=== PATIENT | male | born 1950 | race African-American/Black ===

== ENCOUNTER 2017-03-11 20:27 | Inpatient (IN) | payer MEDICAID ==
[2017-03-11 22:42] LABS: ABSOLUTE BASOPHILS # (AUTO) 0.1 10^3/uL (0.0-0.2); ABSOLUTE EOSINOPHILS # (AUTO) 0.2 10^3/uL (0.0-0.6); ABSOLUTE MONOCYTES (AUTO) 0.6 10^3/uL (0.1-1.4); ABSOLUTE NEUT (AUTO) 4.1 10^3/uL (1.7-8.2); EOSINOPHILS % (AUTO) 2.2 % (0-6); HEMATOCRIT 35.9 % (37.9-51.0); HEMOGLOBIN 12.1 g/dL (13.5-17.0); HGB HCT DIFFERENCE 0.4; LYMPHOCYTES % (AUTO) 28.8 % (13-45); MEAN CORPUSCULAR HEMOGLOBIN 28.7 pg (27.0-33.4); MEAN CORPUSCULAR HGB CONC 33.8 g/dL (32.0-36.0); MEAN CORPUSCULAR VOLUME 85 fl (80-97); MONOCYTES % (AUTO) 8.8 % (3-13); RED BLOOD COUNT 4.22 10^6/uL (4.35-5.55); RED CELL DISTRIBUTION WIDTH 12.9 % (11.5-14.0); SEGMENTED NEUTROPHILS % (AUTO) 59.2 % (42-78)
--- NOTE | 2017-03-11 22:46 | EKG REPORT ---
SEVERITY:- NORMAL ECG - SINUS RHYTHM : Confirmed by: Rubin Sawyer 11-Mar-2017 22:45:39
[2017-03-11 23:01] LABS: ALANINE AMINOTRANSFERASE 44 U/L (21-72); ALBUMIN 3.6 g/dL (3.5-5.0); ALKALINE PHOSPHATASE 127 U/L (38-126); AMYLASE 86 U/L (30-110); ANION GAP 11 (5-19); ASPARTATE AMINO TRANSFERASE 27 U/L (17-59); BILIRUBIN,DIRECT 0.3 mg/dL (0.0-0.4); BILIRUBIN,TOTAL 0.5 mg/dL (0.2-1.3); BLOOD UREA NITROGEN 26 mg/dL (7-20); CALCIUM 9.6 mg/dL (8.4-10.2); CARBON DIOXIDE 26 mmol/L (22-30); CHLORIDE 95 mmol/L (98-107); CREATININE RESULT 1.58 mg/dL (0.52-1.25); GLUCOSE 302 mg/dL (75-110); LIPASE 107.6 U/L (23-300); POTASSIUM 4.5 mmol/L (3.6-5.0); SODIUM 131.9 mmol/L (137-145); TOTAL PROTEIN 6.9 g/dL (6.3-8.2)
[2017-03-11] MEDS: NORMAL SALINE 1000 ML 1,000 ML IV PRN (23:17)
[2017-03-11] MEDS ORDERED: DEXTROSE 40% GEL 15 GM TUBE PO PRN (23:41)
[2017-03-11] MEDS ORDERED: GLUCAGON,HUMAN RECOMB 1 MG INJ IM PRN (23:41)
[2017-03-11] MEDS ORDERED: DEXTROSE 40% GEL 15 GM TUBE X 2 PO PRN (23:41)
[2017-03-11] MEDS ORDERED: DEXTROSE 50%-WATER SYRINGE 12.5 GM/25 ML DOSE IV PRN (23:41)
[2017-03-11] MEDS ORDERED: DEXTROSE 50%-WATER SYRINGE 25 GM/50 ML DOSE IV PRN (23:41)
[2017-03-11] MEDS ORDERED: CYCLOBENZAPRINE HCL 10 MG TABLET PO PRN (23:46)
[2017-03-12 00:27] LABS: APPEARANCE,URINE CLEAR; BILIRUBIN,URINE NEGATIVE (NEGATIVE); GLUCOSE, URINE >=500 mg/dL (NEGATIVE); KETONES,URINE NEGATIVE (NEGATIVE); LEUKOCYTE ESTERASE,URINE NEGATIVE (NEGATIVE); NITRITE,URINE NEGATIVE (NEGATIVE); PROTEIN,URINE 100 mg/dL (NEGATIVE); URINE SPECIFIC GRAVITY 1.016; UROBILINOGEN,URINE NEGATIVE mg/dL (<2.0)
[2017-03-12] MEDS: INSULIN LISPRO 100 UNIT/ML 3 ML VIAL SUBCUT PRN ×2 (00:44→12:09)
--- NOTE | 2017-03-12 05:56 | RADIOLOGY REPORT (SQ) ---
EXAM DESCRIPTION: CT ABD/PELVIS WITH IV ONLY COMPLETED DATE/TIME: 03/12/2017 12:29 am REASON FOR STUDY: abdominal pain COMPARISON: None. TECHNIQUE: CT scan of the abdomen and pelvis performed using helical scanning technique with dynamic intravenous contrast injection. No oral contrast. Images reviewed with lung, soft tissue, and bone windows. Reconstructed coronal and sagittal MPR images reviewed. Delayed images for evaluation of the urinary system also acquired. All images stored on PACS. All CT scanners at this facility use dose modulation, iterative reconstruction, and/or weight based d osing when appropriate to reduce radiation dose to as low as reasonably achievable (ALARA). [facility]: Dose Right [facility]: CareDose [facility]: Dose Right [facility]: Teradose 4D [facility]: [employer] CONTRAST TYPE AND DOSE: contrast/concentration: Isovue 370.00 mg/ml; Total Contrast Delivered: 100.0 ml; Total Saline Delivered: 71.0 ml RENAL FUNCTION: Creatinine 1.6 RADIATION DOSE: Up-to-date CT equipment and radiation dose reduction techniques were employed. CTDIv ol: 18.6 - 20.4 mGy. DLP: 2164 mGy-cm.. LIMITATIONS: None. FINDINGS: LOWER CHEST: No significant findings. No nodules or infiltrates. Small moderate coronary arterial calcification. The LIVER: Normal size. No masses. No dilated ducts. SPLEEN: Small size. No focal lesions. PANCREAS: No masses. No significant calcifications. No adjacent inflammation or peripancreatic fluid collections. Pancreatic duct not dilated. GALLBLADDER: 2.5 cm fundal soft tissue density lesion within the gallbladder. Small layered cholelit hiasis. ADRENAL GLANDS: No significant masses or asymmetry. RIGHT KIDNEY AND URETER: No solid masses. No significant calcifications. No hydronephrosis or hyd roureter. Mild perinephric fat stranding. LEFT KIDNEY AND URETER: No solid masses. No significant calcifications. No hydronephrosis or hydr oureter.Mild perinephric fat stranding. AORTA AND VESSELS: No aneurysm. No dissection. Renal arteries, SMA, celiac without stenosis. IVC aleksandr ter. RETROPERITONEUM: No retroperitoneal adenopathy, hemorrhage or masses. BOWEL AND PERITONEAL CAVITY: No masses or inflammatory changes. No free fluid or peritoneal masses. Mild haziness of mesenteric fat, nonspecific. APPENDIX: Normal. PELVIS: No mass. No free fluid. Normal bladder. ABDOMINAL WALL: No masses. No hernias. BONES: No significant or acute findings. OTHER: No other significant finding. IMPRESSION: Cholelithiasis and 2.5 cm nonspecific soft tissue density lesion at the gallbladder fund us. Correlation with abdominal sonogram recommended. TECHNICAL DOCUMENTATION: JOB ID: [id number] Quality ID # [id number]: Final reports with documentation of one or more dose reduction techniques (e.g., Au tomated exposure control, adjustment of the mA and/or kV according to patient size, use of iterative reconstruction technique) 2010 [employer]- All Rights Reserved
[2017-03-12] MEDS ORDERED: METFORMIN HCL 500 MG TABLET PO SCH (08:00)
[2017-03-12] MEDS: INSULIN GLARGINE,HUM.REC.ANLOG 1,000 UNIT/10 ML UNIT SUBCUT SCH ×2 (08:48→21:41)
[2017-03-12] MEDS ORDERED: (PENDING PHARMACY ID) (Losartan/Hydrochlorothiazide [Hyzaar 100-25 Tablet] 1 EACH) PO SCH (10:00)
[2017-03-12] MEDS: DULOXETINE HCL 30 MG CAPSULE.DR PO SCH (10:28)
[2017-03-12] MEDS: PIOGLITAZONE HCL 30 MG TABLET PO SCH (10:29)
[2017-03-12] MEDS: ASPIRIN 81 MG TABLET, CHEWABLE PO SCH (10:30)
[2017-03-12] MEDS: CLOPIDOGREL BISULFATE 75 MG TABLET PO SCH (10:30)
[2017-03-12] MEDS: HYDROCHLOROTHIAZIDE 25 MG TABLET PO SCH (10:30)
[2017-03-12] MEDS: LOSARTAN POTASSIUM 50 MG TABLET PO SCH (10:30)
[2017-03-12] MEDS: NORMAL SALINE 1000 ML 1,000 ML IV PRN ×2 (11:29→21:41)
--- NOTE | 2017-03-12 15:14 | PDOC H&P ---
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 The abdominal pain was diffuse, he was examined in the off, on palpation of the abdomen there was diffuse tenderness. He was admitted directly from the office into the hospital for evaluation, CAT scan of the abdomen and pelvis with IV contrast was done it is showed a 2.5 cm fundal soft tissue density lesion within the gallbladder,there is small layered cholelithiasis Past Medical History Cardiac Medical History: Reports: Hyperlipidema, Hypertension, Pulmonary Embolism Endocrine Medical History: Reports: Diabetes Mellitus Type 2 Renal/ Medical History: Reports: Chronic Kidney Disease Psychiatric Medical History: Reports: Depression Social History Smoking Status: Former Smoker Last Time Smoked: 1998 Frequency of Alcohol Use: None Hx Recreational Drug Use: No Drugs: None Hx Prescription Drug Abuse: No Family History Family History: None Parental Family History Reviewed: Yes Children Family History Reviewed: Yes Sibling(s) Family History Reviewed.: Yes Medication/Allergy Home Medications: Clopidogrel Bisulfate [Plavix 75 mg Tablet] 75 mg PO DAILY 07/27/13 Cyclobenzaprine HCl [Flexeril 10 mg Tablet] 10 mg PO Q8HP PRN 07/27/13 Insulin Glargine,Hum.rec.anlog [Lantus] 80 unit SQ QAM 07/27/13 Insulin Glargine,Hum.rec.anlog [Lantus] 80 unit SQ QHS 07/27/13 Losartan/Hydrochlorothiazide [Hyzaar 100-25 Tablet] 1 each PO DAILY 07/27/13 Aspirin [Aspirin 81 mg Chewable Tablet] 81 mg PO DAILY 09/05/13 Pioglitazone HCl [Actos 30 mg Tablet] 30 mg PO DAILY #30 tablet 09/06/13 Duloxetine HCl [Cymbalta] 60 mg PO DAILY 03/11/17 Metformin HCl [Glucophage] 1,000 mg PO BIDBS 03/11/17 Allergies/Adverse Reactions: iodine [Iodine] Allergy (Verified 07/27/13 17:04) Penicillins Allergy (Verified 07/27/13 17:04) Shellfish * [Shellfish] Allergy (Verified 07/27/13 17:04) Review of Systems Constitutional: PRESENT: weight gain Eyes: ABSENT: visual disturbances Ears: ABSENT: hearing changes Cardiovascular: ABSENT: chest pain, dyspnea on exertion, edema, orthropnea, palpitations Respiratory: ABSENT: cough, hemoptysis Gastrointestinal: PRESENT: abdominal pain Genitourinary: ABSENT: dysuria, hematuria Musculoskeletal: ABSENT: joint swelling Integumentary: ABSENT: rash, wounds Neurological: ABSENT: abnormal gait, abnormal speech, confusion, dizziness, focal weakness, syncope Psychiatric: ABSENT: anxiety, depression, homidical ideation, suicidal ideation Endocrine: ABSENT: cold intolerance, heat intolerance, menstrual abnormalities, polydipsia, polyuria Hematologic/Lymphatic: ABSENT: easy bleeding, easy bruising, lymphadenopathy Physical Exam Vital Signs: Temp Pulse Resp BP Pulse Ox 98.5 F 80 16 133/75 H 99 03/12/17 11:40 03/12/17 11:40 03/12/17 11:40 03/12/17 11:40 03/12/17 11:40 Intake & Output 03/11/17 03/12/17 03/13/17 06:59 06:59 06:59 Intake Total 564 Output Total 600 Balance -36 Weight 113.3 kg 113.3 kg General appearance: PRESENT: no acute distress, well-developed, well-nourished Head exam: PRESENT: atraumatic, normocephalic Eye exam: PRESENT: conjunctiva pink, EOMI, PERRLA Ear exam: PRESENT: normal external ear exam Mouth exam: PRESENT: moist, tongue midline Neck exam: PRESENT: full ROM Respiratory exam: PRESENT: clear to auscultation [place] Cardiovascular exam: PRESENT: RRR, +S1, +S2 Pulses: PRESENT: normal dorsalis pedis pul, +2 pedal pulses bilateral Vascular exam: PRESENT: normal capillary refill GI/Abdominal exam: PRESENT: normal bowel sounds, soft, tenderness Rectal exam: PRESENT: deferred Neurological exam: PRESENT: alert, CN II-XII grossly intact Psychiatric exam: PRESENT: appropriate affect, normal mood Skin exam: PRESENT: dry, intact, warm Results Laboratory Results: 03/11/17 22:20 03/11/17 22:20 03/11/17 03/11/17 03/11/17 22:20 22:20 23:58 WBC 7.0 RBC 4.22 L Hgb 12.1 L Hct 35.9 L MCV 85 MCH 28.7 MCHC 33.8 RDW 12.9 Plt Count 245 Seg Neutrophils % 59.2 Lymphocytes % 28.8 Monocytes % 8.8 Eosinophils % 2.2 Basophils % 1.0 Absolute Neutrophils 4.1 Absolute Lymphocytes 2.0 Absolute Monocytes 0.6 Absolute Eosinophils 0.2 Absolute Basophils 0.1 Sodium 131.9 L Potassium 4.5 Chloride 95 L Carbon Dioxide 26 Anion Gap 11 BUN 26 H Creatinine 1.58 H Est GFR ( Amer) 54 L Est GFR (Non-Af Amer) 44 L Glucose 302 H Calcium 9.6 Total Bilirubin 0.5 AST 27 ALT 44 Alkaline Phosphatase 127 H Total Protein 6.9 Albumin 3.6 Amylase 86 Lipase 107.6 Urine Color STRAW Urine Appearance CLEAR Urine pH 5.0 Ur Specific [place] 1.016 Urine Protein 100 H Urine Glucose (UA) >=500 H Urine Ketones NEGATIVE Urine Blood NEGATIVE Urine Nitrite NEGATIVE Ur Leukocyte Esterase NEGATIVE Urine WBC (Auto) 1 Urine RBC (Auto) 1 Impressions: Abdomen/Pelvis CT 03/12/17 00:00 IMPRESSION: Cholelithiasis and 2.5 cm nonspecific soft tissue density lesion at the gallbladder fundus. Correlation with abdominal sonogram recommended. Assessment & Plan - Diagnosis (1) Cholelithiases Qualifiers: Cholelithiasis location: gallbladder Cholecystitis presence: without cholecystitis Biliary obstruction: without biliary obstruction Qualified Code(s): K80.20 - Calculus of gallbladder without cholecystitis without obstruction Is this a current diagnosis for this admission?: Yes (2) Abnormal findings on diagnostic imaging of gall bladder Is this a current diagnosis for this admission?: Yes (3) Diabetes mellitus type 2 in obese Is this a current diagnosis for this admission?: Yes (4) Chronic kidney disease, stage 3 Is this a current diagnosis for this admission?: Yes - Plan Summary Plan Summary: CAT scan of the abdomen and pelvis showed abnormal soft tissue density within the gallbladder wall was cholelithiasis, the recommendation is to correlate this finding with ultrasound of the gallbladder, consultation will be requested from surgery because of a history of diabetes mellitus.
[2017-03-12 15:39] LABS: ABSOLUTE BASOPHILS # (AUTO) 0.1 10^3/uL (0.0-0.2); ABSOLUTE EOSINOPHILS # (AUTO) 0.1 10^3/uL (0.0-0.6); ABSOLUTE LYMPHOCYTES (AUTO) 1.6 10^3/uL (0.5-4.7); ABSOLUTE MONOCYTES (AUTO) 0.7 10^3/uL (0.1-1.4); ABSOLUTE NEUT (AUTO) 4.4 10^3/uL (1.7-8.2); BASOPHILS % (AUTO) 0.9 % (0-2); EOSINOPHILS % (AUTO) 1.9 % (0-6); HEMATOCRIT 36.6 % (37.9-51.0); HEMOGLOBIN 12.2 g/dL (13.5-17.0); LYMPHOCYTES % (AUTO) 23.3 % (13-45); MEAN CORPUSCULAR HEMOGLOBIN 28.5 pg (27.0-33.4); MEAN CORPUSCULAR HGB CONC 33.4 g/dL (32.0-36.0); MEAN CORPUSCULAR VOLUME 85 fl (80-97); RED BLOOD COUNT 4.29 10^6/uL (4.35-5.55); RED CELL DISTRIBUTION WIDTH 12.5 % (11.5-14.0); SEGMENTED NEUTROPHILS % (AUTO) 63.9 % (42-78); WHITE BLOOD COUNT 6.8 10^3/uL (4.0-10.5)
--- NOTE | 2017-03-12 16:11 | PDOC PROGRESS REPORT ---
Subjective Progress Note for:: 03/12/17 Subjective:: Is requested from surgery was admitted for evaluation of abdominal pain, CAT scan of the abdomen and pelvis was done, it showed abnormal density in the gallbladder and also stones in the gallbladder Physical Exam Vital Signs: Temp Pulse Resp BP Pulse Ox 98.5 F 89 16 133/75 H 99 03/12/17 11:40 03/12/17 14:00 03/12/17 11:40 03/12/17 11:40 03/12/17 11:40 Intake & Output 03/11/17 03/12/17 03/13/17 06:59 06:59 06:59 Intake Total 564 Output Total 600 Balance -36 Weight 113.3 kg 113.3 kg General appearance: PRESENT: no acute distress Eye exam: PRESENT: PERRLA Respiratory exam: PRESENT: clear to auscultation [place] Cardiovascular exam: PRESENT: +S1, +S2 GI/Abdominal exam: PRESENT: soft Results Laboratory Results: 03/12/17 15:30 03/12/17 15:30 03/11/17 03/11/17 03/11/17 22:20 22:20 23:58 WBC 7.0 RBC 4.22 L Hgb 12.1 L Hct 35.9 L MCV 85 MCH 28.7 MCHC 33.8 RDW 12.9 Plt Count 245 Seg Neutrophils % 59.2 Lymphocytes % 28.8 Monocytes % 8.8 Eosinophils % 2.2 Basophils % 1.0 Absolute Neutrophils 4.1 Absolute Lymphocytes 2.0 Absolute Monocytes 0.6 Absolute Eosinophils 0.2 Absolute Basophils 0.1 Sodium 131.9 L Potassium 4.5 Chloride 95 L Carbon Dioxide 26 Anion Gap 11 BUN 26 H Creatinine 1.58 H Est GFR ( Amer) 54 L Est GFR (Non-Af Amer) 44 L Glucose 302 H Calcium 9.6 Total Bilirubin 0.5 AST 27 ALT 44 Alkaline Phosphatase 127 H Total Protein 6.9 Albumin 3.6 Amylase 86 Lipase 107.6 Urine Color STRAW Urine Appearance CLEAR Urine pH 5.0 Ur Specific [place] 1.016 Urine Protein 100 H Urine Glucose (UA) >=500 H Urine Ketones NEGATIVE Urine Blood NEGATIVE Urine Nitrite NEGATIVE Ur Leukocyte Esterase NEGATIVE Urine WBC (Auto) 1 Urine RBC (Auto) 1 03/12/17 03/12/17 15:30 15:30 WBC 6.8 RBC 4.29 L Hgb 12.2 L Hct 36.6 L MCV 85 MCH 28.5 MCHC 33.4 RDW 12.5 Plt Count 236 Seg Neutrophils % 63.9 Lymphocytes % 23.3 Monocytes % 10.0 Eosinophils % 1.9 Basophils % 0.9 Absolute Neutrophils 4.4 Absolute Lymphocytes 1.6 Absolute Monocytes 0.7 Absolute Eosinophils 0.1 Absolute Basophils 0.1 Sodium Cancelled Potassium Cancelled Chloride Cancelled Carbon Dioxide Cancelled Anion Gap Cancelled BUN Cancelled Creatinine Cancelled Est GFR ( Amer) Cancelled Est GFR (Non-Af Amer) Cancelled Glucose Cancelled Calcium Cancelled Total Bilirubin Cancelled AST Cancelled ALT Cancelled Alkaline Phosphatase Cancelled Total Protein Cancelled Albumin Cancelled Amylase Lipase Urine Color Urine Appearance Urine pH Ur Specific [place] Urine Protein Urine Glucose (UA) Urine Ketones Urine Blood Urine Nitrite Ur Leukocyte Esterase Urine WBC (Auto) Urine RBC (Auto) Impressions: Abdomen/Pelvis CT 03/12/17 00:00 IMPRESSION: Cholelithiasis and 2.5 cm nonspecific soft tissue density lesion at the gallbladder fundus. Correlation with abdominal sonogram recommended. Assessment & Plan - Diagnosis (1) Cholelithiases Qualifiers: Cholelithiasis location: gallbladder Cholecystitis presence: without cholecystitis Biliary obstruction: without biliary obstruction Qualified Code(s): K80.20 - Calculus of gallbladder without cholecystitis without obstruction Is this a current diagnosis for this admission?: Yes (2) Abnormal findings on diagnostic imaging of gall bladder Is this a current diagnosis for this admission?: Yes (3) Diabetes mellitus type 2 in obese Is this a current diagnosis for this admission?: Yes (4) Chronic kidney disease, stage 3 Is this a current diagnosis for this admission?: Yes - Plan Summary Plan Summary: Consultation is requested from surgery
[2017-03-12 16:31] LABS: ALANINE AMINOTRANSFERASE 38 U/L (21-72); ALBUMIN 3.3 g/dL (3.5-5.0); ALKALINE PHOSPHATASE 98 U/L (38-126); ANION GAP 7 (5-19); ASPARTATE AMINO TRANSFERASE 28 U/L (17-59); BILIRUBIN,DIRECT 0.3 mg/dL (0.0-0.4); BILIRUBIN,TOTAL 0.5 mg/dL (0.2-1.3); BLOOD UREA NITROGEN 24 mg/dL (7-20); CALCIUM 9.4 mg/dL (8.4-10.2); CARBON DIOXIDE 25 mmol/L (22-30); CHLORIDE 102 mmol/L (98-107); CREATININE RESULT 1.28 mg/dL (0.52-1.25); GLUCOSE 188 mg/dL (75-110); POTASSIUM 4.3 mmol/L (3.6-5.0); SODIUM 133.8 mmol/L (137-145); TOTAL PROTEIN 6.7 g/dL (6.3-8.2)
[2017-03-12 20:30] LABS: APPEARANCE,URINE CLEAR; BILIRUBIN,URINE NEGATIVE (NEGATIVE); GLUCOSE, URINE >=500 mg/dL (NEGATIVE); KETONES,URINE NEGATIVE (NEGATIVE); LEUKOCYTE ESTERASE,URINE NEGATIVE (NEGATIVE); NITRITE,URINE NEGATIVE (NEGATIVE); PROTEIN,URINE 100 mg/dL (NEGATIVE); UROBILINOGEN,URINE NEGATIVE mg/dL (<2.0)
--- NOTE | 2017-03-13 01:07 | RADIOLOGY REPORT (SQ) ---
EXAM DESCRIPTION: U/S ABDOMEN LIMITED W/O DOP COMPLETED DATE/TIME: 03/12/2017 7:02 pm REASON FOR STUDY: lesion on gallbladder COMPARISON: 03/12/2017 TECHNIQUE: Dynamic and static grayscale images acquired of the abdomen and recorded on PACS. Additio nal selected color Doppler and spectral images recorded. LIMITATIONS: None. FINDINGS: PANCREAS: Obscured LIVER: No masses. Echotexture normal. LIVER VASCULATURE: Normal directional flow of the main portal vein and hepatic veins. GALLBLADDER: Stones are present. There also multiple soft tissue masses which in non dependent. The largest is in the fundus. Measures 2.6 cm. ULTRASOUND-DETECTED BILL'S SIGN: Negative. INTRAHEPATIC DUCTS AND COMMON DUCT: CBD and intrahepatic ducts normal caliber. No filling defects. INFERIOR VENA CAVA: Normal flow. AORTA: No aneurysm. RIGHT KIDNEY: Normal size. Normal echogenicity. No solid or suspicious masses. No hydronephrosis. No calcifications. PERITONEAL AND RIGHT PLEURAL SPACE: No ascites or effusions. OTHER: No other significant findings. IMPRESSION: Gallstones as well as soft tissue masses within the gallbladder. Tumor versus inflammat ory masses. TECHNICAL DOCUMENTATION: JOB ID: [id number]- All Rights Reserved
[2017-03-13 02:43] LABS: ABSOLUTE BASOPHILS # (AUTO) 0.1 10^3/uL (0.0-0.2); ABSOLUTE EOSINOPHILS # (AUTO) 0.1 10^3/uL (0.0-0.6); ABSOLUTE LYMPHOCYTES (AUTO) 1.9 10^3/uL (0.5-4.7); ABSOLUTE MONOCYTES (AUTO) 0.7 10^3/uL (0.1-1.4); ABSOLUTE NEUT (AUTO) 4.5 10^3/uL (1.7-8.2); BASOPHILS % (AUTO) 1.2 % (0-2); EOSINOPHILS % (AUTO) 1.7 % (0-6); HEMATOCRIT 36.8 % (37.9-51.0); HEMOGLOBIN 12.5 g/dL (13.5-17.0); HGB HCT DIFFERENCE 0.7; LYMPHOCYTES % (AUTO) 26.4 % (13-45); MEAN CORPUSCULAR HEMOGLOBIN 28.4 pg (27.0-33.4); MEAN CORPUSCULAR HGB CONC 33.9 g/dL (32.0-36.0); MEAN CORPUSCULAR VOLUME 84 fl (80-97); MONOCYTES % (AUTO) 9.3 % (3-13); RED CELL DISTRIBUTION WIDTH 13.1 % (11.5-14.0); SEGMENTED NEUTROPHILS % (AUTO) 61.4 % (42-78); WHITE BLOOD COUNT 7.3 10^3/uL (4.0-10.5)
[2017-03-13 02:58] LABS: ALANINE AMINOTRANSFERASE 39 U/L (21-72); ALBUMIN 3.3 g/dL (3.5-5.0); ALKALINE PHOSPHATASE 87 U/L (38-126); ASPARTATE AMINO TRANSFERASE 33 U/L (17-59); BILIRUBIN,DIRECT 0.4 mg/dL (0.0-0.4); BILIRUBIN,TOTAL 0.6 mg/dL (0.2-1.3); BLOOD UREA NITROGEN 22 mg/dL (7-20); CALCIUM 8.8 mg/dL (8.4-10.2); CHLORIDE 102 mmol/L (98-107); CREATININE RESULT 1.28 mg/dL (0.52-1.25); GLUCOSE 75 mg/dL (75-110); POTASSIUM 4.1 mmol/L (3.6-5.0); TOTAL PROTEIN 6.9 g/dL (6.3-8.2)
[2017-03-13 03:15] LABS: ANION GAP 4 (5-19); CARBON DIOXIDE 29 mmol/L (22-30); SODIUM 135.3 mmol/L (137-145)
[2017-03-13] MEDS: INSULIN GLARGINE,HUM.REC.ANLOG 1,000 UNIT/10 ML UNIT SUBCUT SCH ×2 (07:43→22:04)
[2017-03-13] MEDS: NORMAL SALINE 1000 ML 1,000 ML IV PRN (07:52)
[2017-03-13] MEDS: ASPIRIN 81 MG TABLET, CHEWABLE PO SCH (09:41)
[2017-03-13] MEDS: HYDROCHLOROTHIAZIDE 25 MG TABLET PO SCH (09:41)
[2017-03-13] MEDS: DULOXETINE HCL 30 MG CAPSULE.DR PO SCH (09:41)
[2017-03-13] MEDS: LOSARTAN POTASSIUM 50 MG TABLET PO SCH (09:42)
--- NOTE | 2017-03-13 11:01 | PDOC PROGRESS REPORT ---
Subjective Progress Note for:: 03/13/17 Subjective:: Patient was admitted for observation initially for evaluation of abdominal pain. The CAT scan of the abdomen and pelvis that was done showed a suspicious density in the gallbladder with stones on ultrasound of the gallbladder was recommended. Ultrasound showed multiple soft tissue masses within the gallbladder, stones were also found the gallbladder, the differential diagnosis included neoplasm versus inflammatory masses. Patient will require cholecystectomy, consultation from surgery already obtained. Based on the revised cardiac risk index score, he has a history of coronary artery disease, he has no history of cardiomyopathy, he has no history of CVA, he has no history of chronic kidney disease with serum creatinine of more than 2 he has a history of insulin requiring diabetes mellitus, based on the revised cardiac risk index score he has moderate risk of cardiac event in the perioperative period Physical Exam Vital Signs: Temp Pulse Resp BP Pulse Ox 98.1 F 87 16 128/65 H 100 03/13/17 09:28 03/13/17 09:28 03/13/17 09:28 03/13/17 09:28 03/13/17 09:28 Intake & Output 03/12/17 03/13/17 03/14/17 06:59 06:59 06:59 Intake Total 564 3900 Output Total 600 2775 Balance -36 1125 Weight 113.3 kg 113.7 kg General appearance: PRESENT: no acute distress Eye exam: PRESENT: PERRLA Respiratory exam: PRESENT: clear to auscultation [place] Cardiovascular exam: PRESENT: +S1, +S2 GI/Abdominal exam: PRESENT: soft Neurological exam: PRESENT: alert, CN II-XII grossly intact Results Laboratory Results: 03/13/17 02:34 03/13/17 02:34 03/12/17 03/12/17 03/12/17 15:30 15:30 16:13 WBC 6.8 RBC 4.29 L Hgb 12.2 L Hct 36.6 L MCV 85 MCH 28.5 MCHC 33.4 RDW 12.5 Plt Count 236 Seg Neutrophils % 63.9 Lymphocytes % 23.3 Monocytes % 10.0 Eosinophils % 1.9 Basophils % 0.9 Absolute Neutrophils 4.4 Absolute Lymphocytes 1.6 Absolute Monocytes 0.7 Absolute Eosinophils 0.1 Absolute Basophils 0.1 Sodium Cancelled 133.8 L Potassium Cancelled 4.3 Chloride Cancelled 102 Carbon Dioxide Cancelled 25 Anion Gap Cancelled 7 BUN Cancelled 24 H Creatinine Cancelled 1.28 H Est GFR ( Amer) Cancelled > 60 Est GFR (Non-Af Amer) Cancelled 57 L Glucose Cancelled 188 H Calcium Cancelled 9.4 Total Bilirubin Cancelled 0.5 AST Cancelled 28 ALT Cancelled 38 Alkaline Phosphatase Cancelled 98 Total Protein Cancelled 6.7 Albumin Cancelled 3.3 L Urine Color Urine Appearance Urine pH Ur Specific [place] Urine Protein Urine Glucose (UA) Urine Ketones Urine Blood Urine Nitrite Ur Leukocyte Esterase Urine WBC (Auto) Urine RBC (Auto) 03/12/17 03/13/17 03/13/17 20:02 02:34 02:34 WBC 7.3 RBC 4.40 Hgb 12.5 L Hct 36.8 L MCV 84 MCH 28.4 MCHC 33.9 RDW 13.1 Plt Count 233 Seg Neutrophils % 61.4 Lymphocytes % 26.4 Monocytes % 9.3 Eosinophils % 1.7 Basophils % 1.2 Absolute Neutrophils 4.5 Absolute Lymphocytes 1.9 Absolute Monocytes 0.7 Absolute Eosinophils 0.1 Absolute Basophils 0.1 Sodium 135.3 L Potassium 4.1 Chloride 102 Carbon Dioxide 29 Anion Gap 4 L BUN 22 H Creatinine 1.28 H Est GFR ( Amer) > 60 Est GFR (Non-Af Amer) 57 L Glucose 75 Calcium 8.8 Total Bilirubin 0.6 AST 33 ALT 39 Alkaline Phosphatase 87 Total Protein 6.9 Albumin 3.3 L Urine Color STRAW Urine Appearance CLEAR Urine pH 6.0 Ur Specific [place] 1.010 Urine Protein 100 H Urine Glucose (UA) >=500 H Urine Ketones NEGATIVE Urine Blood NEGATIVE Urine Nitrite NEGATIVE Ur Leukocyte Esterase NEGATIVE Urine WBC (Auto) 3 Urine RBC (Auto) 1 Impressions: Abdomen/Pelvis CT 03/12/17 00:00 IMPRESSION: Cholelithiasis and 2.5 cm nonspecific soft tissue density lesion at the gallbladder fundus. Correlation with abdominal sonogram recommended. Abdomen Ultrasound 03/12/17 18:00 IMPRESSION: Gallstones as well as soft tissue masses within the gallbladder. Tumor versus inflammatory masses. Assessment & Plan - Diagnosis (1) Cholelithiases Qualifiers: Cholelithiasis location: gallbladder Cholecystitis presence: without cholecystitis Biliary obstruction: without biliary obstruction Qualified Code(s): K80.20 - Calculus of gallbladder without cholecystitis without obstruction Is this a current diagnosis for this admission?: Yes (2) Abnormal findings on diagnostic imaging of gall bladder Is this a current diagnosis for this admission?: Yes (3) Diabetes mellitus type 2 in obese Is this a current diagnosis for this admission?: Yes (4) Chronic kidney disease, stage 3 Is this a current diagnosis for this admission?: Yes (5) Neoplasm of uncertain behavior of gallbladder Is this a current diagnosis for this admission?: YesPlan: Patient will require cholecystectomy, the status will be changed to inpatient from observation
[2017-03-13] MEDS: METOPROLOL SUCCINATE 50 MG TAB.SR.24H PO SCH (12:49)
[2017-03-13] MEDS: PIOGLITAZONE HCL 30 MG TABLET PO SCH (12:51)
--- NOTE | 2017-03-13 16:27 | CONSULTATION REPORT E ---
Consultation Report NAME: CORKY JURADO : 1950 AGE: 66Y DATE: 03/13/2017 326 A TO: YAMILA MENDOZA M.D. FROM: YUSEF SOMERS M.D. Requesting Physician REASON FOR CONSULTATION: Patient with gallstones and soft tissue mass in the gallbladder. HISTORY OF PRESENT ILLNESS: This is a 66-year-old male who has a history of type 2 diabetes, complained of abdominal pains. 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 The pains were more in the lower abdomen but radiated to the upper abdomen. He had an ultrasound of the gallbladder which showed gallstones and soft tissue mass in the gallbladder. The soft tissue mass may be tumor versus inflammatory masses. The patient denies any fatty food intolerance and no definite pain primarily along the right upper quadrant. PAST MEDICAL HISTORY: Reports hyperlipidemia, hypertension, pulmonary embolism and had a vena cava filter on a CAT scan in the inferior vena cava. Endocrine: Reports diabetes mellitus type 2. Renal/: Reports chronic kidney disease. Psychiatric: He reports depression. SOCIAL HISTORY: Former smoker and denies smoking since 1998. Denies alcohol use or recreational drug use. FAMILY HISTORY: Noncontributory. ALLERGIES: PENICILLIN; ALLERGIC TO IODINE AND SHELLFISH. MEDICATIONS: 1. Plavix. 2. Flexeril. 3. Lantus insulin. 4. Hyzaar. 5. Baby aspirin. 6. Actos. 7. Cymbalta. 8. Metformin. REVIEW OF SYSTEMS: The patient claims that he lost about 20 pounds in 8 months per his primary physician's recommendations because of his diabetes. EENT: No visual problems. He had some hearing problems on the right side. Cardiovascular: Denies any chest pain. Respiratory: No cough or hemoptysis. GI: Abdominal pains as in HPI. Genitourinary: No dysuria. Musculoskeletal: Denies joint pains. Integumentary: No skin rash. Neurologic: No seizures or confusion episodes. Psychiatric: Absent depression or anxiety. Endocrine: Absent cold intolerance or heat intolerance. Hematologic: Absent easy bruisability. The rest of the systems reviewed and unremarkable. PHYSICAL EXAMINATION: VITAL SIGNS: Temperature 98.5, pulse 80, respiratory rate 16 per minute, blood pressure 133/75, pulse oximetry of 99 on room air. GENERAL APPEARANCE: The patient is well-developed, well-nourished male, alert and oriented, in no apparent acute distress. HEENT: Neck is supple. No thyromegaly. RESPIRATORY: Lungs are clear. HEART: Regular sinus rhythm. ABDOMEN: Soft with mild tenderness in both lower quadrants. Has a symptomatic small umbilical hernia which he has had for a long time. RECTAL: Deferred. NEUROLOGIC: The patient is alert and oriented x3. PSYCHIATRIC: Appropriate affect. SKIN: Dry and warm. LABORATORY RESULTS: His LFTs are normal and white count is normal. Hemoglobin is actually 12.5 this morning. His BUN is 22 and creatinine of 1.28. *------* 18, A1c is 12 and is elevated. Urine elevated glucose but no signs of infection. IMPRESSION: 1. Diabetes mellitus type 2. 2. Abdominal pain likely due to muscular strain. 3. Gallstones and soft tissue mass in the gallbladder. RECOMMENDATIONS: I had a long talk with the patient and on the phone and since he is essentially asymptomatic as far as the gallbladder is concerned, I would like to wait another day or so before doing laparoscopic cholecystectomy. He is not symptomatic as far as the gallbladder is concerned at this time. He may need a bigger operation for the gallbladder if indeed he has thick adhesions in the liver, and it is probably best to do this tomorrow and I will discuss it with Dr. Velez who most likely will be doing the procedure. I gave the option to the family to have the surgery done at another hospital, but they decided to just have the operation here at [facility]. DICTATING PHYSICIAN: YAMILA MENDOZA M.D. [id number] PHY#: [id number] ID: [id number] JOB#: [id number] ACCT: [id number] cc:YAMILA MENDOZA M.D. >
[2017-03-13] MEDS: INSULIN LISPRO 100 UNIT/ML 3 ML VIAL SUBCUT PRN (17:09)
[2017-03-14] MEDS: NORMAL SALINE 1000 ML 1,000 ML IV PRN (01:29)
[2017-03-14] MEDS: DULOXETINE HCL 30 MG CAPSULE.DR PO SCH (09:41)
[2017-03-14] MEDS: LOSARTAN POTASSIUM 50 MG TABLET PO SCH (09:41)
[2017-03-14] MEDS: ASPIRIN 81 MG TABLET, CHEWABLE PO SCH (09:41)
[2017-03-14] MEDS: HYDROCHLOROTHIAZIDE 25 MG TABLET PO SCH (09:42)
[2017-03-14] MEDS: CLOPIDOGREL BISULFATE 75 MG TABLET PO SCH (09:42)
[2017-03-14] MEDS: PIOGLITAZONE HCL 30 MG TABLET PO SCH (09:48)
[2017-03-14] MEDS: INSULIN GLARGINE,HUM.REC.ANLOG 1,000 UNIT/10 ML UNIT SUBCUT SCH (09:50)
--- NOTE | 2017-03-14 10:38 | Physician Advisory Note ---
Physician Advisor ProgressNote .: Pursuant to the plan for [facility], I have reviewed the medical record for this patient. Physician Advisor Statement: Please consider documentin. "Acute Kidney Injury/ARF likely due to , now improved" (baseline Cr 0.9) 2. ? "Acute hyponatremia, likely due to ___" [HCTZ? intravascular volume depletion?, ...] 3. "I am concerned about recurrent Acute hypoglycemia ..." 4. "We are concerned about " [explicitly document any other reasons pt didn't go straight on to surgery 03/13 or 03/14, reasons pt was offered transfer to bigger hospital, ...) Status: 66yo w/DM-2/neuropathy/nephropathy, CKD-3, HTN, HLD, PE in past, came in 03/11 due to abd pain that surgeon suspects was muscle strain, but was incidently found to have asymptomatic GB masses that could be cancerous, along with mild hyponatremia & SANDRA. On HCTZ at baseline. (+) mild anemia. Pt w/hyperglycemia of 302 initially, A1C 12.0 shows evidence of VERY poor control of FSBS's over last 3mo - i.e. avg glc 300-350. Surgeon made pt NPO early on 03/13. Put in hospital on usual outpt doses of Lantus 80 AM & HS, + metformin & Actos, and dropped FSBS to 64 at 3AM on 03/13 (w/associated diaphoresis & weakness per nursing note), climbing up only as high as 170 later in day. - AM dose of Lantus 80 units was held on 03/13 AM due to hypoglycemia & NPO status, but HS dose of 80 units was given. Surgeon indicated concerns for thick adhesions in the liver, concerns that pt would need "bigger operation" for GB than simple lap pily. (There is significant concern that this may be a cancerous process which may require more complex surgery, & surgeon even offered transfer to larger hospital initially, but pt/family preferred to stay at [facility].) On 03/14, Glc dropped again to 59 at 06:32 & then 62 @09:12. - AM dose of Lantus 80 units was again held on 03/14 AM per nursing, but pt is still scheduled for HS dose. DM is not sufficiently controlled to safely proceed to surgery - continued & worsening hypoglycemia presents high risk for additional complications if pt taken to surgery on 03/14. Accordingly, surgeon has ordered diet for pt, which may help hypoglycemia for now but precludes immediate surgery. Pt may require significant adjustments to DM tx sandoval-operatively in order to stabilize glc control adequately for pt safety before surgery can proceed. Appropriate for Inpatient status as of 03/13, as ordered by attending, with attending documentation of concerns such as above. Thanks! CK
--- NOTE | 2017-03-14 12:05 | PDOC PROGRESS REPORT ---
Subjective Subjective:: Feels better today. Feels like he had musculoskeletal strain from lifting tires. He has been up walking and wants something to eat. Physical Exam Vital Signs: Temp Pulse Resp BP Pulse Ox 97.9 F 71 16 113/50 L 100 03/14/17 07:07 03/14/17 07:07 03/14/17 07:07 03/14/17 07:07 03/14/17 07:07 Intake & Output 03/13/17 03/14/17 03/15/17 06:59 06:59 06:59 Intake Total 3900 2235 Output Total 2775 1900 Balance 1125 335 Weight 113.7 kg 114.4 kg General appearance: PRESENT: no acute distress GI/Abdominal exam: PRESENT: other - Soft, nontender no peritoneal signs no rigidity. Results Laboratory Results: 03/13/17 02:34 03/13/17 02:34 03/11/17 23:55 Clean Catch Midstream Urine Culture - Final NO GROWTH 2 DAYS Impressions: Abdomen/Pelvis CT 03/12/17 00:00 IMPRESSION: Cholelithiasis and 2.5 cm nonspecific soft tissue density lesion at the gallbladder fundus. Correlation with abdominal sonogram recommended. Abdomen Ultrasound 03/12/17 18:00 IMPRESSION: Gallstones as well as soft tissue masses within the gallbladder. Tumor versus inflammatory masses. Assessment & Plan - Diagnosis (1) Abnormal findings on diagnostic imaging of gall bladder Is this a current diagnosis for this admission?: YesPlan: Assessment and plan I have reviewed the patient's record, and imaging studies. The CT scan and ultrasound of the right upper quadrant show at least cholelithiasis, and intraluminal gallbladder mass is consistent with soft tissue growth suspicious for malignancy. There is no evidence of intrahepatic, extrahepatic, pancreatic or mesenteric pathology. Patient is clinically improved, so there is no immediate indication for surgical intervention on his abdomen, specifically gallbladder removal. Furthermore, given the imaging studies above, I would suggest patient be evaluated and treated for possible primary gallbladder malignancy. Operative intervention would require cholecystectomy, possible lymphadenectomy, possible partial liver resection. This should be performed at an institution engaged in hepatobiliary surgery. I have spoken with my colleague Dr. Amish Quigley, director of surgical oncology [facility]. He is agreed to see the patient on an outpatient basis this coming Tuesday. We will set up an appointment for the patient to be seen by Dr. Quigley. I discussed the above with Dr. Vergara who is cross covering for Dr. Cavazos. We will see the patient resume Plavix and anticipate discharge home from the hospital.
--- NOTE | 2017-03-14 13:08 | PDOC DISCHARGE SUMMARY ---
General - Admit/Disc Date/PCP Admission Date/Primary Care Provider: 03/13/17 11:03 YUSEF SOMERS MD Discharge Date: 03/14/17 - Discharge Diagnosis (1) Abnormal findings on diagnostic imaging of gall bladder Is this a current diagnosis for this admission?: YesSummary: Possible most likely a gallbladder malignancy as per discussed with the surgery scheduled to see our surgical oncologist at the [place] this week (2) Cholelithiases Is this a current diagnosis for this admission?: YesSummary: Per surgery no need for surgical intervention (3) Chronic kidney disease, stage 3 Is this a current diagnosis for this admission?: YesSummary: Currently stable (4) Diabetes mellitus type 2 in obese Is this a current diagnosis for this admission?: YesSummary: Continues current medication (5) Neoplasm of uncertain behavior of gallbladder Is this a current diagnosis for this admission?: YesSummary: Patient scheduled to see surgical oncologist (6) Coronary artery disease Is this a current diagnosis for this admission?: YesSummary: As per discussed with the Dr. Gupta scheduled for the stress test on this Tuesday before the surgery otherwise no need for further evaluation in this hospital - Additional Information Discharge Diet: Diabetic Discharge Activity: Activity As Tolerated Home Medications: Clopidogrel Bisulfate [Plavix 75 mg Tablet] 75 mg PO DAILY 07/27/13 Cyclobenzaprine HCl [Flexeril 10 mg Tablet] 10 mg PO Q8HP PRN 07/27/13 Insulin Glargine,Hum.rec.anlog [Lantus] 80 unit SQ QAM 07/27/13 Insulin Glargine,Hum.rec.anlog [Lantus] 80 unit SQ QHS 07/27/13 Losartan/Hydrochlorothiazide [Hyzaar 100-25 Tablet] 1 each PO DAILY 07/27/13 Aspirin [Aspirin 81 mg Chewable Tablet] 81 mg PO DAILY 09/05/13 Pioglitazone HCl [Actos 30 mg Tablet] 30 mg PO DAILY #30 tablet 09/06/13 Duloxetine HCl [Cymbalta] 60 mg PO DAILY 03/11/17 Metformin HCl [Glucophage] 1,000 mg PO BIDBS 03/11/17 History of Present Illness History of Present Illness: CORKY Campos ADRIEN VILLANUEVA is a 66 year old male Patient was admitted by Dr. Somers for abdominal pain and further evaluations from his office Hospital Course Hospital Course: Is a 66-year-old male went to the Dr. Somers's office with a complaint for abdominal pain and he admitted the patient's to further evaluate and patient underwent for the CT scanWith so some cholelithiasis or soft tissue mass which is possible suggest underlying malignancy Surgical list was consulted and patient was further evaluate and at this point suggest the patient is currently asymptomatic, no more pain and make arrangement to see a surgical oncologist at [place] And suggest the patient should be discharge Patient's p.o. intake is good patient's walk in the hallway Also discussed with the patient's clinical studies specialist Dr. urbano and suggest the patient should be a schedule stress test as outpatient this Tuesday otherwise no need for further evaluations Discussed with the patient and the family and patient's discharge home with the stable conditions and follow outpatient as above Physical Exam Vital Signs: Temp Pulse Resp BP Pulse Ox 97.9 F 71 16 113/50 L 100 03/14/17 07:07 03/14/17 07:07 03/14/17 07:07 03/14/17 07:07 03/14/17 07:07 Intake & Output 03/13/17 03/14/17 03/15/17 06:59 06:59 06:59 Intake Total 3900 2235 Output Total 2775 1900 Balance 1125 335 Weight 113.7 kg 114.4 kg General appearance: PRESENT: no acute distress, well-developed, well-nourished Head exam: PRESENT: atraumatic, normocephalic Eye exam: PRESENT: conjunctiva pink, EOMI, PERRLA. ABSENT: scleral icterus Ear exam: PRESENT: normal external ear exam Mouth exam: PRESENT: moist, tongue midline Neck exam: PRESENT: full ROM. ABSENT: carotid bruit, JVD, lymphadenopathy, thyromegaly Respiratory exam: PRESENT: clear to auscultation [place] Cardiovascular exam: PRESENT: RRR. ABSENT: diastolic murmur, rubs, systolic murmur Pulses: PRESENT: normal dorsalis pedis pul, +2 pedal pulses bilateral Vascular exam: PRESENT: normal capillary refill GI/Abdominal exam: PRESENT: normal bowel sounds, soft. ABSENT: distended, guarding, mass, organolmegaly, rebound, tenderness Rectal exam: PRESENT: deferred Neurological exam: PRESENT: alert, awake, oriented to person, oriented to place , oriented to time, oriented to situation, CN II-XII grossly intact. ABSENT: motor sensory deficit Psychiatric exam: PRESENT: appropriate affect, normal mood. ABSENT: homicidal ideation, suicidal ideation Skin exam: PRESENT: dry, intact, warm. ABSENT: cyanosis, rash Results Laboratory Results: 03/13/17 02:34 03/13/17 02:34 03/11/17 23:55 Clean Catch Midstream Urine Culture - Final NO GROWTH 2 DAYS Impressions: Abdomen/Pelvis CT 03/12/17 00:00 IMPRESSION: Cholelithiasis and 2.5 cm nonspecific soft tissue density lesion at the gallbladder fundus. Correlation with abdominal sonogram recommended. Abdomen Ultrasound 03/12/17 18:00 IMPRESSION: Gallstones as well as soft tissue masses within the gallbladder. Tumor versus inflammatory masses. Plan Time Spent: Greater than 30 Minutes - Follow outpatient surgical oncologist this week and follow with the stress test per cardiology this week
[2017-03-14] MEDS: METOPROLOL SUCCINATE 50 MG TAB.SR.24H PO SCH (13:40)
[2017-03-14 15:21] VITALS: BP 147/86
[2017-03-14] MEDS ORDERED: INSULIN GLARGINE,HUM.REC.ANLOG 1,000 UNIT/10 ML UNIT SUBCUT SCH (22:00)
[2017-03-15] MEDS ORDERED: INSULIN GLARGINE,HUM.REC.ANLOG 1,000 UNIT/10 ML UNIT SUBCUT SCH (08:00)
== END 2017-03-14 18:15 | disposition home or self-care (01) | DRG 437 ==
LOC: 3S 20:27 → OBSVTOIN 03-13 11:03 → 3S 03-13 18:47
PROVIDERS: ADMIT Internal Medicine; ATTEND Internal Medicine
DX: D37.6 Neoplasm of uncertain behavior of liver, gallbladder and bile ducts (principal); K80.20 Calculus of gallbladder without cholecystitis without obstruction; I12.9 Hypertensive chronic kidney disease with stage 1 through stage 4 chronic kidney disease, or unspecified chronic kidney disease; E11.22 Type 2 diabetes mellitus with diabetic chronic kidney disease; N18.3 Chronic kidney disease, stage 3 (moderate); E11.40 Type 2 diabetes mellitus with diabetic neuropathy, unspecified; E11.21 Type 2 diabetes mellitus with diabetic nephropathy; E66.9 Obesity, unspecified; Z68.35 Body mass index [BMI] 35.0-35.9, adult; I25.10 Atherosclerotic heart disease of native coronary artery without angina pectoris; Z79.4 Long term (current) use of insulin; Z79.84 Long term (current) use of oral hypoglycemic drugs; E78.5 Hyperlipidemia, unspecified; F32.9 Major depressive disorder, single episode, unspecified; Z86.711 Personal history of pulmonary embolism; Z95.828 Presence of other vascular implants and grafts; Z79.02 Long term (current) use of antithrombotics/antiplatelets; Z79.899 Other long term (current) drug therapy; Z87.891 Personal history of nicotine dependence; Z88.0 Allergy status to penicillin; Z88.8 Allergy status to other drugs, medicaments and biological substances; Z91.013 Allergy to seafood
CPT/HCPCS: 36415; 74177; 76705; 80048; 80053; 80076; 81001; 82150; 82962; 83036; 83690; 85025; 87040; 87086; 93005; 93010; J1815; J3490; J7030

== ENCOUNTER → 2017-03-16 | Outpatient (CLI) | payer MEDICAID ==
[~2017-03-16] MED LIST: AMINOPHYLLINE INJ/PF 250 MG/10 ML SDV IV ONE; REGADENOSON INJ 0.4 MG/5 ML DISP.SYRIN IV ONE
--- NOTE | 2017-03-17 10:57 | DRAGON STRESS TEST REPORT ---
INTRAVENOUS LEXISCAN CARDIOLITE STRESS TEST USING SINGLE PHOTON EMMISION COMPUTERIZED TOMOGRAPHIC. INDICATION : Chest pain CARDIAC RISK FACTORS: Diabetes, hypertension, family history of CAD, known CAD with prior stent placement RESTING EKG: Sinus rhythm with minor nonspecific T-wave changes STRESS EKG: No significant changes noted with LexiScan bolus REASON FOR TERMINATION: Protocol. PROCEDURE REPORT: Baseline heart rate 88 beats per minute with blood pressure of 120/69. Patient had no significant complaints. Heart rate at 2 minutes post bolus 101 with a blood pressure of 117/71. 3 minutes post bolus heart rate 96 with blood pressure of 111/70. No significant EKG changes were noted. Patient had no significant complaints during the procedure or postprocedure. Patient injected with Aminophyllin 75 mg at 3 minutes or later after Lexiscan bolus. CONCLUSIONS: Normal EKG and hemodynamic response to IV LexiScan. NUCLEAR DATA: At rest the patient was given 14.72 millicuries of technetium 99 sestamibi injected intravenously. As per protocol rest gated SPECT images were obtained. Subsequently the patient was given intravenous LexiScan at a dose of 0.4 mg in 5 mL intravenously, followed by flush with normal saline. Subsequently the stress dose of 46.0 millicuries of technetium 99 sestamibi was injected intravenously. As per protocol stress gated images were obtained. NUCLEAR INTERPRETATION: Both raw and processed data were used for interpretation. Visual, qualitative, computer-generated quantitative data was used. There was good myocardial uptake of technetium compound. Motion artifact and soft tissue attenuations were noted. Increased visceral uptake was noted. No definitive areas of transient perfusion defect noted. No definitive areas of fixed perfusion defect or scars noted. EKG gated imaging showed LV EF at 48 %, rest and stress gated EF similar visually. T. I D. ratio was 0.94. Lung heart ratio noted to be within normal limits 0.30. No significant extracardiac and abnormal radiotracer activities were noted. RV free wall uptake was noted to be increased. IMPRESSION: Also refer to comments under nuclear interpretation. Also test results needs to be interpreted in the context of pretest probability. 1. There is no definitive scintigraphic evidence of LexiScan induced myocardial ischemia. 2. There is no definitive scintigraphic evidence of myocardial infarction/scar. 3. EKG gated imaging shows left ventricular ejection fraction of approximately 48 %. RVH noted. 4. Clinical correlation requested as occasionally single vessel disease or balanced ischemia could be missed. In approximately 10% of the cases Lexiscan may not cause adequate vasodilatory stress. RECOMMENDATIONS: Aggressive risk factor modification, medical therapy. Clinical correlation with echocardiogram derived ejection fraction. Inability to exercise by itself can lead to increased cardiovascular event risks. Consider cardiology consultation and or follow-up if clinically indicated. I AM AVAILABLE FOR CARDIOLOGY CONSULTATION AND FOLLOWUP IF REQUESTED BY PMD Rubin Sawyer M.D., [employer] public health teacher, Board certified in cardiovascular diseases, Nuclear cardiology, Echocardiography Cardiac CT and cardiac MRI Ph. [phone] [facility]
== END ==
LOC: RAD 07:08
PROVIDERS: ATTEND Family Medicine
DX: Z01.810 Encounter for preprocedural cardiovascular examination (principal); I25.10 Atherosclerotic heart disease of native coronary artery without angina pectoris
CPT/HCPCS: 93017; 78452; A9500; J2785; J0280; Q9969

== ENCOUNTER → 2017-10-18 | Outpatient (CLI) | payer MEDICAID ==
--- NOTE | 2017-10-18 17:03 | RADIOLOGY REPORT (SQ) ---
EXAM DESCRIPTION: VENOUS UNILATERAL LOWER COMPLETED DATE/TIME: 10/18/2017 4:52 pm REASON FOR STUDY: RLE SWELLING R22.41 LOCALIZED SWELLING, MASS AND LUMP, RIGHT LOWER LIMB COMPARISON: None. TECHNIQUE: Dynamic and static bates scale and color images acquired of the right leg venous system. S elected spectral images acquired with additional compression and augmentation maneuvers. The contrala teral common femoral vein and saphenofemoral junction were also imaged. Images stored on PACS. LIMITATIONS: None. FINDINGS: COMMON FEMORAL: Normal phasicity, compression and augmentation. No visualized echogenic ma terial on bates scale. No defects on color images. FEMORAL: Normal compression and augmentation. No visualized echogenic material on bates scale. No defe cts on color images. POPLITEAL: Normal compression, augmentation. No visualized echogenic material on bates scale. No defec ts on color images. CALF VESSELS: Normal compression, augmentation. No visualized echogenic material on bates scale. No de fects on color images. GSV and SSV: Normal compression, augmentation. No visualized echogenic material on bates scale. No def ects on color images. ANY DEEP VENOUS INSUFFICIENCY: Not evaluated. ANY EVIDENCE OF POPLITEAL CYST: No. OTHER: No other significant finding. CONTRALATERAL COMMON FEMORAL VEIN AND SAPHENOFEMORAL JUNCTION: Normal phasicity, compression and augmentation. No visualized echogenic material on bates scale. No de fects on color images. IMPRESSION: NO EVIDENCE DVT OR SVT IN THE RIGHT LEG. TECHNICAL DOCUMENTATION: JOB ID: [id number] [employer]- All Rights Reserved Reading location - IP/workstation name: [email or web address]
== END ==
LOC: SP 16:12
PROVIDERS: ATTEND Internal Medicine
DX: R22.41 Localized swelling, mass and lump, right lower limb (principal)
CPT/HCPCS: 93971

== ENCOUNTER 2017-10-24 16:19 | Emergency (ER) | payer MEDICAID ==
--- NOTE | 2017-10-24 17:45 | ER Document Report ---
ED Medical Screen (RME) - General Chief Complaint: Leg Pain Stated Complaint: RIGHT LEG PAIN Time Seen by Provider: 10/24/17 17:36 Mode of Arrival: Wheelchair Information source: Patient Notes: 66 yo male playing wth grandson in [facility] (october 15) and he was trying to lift him up up while he was on his ankles, and he would straighten legs to lift him up. He would run and jump on his legs. c/o pain right medial lower leg. Hx DVT left leg. PCP: dr. Cavazos sent for venous doppler US (negative) for this problem tue or of last week and tx him with antibiotics which have not helped. Hurts to get out of bed because of the pain, but pain does down the more he walks. TRAVEL OUTSIDE OF THE [place] IN LAST 30 DAYS: No - Related Data Allergies/Adverse Reactions: iodine [Iodine] Allergy (Verified 10/24/17 16:24) Penicillins Allergy (Verified 10/24/17 16:24) Shellfish * [Shellfish] Allergy (Verified 10/24/17 16:24) Past Medical History - Past Medical History Cardiac Medical History: Reports: Hx Heart Attack - stents, Hx Hypercholesterolemia, Hx Hypertension, Hx Pulmonary Embolism Pulmonary Medical History: Denies: Hx Tuberculosis Endocrine Medical History: Reports: Hx Diabetes Mellitus Type 2 Psychiatric Medical History: Reports: Hx Depression - Immunizations Hx Diphtheria, Pertussis, Tetanus Vaccination: Yes Physical Exam - Vital signs Vitals: Temp Pulse Resp BP Pulse Ox 98.0 F 116 H 18 103/71 100 10/24/17 16:32 10/24/17 16:32 10/24/17 16:32 10/24/17 16:32 10/24/17 16:32 Course - Vital Signs Vital signs: Temp Pulse Resp BP Pulse Ox 98.0 F 116 H 18 103/71 100 10/24/17 16:32 10/24/17 16:32 10/24/17 16:32 10/24/17 16:32 10/24/17 16:32
[2017-10-24] MEDS ORDERED: ACETAMINOPHEN 325 MG TABLET PO ONE (17:46)
--- NOTE | 2017-10-24 18:22 | RADIOLOGY REPORT (SQ) ---
EXAM DESCRIPTION: TIBIA FIBULA RIGHT COMPLETED DATE/TIME: 10/24/2017 6:08 pm REASON FOR STUDY: possible fx COMPARISON: None. NUMBER OF VIEWS: Two views. TECHNIQUE: Two radiographic images acquired of the right tibia and fibula to include the knee and an kle in at least one projection. LIMITATIONS: None. FINDINGS: MINERALIZATION: Normal. BONES: There is cortical irregularity at the level of the distal fibula suspicious for a fracture. I would recommend right ankle images for confirmation. No other evidence for fracture is seen. SOFT TISSUES: Soft tissue swelling is identified. OTHER: Achilles tendon spurring is identified. Patellar spurring is identified IMPRESSION: Cortical irregularity at the level of the distal fibula suspicious for fracture. I woul d recommend right ankle images for confirmation. Clinical correlation is recommended. Other finding s as noted above TECHNICAL DOCUMENTATION: JOB ID: [id number] [employer]- All Rights Reserved Reading location - IP/workstation name: [email or web address]
[2017-10-24 19:33] LABS: HEMATOCRIT 29.8 % (37.9-51.0); HEMOGLOBIN 9.8 g/dL (13.5-17.0); MEAN CORPUSCULAR HEMOGLOBIN 27.7 pg (27.0-33.4); MEAN CORPUSCULAR HGB CONC 32.9 g/dL (32.0-36.0); MEAN CORPUSCULAR VOLUME 84 fl (80-97); PLATELET COUNT 346 10^3/uL (150-450); RED BLOOD COUNT 3.54 10^6/uL (4.35-5.55); RED CELL DISTRIBUTION WIDTH 12.5 % (11.5-14.0); WHITE BLOOD COUNT 5.6 10^3/uL (4.0-10.5)
[2017-10-24 19:40] LABS: INTERNATIONAL RATION (INR) 0.92; PROTHROMBIN TIME 13.1 SEC (11.4-15.4)
[2017-10-24 19:41] LABS: PARTIAL THROMBOPLASTIN TIME 32.5 SEC (23.5-35.8)
[2017-10-24 19:45] LABS: BLOOD UREA NITROGEN 20 mg/dL (7-20); CALCIUM 8.7 mg/dL (8.4-10.2); CARBON DIOXIDE 28 mmol/L (22-30); CHLORIDE 96 mmol/L (98-107); GLUCOSE 161 mg/dL (75-110); POTASSIUM 4.3 mmol/L (3.6-5.0)
[2017-10-24 19:46] LABS: ALANINE AMINOTRANSFERASE 55 U/L (21-72); ALBUMIN 3.1 g/dL (3.5-5.0); ALKALINE PHOSPHATASE 310 U/L (38-126); ANION GAP 8 (5-19); ASPARTATE AMINO TRANSFERASE 33 U/L (17-59); BILIRUBIN,DIRECT 0.1 mg/dL (0.0-0.4); BILIRUBIN,TOTAL 0.3 mg/dL (0.2-1.3); SODIUM 132.3 mmol/L (137-145); TOTAL PROTEIN 6.3 g/dL (6.3-8.2)
[2017-10-24 19:53] LABS: ABSOLUTE LYMPHOCYTES# (MANUAL) 1.7 10^3/uL (0.5-4.7); ABSOLUTE MONOCYTES # (MANUAL) 0.6 10^3/uL (0.1-1.4); ABSOLUTE NEUTROPHILS# (MANUAL) 3.2 10^3/uL (1.7-8.2); BAND NEUTROPHILS % (MANUAL) 3 % (3-5); BASOPHILS % (MANUAL) 0 % (0-2); EOSINOPHILS % (MANUAL) 1 % (0-6); LYMPHOCYTES % (MANUAL) 30 % (13-45); METAMYELOCYTES % (MANUAL) 1 % (0); MONOCYTES % (MANUAL) 11 % (3-13); SEGMENTED NEUTROPHILS % (MAN) 54 % (42-78); TOTAL CELLS COUNTED 100
[2017-10-24 19:54] LABS: PLATELET COMMENT ADEQUATE; TOXIC GRANULATION SLIGHT
--- NOTE | 2017-10-24 20:12 | RADIOLOGY REPORT (SQ) ---
EXAM DESCRIPTION: FOOT LEFT COMPLETE COMPLETED DATE/TIME: 10/24/2017 7:40 pm REASON FOR STUDY: FOOT INJURY COMPARISON: None. NUMBER OF VIEWS: Three views. TECHNIQUE: AP, lateral and oblique radiographic images acquired of the left foot. LIMITATIONS: None. FINDINGS: MINERALIZATION: Normal. BONES: No acute fracture or dislocation. There are prominent dorsal plantar calcaneal spurs JOINTS: No effusions. SOFT TISSUES: No soft tissue swelling. No foreign body. OTHER: No other significant finding. IMPRESSION: Calcaneal spurs. No acute abnormality. TECHNICAL DOCUMENTATION: JOB ID: [id number] [employer]- All Rights Reserved Reading location - IP/workstation name: [email or web address]
--- NOTE | 2017-10-24 20:13 | RADIOLOGY REPORT (SQ) ---
EXAM DESCRIPTION: ANKLE RIGHT COMPLETE COMPLETED DATE/TIME: 10/24/2017 7:40 pm REASON FOR STUDY: tibial fx? COMPARISON: None. NUMBER OF VIEWS: Three views. TECHNIQUE: AP, lateral, and oblique radiographic images acquired of the right ankle. LIMITATIONS: None. FINDINGS: MINERALIZATION: Normal. BONES: No fracture or dislocation. Calcaneal spurs again seen. JOINTS: No effusions. SOFT TISSUES: Medial soft tissue swelling. OTHER: No other significant finding. IMPRESSION: Soft tissue swelling with no fracture. Calcaneal spurs. TECHNICAL DOCUMENTATION: JOB ID: [id number] [employer]- All Rights Reserved Reading location - IP/workstation name: [email or web address]
--- NOTE | 2017-10-24 20:14 | RADIOLOGY REPORT (SQ) ---
EXAM DESCRIPTION: VENOUS UNILATERAL LOWER COMPLETED DATE/TIME: 10/24/2017 7:45 pm REASON FOR STUDY: right lower leg COMPARISON: 10/18/2017 TECHNIQUE: Dynamic and static bates scale and color images acquired of the right leg venous system. S elected spectral images acquired with additional compression and augmentation maneuvers. The contrala teral common femoral vein and saphenofemoral junction were also imaged. Images stored on PACS. LIMITATIONS: None. FINDINGS: COMMON FEMORAL: Normal phasicity, compression and augmentation. No visualized echogenic ma terial on bates scale. No defects on color images. FEMORAL: Normal compression and augmentation. No visualized echogenic material on bates scale. No defe cts on color images. POPLITEAL: Normal compression, augmentation. No visualized echogenic material on bates scale. No defec ts on color images. CALF VESSELS: Normal compression, augmentation. No visualized echogenic material on bates scale. No de fects on color images. GSV and SSV: Normal compression, augmentation. No visualized echogenic material on bates scale. No def ects on color images. ANY DEEP VENOUS INSUFFICIENCY: Not evaluated. ANY EVIDENCE OF POPLITEAL CYST: No. OTHER: No other significant finding. CONTRALATERAL COMMON FEMORAL VEIN AND SAPHENOFEMORAL JUNCTION: Normal phasicity, compression and augmentation. No visualized echogenic material on bates scale. No de fects on color images. IMPRESSION: NO EVIDENCE OF DVT OR SVT IN THE RIGHT LEG. TECHNICAL DOCUMENTATION: JOB ID: [id number] [employer]- All Rights Reserved Reading location - IP/workstation name: [email or web address]
[2017-10-24 20:49] VITALS: BP 101/64
[2017-10-24] MEDS ORDERED: HYDROCODONE/ACETAMINOPHEN 5-325 MG (6 TAB/ER DISP) PO PRN (20:49)
--- NOTE | 2017-10-24 20:49 | ER Document Report ---
ED Extremity Problem, Lower - General Chief Complaint: Leg Pain Stated Complaint: RIGHT LEG PAIN Time Seen by Provider: 10/24/17 17:36 Mode of Arrival: Wheelchair Notes: 66-year-old male presents to ED for complaint of right lower leg pain. He states he has a history of DVT in the left leg but Dr. Somers did a venous Doppler on him that was negative. He states that on October 15 he was playing with his grandson lifted name up on his leg and ankle when the child jumped up and jumped on his leg. He states he has had pain in the left leg ever since then. States Dr. Somers started wart antibiotics which have not helped him at all. He states he has a lot of pain when he tries to get out of bed and walk. TRAVEL OUTSIDE OF THE [place] IN LAST 30 DAYS: No - HPI Patient complains to provider of: Pain, Swelling Location: Ankle, Leg - Right Occurred: Other - At Where: Other - Needs home Onset/Duration: Persistent Quality of pain: Achy, Pressure Severity: Moderate Pain Level: 3 Context: Other - States grandson jumped on his leg ankle. Recent injury: Possibly Associated symptoms: Painful ambulation Exacerbated by: Hanging down, Movement, Walking Relieved by: Nothing - Related Data Allergies/Adverse Reactions: iodine [Iodine] Allergy (Verified 10/24/17 16:24) Penicillins Allergy (Verified 10/24/17 16:24) Shellfish * [Shellfish] Allergy (Verified 10/24/17 16:24) Past Medical History - General Information source: Patient - Social History Smoking Status: Former Smoker Cigarette use (# per day): No Chew tobacco use (# tins/day): No Smoking Education Provided: No Frequency of alcohol use: None Drug Abuse: None Lives with: Family Family History: DM Patient has suicidal ideation: No Patient has homicidal ideation: No - Past Medical History Cardiac Medical History: Reports: Hx Heart Attack - stents, Hx Hypercholesterolemia, Hx Hypertension, Hx Pulmonary Embolism Pulmonary Medical History: Reports: None EENT Medical History: Reports: None Neurological Medical History: Reports: None Endocrine Medical History: Reports: Hx Diabetes Mellitus Type 2 Renal/ Medical History: Reports: None Malignancy Medical History: Reports Other - gall bladder GI Medical History: Denies: Hx Colonoscopy, Hx Endoscopy Musculoskeltal Medical History: Reports Hx Arthritis, Reports Hx Musculoskeletal Deformity, Reports Hx Musculoskeletal Trauma Skin Medical History: Reports Hx Cellulitis Psychiatric Medical History: Reports: Hx Depression Traumatic Medical History: Reports: None Infectious Medical History: Reports: None Past Surgical History: Reports: Hx Cholecystectomy - 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 - Immunizations Hx Diphtheria, Pertussis, Tetanus Vaccination: Yes Hx Pneumococcal Vaccination: 08/01/13 Review of Systems - Review of Systems Constitutional: No symptoms reported EENT: No symptoms reported Cardiovascular: No symptoms reported Respiratory: No symptoms reported Gastrointestinal: No symptoms reported Genitourinary: No symptoms reported Male Genitourinary: No symptoms reported Musculoskeletal: Other - Right leg swelling pain and discoloration Skin: Change in color Hematologic/Lymphatic: No symptoms reported Neurological/Psychological: No symptoms reported -: Yes All other systems reviewed and negative Physical Exam - Vital signs Vitals: Temp Pulse Resp BP Pulse Ox 98.0 F 116 H 18 103/71 100 10/24/17 16:32 10/24/17 16:32 10/24/17 16:32 10/24/17 16:32 10/24/17 16:32 Interpretation: Normal - General General appearance: Appears well, Alert - HEENT Head: Normocephalic, Atraumatic Eyes: Normal Pupils: PERRL - Respiratory Respiratory status: No respiratory distress Chest status: Nontender Breath sounds: Normal Chest palpation: Normal - Cardiovascular Rhythm: Regular Heart sounds: Normal auscultation Murmur: No - Abdominal Inspection: Normal Distension: No distension Bowel sounds: Normal Tenderness: Nontender Organomegaly: No organomegaly - Back Back: Normal, Nontender - Extremities General upper extremity: Normal inspection, Nontender, Normal color, Normal ROM , Normal temperature General lower extremity: No: Alexandre's sign Calf: Tender, Other - Mild erythema, mildly warm to the touch. States the pain is better now than when he was walking on it. States while he has had it resting it is actually improved.. No: Unable to bear weight - Was able to walk from the chair to the bed and from the bed to the chair states it is hard to walk farther than that due to the pain Ankle: Tender, Edema - Neurological Neuro grossly intact: Yes Cognition: Normal Orientation: AAOx4 Shu Coma Scale Eye Opening: Spontaneous [place] Coma Scale Verbal: Oriented [place] Coma Scale Motor: Obeys Commands [place] Coma Scale Total: 15 Speech: Normal Motor strength normal: LUE, RUE, LLE, RLE Sensory: Normal - Psychological Associated symptoms: Normal affect, Normal mood - Skin Skin Temperature: Warm Skin Moisture: Dry Skin Color: Normal Course - Re-evaluation Re-evalutation: 10/25/17 01:57 Discussed all x-rays and venous Doppler with patient and . A written report of the x-rays and venous Doppler given to the to follow-up with primary doctor. A report of all the labs also given to to discuss with his primary care provider. X-rays show heel spurs with some swelling at the ankle Doppler was negative. The tib-fib x-rays showed some abnormalities in the distal fibular and requested an ankle x-ray which showed no fractures. Patient was instructed to continue with his current medications to elevate his leg and to call primary doctor in the morning for to schedule a follow-up visit with him. He was also instructed to take all of his lab, x-ray, and venous Doppler results with him to his follow-up appointment. Patient and verbalized understanding of instructions and agreement with treatment plan. Patient was discharged home. - Vital Signs Vital signs: Temp Pulse Resp BP Pulse Ox 98.6 F 104 H 18 101/64 100 10/24/17 20:46 10/24/17 20:46 10/24/17 16:32 10/24/17 20:46 10/24/17 20:46 - Laboratory Result Diagrams: 10/24/17 18:56 10/24/17 18:56 Laboratory results interpreted by me: 10/24/17 10/24/17 18:56 18:56 RBC 3.54 L Hgb 9.8 L Hct 29.8 L Metamyelocytes % 1 H Sodium 132.3 L Chloride 96 L Creatinine 1.97 H Est GFR ( Amer) 42 L Est GFR (Non-Af Amer) 34 L Glucose 161 H Alkaline Phosphatase 310 H Albumin 3.1 L - Diagnostic Test Radiology reviewed: Image reviewed, Reports reviewed Discharge - Discharge Clinical Impression: Right leg pain Condition: Stable Disposition: HOME, SELF-CARE Additional Instructions: Leg Pain, Nonspecific We did not find an obvious cause for your leg pain. There's no sign of blood clot, infection, or other serious disease. Possible causes of vague leg pain include muscle or joint inflammation, disc disease in the lower back, pressure on the nerves in the back, or reduced blood flow through the arteries of the leg. Rest the leg. Pain can be eased with an antiinflammatory pain medicine such as ibuprofen. If the pain involves a small area, a heating pad might help. Call the doctor or return if the leg becomes swollen, weak, discolored, or increasingly painful, or if you develop any other significant change in your health. CELLULITIS: You have an infection of your skin and underlying soft tissues called cellulitis. This is due to bacteria, which can enter through any break in the skin, or even through an irritated hair follicle. Untreated, cellulitis will usually worsen. Antibiotics are required. Usually, warm packs or warm soaks, and elevation of the infected area are recommended. You should start getting better within 24 to 36 hours. Most infections respond quickly to the right medication. Follow-up care is important, however, to check for abscess (boil) formation, unsuspected foreign body, or resistant infection. If you develop fever, chills, or if the area of infection is becoming rapidly more swollen or painful, call the doctor at once. CLINDAMYCIN: Your primary doctor has placed you on clindamycin please can complete this prescription. You have been given a prescription for the antibiotic clindamycin. It is often prescribed for infections in the mouth, such as dental infections or abscesses, and for skin infections due to MRSA. It's important that you take all the medication, unless instructed otherwise by your physician. Failure to complete the entire course can result in relapse of your condition. Common side effects of antibiotics include nausea, intestinal cramping, or diarrhea. Women may develop vaginal yeast infections, and babies can get yeast (thrush) in the mouth following the use of antibiotics. Contact your physician if you develop significant side effects from this medication. Allergy to this antibiotic can result in hives, wheezing, faintness, or itching. If symptoms of allergy occur, stop the medication and call the doctor. ORAL NARCOTIC MEDICATION: You have been given a Relatient dispense pack for pain control. This medication is a narcotic. It's best taken with food, as nausea can result if taken on an empty stomach. Don't operate machinery or drive within six hours of taking this medication. Do not combine this medicine with alcohol, or with any medication which can cause sedation (such as cold tablets or sleeping pills) unless you get permission from the physician. Narcotics tend to cause constipation. If possible, drink plenty of fluids and eat a diet high in fiber and fruits. Please be aware that prescription narcotics also have the potential for abuse. People become addicted to these medications because of the general sense of wellbeing that they induce. This feeling along with a significant reduction in tension, anxiety, and aggression provides a stimulating seductive quality to these drugs. Once your pain is under control, we encourage you to discard your unused narcotics. FOLLOW-UP CARE: If you have been referred to a physician for follow-up care, call the physician s office for an appointment as you were instructed or within the next two days. If you experience worsening or a significant change in your symptoms, notify the physician immediately or return to the Emergency Department at any time for re-evaluation. Referrals: YUSEF SOMERS MD [Primary Care Provider] - Follow up as needed
== END 2017-10-24 20:55 | disposition home or self-care (01) ==
LOC: ER 16:19
DX: M79.604 Pain in right leg (principal); M79.89 Other specified soft tissue disorders; W51.XXXA Accidental striking against or bumped into by another person, initial encounter; Z87.891 Personal history of nicotine dependence; Z86.718 Personal history of other venous thrombosis and embolism; I10 Essential (primary) hypertension; E11.9 Type 2 diabetes mellitus without complications
CPT/HCPCS: 99284; 36415; 85025; 85610; 85730; 80053; 93971; 73610; 73630; 73590; J3490

== ENCOUNTER → 2017-11-08 | Outpatient (CLI) | payer MEDICAID ==
--- NOTE | 2017-11-08 14:22 | RADIOLOGY REPORT (SQ) ---
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 Images reviewed with lung, soft tissue, and bone windows. Reconstructed coronal and sagittal MPR images reviewed. Delayed images for evaluat ion of the urinary system also acquired and evaluated. All images stored on PACS. All CT scanners at this facility use dose modulation, iterative reconstruc tion, and/or weight based dosing when appropriate to reduce radiation dose to as low as reasonably ac hievable (ALARA). [facility]: Dose Right [facility]: CareDose [facility]: Dose Right [facility]: Teradose 4D [facility]: Featherlight CONTRAST TYPE AND DOSE: contrast/concentration: Isovue 300.00 mg/ml; Total Contrast Delivered: 97.0 ml; Total Saline Delivered: 70.0 ml RENAL FUNCTION: Creatinine 1.5 RADIATION DOSE: CT Rad equipment meets quality standard of care and radiation dose reduction techniq ues were employed. CTDIvol: 17.0 - 19.6 mGy. DLP: 1204 mGy-cm. . LIMITATIONS: None. FINDINGS: LOWER CHEST: No significant findings. No nodules or infiltrates. LIVER: Normal size. No masses. No dilated ducts. SPLEEN: Normal size. No focal lesions. PANCREAS: No masses. No significant calcifications. No adjacent inflammation or peripancreatic fluid collections. Pancreatic duct not dilated. GALLBLADDER: Surgical clips in the gallbladder fossa. No soft tissue nodules in the gallbladder tatiana a. ADRENAL GLANDS: No significant masses or asymmetry. RIGHT KIDNEY AND URETER: No solid masses. No significant calcifications. No hydronephrosis or hyd roureter. LEFT KIDNEY AND URETER: Benign subcentimeter fatty nodule left upper pole kidney. No significant ca lcifications. No hydronephrosis or hydroureter. AORTA AND VESSELS: No aneurysm. No dissection. Renal arteries, SMA, celiac without stenosis. IVC aleksandr ter is present RETROPERITONEUM: No retroperitoneal adenopathy, hemorrhage or masses. BOWEL AND PERITONEAL CAVITY: No masses or inflammatory changes. No free fluid or peritoneal masses. APPENDIX: Not in the field of view ABDOMINAL WALL: No masses. No hernias. BONES: Diffuse degenerative disc changes in the lower lumbar spine OTHER: No other significant finding. IMPRESSION: No CT evidence of recurrent gallbladder cancer in the abdomen TECHNICAL DOCUMENTATION: JOB ID: [id number] Quality ID # [id number]: Final reports with documentation of one or more dose reduction techniques (e.g., Au tomated exposure control, adjustment of the mA and/or kV according to patient size, use of iterative reconstruction technique) 2010 [employer]- All Rights Reserved Reading location - IP/workstation name: [email or web address]
== END ==
LOC: RAD 09:16
PROVIDERS: ATTEND Internal Medicine Hematology & Oncology
DX: C23 Malignant neoplasm of gallbladder (principal)
CPT/HCPCS: 74160; 82565

== ENCOUNTER 2018-02-02 05:42 | Day surgery (SDC) | payer MEDICARE, MEDICAID ==
[2018-01-27 13:38] LABS: ANION GAP 9 (5-19); BLOOD UREA NITROGEN 26 mg/dL (7-20); CALCIUM 8.7 mg/dL (8.4-10.2); CARBON DIOXIDE 27 mmol/L (22-30); CHLORIDE 96 mmol/L (98-107); POTASSIUM 5.2 mmol/L (3.6-5.0); SODIUM 131.7 mmol/L (137-145)
[2018-01-27 13:55] LABS: GLUCOSE 412 mg/dL (75-110)
--- NOTE | 2018-01-28 00:21 | EKG REPORT ---
SEVERITY:- NORMAL ECG - SINUS RHYTHM : Confirmed by: Jeanette Gupta MD 28-Jan-2018 00:20:50
[~2018-02-02 05:42] MED LIST changes: -AMINOPHYLLINE INJ/PF 250 MG/10 ML SDV IV ONE; +LACTATED RINGERS 1000 ML IV PRN; +LIDOCAINE 0.5% INJ-PF (5 MG/ML) 50 ML SDV SUBCUT PRN; -REGADENOSON INJ 0.4 MG/5 ML DISP.SYRIN IV ONE; +VANCOMYCIN HCL 1,000 MG in DEXTROSE 5%-WATER 250 ML IV PRN
[2018-02-02 06:15] LABS: INTERNATIONAL RATION (INR) 0.91; PARTIAL THROMBOPLASTIN TIME 27.6 SEC (23.5-35.8); PROTHROMBIN TIME 12.7 SEC (11.4-15.4)
[2018-02-02] MEDS ORDERED: FENTANYL CITRATE INJ/PF 100 MCG/2 ML AMPUL ONE (06:46)
[2018-02-02] MEDS ORDERED: MIDAZOLAM 2 MG/2 ML INJ ONE (06:46)
[2018-02-02] MEDS ORDERED: PROPOFOL INJ 200 MG/20 ML VIAL IV ONE (06:46)
[2018-02-02] MEDS ORDERED: BUPIVACAINE HCL 0.25 % INJ/PF (2.5 MG/1 ML) 30 ML VIAL ONE (07:09)
[2018-02-02] MEDS ORDERED: LIDOCAINE 1% INJ-PF (10 MG/ML) 30 ML SDV ONE (07:09)
[2018-02-02] MEDS ORDERED: PROMETHAZINE HCL INJ 25 MG/1 ML VIAL IV PRN (07:51)
[2018-02-02] MEDS ORDERED: MORPHINE SULFATE 10 MG/ML INJ IV PRN (07:51)
[2018-02-02] MEDS ORDERED: DIPHENHYDRAMINE HCL 50 MG/ML VIAL IV PRN (07:51)
[2018-02-02] MEDS ORDERED: FENTANYL CITRATE INJ/PF 100 MCG/2 ML AMPUL IV PRN ×3 (07:51)
[2018-02-02] MEDS ORDERED: MEPERIDINE HCL/PF INJ 25 MG/1 ML DISP.SYRIN IV PRN (07:51)
[2018-02-02] MEDS ORDERED: HYDROCODONE/ACETAMINOPHEN 5-325 MG TABLET PO PRN (08:50)
--- NOTE | 2018-02-02 08:53 | Discharge Summary ---
Discharge Summary (SDC) - Discharge Final Diagnosis: Sebaceous cyst of the posterior neck Date of Surgery: 02/02/18 Discharge Date: 02/02/18 Condition: Stable Treatment or Instructions: Okay to shower on Tuesday. No tub baths, swimming 2 weeks. Referrals: YUSEF SOMERS MD [Primary Care Provider] - Discharge Diet: As Tolerated Respiratory Treatments at Home: Deep Breathing/Coughing, Incentive Spirometer Discharge Activity: Slowly Increase Activity Home Care Assistance: None Needed Report the Following to Your Physician Immediately: Shortness of Breath, Nausea , Vomiting, Increase in Pain, Fever over 101 Degrees, Unusual Bleeding
--- NOTE | 2018-02-02 10:02 | Operative Report ---
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 Excision of a 4 cm posterior neck sebaceous cyst. 2. Intermediate closure of a 4 cm posterior neck incision. SURGEON: ARMEN PIERRE ANESTHESIA: LMAC TISSUE REMOVED OR ALTERED: 4 cm sebaceous cyst of the posterior neck COMPLICATIONS: None apparent ESTIMATED BLOOD LOSS: Minimal PROCEDURE: Drains/implants: None. Procedure in detail: After informed consent was obtained, the patient was laid in the right lateral decubitus position. The area of the posterior neck was prepped and draped in a normal sterile fashion. A 15 blade scalpel was used to create a 4 cm incision over the area of the sebaceous cyst. There was a dense chronic inflammatory reaction present. Sharp dissection was used to remove the cyst from the surrounding tissues. A judicious amount of electrocautery was used to halt any bleeding. After hemostasis was achieved, the subcutaneous tissue was closed using 3-0 Vicryl suture in simple running fashion. The overlying skin was closed using 4-0 Vicryl Rapide suture in subcuticular fashion. A dressing was then fashioned, and the procedure was concluded. All sponge, instrument, and needle counts were correct 2. Condition: Stable.
[2018-02-02 10:38] VITALS: BP 161/85
== END 2018-02-02 10:20 | disposition home or self-care (01) ==
LOC: OROUT 05:42
PROVIDERS: ATTEND Surgery
DX: L72.3 Sebaceous cyst (principal); Z01.818 Encounter for other preprocedural examination; G47.30 Sleep apnea, unspecified; E11.42 Type 2 diabetes mellitus with diabetic polyneuropathy; I11.9 Hypertensive heart disease without heart failure; Z95.5 Presence of coronary angioplasty implant and graft; Z85.01 Personal history of malignant neoplasm of esophagus; Z79.82 Long term (current) use of aspirin; Z88.0 Allergy status to penicillin; Z88.8 Allergy status to other drugs, medicaments and biological substances; Z86.73 Personal history of transient ischemic attack (TIA), and cerebral infarction without residual deficits; Z85.09 Personal history of malignant neoplasm of other digestive organs; Z87.891 Personal history of nicotine dependence; Z79.84 Long term (current) use of oral hypoglycemic drugs; Z79.02 Long term (current) use of antithrombotics/antiplatelets; Z79.4 Long term (current) use of insulin; Z79.899 Other long term (current) drug therapy
CPT/HCPCS: 93005; 36415 ×2; 82962; 84132; 85610; 85730; 80048; 88305 ×2; 93010; 11424; 12042; J2250; J3010; J3490; J7060; J2704; J3370; 300

== ENCOUNTER → 2018-03-06 | Outpatient (CLI) | payer MEDICARE, MEDICAID ==
--- NOTE | 2018-03-06 18:22 | RADIOLOGY REPORT (SQ) ---
EXAM DESCRIPTION: SHOULDER LEFT 2 OR MORE VIEWS COMPLETED DATE/TIME: 03/06/2018 5:30 pm REASON FOR STUDY: PAIN IN LEFT SHOULDER M25.512 PAIN IN LEFT SHOULDER COMPARISON: None. NUMBER OF VIEWS: Three views. TECHNIQUE: Internal rotation, external rotation, and Y view images acquired of the left shoulder. LIMITATIONS: None. FINDINGS: MINERALIZATION: Normal. BONES: No acute fracture or dislocation. No worrisome bone lesions. JOINTS: No dislocation. VISUALIZED LUNGS AND RIBS: No pneumothorax. No rib fracture. SOFT TISSUES: No radiopaque foreign body. OTHER: No other significant finding. IMPRESSION: NEGATIVE STUDY OF THE LEFT SHOULDER. NO RADIOGRAPHIC EVIDENCE OF ACUTE INJURY. TECHNICAL DOCUMENTATION: JOB ID: [id number] [employer]- All Rights Reserved Reading location - IP/workstation name: [email or web address]
== END ==
LOC: RAD 03-03 15:15
PROVIDERS: ATTEND Internal Medicine
DX: M25.512 Pain in left shoulder (principal)

== ENCOUNTER 2018-05-17 09:26 | Day surgery (SDC) | payer MEDICARE, MEDICAID ==
[~2018-05-17 09:26] MED LIST changes: +KETOROLAC TROMETHAMINE 0.45% 4 DROP/0.4 ML DROPERETTE OD PRN; -LACTATED RINGERS 1000 ML IV PRN; -LIDOCAINE 0.5% INJ-PF (5 MG/ML) 50 ML SDV SUBCUT PRN; +MIDAZOLAM 2 MG/2 ML INJ ONE; -VANCOMYCIN HCL 1,000 MG in DEXTROSE 5%-WATER 250 ML IV PRN
[2018-05-17] MEDS: TETRACAINE HCL 0.5% OPH SOLN 0.6 ML DROPERETTE OD PRN ×3 (09:41→10:23)
[2018-05-17] MEDS: CYCLOPENTOLATE 0.2%/PHENYLEPHRINE 1% OPH SOLN 2 ML OD PRN ×3 (09:42→10:05)
[2018-05-17] MEDS: BESIFLOXACIN HCL 0.6% OPH SUSP 5 ML BOTTLE OD PRN ×4 (09:42→10:38)
[2018-05-17] MEDS: TROPICAMIDE 1% OPH SOLN 3 ML OD PRN ×3 (09:42→10:05)
[2018-05-17] MEDS: TOBRAMYCIN SULFATE/DEXAMETH OPH OINTMENT 3.5 GM ONE ×2 (10:26→10:38)
[2018-05-17] MEDS: LIDOCAINE 1% INJ-PF (10 MG/ML) 30 ML SDV ONE ×2 (10:26→10:29)
[2018-05-17] MEDS: EPINEPHRINE INJ/PF 1 MG/1 ML AMPULE ONE ×2 (10:27→10:29)
[2018-05-17] MEDS: CHONDR SU A NA/HYALUR INTRAOC KIT (SURGICARE) ONE ×2 (10:28→10:29)
== END 2018-05-17 11:50 | disposition home or self-care (01) ==
LOC: SC 09:26
PROVIDERS: ATTEND Ophthalmology
DX: H25.11 Age-related nuclear cataract, right eye (principal); E11.3313 Type 2 diabetes mellitus with moderate nonproliferative diabetic retinopathy with macular edema, bilateral; E11.9 Type 2 diabetes mellitus without complications; M19.90 Unspecified osteoarthritis, unspecified site; I10 Essential (primary) hypertension; E78.00 Pure hypercholesterolemia, unspecified; J44.9 Chronic obstructive pulmonary disease, unspecified; G47.30 Sleep apnea, unspecified; Z79.82 Long term (current) use of aspirin; Z79.899 Other long term (current) drug therapy; Z79.4 Long term (current) use of insulin; Z79.84 Long term (current) use of oral hypoglycemic drugs; Z87.891 Personal history of nicotine dependence; Z88.0 Allergy status to penicillin; Z86.73 Personal history of transient ischemic attack (TIA), and cerebral infarction without residual deficits; Z79.02 Long term (current) use of antithrombotics/antiplatelets; Z99.81 Dependence on supplemental oxygen
CPT/HCPCS: 66984; 82962; V2630; J2250; J3490 ×3; A9270; J0171; 142

== ENCOUNTER → 2018-06-21 | Outpatient (CLI) | payer MEDICARE, MEDICAID ==
--- NOTE | 2018-06-21 09:40 | RADIOLOGY REPORT (SQ) ---
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 Im ages reviewed with lung, soft tissue, and bone windows. Reconstructed coronal and sagittal MPR image s reviewed. All images stored on PACS. All CT scanners at this facility use dose modulation, iterative reconstruction, and/or weight based d osing when appropriate to reduce radiation dose to as low as reasonably achievable (ALARA). [facility]: Dose Right [facility]: CareDose [facility]: Dose Right [facility]: Teradose 4D [facility]: Bu[place]ek RADIATION DOSE: 19.6mGy. LIMITATIONS: None. FINDINGS: LOWER CHEST: Small hiatal hernia. No nodules or infiltrates. NONCONTRASTED LIVER, SPLEEN, ADRENALS: Evaluation limited by lack of IV contrast. No identified sign ificant masses. PANCREAS: No masses. No peripancreatic inflammatory changes. GALLBLADDER: Surgically absent. No soft tissue nodules or masses in the gallbladder fossa. No adeno madelyn at the charlene hepatis RIGHT KIDNEY AND URETER: No suspicious masses. Assessment limited by lack of IV contrast. No signif icant calcifications. No hydronephrosis or hydroureter. LEFT KIDNEY AND URETER: No suspicious masses. Assessment limited by lack of IV contrast. No signifi cant calcifications. No hydronephrosis or hydroureter. AORTA AND RETROPERITONEUM: No aneurysm. No retroperitoneal masses or adenopathy. IVC filter. BOWEL AND PERITONEAL CAVITY: Patient drank oral contrast. No bowel obstruction. No abdominal free a ir or fluid APPENDIX: Not in the field of view ABDOMINAL WALL: No abdominal wall hernias. BONES: No significant findings. OTHER: No other significant finding. IMPRESSION: Post cholecystectomy. No worrisome CT findings for recurrent gallbladder malignancy. TECHNICAL DOCUMENTATION: JOB ID: [id number] Quality ID # [id number]: Final reports with documentation of one or more dose reduction techniques (e.g., Au tomated exposure control, adjustment of the mA and/or kV according to patient size, use of iterative reconstruction technique) 2010 [employer]- All Rights Reserved Reading location - IP/workstation name: [email or web address]
== END ==
LOC: RAD 08:32
PROVIDERS: ATTEND Internal Medicine Hematology & Oncology
DX: C23 Malignant neoplasm of gallbladder (principal)
CPT/HCPCS: 74150; 82565

== ENCOUNTER → 2018-12-28 | Outpatient (CLI) | payer MEDICARE, MEDICAID ==
[2018-12-28 10:52] LABS: ABSOLUTE BASOPHILS # (AUTO) 0.1 10^3/uL (0.0-0.2); ABSOLUTE EOSINOPHILS # (AUTO) 0.2 10^3/uL (0.0-0.6); ABSOLUTE LYMPHOCYTES (AUTO) 1.4 10^3/uL (0.5-4.7); ABSOLUTE MONOCYTES (AUTO) 0.6 10^3/uL (0.1-1.4); ABSOLUTE NEUT (AUTO) 3.4 10^3/uL (1.7-8.2); BASOPHILS % (AUTO) 0.9 % (0-2); EOSINOPHILS % (AUTO) 3.3 % (0-6); HEMATOCRIT 32.7 % (37.9-51.0); HEMOGLOBIN 10.9 g/dL (13.5-17.0); LYMPHOCYTES % (AUTO) 25.5 % (13-45); MEAN CORPUSCULAR HEMOGLOBIN 27.9 pg (27.0-33.4); MEAN CORPUSCULAR HGB CONC 33.2 g/dL (32.0-36.0); MEAN CORPUSCULAR VOLUME 84 fl (80-97); PLATELET COUNT 249 10^3/uL (150-450); RED CELL DISTRIBUTION WIDTH 13.8 % (11.5-14.0); SEGMENTED NEUTROPHILS % (AUTO) 60.3 % (42-78); TOTAL CELLS COUNTED % (AUTO) 100 %; WHITE BLOOD COUNT 5.7 10^3/uL (4.0-10.5)
[2018-12-28 10:55] LABS: APPEARANCE,URINE CLEAR; BILIRUBIN,URINE NEGATIVE (NEGATIVE); COLOR,URINE YELLOW; GLUCOSE, URINE 50 mg/dL (NEGATIVE); KETONES,URINE NEGATIVE (NEGATIVE); LEUKOCYTE ESTERASE,URINE NEGATIVE (NEGATIVE); NITRITE,URINE NEGATIVE (NEGATIVE); PROTEIN,URINE >=500 mg/dL (NEGATIVE); UROBILINOGEN,URINE NEGATIVE mg/dL (<2.0)
[2018-12-28 11:30] LABS: ALBUMIN 3.3 g/dL (3.5-5.0); ANION GAP 10 (5-19); BLOOD UREA NITROGEN 35 mg/dL (7-20); CALCIUM 8.3 mg/dL (8.4-10.2); CARBON DIOXIDE 23 mmol/L (22-30); CHLORIDE 102 mmol/L (98-107); GLUCOSE 255 mg/dL (75-110); PHOSPHORUS 5.7 mg/dL (2.5-4.5); POTASSIUM 5.3 mmol/L (3.6-5.0); SODIUM 135.4 mmol/L (137-145)
[2018-12-28 11:37] LABS: URINE CREATININE 69.9 mg/dL (22-328)
[2018-12-28 11:51] LABS: UR PRO/CREAT RATIO RESULT 5.4 mg/mg (0.0-0.2)
[2018-12-31 14:37] LABS: A/G RATIO 0.8 (0.7-1.7); ALBUMIN 2 2.9 g/dL (2.9-4.4); ALPHA-2-GLOBULIN 2 0.9 g/dL (0.4-1.0); BETA GLOBULINS 1.3 g/dL (0.7-1.3); GAMMA GLOBULIN 1.3 g/dL (0.4-1.8); GLOBULIN TOTAL 3.8 g/dL (2.2-3.9); MONOCLONAL SPIKE Not Observed g/dL (Not Observ); PROTEIN TOTAL SERUM 6.7 g/dL (6.0-8.5)
== END ==
LOC: OD 09:56
PROVIDERS: ATTEND Internal Medicine Nephrology
DX: E11.22 Type 2 diabetes mellitus with diabetic chronic kidney disease (principal); I12.9 Hypertensive chronic kidney disease with stage 1 through stage 4 chronic kidney disease, or unspecified chronic kidney disease; N18.3 Chronic kidney disease, stage 3 (moderate); E55.9 Vitamin D deficiency, unspecified; D63.1 Anemia in chronic kidney disease
CPT/HCPCS: 36415; 80069; 81001; 82306; 82570; 83970; 84156; 84165; 85025

== ENCOUNTER → 2019-02-07 | Outpatient (CLI) | payer MEDICARE, MEDICAID ==
[2019-02-07 09:33] LABS: ABSOLUTE BASOPHILS # (AUTO) 0.1 10^3/uL (0.0-0.2); ABSOLUTE EOSINOPHILS # (AUTO) 0.2 10^3/uL (0.0-0.6); ABSOLUTE LYMPHOCYTES (AUTO) 1.4 10^3/uL (0.5-4.7); ABSOLUTE MONOCYTES (AUTO) 0.5 10^3/uL (0.1-1.4); ABSOLUTE NEUT (AUTO) 4.1 10^3/uL (1.7-8.2); BASOPHILS % (AUTO) 1.2 % (0-2); EOSINOPHILS % (AUTO) 2.8 % (0-6); HEMATOCRIT 32.8 % (37.9-51.0); HEMOGLOBIN 10.8 g/dL (13.5-17.0); LYMPHOCYTES % (AUTO) 22.8 % (13-45); MEAN CORPUSCULAR HEMOGLOBIN 27.6 pg (27.0-33.4); MEAN CORPUSCULAR HGB CONC 32.8 g/dL (32.0-36.0); MEAN CORPUSCULAR VOLUME 84 fl (80-97); MONOCYTES % (AUTO) 7.7 % (3-13); PLATELET COUNT 259 10^3/uL (150-450); RED CELL DISTRIBUTION WIDTH 14.1 % (11.5-14.0); SEGMENTED NEUTROPHILS % (AUTO) 65.5 % (42-78); TOTAL CELLS COUNTED % (AUTO) 100 %; WHITE BLOOD COUNT 6.2 10^3/uL (4.0-10.5)
[2019-02-07 10:31] LABS: URINE CREATININE 68.2 mg/dL (22-328)
[2019-02-07 10:38] LABS: UR PRO/CREAT RATIO RESULT 7.4 mg/mg (0.0-0.2); URINE PROTEIN 502.8 mg/dL (<12)
[2019-02-09 15:36] LABS: A/G RATIO 0.7 (0.7-1.7); ALBUMIN 2 2.6 g/dL (2.9-4.4); BETA GLOBULINS 1.2 g/dL (0.7-1.3); GAMMA GLOBULIN 1.3 g/dL (0.4-1.8); GLOBULIN TOTAL 3.6 g/dL (2.2-3.9); MONOCLONAL SPIKE Not Observed g/dL (Not Observ); PROTEIN TOTAL SERUM 6.2 g/dL (6.0-8.5)
== END ==
LOC: OD 09:02
PROVIDERS: ATTEND Internal Medicine Nephrology
DX: I12.9 Hypertensive chronic kidney disease with stage 1 through stage 4 chronic kidney disease, or unspecified chronic kidney disease (principal); N18.9 Chronic kidney disease, unspecified; E11.21 Type 2 diabetes mellitus with diabetic nephropathy; D63.1 Anemia in chronic kidney disease
CPT/HCPCS: 36415; 82306; 82570; 83970; 84156; 84165; 85025

== ENCOUNTER → 2019-02-13 | Outpatient (CLI) | payer MEDICARE, MEDICAID ==
[2019-02-13 10:59] LABS: BLOOD UREA NITROGEN 38 mg/dL (7-20); CALCIUM 8.3 mg/dL (8.4-10.2); GLUCOSE 204 mg/dL (75-110)
[2019-02-13 11:00] LABS: ANION GAP 7 (5-19); CARBON DIOXIDE 23 mmol/L (22-30); CHLORIDE 106 mmol/L (98-107); IRON(TIBC) 60.1 ug/dL (49-181); PHOSPHORUS 4.7 mg/dL (2.5-4.5); POTASSIUM 4.7 mmol/L (3.6-5.0); SODIUM 135.9 mmol/L (137-145)
[2019-02-14 15:36] LABS: A/G RATIO 0.7 (0.7-1.7); ALBUMIN 2 2.5 g/dL (2.9-4.4); ALPHA-2-GLOBULIN 2 0.8 g/dL (0.4-1.0); BETA GLOBULINS 1.1 g/dL (0.7-1.3); GAMMA GLOBULIN 1.3 g/dL (0.4-1.8); GLOBULIN TOTAL 3.4 g/dL (2.2-3.9); MONOCLONAL SPIKE Not Observed g/dL (Not Observ); PROTEIN TOTAL SERUM 5.9 g/dL (6.0-8.5)
== END ==
LOC: OD 09:14
PROVIDERS: ATTEND Internal Medicine Nephrology
DX: I12.9 Hypertensive chronic kidney disease with stage 1 through stage 4 chronic kidney disease, or unspecified chronic kidney disease (principal); N18.4 Chronic kidney disease, stage 4 (severe); E11.22 Type 2 diabetes mellitus with diabetic chronic kidney disease; R80.9 Proteinuria, unspecified; E55.9 Vitamin D deficiency, unspecified
CPT/HCPCS: 36415; 80069; 82728; 83540; 83550; 84165; 84466

== ENCOUNTER → 2019-06-18 | Outpatient (CLI) | payer MEDICARE, MEDICAID ==
--- NOTE | 2019-06-18 15:59 | RADIOLOGY REPORT (SQ) ---
EXAM DESCRIPTION: CHEST 2 VIEWS COMPLETED DATE/TIME: 06/18/2019 3:33 pm REASON FOR STUDY: COUGH (R05) COMPARISON: 11/17/2018 EXAM PARAMETERS: NUMBER OF VIEWS: two views TECHNIQUE: Digital Frontal and Lateral radiographic views of the chest acquired. RADIATION DOSE: NA LIMITATIONS: none FINDINGS: LUNGS AND PLEURA: No opacities, masses or pneumothorax. No pleural effusion. MEDIASTINUM AND HILAR STRUCTURES: No masses or contour abnormalities. HEART AND VASCULAR STRUCTURES: Heart normal size. No evidence for failure. BONES: No acute findings. HARDWARE: None in the chest. OTHER: No other significant finding. IMPRESSION: NO ACUTE RADIOGRAPHIC FINDING IN THE CHEST. TECHNICAL DOCUMENTATION: JOB ID: [id number] [employer]- All Rights Reserved Reading location - IP/workstation name: [email or web address]
== END ==
LOC: RAD 13:57
PROVIDERS: ATTEND Internal Medicine
DX: R05 Cough (principal); W10.8XXA Fall (on) (from) other stairs and steps, initial encounter
CPT/HCPCS: 71046

== ENCOUNTER 2019-08-27 01:06 | Inpatient (IN) | payer MEDICARE, MEDICAID ==
[2019-08-27 02:07] LABS: ABSOLUTE BASOPHILS # (AUTO) 0.1 10^3/uL (0.0-0.2); ABSOLUTE EOSINOPHILS # (AUTO) 0.2 10^3/uL (0.0-0.6); ABSOLUTE LYMPHOCYTES (AUTO) 1.9 10^3/uL (0.5-4.7); ABSOLUTE MONOCYTES (AUTO) 0.7 10^3/uL (0.1-1.4); ABSOLUTE NEUT (AUTO) 4.5 10^3/uL (1.7-8.2); BASOPHILS % (AUTO) 1.1 % (0-2); EOSINOPHILS % (AUTO) 2.7 % (0-6); HEMATOCRIT 30.7 % (37.9-51.0); LYMPHOCYTES % (AUTO) 25.1 % (13-45); MEAN CORPUSCULAR HEMOGLOBIN 27.9 pg (27.0-33.4); MEAN CORPUSCULAR HGB CONC 32.4 g/dL (32.0-36.0); MEAN CORPUSCULAR VOLUME 86 fl (80-97); PLATELET COUNT 262 10^3/uL (150-450); RED BLOOD COUNT 3.57 10^6/uL (4.35-5.55); RED CELL DISTRIBUTION WIDTH 13.6 % (11.5-14.0); SEGMENTED NEUTROPHILS % (AUTO) 61.1 % (42-78); TOTAL CELLS COUNTED % (AUTO) 100 %; WHITE BLOOD COUNT 7.4 10^3/uL (4.0-10.5)
--- NOTE | 2019-08-27 02:20 | RADIOLOGY REPORT (SQ) ---
EXAM DESCRIPTION: X-RAY CHEST ONE VIEW CLINICAL HISTORY: 68 years Male SOB COMPARISON: 06/18/2019 TECHNIQUE: Portable upright chest at 0201 hours on 08/27/2019. FINDINGS: EKG leads overlie the chest. The lungs are well expanded. Since the prior study, there are mildly increased bilateral perihilar interstitial markings with peribronchial cuffing. The costophrenic angles remain sharp. The heart is normal in size with normal pulmonary vascularity. No acute bony abnormalities are seen. IMPRESSION: Bilateral peribronchial cuffing may represent chronic bronchitis or bronchiolitis.
[2019-08-27 02:23] LABS: APPEARANCE,URINE CLEAR; BILIRUBIN,URINE NEGATIVE (NEGATIVE); COLOR,URINE STRAW; GLUCOSE, URINE 50 mg/dL (NEGATIVE); KETONES,URINE NEGATIVE (NEGATIVE); LEUKOCYTE ESTERASE,URINE NEGATIVE (NEGATIVE); NITRITE,URINE NEGATIVE (NEGATIVE); PROTEIN,URINE >=500 mg/dL (NEGATIVE); URINE SPECIFIC GRAVITY 1.011; UROBILINOGEN,URINE NEGATIVE mg/dL (<2.0)
[2019-08-27 02:35] LABS: ALBUMIN 3.2 g/dL (3.5-5.0); ALKALINE PHOSPHATASE 104 U/L (38-126); ANION GAP 10 (5-19); ASPARTATE AMINO TRANSFERASE 36 U/L (17-59); BILIRUBIN,DIRECT 0.4 mg/dL (0.0-0.4); BILIRUBIN,TOTAL 0.5 mg/dL (0.2-1.3); BLOOD UREA NITROGEN 66 mg/dL (7-20); CARBON DIOXIDE 18 mmol/L (22-30); CHLORIDE 110 mmol/L (98-107); CREATINE KINASE 1182 U/L (55-170); GLUCOSE 121 mg/dL (75-110); POTASSIUM 5.3 mmol/L (3.6-5.0); TOTAL PROTEIN 6.7 g/dL (6.3-8.2)
[2019-08-27 02:57] LABS: CREATINE KINASE MB 6.85 ng/mL (<4.55)
[2019-08-27 03:06] LABS: TROPONIN I 0.06 ng/mL
[2019-08-27] MEDS ORDERED: FUROSEMIDE INJ/PF 20 MG/2 ML SDV IV ONE (04:09)
--- NOTE | 2019-08-27 04:12 | ER Document Report ---
Entered by ROLANDO OSEGUERA SCRIBE 08/27/19 0337 Acting as scribe for:ZHAO JOHNSON IV, MD ED General - General Chief Complaint: Shortness Of Breath Stated Complaint: BREATHING DIFFICULTY Time Seen by Provider: 08/27/19 03:31 Primary Care Provider: YUSEF VAZQUEZ MD [Primary Care Provider] - Follow up as needed Mode of Arrival: Ambulatory Information source: Patient Notes: This 68 year old male patient presents to the emergency department today with complaints of shortness of breath with associated wheezing. Patient reports he has also noticed lower extremity swelling over the last few weeks. Patient states his shortness of breath is much worse when he stands up to walk around to do something. Patient states he has also had a slight cough. TRAVEL OUTSIDE OF THE [place] IN LAST 30 DAYS: No - Related Data Allergies/Adverse Reactions: Iodine and Iodide Containing Produc Allergy (Verified 11/17/18 15:16) Penicillins Allergy (Verified 11/17/18 15:16) Shellfish * [Shellfish] Allergy (Verified 11/17/18 15:16) Difficulty breathing Past Medical History - General Information source: Patient - Social History Smoking Status: Former Smoker Cigarette use (# per day): No Frequency of alcohol use: None Drug Abuse: None Lives with: Family Family History: DM Patient has suicidal ideation: No Patient has homicidal ideation: No - Past Medical History Cardiac Medical History: Reports: Hx Congestive Heart Failure, Hx Coronary Artery Disease, Hx Hypercholesterolemia, Hx Hypertension, Hx Pulmonary Embolism Denies: Hx Heart Attack Pulmonary Medical History: Reports: Hx Asthma, Hx COPD, Hx Pneumonia Denies: Hx Bronchitis, Hx Tuberculosis Neurological Medical History: Denies: Hx Cerebrovascular Accident, Hx Seizures Endocrine Medical History: Reports: Hx Diabetes Mellitus Type 2 Renal/ Medical History: Denies: Hx Peritoneal Dialysis GI Medical History: Denies: Hx Hepatitis, Hx Hiatal Hernia, Hx Ulcer, Hx Col onoscopy, Hx Endoscopy Musculoskeletal Medical History: Reports Hx Arthritis - GENERALIZED, Reports Hx Musculoskeletal Deformity, Reports Hx Musculoskeletal Trauma Skin Medical History: Reports Hx Cellulitis Psychiatric Medical History: Reports: Hx Depression Infectious Medical History: Denies: Hx Hepatitis Past Surgical History: Reports: Hx Cardiac Catheterization - stents, Hx Cholecystectomy. Denies: Hx Open Heart Surgery, Hx Pacemaker - Immunizations Hx Diphtheria, Pertussis, Tetanus Vaccination: Yes Hx Pneumococcal Vaccination: 08/01/13 Review of Systems - Review of Systems Constitutional: No symptoms reported EENT: No symptoms reported Cardiovascular: No symptoms reported Respiratory: See HPI, Cough, Short of breath, Wheezing Gastrointestinal: No symptoms reported Genitourinary: No symptoms reported Male Genitourinary: No symptoms reported Musculoskeletal: No symptoms reported Skin: No symptoms reported Hematologic/Lymphatic: No symptoms reported Neurological/Psychological: No symptoms reported -: Yes All other systems reviewed and negative Physical Exam - Vital signs Vitals: Pulse Resp Pulse Ox 94 24 H 100 08/27/19 01:06 08/27/19 01:06 08/27/19 01:06 - Notes Notes: Physical Exam: General: Alert, appears well. HEENT: Normocephalic. Atraumatic. PERRL. Extraocular movements intact. Oropharynx clear. Neck: Supple. Non-tender. Respiratory: No respiratory distress. Clear and equal breath sounds bilaterally. Cardiovascular: Regular rate and rhythm. Abdominal: Normal Inspection. Non-tender. No distension. Normal Bowel Sounds. Back: No gross abnormalities. Extremities: Moves all four extremities. Upper extremities: Normal inspection. Normal ROM. Lower extremities: Normal inspection. No edema. Normal ROM. Neurological: Normal cognition. AAOx4. Normal speech. Psychological: Normal affect. Normal Mood. Skin: Warm. Dry. Normal color. Course - Vital Signs Vital signs: Temp Pulse Resp BP Pulse Ox 97.8 F 94 19 161/97 H 100 08/27/19 01:59 08/27/19 01:06 08/27/19 03:01 08/27/19 03:01 08/27/19 03:01 - Laboratory Result Diagrams: 08/27/19 01:40 08/27/19 01:40 Laboratory results interpreted by me: 08/27/19 08/27/19 08/27/19 01:40 01:40 01:40 RBC 3.57 L Hgb 10.0 L Hct 30.7 L Potassium 5.3 H Chloride 110 H Carbon Dioxide 18 L BUN 66 H Creatinine 6.41 H Est GFR ( Amer) 11 L Est GFR (MDRD) Non-Af 9 L Glucose 121 H Calcium 8.0 L Creatine Kinase 1182 H CK-MB (CK-2) 6.85 H NT-Pro-B Natriuret Pep 4820 H Albumin 3.2 L Urine Protein Urine Glucose (UA) Urine Blood 08/27/19 02:05 RBC Hgb Hct Potassium Chloride Carbon Dioxide BUN Creatinine Est GFR ( Amer) Est GFR (MDRD) Non-Af Glucose Calcium Creatine Kinase CK-MB (CK-2) NT-Pro-B Natriuret Pep Albumin Urine Protein >=500 H Urine Glucose (UA) 50 H Urine Blood SMALL H - Consults dr. vazquez Time consulted: 04:09 Reason for consultation: 08/27/19 04:10 chf exacerbation Consulted provider: will see as inpatient Discharge - Discharge Clinical Impression: CHF exacerbation Qualifiers: Heart failure type: unspecified Qualified Code(s): I50.9 - Heart failure, un specified Condition: Good Disposition: ADMITTED INPATIENT Admitting Provider: [facility] Admitted: [facility] Referrals: YUSEF VAZQUEZ MD [Primary Care Provider] - Follow up as needed I personally performed the services described in the documentation, reviewed and edited the documentation which was dictated to the scribe in my presence, and it accurately records my words and actions.
--- NOTE | 2019-08-27 06:32 | EKG REPORT ---
SEVERITY:- ABNORMAL ECG - SINUS RHYTHM NONSPECIFIC T ABNORMALITIES, LATERAL LEADS BORDERLINE PROLONGED QT INTERVAL : Confirmed by: Wicho Branch MD 27-Aug-2019 06:32:08
[2019-08-27] MEDS ORDERED: INFLUENZA QUAD (6MOS+) 2019-20 VAC 0.5 ML SYR IM ONE (06:59)
[2019-08-27] MEDS ORDERED: GLUCAGON,HUMAN RECOMB 1 MG INJ IM PRN (08:00)
[2019-08-27] MEDS ORDERED: DEXTROSE 40% GEL 15 GM TUBE PO PRN (08:00)
[2019-08-27] MEDS ORDERED: DEXTROSE 50%-WATER SYRINGE 12.5 GM/25 ML DOSE IV PRN (08:00)
[2019-08-27] MEDS ORDERED: DEXTROSE 50%-WATER SYRINGE 25 GM/50 ML DOSE IV PRN (08:00)
[2019-08-27] MEDS ORDERED: DEXTROSE 40% GEL 15 GM TUBE X 2 PO PRN (08:00)
[2019-08-27] MEDS: INSULIN LISPRO 100 UNIT/ML 3 ML VIAL SUBCUT SCH ×4 (08:02→22:14)
[2019-08-27 09:00] LABS: PHOSPHORUS 5.1 mg/dL (2.5-4.5)
[2019-08-27 09:20] LABS: FREE T4 (FREE THYROXINE) 1.02 ng/dL (0.78-2.19)
[2019-08-27 09:27] LABS: APPEARANCE,URINE CLEAR; BILIRUBIN,URINE NEGATIVE (NEGATIVE); COLOR,URINE COLORLESS; GLUCOSE, URINE 50 mg/dL (NEGATIVE); KETONES,URINE NEGATIVE (NEGATIVE); LEUKOCYTE ESTERASE,URINE NEGATIVE (NEGATIVE); NITRITE,URINE NEGATIVE (NEGATIVE); PROTEIN,URINE >=500 mg/dL (NEGATIVE); URINE SPECIFIC GRAVITY 1.005; UROBILINOGEN,URINE NEGATIVE mg/dL (<2.0)
[2019-08-27 09:34] LABS: THYROID STIMULATING HORMONE 4.47 uIU/mL (0.47-4.68)
[2019-08-27 09:38] LABS: ARTERIAL BLOOD BASE EXCESS -6.9 mmol/L; ARTERIAL BLOOD H2CO3 0.97 mmol/L (1.05-1.35); ARTERIAL BLOOD HCO3 17.6 mmol/L (20-24); ARTERIAL BLOOD O2 SATURATION 98.1 % (94-98); ARTERIAL BLOOD PCO2 32.2 mmHg (35-45); ARTERIAL BLOOD PH 7.36 (7.35-7.45); ARTERIAL BLOOD PO2 116.6 mmHg (80-100); ARTERIAL BLOOD TOTAL CO2 18.6 mmol/L (23-27)
[2019-08-27 09:39] LABS: ARTERIAL BLOOD FIO2 36%
[2019-08-27 09:40] LABS: URINE AMPHETAMINES SCREEN NEGATIVE; URINE BARBITURATES SCREEN NEGATIVE; URINE BENZODIAZEPINES SCREEN NEGATIVE; URINE COCAINE SCREEN NEGATIVE; URINE MARIJUANA (THC) SCREEN NEGATIVE; URINE METHADONE SCREEN NEGATIVE; URINE PHENCYCLIDINE SCREEN NEGATIVE
[2019-08-27] MEDS: HEPARIN SOD (PORCINE) 5,000 UNIT/ML 1 ML VIAL SUBCUT SCH ×2 (10:26→17:19)
[2019-08-27] MEDS: NORMAL SALINE 250 ML with FUROSEMIDE 250 MG IV PRN ×2 (10:27)
[2019-08-27 10:40] LABS: PROTHROMBIN TIME 13.2 SEC (11.4-15.4)
[2019-08-27 10:41] LABS: PARTIAL THROMBOPLASTIN TIME 32.2 SEC (23.5-35.8)
[2019-08-27 10:44] LABS: CREATINE KINASE MB 6.22 ng/mL (<4.55); TROPONIN I 0.055 ng/mL
--- NOTE | 2019-08-27 12:29 | PDOC CONSULTATION ---
Consultation Consult Date: 08/27/19 Provider Consulted: Rosey SOARES Consult reason:: SANDRA on CKD 4 History of Present Illness Admission Date/PCP: 08/27/19 04:18 YUSEF SOMERS MD History of Present Illness: CORKY JURADO JR is a 68 year old male with a complex past medical history that includes complicated diabetes mellitus, hypertension, CKD stage IV with a base creatinine of [address] Ayon, history of pulmonary embolism and has underwent an IVC filter placement, CAD/CHF, obstructive sleep apnea on CPAP, apparent history of gallbladder cancer, was admitted with history of progressive shortness of breath and anasarca. He says he has noticed generalized swelling especially over his lower extremities over the last 2 weeks which has been progressively getting worse. Along with this he found that his breathing was getting more difficult to the point having orthopnea. He also noticed some mild dry cough for the last couple of days.Evaluations in the ER revealed that he possibly has early congestive heart failure and has been admitted under Dr. Somers and begun on IV Lasix infusion. Today when I see him he is sitting on the recliner and he says he feels some better than the last couple of days. His swelling in the legs have also come down. He states his ap petite is poor with no history nausea vomiting. He denies any history of chest pains, fever or chills.His labs and medications and chest x-ray were reviewed.He denies any history of obstructive uropathy. Past Medical History Cardiac Medical History: Reports: Coronary Artery Disease, Hyperlipidemia, Hypertension-primary, Pulmonary Embolism Denies: Myocardial Infarction Pulmonary Medical History: Reports: Asthma, Chronic Obstructive Pulmonary Disease (COPD), Pneumonia Denies: Bronchitis, Tuberculosis Neurological Medical History: Denies: Seizures Endocrine Medical History: Reports: Diabetes Mellitus Type 2 Renal/ Medical History: Reports: Chronic Kidney Disease Stage IV, Secondary Hyperparathyroidism GI Medical History: Denies: Hepatitis, Hiatal Hernia Musculoskeltal Medical History: Reports: Arthritis - GENERALIZED Psychiatric Medical History: Reports: Depression Hematology Medical History: Reports Anemia Past Surgical History Past Surgical History: Reports: Cardiac Catheterization - stents, Ch olecystectomy Denies: Pacemaker Social History Lives with: Family Smoking Status: Former Smoker Cigarettes Packs Per Day: 1.5 Number of Years Smokin Last Time Smoked: 1994 Frequency of Alcohol Use: None Hx Recreational Drug Use: No Drugs: None Hx Prescription Drug Abuse: No Family History Parental Family History Reviewed: No Children Family History Reviewed: No Sibling(s) Family History Reviewed.: No Medication/Allergy Home Medications: Aspirin [Aspirin 325 mg Tablet] 325 mg PO DAILY 08/27/19 Atorvastatin Calcium [Lipitor 40 mg Tablet] 40 mg PO DAILY 08/27/19 Carvedilol [Coreg] 6.25 mg PO Q12 08/27/19 Clopidogrel Bisulfate [Plavix 75 mg Tablet] 75 mg PO DAILY 08/27/19 Cyclobenzaprine HCl [Flexeril 10 mg Tablet] 10 mg PO Q8HP PRN 08/27/19 Doxepin HCl [Sinequan 10 mg Capsule] 10 mg PO QHS 08/27/19 Duloxetine HCl [Cymbalta] 60 mg PO DAILY 08/27/19 Enalapril Maleate [Vasotec 20 mg Tablet] 20 mg PO DAILY 08/27/19 Furosemide [Lasix 40 mg Tablet] 40 mg PO QAM 08/27/19 Hydralazine HCl [Apresoline 25 mg Tablet] 25 mg PO Q8 08/27/19 Insulin Aspart [Novolog Flexpen] 0 unit SUBCUT .SLD SCALE 08/27/19 Insulin Glargine,Hum.rec.anlog [Lantus Insulin 100 Unit/1 ml 10 ml] 80 unit SUBCUT Q12 08/27/19 Isosorbide Dinitrate [Isordil Titradose 20 mg Tablet] 20 mg PO Q8 08/27/19 Losartan Potassium [Cozaar 100 mg Tablet] 100 mg PO DAILY 08/27/19 Montelukast Sodium [Singulair 10 mg Tablet] 10 mg PO DAILY 08/27/19 Allergies/Adverse Reactions: Iodine and Iodide Containing Produc Allergy (Verified 11/17/18 15:16) Penicillins Allergy (Verified 11/17/18 15:16) Shellfish * [Shellfish] Allergy (Verified 11/17/18 15:16) Difficulty breathing Review of Systems Constitutional: PRESENT: anorexia, weakness, weight gain. ABSENT: chills, fatigue, fever(s), headache(s), night sweats Cardiovascular: PRESENT: dyspnea on exertion, edema, orthropnea. ABSENT: chest pain, palpitations Respiratory: PRESENT: cough, dyspnea. ABSENT: hemoptysis, sputum Gastrointestinal: ABSENT: abdominal pain, bloating, coffee ground emesis, constipation, diarrhea, dysphagia, heartburn, melena, nausea, vomiting Genitourinary: ABSENT: difficulty urinating, dysuria, hematuria Musculoskeletal: ABSENT: back pain, joint swelling Integumentary: ABSENT: lesions, pruritus, rash Neurological: ABSENT: abnormal movements, abnormal speech, confusion, convulsions, focal weakness, frequent falls, syncope Hematologic/Lymphatic: ABSENT: easy bleeding, easy bruising, lymphadenopathy Physical Exam Vital Signs: Temp Pulse Resp BP Pulse Ox 98.0 F 89 16 158/61 H 100 08/27/19 07:32 08/27/19 07:32 08/27/19 07:32 08/27/19 07:32 08/27/19 07:32 Intake & Output 08/26/19 08/27/19 08/28/19 06:59 06:59 06:59 Intake Total 0 Output Total 750 Balance -750 Weight 112.3 kg General appearance: PRESENT: no acute distress Exam: On 2 L nasal cannula sitting on a recliner. He is able to talk without having to stop intermittently. Eye exam: PRESENT: EOMI, PERRLA. ABSENT: scleral icterus Ear exam: PRESENT: normal external ear exam Mouth exam: PRESENT: moist, neck supple Neck exam: ABSENT: lymphadenopathy, meningismus, tenderness, thyromegaly, tracheal deviation Respiratory exam: PRESENT: clear to auscultation [place], decreased breath sounds. ABSENT: crackles Cardiovascular exam: PRESENT: +S1, +S2, systolic murmur GI/Abdominal exam: PRESENT: normal bowel sounds, soft. ABSENT: organomegaly, tenderness Extremities exam: PRESENT: +1 edema. ABSENT: calf tenderness, clubbing Neurological exam: PRESENT: alert, awake, oriented to person, oriented to place, oriented to time, oriented to situation Psychiatric exam: PRESENT: appropriate affect Skin exam: ABSENT: erythema, mottled, rash Results Laboratory Results: 08/27/19 01:40 08/27/19 01:40 08/27/19 08/27/19 08/27/19 01:40 01:40 01:40 WBC 7.4 RBC 3.57 L Hgb 10.0 L Hct 30.7 L MCV 86 MCH 27.9 MCHC 32.4 RDW 13.6 Plt Count 262 Seg Neutrophils % 61.1 Carbonic Acid HCO3/H2CO3 Ratio ABG pH ABG pCO2 ABG pO2 ABG HCO3 ABG O2 Saturation ABG Base Excess FiO2 Sodium 137.9 Potassium 5.3 H Chloride 110 H Carbon Dioxide 18 L Anion Gap 10 BUN 66 H Creatinine 6.41 H Est GFR ( Amer) 11 L Glucose 121 H Calcium 8.0 L Phosphorus 5.1 H Magnesium 1.8 Total Bilirubin 0.5 AST 36 Alkaline Phosphatase 104 Ammonia Total Protein 6.7 Albumin 3.2 L Amylase 135 H Lipase 378.8 H TSH Free T4 Urine Color Urine Appearance Urine pH Ur Specific [place] Urine Protein Urine Glucose (UA) Urine Ketones Urine Blood Urine Nitrite Ur Leukocyte Esterase Urine WBC (Auto) Urine RBC (Auto) 08/27/19 08/27/19 08/27/19 01:40 02:05 08:55 WBC RBC Hgb Hct MCV MCH MCHC RDW Plt Count Seg Neutrophils % Carbonic Acid HCO3/H2CO3 Ratio ABG pH ABG pCO2 ABG pO2 ABG HCO3 ABG O2 Saturation ABG Base Excess FiO2 Sodium Potassium Chloride Carbon Dioxide Anion Gap BUN Creatinine Est GFR ( Amer) Glucose Calcium Phosphorus Magnesium Total Bilirubin AST Alkaline Phosphatase Ammonia Total Protein Albumin Amylase Lipase TSH 4.47 Free T4 1.02 Urine Color STRAW COLORLESS Urine Appearance CLEAR CLEAR Urine pH 5.0 6.0 Ur Specific [place] 1.011 1.005 Urine Protein >=500 H >=500 H Urine Glucose (UA) 50 H 50 H Urine Ketones NEGATIVE NEGATIVE Urine Blood SMALL H SMALL H Urine Nitrite NEGATIVE NEGATIVE Ur Leukocyte Esterase NEGATIVE NEGATIVE Urine WBC (Auto) 1 0 Urine RBC (Auto) 3 2 08/27/19 08/27/19 09:15 09:50 WBC RBC Hgb Hct MCV MCH MCHC RDW Plt Count Seg Neutrophils % Carbonic Acid 0.97 L HCO3/H2CO3 Ratio 18:1 ABG pH 7.36 ABG pCO2 32.2 L ABG pO2 116.6 H ABG HCO3 17.6 L ABG O2 Saturation 98.1 H ABG Base Excess -6.9 FiO2 36% Sodium Potassium Chloride Carbon Dioxide Anion Gap BUN Creatinine Est GFR ( Amer) Glucose Calcium Phosphorus Magnesium Total Bilirubin AST Alkaline Phosphatase Ammonia < 8.7 L Total Protein Albumin Amylase Lipase TSH Free T4 Urine Color Urine Appearance Urine pH Ur Specific [place] Urine Protein Urine Glucose (UA) Urine Ketones Urine Blood Urine Nitrite Ur Leukocyte Esterase Urine WBC (Auto) Urine RBC (Auto) 08/27/19 08/27/19 08/27/19 01:40 01:40 01:40 Creatine Kinase 1182 H CK-MB (CK-2) 6.85 H Troponin I 0.060 NT-Pro-B Natriuret Pep 4820 H 4760 H 08/27/19 08/27/19 09:50 09:50 Creatine Kinase 1026 H CK-MB (CK-2) 6.22 H Troponin I 0.055 NT-Pro-B Natriuret Pep Impressions: Chest X-Ray 08/27/19 01:49 IMPRESSION: Bilateral peribronchial cuffing may represent chronic bronchitis or bronchiolitis. Assessment & Plan - Diagnosis (1) Acute kidney injury superimposed on chronic kidney disease Plan: This patient is got underlying diabetic kidney disease stage IV with base creatinine of 3. He i\has got acute on chronic kidney disease secondary to prerenal worsening diastolic congestive heart failure. I reviewed his echocardiogram from early 2018 which showed diastolic heart failure. Studies were not good to confirm right heart status. However given his overall comorbidities I believe he possibly has certain element of cor pulmonale. Currently he seems to be getting better as far as the heart failure is concerned with current regimen. At some point we will have to down titrate his IV Lasix. He does not show any evidences of uremia. Electrolytes are stable. No acute indications for initiation of renal replacement therapies which I did discuss with the patient about the potential.Advised him on proper dietary modifications.Monitor closely for the need to initiate on hemodialysis. (2) Acute diastolic heart failure Plan: Currently on IV Lasix infusion and he seems to be responding. (3) CKD stage 4 due to type 2 diabetes mellitus Plan: Has current underlying diabetic kidney disease with nephrotic range proteinuria. Advised need for better blood sugar control. (4) Sleep apnea Plan: Apparently compliant with CPAP. I would recommend that he gets his CPAP while he is hospitalized here. (5) Diabetes mellitus type 2 in obese Plan: Advised for tight blood sugar control. (6) HTN (hypertension) Qualifiers: Hypertension type: essential hypertension Qualified Code(s): I10 - Essential (primary) hypertension Plan: Uncontrolled. See response to current treatments. (7) Nephrotic syndrome Plan: Status quo from diabetic kidney disease. (8) Chronic anemia Plan: Presently stable and at baseline. (9) History of pulmonary embolism Plan: In 2001. Patient apparently has had an IVC filter placed.Was also on Plavix.
[2019-08-27] MEDS ORDERED: BENZOCAINE/MENTHOL SORE THROAT LOZENGE BUCCAL PRN (15:54)
[2019-08-27] MEDS: CYCLOBENZAPRINE HCL 10 MG TABLET PO PRN (16:00)
--- NOTE | 2019-08-27 18:22 | PDOC H&P ---
History of Present Illness Admission Date/PCP: 08/27/19 04:18 YUSEF SOMERS MD History of Present Illness: CORKY JURADO JR is a 68 year old male, He has a history of diabetes nephro madelyn, chronic kidney disease stage IV, he came to the emergency room for evaluation of shortness of breath, wheezing, bilateral leg swelling. The serum creatinine is 6.41, BUN is 60, ABG on FiO2 36%, pH is 7.36 disease PO2 116 bicarbonate 17.6 consistent with metabolic acidosis, the chest x-ray de monstrated pulmonary vascular congestion the blood work suggests progression of kidney disease or acute on chronic renal disease. Patient is not clinically confused he does not look uremic but the clinical picture and the blood work suggests volume overload.The BNP is elevated but I do not know the value of BNP in the setting of very low GFR, He has a history of chronic diastolic heart failure Past Medical History Cardiac Medical History: Reports: Coronary Artery Disease, Hyperlipidema, Hypertension, Pulmonary Embolism, Other - Chronic diastolic heart failure Pulmonary Medical History: Reports: Asthma, Chronic Obstructive Pulmonary Disease (COPD), Pneumonia Endocrine Medical History: Reports: Diabetes Mellitus Type 2 Musculoskeltal Medical History: Reports: Arthritis - GENERALIZED Psychiatric Medical History: Reports: Depression Hematology: Reports: Anemia Past Surgical History Past Surgical History: Reports: Cardiac Catheterization - stents, Cholecystectomy Social History Lives with: Family Smoking Status: Former Smoker Cigarettes Packs Per Day: 1.5 Number of Years Smokin Last Time Smoked: 1994 Frequency of Alcohol Use: None Hx Recreational Drug Use: No Drugs: None Hx Prescription Drug Abuse: No Family History Family History: DM Parental Family History Reviewed: Yes Children Family History Reviewed: Yes Sibling(s) Family History Reviewed.: Yes Medication/Allergy Home Medications: Aspirin [Aspirin 325 mg Tablet] 325 mg PO DAILY 08/27/19 Atorvastatin Calcium [Lipitor 40 mg Tablet] 40 mg PO DAILY 08/27/19 Carvedilol [Coreg] 6.25 mg PO Q12 08/27/19 Clopidogrel Bisulfate [Plavix 75 mg Tablet] 75 mg PO DAILY 08/27/19 Cyclobenzaprine HCl [Flexeril 10 mg Tablet] 10 mg PO Q8HP PRN 08/27/19 Doxepin HCl [Sinequan 10 mg Capsule] 10 mg PO QHS 08/27/19 Duloxetine HCl [Cymbalta] 60 mg PO DAILY 08/27/19 Enalapril Maleate [Vasotec 20 mg Tablet] 20 mg PO DAILY 08/27/19 Furosemide [Lasix 40 mg Tablet] 40 mg PO QAM 08/27/19 Hydralazine HCl [Apresoline 25 mg Tablet] 25 mg PO Q8 08/27/19 Insulin Aspart [Novolog Flexpen] 0 unit SUBCUT .SLD SCALE 08/27/19 Insulin Glargine,Hum.rec.anlog [Lantus Insulin 100 Unit/1 ml 10 ml] 80 unit SUBCUT Q12 08/27/19 Isosorbide Dinitrate [Isordil Titradose 20 mg Tablet] 20 mg PO Q8 08/27/19 Losartan Potassium [Cozaar 100 mg Tablet] 100 mg PO DAILY 08/27/19 Montelukast Sodium [Singulair 10 mg Tablet] 10 mg PO DAILY 08/27/19 Allergies/Adverse Reactions: Iodine and Iodide Containing Produc Allergy (Verified 11/17/18 15:16) Penicillins Allergy (Verified 11/17/18 15:16) Shellfish * [Shellfish] Allergy (Verified 11/17/18 15:16) Difficulty breathing Review of Systems Constitutional: ABSENT: chills, fever(s), headache(s), weight gain, weight loss Eyes: ABSENT: visual disturbances Ears: ABSENT: hearing changes Cardiovascular: PRESENT: dyspnea on exertion, edema, orthropnea Respiratory: PRESENT: dyspnea Gastrointestinal: ABSENT: abdominal pain, constipation, diarrhea, hematemesis, hematochezia, nausea, vomiting Genitourinary: ABSENT: dysuria, hematuria Musculoskeletal: ABSENT: joint swelling Integumentary: ABSENT: rash, wounds Neurological: ABSENT: abnormal gait, abnormal speech, confusion, dizziness, focal weakness, syncope Psychiatric: ABSENT: anxiety, depression, homidical ideation, suicidal ideation Endocrine: ABSENT: cold intolerance, heat intolerance, menstrual abnormalities, polydipsia, polyuria Hematologic/Lymphatic: ABSENT: easy bleeding, easy bruising, lymphadenopathy Physical Exam Vital Signs: Temp Pulse Resp BP Pulse Ox 97.6 F 80 16 144/84 H 100 08/27/19 16:32 08/27/19 16:32 08/27/19 16:32 08/27/19 16:32 08/27/19 16:32 Intake & Output 08/26/19 08/27/19 08/28/19 06:59 06:59 06:59 Intake Total 0 500 Output Total 750 1425 Balance -750 -925 Weight 112.3 kg General appearance: PRESENT: mild distress Head exam: PRESENT: atraumatic, normocephalic Eye exam: PRESENT: PERRLA Ear exam: PRESENT: normal external ear exam Neck exam: PRESENT: full ROM Respiratory exam: PRESENT: crackles, rhonchi Cardiovascular exam: PRESENT: RRR, +S1, +S2 Vascular exam: PRESENT: normal capillary refill GI/Abdominal exam: PRESENT: normal bowel sounds, soft Rectal exam: PRESENT: deferred Neurological exam: PRESENT: alert, CN II-XII grossly intact Psychiatric exam: PRESENT: appropriate affect, normal mood Skin exam: PRESENT: dry, intact, warm Results Laboratory Results: 08/27/19 01:40 08/27/19 01:40 08/27/19 08/27/19 08/27/19 01:40 01:40 01:40 WBC 7.4 RBC 3.57 L Hgb 10.0 L Hct 30.7 L MCV 86 MCH 27.9 MCHC 32.4 RDW 13.6 Plt Count 262 Seg Neutrophils % 61.1 Carbonic Acid HCO3/H2CO3 Ratio ABG pH ABG pCO2 ABG pO2 ABG HCO3 ABG O2 Saturation ABG Base Excess FiO2 Sodium 137.9 Potassium 5.3 H Chloride 110 H Carbon Dioxide 18 L Anion Gap 10 BUN 66 H Creatinine 6.41 H Est GFR ( Amer) 11 L Glucose 121 H Calcium 8.0 L Phosphorus 5.1 H Magnesium 1.8 Total Bilirubin 0.5 AST 36 Alkaline Phosphatase 104 Ammonia Total Protein 6.7 Albumin 3.2 L Amylase 135 H Lipase 378.8 H TSH Free T4 Urine Color Urine Appearance Urine pH Ur Specific [place] Urine Protein Urine Glucose (UA) Urine Ketones Urine Blood Urine Nitrite Ur Leukocyte Esterase Urine WBC (Auto) Urine RBC (Auto) 08/27/19 08/27/19 08/27/19 01:40 02:05 08:55 WBC RBC Hgb Hct MCV MCH MCHC RDW Plt Count Seg Neutrophils % Carbonic Acid HCO3/H2CO3 Ratio ABG pH ABG pCO2 ABG pO2 ABG HCO3 ABG O2 Saturation ABG Base Excess FiO2 Sodium Potassium Chloride Carbon Dioxide Anion Gap BUN Creatinine Est GFR ( Amer) Glucose Calcium Phosphorus Magnesium Total Bilirubin AST Alkaline Phosphatase Ammonia Total Protein Albumin Amylase Lipase TSH 4.47 Free T4 1.02 Urine Color STRAW COLORLESS Urine Appearance CLEAR CLEAR Urine pH 5.0 6.0 Ur Specific [place] 1.011 1.005 Urine Protein >=500 H >=500 H Urine Glucose (UA) 50 H 50 H Urine Ketones NEGATIVE NEGATIVE Urine Blood SMALL H SMALL H Urine Nitrite NEGATIVE NEGATIVE Ur Leukocyte Esterase NEGATIVE NEGATIVE Urine WBC (Auto) 1 0 Urine RBC (Auto) 3 2 08/27/19 08/27/19 09:15 09:50 WBC RBC Hgb Hct MCV MCH MCHC RDW Plt Count Seg Neutrophils % Carbonic Acid 0.97 L HCO3/H2CO3 Ratio 18:1 ABG pH 7.36 ABG pCO2 32.2 L ABG pO2 116.6 H ABG HCO3 17.6 L ABG O2 Saturation 98.1 H ABG Base Excess -6.9 FiO2 36% Sodium Potassium Chloride Carbon Dioxide Anion Gap BUN Creatinine Est GFR ( Amer) Glucose Calcium Phosphorus Magnesium Total Bilirubin AST Alkaline Phosphatase Ammonia < 8.7 L Total Protein Albumin Amylase Lipase TSH Free T4 Urine Color Urine Appearance Urine pH Ur Specific [place] Urine Protein Urine Glucose (UA) Urine Ketones Urine Blood Urine Nitrite Ur Leukocyte Esterase Urine WBC (Auto) Urine RBC (Auto) 08/27/19 08/27/19 08/27/19 01:40 01:40 01:40 Creatine Kinase 1182 H CK-MB (CK-2) 6.85 H Troponin I 0.060 NT-Pro-B Natriuret Pep 4820 H 4760 H 08/27/19 08/27/19 09:50 09:50 Creatine Kinase 1026 H CK-MB (CK-2) 6.22 H Troponin I 0.055 NT-Pro-B Natriuret Pep Impressions: Chest X-Ray 08/27/19 01:49 IMPRESSION: Bilateral peribronchial cuffing may represent chronic bronchitis or bronchiolitis. Assessment & Plan - Diagnosis (1) Acute diastolic heart failure Is this a current diagnosis for this admission?: Yes Plan: Patient with history of chronic diastolic heart failure, now present with evidence of volume overload which could be from acute diastolic heart failure, CKD stage V, nephrotic syndrome (2) Chronic kidney disease, stage 5 Is this a current diagnosis for this admission?: Yes (3) Volume overload Qualifiers: Hypervolemia type: other Qualified Code(s): E87.79 - Other fluid overload Is this a current diagnosis for this admission?: Yes Plan: Start furosemide infusion (4) Diabetes mellitus with diabetic nephropathy Is this a current diagnosis for this admission?: Yes Plan: He has nephrotic range proteinuria
[2019-08-27 22:06] LABS: CREATINE KINASE MB 4.02 ng/mL (<4.55); TROPONIN I 0.042 ng/mL
[2019-08-28] MEDS: HEPARIN SOD (PORCINE) 5,000 UNIT/ML 1 ML VIAL SUBCUT SCH ×3 (01:08→17:21)
[2019-08-28] MEDS: CYCLOBENZAPRINE HCL 10 MG TABLET PO PRN ×2 (01:08→16:28)
[2019-08-28 03:31] LABS: ABSOLUTE BASOPHILS # (AUTO) 0.1 10^3/uL (0.0-0.2); ABSOLUTE EOSINOPHILS # (AUTO) 0.2 10^3/uL (0.0-0.6); ABSOLUTE LYMPHOCYTES (AUTO) 1.2 10^3/uL (0.5-4.7); ABSOLUTE MONOCYTES (AUTO) 0.5 10^3/uL (0.1-1.4); ABSOLUTE NEUT (AUTO) 3.5 10^3/uL (1.7-8.2); BASOPHILS % (AUTO) 1.4 % (0-2); EOSINOPHILS % (AUTO) 4.2 % (0-6); HEMATOCRIT 30.4 % (37.9-51.0); HEMOGLOBIN 10.2 g/dL (13.5-17.0); LYMPHOCYTES % (AUTO) 21.8 % (13-45); MEAN CORPUSCULAR HEMOGLOBIN 28.7 pg (27.0-33.4); MEAN CORPUSCULAR HGB CONC 33.6 g/dL (32.0-36.0); MEAN CORPUSCULAR VOLUME 86 fl (80-97); MONOCYTES % (AUTO) 9.3 % (3-13); PLATELET COUNT 245 10^3/uL (150-450); RED BLOOD COUNT 3.55 10^6/uL (4.35-5.55); RED CELL DISTRIBUTION WIDTH 13.2 % (11.5-14.0); SEGMENTED NEUTROPHILS % (AUTO) 63.3 % (42-78); TOTAL CELLS COUNTED % (AUTO) 100 %; WHITE BLOOD COUNT 5.6 10^3/uL (4.0-10.5)
[2019-08-28 03:56] LABS: ALBUMIN 3.1 g/dL (3.5-5.0); ALKALINE PHOSPHATASE 90 U/L (38-126); ANION GAP 9 (5-19); ASPARTATE AMINO TRANSFERASE 25 U/L (17-59); BILIRUBIN,DIRECT 0.1 mg/dL (0.0-0.4); BILIRUBIN,TOTAL 0.4 mg/dL (0.2-1.3); BLOOD UREA NITROGEN 71 mg/dL (7-20); CALCIUM 7.7 mg/dL (8.4-10.2); CARBON DIOXIDE 20 mmol/L (22-30); CHLORIDE 105 mmol/L (98-107); CHOLESTEROL 321.03 mg/dL (0-200); GLUCOSE 110 mg/dL (75-110); TOTAL PROTEIN 6.3 g/dL (6.3-8.2); TRIGLYCERIDES 183 mg/dL (<150)
[2019-08-28 03:57] LABS: VLDL CHOLESTEROL 36.6 mg/dL (10-31)
[2019-08-28 04:07] LABS: CREATINE KINASE MB 4.06 ng/mL (<4.55); DIRECT LDL 192 mg/dL (<100); TROPONIN I 0.046 ng/mL
[2019-08-28] MEDS: INSULIN LISPRO 100 UNIT/ML 3 ML VIAL SUBCUT SCH ×4 (08:05→21:54)
[2019-08-28] MEDS: NORMAL SALINE 250 ML with FUROSEMIDE 250 MG IV PRN ×2 (14:35)
--- NOTE | 2019-08-28 17:11 | PDOC PROGRESS REPORT ---
Subjective Progress Note for:: 08/28/19 Reason For Visit: Patient seen today in the hospital. His is at the bedside. He sitting on a recliner. He generally has been feeling better since yesterday. Appetite is good. He denies any history of chest pains. Shortness of breath on exertion is better on exertion. Labs and medications reviewed with him shows stable renal numbers. Urine output is really good. Physical Exam Vital Signs: Temp Pulse Resp BP Pulse Ox 97.9 F 81 16 139/69 H 98 08/28/19 16:07 08/28/19 16:07 08/28/19 16:07 08/28/19 16:07 08/28/19 16:07 Intake & Output 08/27/19 08/28/19 08/29/19 06:59 06:59 06:59 Intake Total 0 1580 370 Output Total 750 4050 Balance -750 -2470 370 Weight 112.3 kg 113.8 kg General appearance: PRESENT: no acute distress Respiratory exam: PRESENT: clear to auscultation [place], decreased breath sounds. ABSENT: crackles Cardiovascular exam: PRESENT: +S1, +S2, systolic murmur GI/Abdominal exam: PRESENT: normal bowel sounds, soft. ABSENT: organomegaly, tenderness Extremities exam: PRESENT: +1 edema Neurological exam: PRESENT: alert, awake, oriented to person, oriented to place, oriented to time, oriented to situation Psychiatric exam: PRESENT: appropriate affect Skin exam: PRESENT: mottled - venous stasis changes in both lower extremities.. ABSENT: erythema, rash, warm Results Laboratory Results: 08/28/19 03:23 08/28/19 03:23 08/28/19 08/28/19 03:23 03:23 WBC 5.6 RBC 3.55 L Hgb 10.2 L Hct 30.4 L MCV 86 MCH 28.7 MCHC 33.6 RDW 13.2 Plt Count 245 Seg Neutrophils % 63.3 Sodium 134.0 L Potassium 5.0 Chloride 105 Carbon Dioxide 20 L Anion Gap 9 BUN 71 H Creatinine 6.29 H Est GFR ( Amer) 11 L Glucose 110 Calcium 7.7 L Total Bilirubin 0.4 AST 25 Alkaline Phosphatase 90 Total Protein 6.3 Albumin 3.1 L Triglycerides 183 H Cholesterol 321.03 H LDL Cholesterol Direct 192 H VLDL Cholesterol 36.6 H HDL Cholesterol 56 08/27/19 08:55 Clean Catch Midstream Urine Culture - Final 6,000 col/ml 08/27/19 08/27/19 08/27/19 01:40 01:40 01:40 Creatine Kinase 1182 H CK-MB (CK-2) 6.85 H Troponin I 0.060 NT-Pro-B Natriuret Pep 4820 H 4760 H 08/27/19 08/27/19 08/27/19 09:50 09:50 21:18 Creatine Kinase 1026 H 913 H CK-MB (CK-2) 6.22 H Troponin I 0.055 NT-Pro-B Natriuret Pep 08/27/19 08/28/19 08/28/19 21:18 03:23 03:23 Creatine Kinase 842 H CK-MB (CK-2) 4.02 4.06 Troponin I 0.042 0.046 NT-Pro-B Natriuret Pep Impressions: Chest X-Ray 08/27/19 01:49 IMPRESSION: Bilateral peribronchial cuffing may represent chronic bronchitis or bronchiolitis. Assessment & Plan - Diagnosis (1) Acute kidney injury superimposed on chronic kidney disease Plan: Nonoliguric. Multifactorial including prerenal congestive heart failure and likely an element of rhabdomyolysis. CPK improving. Patient currently off statins. Stable renal numbers. Continue on current guidelines. Patient still in the decompensated heart failure but better. No indications for renal replacement therapy. (2) Acute diastolic heart failure Is this a current diagnosis for this admission?: Yes Plan: Patient is making good urine output to current guidelines. Continue on present medications. Advised again on proper dietary modifications once discharged. (3) CKD stage 4 due to type 2 diabetes mellitus Plan: Patient is got acute decompensation on his underlying diabetic kidney disease. Nonoliguric. Stable renal numbers of the moment. No indications for renal replacements. Continue to monitor closely. (4) Sleep apnea Plan: Recommend CPAP while in hospital. (5) Diabetes mellitus type 2 in obese Plan: Advised tight control (6) HTN (hypertension) Qualifiers: Hypertension type: essential hypertension Qualified Code(s): I10 - Essential (primary) hypertension Plan: Controlled at the moment. Monitor. (7) Nephrotic syndrome Plan: Status quo from diabetic nephropathy. (8) Chronic anemia Plan: Stable. No indications for initiation of erythropoietin currently. (9) History of pulmonary embolism Plan: Status quo. Patient on prophylaxis.
--- NOTE | 2019-08-28 20:47 | PDOC PROGRESS REPORT ---
Subjective Progress Note for:: 08/28/19 Subjective:: Patient was seen by the bedside, he continues to improve on Lasix infusion making urine Reason For Visit: END STAGE RENAL DISEASE WITH VOLUME OVERLOAD,HTN Physical Exam Vital Signs: Temp Pulse Resp BP Pulse Ox 97.9 F 98 16 139/69 H 98 08/28/19 16:07 08/28/19 19:00 08/28/19 16:07 08/28/19 16:07 08/28/19 16:07 Intake & Output 08/27/19 08/28/19 08/29/19 06:59 06:59 06:59 Intake Total 0 1580 370 Output Total 750 4050 2300 Balance -750 -1670 -1930 Weight 112.3 kg 113.8 kg General appearance: PRESENT: no acute distress Eye exam: PRESENT: PERRLA Respiratory exam: PRESENT: clear to auscultation [place] Cardiovascular exam: PRESENT: +S1, +S2 GI/Abdominal exam: PRESENT: soft Extremities exam: PRESENT: pedal edema Neurological exam: PRESENT: alert, CN II-XII grossly intact Results Laboratory Results: 08/28/19 03:23 08/28/19 03:23 08/28/19 08/28/19 03:23 03:23 WBC 5.6 RBC 3.55 L Hgb 10.2 L Hct 30.4 L MCV 86 MCH 28.7 MCHC 33.6 RDW 13.2 Plt Count 245 Seg Neutrophils % 63.3 Sodium 134.0 L Potassium 5.0 Chloride 105 Carbon Dioxide 20 L Anion Gap 9 BUN 71 H Creatinine 6.29 H Est GFR ( Amer) 11 L Glucose 110 Calcium 7.7 L Total Bilirubin 0.4 AST 25 Alkaline Phosphatase 90 Total Protein 6.3 Albumin 3.1 L Triglycerides 183 H Cholesterol 321.03 H LDL Cholesterol Direct 192 H VLDL Cholesterol 36.6 H HDL Cholesterol 56 08/27/19 08:55 Clean Catch Midstream Urine Culture - Final 6,000 col/ml 08/27/19 08/27/19 08/27/19 01:40 01:40 01:40 Creatine Kinase 1182 H CK-MB (CK-2) 6.85 H Troponin I 0.060 NT-Pro-B Natriuret Pep 4820 H 4760 H 08/27/19 08/27/19 08/27/19 09:50 09:50 21:18 Creatine Kinase 1026 H 913 H CK-MB (CK-2) 6.22 H Troponin I 0.055 NT-Pro-B Natriuret Pep 08/27/19 08/28/19 08/28/19 21:18 03:23 03:23 Creatine Kinase 842 H CK-MB (CK-2) 4.02 4.06 Troponin I 0.042 0.046 NT-Pro-B Natriuret Pep Impressions: Chest X-Ray 08/27/19 01:49 IMPRESSION: Bilateral peribronchial cuffing may represent chronic bronchitis or bronchiolitis. Assessment & Plan - Diagnosis (1) Acute diastolic heart failure Is this a current diagnosis for this admission?: Yes (2) Chronic kidney disease, stage 5 Is this a current diagnosis for this admission?: Yes (3) Volume overload Qualifiers: Hypervolemia type: other Qualified Code(s): E87.79 - Other fluid overload Is this a current diagnosis for this admission?: Yes Plan: Continue Lasix infusion (4) Diabetes mellitus with diabetic nephropathy Is this a current diagnosis for this admission?: Yes - Time Time Spent with patient: 25-34 minutes
[2019-08-29] MEDS: CYCLOBENZAPRINE HCL 10 MG TABLET PO PRN (01:27)
[2019-08-29] MEDS: HEPARIN SOD (PORCINE) 5,000 UNIT/ML 1 ML VIAL SUBCUT SCH ×3 (01:27→17:37)
[2019-08-29 05:07] LABS: ABSOLUTE BASOPHILS # (AUTO) 0.1 10^3/uL (0.0-0.2); ABSOLUTE EOSINOPHILS # (AUTO) 0.2 10^3/uL (0.0-0.6); ABSOLUTE LYMPHOCYTES (AUTO) 1.6 10^3/uL (0.5-4.7); ABSOLUTE MONOCYTES (AUTO) 0.8 10^3/uL (0.1-1.4); ABSOLUTE NEUT (AUTO) 4.1 10^3/uL (1.7-8.2); BASOPHILS % (AUTO) 1.1 % (0-2); EOSINOPHILS % (AUTO) 3.3 % (0-6); LYMPHOCYTES % (AUTO) 23.9 % (13-45); MEAN CORPUSCULAR HEMOGLOBIN 28.2 pg (27.0-33.4); MEAN CORPUSCULAR HGB CONC 33.1 g/dL (32.0-36.0); MEAN CORPUSCULAR VOLUME 85 fl (80-97); MONOCYTES % (AUTO) 11.1 % (3-13); PLATELET COUNT 228 10^3/uL (150-450); RED BLOOD COUNT 3.53 10^6/uL (4.35-5.55); RED CELL DISTRIBUTION WIDTH 13.4 % (11.5-14.0); SEGMENTED NEUTROPHILS % (AUTO) 60.6 % (42-78); TOTAL CELLS COUNTED % (AUTO) 100 %; WHITE BLOOD COUNT 6.8 10^3/uL (4.0-10.5)
[2019-08-29 05:30] LABS: ANION GAP 10 (5-19); BLOOD UREA NITROGEN 81 mg/dL (7-20); CALCIUM 7.5 mg/dL (8.4-10.2); CARBON DIOXIDE 20 mmol/L (22-30); CHLORIDE 104 mmol/L (98-107); GLUCOSE 101 mg/dL (75-110); POTASSIUM 5.1 mmol/L (3.6-5.0)
[2019-08-29] MEDS: INSULIN LISPRO 100 UNIT/ML 3 ML VIAL SUBCUT SCH ×4 (08:33→21:59)
--- NOTE | 2019-08-29 11:06 | PDOC PROGRESS REPORT ---
Subjective Progress Note for:: 08/29/19 Reason For Visit: Mr. Jonathan Kramer was seen this morning in the hospital. He is continuing to feel better. Breathing is better. He still not very active and being rather confined because of his IV Lasix infusion. He denies any history of chest pain. Labs and medications were reviewed that shows creatinine is still decompensated and has not started to show any improvement. He has made good amounts of urine. Physical Exam Vital Signs: Temp Pulse Resp BP Pulse Ox 97.3 F 87 16 130/72 H 97 08/29/19 07:24 08/29/19 07:24 08/29/19 07:53 08/29/19 07:24 08/29/19 07:53 Intake & Output 08/28/19 08/29/19 08/30/19 06:59 06:59 06:59 Intake Total 1580 470 Output Total 4050 3075 Balance -2470 -2605 Weight 113.8 kg 114.2 kg General appearance: PRESENT: no acute distress Respiratory exam: PRESENT: clear to auscultation [place], decreased breath sounds. ABSENT: crackles Cardiovascular exam: PRESENT: +S1, +S2, systolic murmur GI/Abdominal exam: PRESENT: normal bowel sounds, soft. ABSENT: organomegaly, tenderness Extremities exam: PRESENT: +1 edema Neurological exam: PRESENT: alert, awake, oriented to person, oriented to place Psychiatric exam: PRESENT: appropriate affect Results Laboratory Results: 08/29/19 04:29 08/29/19 04:29 08/29/19 08/29/19 04:29 04:29 WBC 6.8 RBC 3.53 L Hgb 10.0 L Hct 30.0 L MCV 85 MCH 28.2 MCHC 33.1 RDW 13.4 Plt Count 228 Seg Neutrophils % 60.6 Sodium 133.9 L Potassium 5.1 H Chloride 104 Carbon Dioxide 20 L Anion Gap 10 BUN 81 H Creatinine 6.89 H Est GFR ( Amer) 10 L Glucose 101 Calcium 7.5 L 08/27/19 08:55 Clean Catch Midstream Urine Culture - Final 6,000 col/ml 08/27/19 08/27/19 08/27/19 01:40 01:40 01:40 Creatine Kinase 1182 H CK-MB (CK-2) 6.85 H Troponin I 0.060 NT-Pro-B Natriuret Pep 4820 H 4760 H 08/27/19 08/27/19 08/27/19 09:50 09:50 21:18 Creatine Kinase 1026 H 913 H CK-MB (CK-2) 6.22 H Troponin I 0.055 NT-Pro-B Natriuret Pep 08/27/19 08/28/19 08/28/19 21:18 03:23 03:23 Creatine Kinase 842 H CK-MB (CK-2) 4.02 4.06 Troponin I 0.042 0.046 NT-Pro-B Natriuret Pep Impressions: Chest X-Ray 08/27/19 01:49 IMPRESSION: Bilateral peribronchial cuffing may represent chronic bronchitis or bronchiolitis. Assessment & Plan - Diagnosis (1) Acute kidney injury superimposed on chronic kidney disease Plan: Nonoliguric. Multifactorial including prerenal congestive heart failure and likely an element of rhabdomyolysis. CPK improving. Patient currently off statins. Stable renal numbers . I am going to convert his Lasix infusion into bolus dosing as patient needs ongoing diuresis. Patient still in the decompensated heart failure but better. I also will order a renal ultrasound given his refractory decompensation of his renal failure. No indications for renal replacement therapy. (2) Acute diastolic heart failure Is this a current diagnosis for this admission?: Yes Plan: Patient is making good urine output to current guidelines. Advised again on proper dietary modifications once discharged. (3) CKD stage 4 due to type 2 diabetes mellitus Plan: Patient is got acute decompensation on his underlying diabetic kidney disease. Nonoliguric. Stable renal numbers of the moment. No indications for renal replacements. Continue to monitor closely. (4) Sleep apnea Plan: Recommend CPAP while in hospital. (5) Diabetes mellitus type 2 in obese Plan: Advised tight control (6) HTN (hypertension) Qualifiers: Hypertension type: essential hypertension Qualified Code(s): I10 - Essent ial (primary) hypertension Plan: Controlled at the moment. Monitor. (7) Nephrotic syndrome Plan: Status quo from diabetic nephropathy.Will quantify (8) Chronic anemia Plan: Stable. No indications for initiation of erythropoietin currently. (9) History of pulmonary embolism Plan: Status quo. Patient on prophylaxis.
[2019-08-29] MEDS: FUROSEMIDE INJ/PF 20 MG/2 ML SDV IV SCH ×2 (13:10→21:59)
--- NOTE | 2019-08-29 14:00 | RADIOLOGY REPORT (SQ) ---
EXAM DESCRIPTION: U/S RETROPERITON (RENAL/AORTA) COMPLETED DATE/TIME: 08/29/2019 1:45 pm REASON FOR STUDY: SANDRA COMPARISON: 03/12/2017 TECHNIQUE: Dynamic and static grayscale images acquired of the kidneys and bladder and recorded on P ACS. Additional selected color Doppler and spectral images recorded. LIMITATIONS: None. FINDINGS: RIGHT KIDNEY: Normal size measuring 12.4 cm. Normal echogenicity. No solid or suspicious m asses. Lobulated cortical contour. No hydronephrosis. No calcifications. LEFT KIDNEY: Normal size measuring 13.5 cm. Normal echogenicity. No solid or suspicious masses. Upp er pole cyst measuring 1.3 cm. Lobulated cortical texture. No hydronephrosis. No calcifications. BLADDER: No masses. OTHER FINDINGS: No other significant finding. IMPRESSION: 1. No evidence of hydronephrosis. 2. 1.3 cm left renal cyst. TECHNICAL DOCUMENTATION: JOB ID: [id number] [employer]- All Rights Reserved Reading location - IP/workstation name: [email or web address]
[2019-08-29 14:55] LABS: URINE CREATININE 46.5 mg/dL (22-328); URINE PROTEIN 184.7 mg/dL (<12)
--- NOTE | 2019-08-29 17:04 | PDOC PROGRESS REPORT ---
Subjective Progress Note for:: 08/29/19 Subjective:: Patient seen by the bedside, he continues to improve Reason For Visit: END STAGE RENAL DISEASE WITH VOLUME OVERLOAD,HTN Physical Exam Vital Signs: Temp Pulse Resp BP Pulse Ox 97.8 F 93 16 105/67 100 08/29/19 16:19 08/29/19 16:19 08/29/19 16:19 08/29/19 16:19 08/29/19 16:19 Intake & Output 08/28/19 08/29/19 08/30/19 06:59 06:59 06:59 Intake Total 1580 470 333 Output Total 4050 3078 500 Balance -9058 -6151 -322 Weight 113.8 kg 114.2 kg General appearance: PRESENT: no acute distress Eye exam: PRESENT: PERRLA Respiratory exam: PRESENT: clear to auscultation [place] Cardiovascular exam: PRESENT: +S1, +S2 GI/Abdominal exam: PRESENT: soft Neurological exam: PRESENT: alert Results Laboratory Results: 08/29/19 04:29 08/29/19 04:29 08/29/19 08/29/19 04:29 04:29 WBC 6.8 RBC 3.53 L Hgb 10.0 L Hct 30.0 L MCV 85 MCH 28.2 MCHC 33.1 RDW 13.4 Plt Count 228 Seg Neutrophils % 60.6 Sodium 133.9 L Potassium 5.1 H Chloride 104 Carbon Dioxide 20 L Anion Gap 10 BUN 81 H Creatinine 6.89 H Est GFR ( Amer) 10 L Glucose 101 Calcium 7.5 L 08/27/19 08:55 Clean Catch Midstream Urine Culture - Final 6,000 col/ml 08/27/19 08/27/19 08/27/19 01:40 01:40 01:40 Creatine Kinase 1182 H CK-MB (CK-2) 6.85 H Troponin I 0.060 NT-Pro-B Natriuret Pep 4820 H 4760 H 08/27/19 08/27/19 08/27/19 09:50 09:50 21:18 Creatine Kinase 1026 H 913 H CK-MB (CK-2) 6.22 H Troponin I 0.055 NT-Pro-B Natriuret Pep 08/27/19 08/28/19 08/28/19 21:18 03:23 03:23 Creatine Kinase 842 H CK-MB (CK-2) 4.02 4.06 Troponin I 0.042 0.046 NT-Pro-B Natriuret Pep Impressions: Chest X-Ray 08/27/19 01:49 IMPRESSION: Bilateral peribronchial cuffing may represent chronic bronchitis or bronchiolitis. Renal Ultrasound 08/29/19 00:00 IMPRESSION: 1. No evidence of hydronephrosis. 2. 1.3 cm left renal cyst. Assessment & Plan - Diagnosis (1) Acute diastolic heart failure Is this a current diagnosis for this admission?: Yes (2) Chronic kidney disease, stage 5 Is this a current diagnosis for this admission?: Yes (3) Volume overload Qualifiers: Hypervolemia type: other Qualified Code(s): E87.79 - Other fluid overload Is this a current diagnosis for this admission?: Yes (4) Diabetes mellitus with diabetic nephropathy Is this a current diagnosis for this admission?: Yes - Time Time Spent with patient: 25-34 minutes
[2019-08-30] MEDS: HEPARIN SOD (PORCINE) 5,000 UNIT/ML 1 ML VIAL SUBCUT SCH ×3 (01:44→18:09)
[2019-08-30 05:10] LABS: ABSOLUTE BASOPHILS # (AUTO) 0.1 10^3/uL (0.0-0.2); ABSOLUTE EOSINOPHILS # (AUTO) 0.2 10^3/uL (0.0-0.6); ABSOLUTE LYMPHOCYTES (AUTO) 1.7 10^3/uL (0.5-4.7); ABSOLUTE MONOCYTES (AUTO) 0.7 10^3/uL (0.1-1.4); ABSOLUTE NEUT (AUTO) 3.8 10^3/uL (1.7-8.2); BASOPHILS % (AUTO) 1.3 % (0-2); EOSINOPHILS % (AUTO) 3.5 % (0-6); HEMOGLOBIN 9.7 g/dL (13.5-17.0); LYMPHOCYTES % (AUTO) 25.7 % (13-45); MEAN CORPUSCULAR HEMOGLOBIN 28.5 pg (27.0-33.4); MEAN CORPUSCULAR HGB CONC 33.5 g/dL (32.0-36.0); MEAN CORPUSCULAR VOLUME 85 fl (80-97); MONOCYTES % (AUTO) 11.1 % (3-13); PLATELET COUNT 234 10^3/uL (150-450); RED CELL DISTRIBUTION WIDTH 13.5 % (11.5-14.0); SEGMENTED NEUTROPHILS % (AUTO) 58.4 % (42-78); TOTAL CELLS COUNTED % (AUTO) 100 %; WHITE BLOOD COUNT 6.5 10^3/uL (4.0-10.5)
[2019-08-30 05:31] LABS: ANION GAP 9 (5-19); BLOOD UREA NITROGEN 89 mg/dL (7-20); CALCIUM 7.4 mg/dL (8.4-10.2); CARBON DIOXIDE 22 mmol/L (22-30); CHLORIDE 103 mmol/L (98-107); GLUCOSE 105 mg/dL (75-110); POTASSIUM 5.3 mmol/L (3.6-5.0)
[2019-08-30] MEDS: FUROSEMIDE INJ/PF 20 MG/2 ML SDV IV SCH (05:53)
[2019-08-30] MEDS ORDERED: 1/2 NORMAL SALINE 1,000 ML IV PRN (09:17)
[2019-08-30] MEDS: INSULIN LISPRO 100 UNIT/ML 3 ML VIAL SUBCUT SCH ×4 (09:23→21:57)
--- NOTE | 2019-08-30 11:26 | PDOC PROGRESS REPORT ---
Subjective Progress Note for:: 08/30/19 Reason For Visit: Patient seen this morning in the hospital. He generally is feeling better. Good appetite. No history of any chest pain or shortness of breath. He is laying in bed today with his legs. Making decent amounts of urine. He has a swollen right leg as compared to almost normal left leg now. Labs and medications were reviewed. Renal numbers are stable decompensated. Physical Exam Vital Signs: Temp Pulse Resp BP Pulse Ox 97.3 F 88 18 126/67 H 100 08/30/19 08:16 08/30/19 08:16 08/30/19 08:16 08/30/19 08:16 08/30/19 08:16 Intake & Output 08/29/19 08/30/19 08/31/19 06:59 06:59 06:59 Intake Total 470 1460 Output Total 3075 2900 Balance -2605 -1440 Weight 114.2 kg 110.5 kg General appearance: PRESENT: no acute distress Respiratory exam: PRESENT: clear to auscultation [place]. ABSENT: crackles Cardiovascular exam: PRESENT: +S1, +S2, systolic murmur GI/Abdominal exam: PRESENT: normal bowel sounds, soft. ABSENT: organomegaly, tenderness Extremities exam: PRESENT: +1 edema - Office right leg with hardly any edema on his left leg. He is got mild tenderness over the calf on the right side. Neurological exam: PRESENT: alert, awake, oriented to person, oriented to place Psychiatric exam: PRESENT: appropriate affect Skin exam: ABSENT: erythema, mottled, rash Results Laboratory Results: 08/30/19 04:19 08/30/19 04:19 08/30/19 08/30/19 04:19 04:19 WBC 6.5 RBC 3.40 L Hgb 9.7 L Hct 29.0 L MCV 85 MCH 28.5 MCHC 33.5 RDW 13.5 Plt Count 234 Seg Neutrophils % 58.4 Sodium 134.4 L Potassium 5.3 H Chloride 103 Carbon Dioxide 22 Anion Gap 9 BUN 89 H Creatinine 6.77 H Est GFR ( Amer) 10 L Glucose 105 Calcium 7.4 L 08/27/19 08/27/19 08/27/19 01:40 01:40 01:40 Creatine Kinase 1182 H CK-MB (CK-2) 6.85 H Troponin I 0.060 NT-Pro-B Natriuret Pep 4820 H 4760 H 08/27/19 08/27/19 08/27/19 09:50 09:50 21:18 Creatine Kinase 1026 H 913 H CK-MB (CK-2) 6.22 H Troponin I 0.055 NT-Pro-B Natriuret Pep 08/27/19 08/28/19 08/28/19 21:18 03:23 03:23 Creatine Kinase 842 H CK-MB (CK-2) 4.02 4.06 Troponin I 0.042 0.046 NT-Pro-B Natriuret Pep Impressions: Chest X-Ray 08/27/19 01:49 IMPRESSION: Bilateral peribronchial cuffing may represent chronic bronchitis or bronchiolitis. Renal Ultrasound 08/29/19 00:00 IMPRESSION: 1. No evidence of hydronephrosis. 2. 1.3 cm left renal cyst. Assessment & Plan - Diagnosis (1) Acute kidney injury superimposed on chronic kidney disease Plan: Nonoliguric. Multifactorial including prerenal congestive heart failure and likely an element of rhabdomyolysis. Stable renal numbers though still decompensated. We will hold off IV Lasix and start him on p.o. Lasix. No indications for renal replacement therapy. (2) Acute diastolic heart failure Is this a current diagnosis for this admission?: Yes Plan: Patient is making good urine output to current guidelines. Advised again on proper dietary modifications once discharged. (3) CKD stage 4 due to type 2 diabetes mellitus Plan: Patient is got acute decompensation on his underlying diabetic kidney disease. Nonoliguric. Stable renal numbers of the moment. No indications for renal replacements. Continue to monitor closely. (4) Sleep apnea Plan: Currently using BiPAP in the hospital at night which will help him. (5) Diabetes mellitus type 2 in obese Plan: Advised tight control (6) HTN (hypertension) Qualifiers: Hypertension type: essential hypertension Qualified Code(s): I10 - Essential (primary) hypertension Plan: Controlled at the moment. Monitor. (7) Nephrotic syndrome Plan: Status quo from diabetic nephropathy.Will quantify (8) Chronic anemia Plan: Stable. No indications for initiation of erythropoietin currently. (9) History of pulmonary embolism Plan: Status quo. Patient on prophylaxis. (10) Right leg swelling Plan: Mild tenderness of the right calf muscle. Get venous Dopplers.
--- NOTE | 2019-08-30 15:12 | RADIOLOGY REPORT (SQ) ---
EXAM DESCRIPTION: VENOUS BILATERAL LOWER COMPLETED DATE/TIME: 08/30/2019 3:03 pm REASON FOR STUDY: lower extremity swelling COMPARISON: None. TECHNIQUE: Dynamic and static bates scale and color images acquired of both lower extremity venous sy stems. Selected spectral images acquired with additional compression and augmentation maneuvers. Imag es stored on PACS. LIMITATIONS: None. FINDINGS: RIGHT LEG COMMON FEMORAL AND FEMORAL: Normal phasicity, compression and augmentation. No visualized echogenic m aterial on bates scale. No defects on color images. POPLITEAL: Normal compression and augmentation. No visualized echogenic material on bates scale. No de fects on color images. CALF VESSELS: Normal compression and augmentation. No visualized echogenic material on bates scale. No defects on color image. GSV AND SSV: Normal compression. No visualized echogenic material on bates scale. No defects on color images. ANY DEEP VENOUS INSUFFICIENCY: Not evaluated. ANY EVIDENCE OF POPLITEAL CYST: No. OTHER: No other significant finding. LEFT LEG COMMON FEMORAL AND FEMORAL: Normal phasicity, compression and augmentation. No visualized echogenic m aterial on bates scale. No defects on color images. POPLITEAL: There is calcified intraluminal material within the popliteal vein with partial compressi bility. CALF VESSELS: Normal compression and augmentation. No visualized echogenic material on bates scale. No defects on color images. GSV AND SSV: Normal compression. No visualized echogenic material on bates scale. No defects on color images. ANY DEEP VENOUS INSUFFICIENCY: Not evaluated. ANY EVIDENCE POPLITEAL CYST: No. OTHER: No other significant finding. IMPRESSION: 1. No evidence of acute DVT in either leg. 2. Nonocclusive calcified chronic thrombus within the left popliteal vein. TECHNICAL DOCUMENTATION: JOB ID: [id number] [employer]- All Rights Reserved Reading location - IP/workstation name: [email or web address]
--- NOTE | 2019-08-30 22:08 | PDOC PROGRESS REPORT ---
Subjective Progress Note for:: 08/30/19 Subjective:: Patient seen at bedside, he continues to diurese Reason For Visit: END STAGE RENAL DISEASE WITH VOLUME OVERLOAD,HTN Physical Exam Vital Signs: Temp Pulse Resp BP Pulse Ox 97.0 F 85 18 137/67 H 100 08/30/19 19:08 08/30/19 19:08 08/30/19 19:08 08/30/19 19:08 08/30/19 19:08 Intake & Output 08/29/19 08/30/19 08/31/19 06:59 06:59 06:59 Intake Total 470 1460 1080 Output Total 3075 2900 1000 Balance -2605 -1440 80 Weight 114.2 kg 110.5 kg General appearance: PRESENT: no acute distress Eye exam: PRESENT: PERRLA Respiratory exam: PRESENT: clear to auscultation [place] Cardiovascular exam: PRESENT: +S1, +S2 GI/Abdominal exam: PRESENT: soft Extremities exam: PRESENT: pedal edema Neurological exam: PRESENT: alert, CN II-XII grossly intact Results Laboratory Results: 08/30/19 04:19 08/30/19 04:19 08/30/19 08/30/19 04:19 04:19 WBC 6.5 RBC 3.40 L Hgb 9.7 L Hct 29.0 L MCV 85 MCH 28.5 MCHC 33.5 RDW 13.5 Plt Count 234 Seg Neutrophils % 58.4 Sodium 134.4 L Potassium 5.3 H Chloride 103 Carbon Dioxide 22 Anion Gap 9 BUN 89 H Creatinine 6.77 H Est GFR ( Amer) 10 L Glucose 105 Calcium 7.4 L 08/27/19 08/27/19 08/27/19 01:40 01:40 01:40 Creatine Kinase 1182 H CK-MB (CK-2) 6.85 H Troponin I 0.060 NT-Pro-B Natriuret Pep 4820 H 4760 H 08/27/19 08/27/19 08/27/19 09:50 09:50 21:18 Creatine Kinase 1026 H 913 H CK-MB (CK-2) 6.22 H Troponin I 0.055 NT-Pro-B Natriuret Pep 08/27/19 08/28/19 08/28/19 21:18 03:23 03:23 Creatine Kinase 842 H CK-MB (CK-2) 4.02 4.06 Troponin I 0.042 0.046 NT-Pro-B Natriuret Pep Impressions: Chest X-Ray 08/27/19 01:49 IMPRESSION: Bilateral peribronchial cuffing may represent chronic bronchitis or bronchiolitis. Renal Ultrasound 08/29/19 00:00 IMPRESSION: 1. No evidence of hydronephrosis. 2. 1.3 cm left renal cyst. Venous Doppler Study 08/30/19 10:49 IMPRESSION: 1. No evidence of acute DVT in either leg. 2. Nonocclusive calcified chronic thrombus within the left popliteal vein. Assessment & Plan - Diagnosis (1) Acute diastolic heart failure Is this a current diagnosis for this admission?: Yes (2) Chronic kidney disease, stage 5 Is this a current diagnosis for this admission?: Yes (3) Volume overload Qualifiers: Hypervolemia type: other Qualified Code(s): E87.79 - Other fluid overload Is this a current diagnosis for this admission?: Yes (4) Diabetes mellitus with diabetic nephropathy Is this a current diagnosis for this admission?: Yes - Time Time Spent with patient: 15-24 minutes - Plan Summary Plan Summary: Continue IV furosemide infusion
[2019-08-31] MEDS: HEPARIN SOD (PORCINE) 5,000 UNIT/ML 1 ML VIAL SUBCUT SCH ×3 (01:02→17:33)
[2019-08-31 05:30] LABS: ANION GAP 8 (5-19); BLOOD UREA NITROGEN 82 mg/dL (7-20); CALCIUM 7.4 mg/dL (8.4-10.2); CARBON DIOXIDE 21 mmol/L (22-30); CHLORIDE 106 mmol/L (98-107); GLUCOSE 77 mg/dL (75-110); POTASSIUM 5.3 mmol/L (3.6-5.0)
[2019-08-31] MEDS: INSULIN LISPRO 100 UNIT/ML 3 ML VIAL SUBCUT SCH ×4 (08:36→21:42)
[2019-08-31] MEDS: FUROSEMIDE 40 MG TABLET PO SCH (10:11)
--- NOTE | 2019-08-31 14:43 | PDOC PROGRESS REPORT ---
Subjective Progress Note for:: 08/31/19 Reason For Visit: Patient seen this morning. He generally feeling better. His breathing is better. He denies any history of chest pains. Appetite is good. Urine output is good. Labs and medications reviewed with him. Labs show still decompensated renal numbers with no change from yesterday.Had renal Dopplers of his legs which was negative for DVT. Physical Exam Vital Signs: Temp Pulse Resp BP Pulse Ox 97.6 F 87 16 133/71 H 100 08/31/19 11:35 08/31/19 11:35 08/31/19 11:35 08/31/19 11:35 08/31/19 11:35 Intake & Output 08/30/19 08/31/19 09/01/19 06:59 06:59 06:59 Intake Total 1460 1080 240 Output Total 2900 1750 775 Balance -1440 -670 -535 Weight 110.5 kg 113.1 kg General appearance: PRESENT: no acute distress Respiratory exam: PRESENT: clear to auscultation [place], decreased breath sounds. ABSENT: crackles Cardiovascular exam: PRESENT: +S1, +S2, systolic murmur GI/Abdominal exam: PRESENT: normal bowel sounds, soft. ABSENT: organomegaly, tenderness Extremities exam: PRESENT: pedal edema Neurological exam: PRESENT: alert, awake, oriented to person, oriented to place Psychiatric exam: PRESENT: appropriate affect Results Laboratory Results: 08/30/19 04:19 08/31/19 04:58 08/31/19 04:58 Sodium 134.5 L Potassium 5.3 H Chloride 106 Carbon Dioxide 21 L Anion Gap 8 BUN 82 H Creatinine 6.68 H Est GFR ( Amer) 10 L Glucose 77 Calcium 7.4 L Magnesium 1.7 08/27/19 08/27/19 08/27/19 01:40 01:40 01:40 Creatine Kinase 1182 H CK-MB (CK-2) 6.85 H Troponin I 0.060 NT-Pro-B Natriuret Pep 4820 H 4760 H 08/27/19 08/27/19 08/27/19 09:50 09:50 21:18 Creatine Kinase 1026 H 913 H CK-MB (CK-2) 6.22 H Troponin I 0.055 NT-Pro-B Natriuret Pep 08/27/19 08/28/19 08/28/19 21:18 03:23 03:23 Creatine Kinase 842 H CK-MB (CK-2) 4.02 4.06 Troponin I 0.042 0.046 NT-Pro-B Natriuret Pep Impressions: Chest X-Ray 08/27/19 01:49 IMPRESSION: Bilateral peribronchial cuffing may represent chronic bronchitis or bronchiolitis. Renal Ultrasound 08/29/19 00:00 IMPRESSION: 1. No evidence of hydronephrosis. 2. 1.3 cm left renal cyst. Venous Doppler Study 08/30/19 10:49 IMPRESSION: 1. No evidence of acute DVT in either leg. 2. Nonocclusive calcified chronic thrombus within the left popliteal vein. Assessment & Plan - Diagnosis (1) Acute kidney injury superimposed on chronic kidney disease Plan: Nonoliguric. Multifactorial including prerenal congestive heart failure and likely an element of rhabdomyolysis. Stable renal numbers though still decompensated. Now off IV Lasix and start him on p.o. Lasix. No indications for renal replacement therapy.However because of his renal numbers are still decompensated it is better he still stays in the hospital a while longer. (2) Acute diastolic heart failure Is this a current diagnosis for this admission?: Yes Plan: Patient is making good urine output to current guidelines. Advised again on proper dietary modifications once discharged. (3) CKD stage 4 due to type 2 diabetes mellitus Plan: Patient is got acute decompensation on his underlying diabetic kidney disease. Nonoliguric. Stable renal numbers of the moment. No indications for renal replacements. Continue to monitor closely. (4) Sleep apnea Plan: Currently using BiPAP in the hospital at night which will help him. (5) Diabetes mellitus type 2 in obese Plan: Advised tight control (6) HTN (hypertension) Qualifiers: Hypertension type: essential hypertension Qualified Code(s): I10 - Essential (primary) hypertension Plan: Controlled at the moment. Monitor. (7) Nephrotic syndrome Plan: Status quo from diabetic nephropathy.Will quantify (8) Chronic anemia Plan: Stable. No indications for initiation of erythropoietin currently. (9) History of pulmonary embolism Plan: Status quo. Patient on prophylaxis. (10) Right leg swelling Plan: Negative DVT. Edema is better than yesterday.
--- NOTE | 2019-08-31 22:06 | PDOC PROGRESS REPORT ---
Subjective Progress Note for:: 08/31/19 Subjective:: Patient seen by the bedside, there is no new complaint today continues to improve Reason For Visit: END STAGE RENAL DISEASE WITH VOLUME OVERLOAD,HTN Physical Exam Vital Signs: Temp Pulse Resp BP Pulse Ox 97.6 F 90 16 133/71 H 100 08/31/19 11:35 08/31/19 19:00 08/31/19 11:35 08/31/19 11:35 08/31/19 11:35 Intake & Output 08/30/19 08/31/19 09/01/19 06:59 06:59 06:59 Intake Total 1460 1080 850 Output Total 2900 1750 1075 Balance -1440 -670 -225 Weight 110.5 kg 113.1 kg General appearance: PRESENT: no acute distress Eye exam: PRESENT: PERRLA Respiratory exam: PRESENT: clear to auscultation [place] Cardiovascular exam: PRESENT: +S1, +S2 GI/Abdominal exam: PRESENT: soft Results Laboratory Results: 08/30/19 04:19 08/31/19 04:58 08/31/19 04:58 Sodium 134.5 L Potassium 5.3 H Chloride 106 Carbon Dioxide 21 L Anion Gap 8 BUN 82 H Creatinine 6.68 H Est GFR ( Amer) 10 L Glucose 77 Calcium 7.4 L Magnesium 1.7 08/27/19 08/27/19 08/27/19 01:40 01:40 01:40 Creatine Kinase 1182 H CK-MB (CK-2) 6.85 H Troponin I 0.060 NT-Pro-B Natriuret Pep 4820 H 4760 H 08/27/19 08/27/19 08/27/19 09:50 09:50 21:18 Creatine Kinase 1026 H 913 H CK-MB (CK-2) 6.22 H Troponin I 0.055 NT-Pro-B Natriuret Pep 08/27/19 08/28/19 08/28/19 21:18 03:23 03:23 Creatine Kinase 842 H CK-MB (CK-2) 4.02 4.06 Troponin I 0.042 0.046 NT-Pro-B Natriuret Pep Impressions: Chest X-Ray 08/27/19 01:49 IMPRESSION: Bilateral peribronchial cuffing may represent chronic bronchitis or bronchiolitis. Renal Ultrasound 08/29/19 00:00 IMPRESSION: 1. No evidence of hydronephrosis. 2. 1.3 cm left renal cyst. Venous Doppler Study 08/30/19 10:49 IMPRESSION: 1. No evidence of acute DVT in either leg. 2. Nonocclusive calcified chronic thrombus within the left popliteal vein. Assessment & Plan - Diagnosis (1) Volume overload Qualifiers: Hypervolemia type: other Qualified Code(s): E87.79 - Other fluid overload Is this a current diagnosis for this admission?: Yes (2) Chronic kidney disease, stage 5 Is this a current diagnosis for this admission?: Yes (3) Acute diastolic heart failure Is this a current diagnosis for this admission?: Yes (4) Diabetes mellitus with diabetic nephropathy Qualifiers: Diabetes mellitus type: type 2 Is this a current diagnosis for this admission?: Yes - Time Time Spent with patient: 25-34 minutes - Plan Summary Plan Summary: continue treatment
[2019-09-01] MEDS: HEPARIN SOD (PORCINE) 5,000 UNIT/ML 1 ML VIAL SUBCUT SCH ×3 (03:20→17:41)
[2019-09-01] MEDS: INSULIN LISPRO 100 UNIT/ML 3 ML VIAL SUBCUT SCH ×4 (08:56→22:27)
[2019-09-01] MEDS: FUROSEMIDE 40 MG TABLET PO SCH (09:58)
--- NOTE | 2019-09-01 11:46 | PDOC PROGRESS REPORT ---
Subjective Progress Note for:: 09/01/19 Reason For Visit: END STAGE RENAL DISEASE WITH VOLUME OVERLOAD,HTN Patient is feeling much better Patient is denied any chest pain no short of breath Patient admitted for the renal failure overload history of the heart failure currently see Dr. COLLIER as outpatient Physical Exam Vital Signs: Temp Pulse Resp BP Pulse Ox 97.6 F 95 18 144/74 H 100 09/01/19 08:15 09/01/19 08:15 09/01/19 08:15 09/01/19 08:15 09/01/19 08:15 Intake & Output 08/31/19 09/01/19 09/02/19 06:59 06:59 06:59 Intake Total 1080 1450 Output Total 1750 2250 Balance -670 -800 Weight 113.1 kg 112.4 kg General appearance: PRESENT: no acute distress, well-developed, well-nourished Head exam: PRESENT: atraumatic, normocephalic Eye exam: PRESENT: conjunctiva pink, EOMI, PERRLA. ABSENT: scleral icterus Ear exam: PRESENT: normal external ear exam Mouth exam: PRESENT: moist, tongue midline Neck exam: PRESENT: full ROM. ABSENT: carotid bruit, JVD, lymphadenopathy, thyromegaly Respiratory exam: PRESENT: clear to auscultation [place] Cardiovascular exam: PRESENT: RRR. ABSENT: diastolic murmur, rubs, systolic murmur Pulses: PRESENT: normal dorsalis pedis pul, +2 pedal pulses bilateral Vascular exam: PRESENT: normal capillary refill GI/Abdominal exam: PRESENT: normal bowel sounds, soft. ABSENT: distended, guarding, mass, organolmegaly, rebound, tenderness Rectal exam: PRESENT: deferred Musculoskeletal exam: PRESENT: ambulatory Neurological exam: PRESENT: alert, awake, oriented to person, oriented to place, oriented to time, oriented to situation, CN II-XII grossly intact. ABSENT: motor sensory deficit Psychiatric exam: PRESENT: appropriate affect, normal mood. ABSENT: homicidal ideation, suicidal ideation Skin exam: PRESENT: dry, intact, warm. ABSENT: cyanosis, rash Results Laboratory Results: 08/30/19 04:19 08/31/19 04:58 08/27/19 09:50 Blood Blood Culture - Final NO GROWTH IN 5 DAYS 01/27/20 01/27/20 01/27/20 01:40 01:40 01:40 Creatine Kinase 1182 H CK-MB (CK-2) 6.85 H Troponin I 0.060 NT-Pro-B Natriuret Pep 4820 H 4760 H 08/27/19 08/27/19 08/27/19 09:50 09:50 21:18 Creatine Kinase 1026 H 913 H CK-MB (CK-2) 6.22 H Troponin I 0.055 NT-Pro-B Natriuret Pep 08/27/19 08/28/19 08/28/19 21:18 03:23 03:23 Creatine Kinase 842 H CK-MB (CK-2) 4.02 4.06 Troponin I 0.042 0.046 NT-Pro-B Natriuret Pep Impressions: Chest X-Ray 08/27/19 01:49 IMPRESSION: Bilateral peribronchial cuffing may represent chronic bronchitis or bronchiolitis. Renal Ultrasound 08/29/19 00:00 IMPRESSION: 1. No evidence of hydronephrosis. 2. 1.3 cm left renal cyst. Venous Doppler Study 08/30/19 10:49 IMPRESSION: 1. No evidence of acute DVT in either leg. 2. Nonocclusive calcified chronic thrombus within the left popliteal vein. Assessment & Plan - Diagnosis (1) Volume overload Qualifiers: Hypervolemia type: other Qualified Code(s): E87.79 - Other fluid overload Is this a current diagnosis for this admission?: Yes (2) History of heart failure Is this a current diagnosis for this admission?: Yes (3) Chronic anemia Is this a current diagnosis for this admission?: Yes (4) Chronic kidney disease, stage 5 Is this a current diagnosis for this admission?: Yes (5) Diabetes mellitus with diabetic nephropathy Qualifiers: Diabetes mellitus type: type 2 Is this a current diagnosis for this admission?: Yes (6) Coronary artery disease Qualifiers: Coronary Disease-Associated Artery/Lesion type: [place] artery Is this a current diagnosis for this admission?: Yes - Time Time Spent with patient: 15-24 minutes Level of Care: IMCU Medications reviewed and adjusted accordingly: Yes Anticipated discharge: Home with Homehealth Within: Other - Plan Summary Plan Summary: Continues to current medical management I think patient seen by the cardiology benefit to him seen by the cardiology with Dr. girard with the ongoing renal failure
[2019-09-01] MEDS: ISOSORBIDE DINITRATE 20 MG TABLET PO SCH ×2 (14:37→21:59)
[2019-09-01] MEDS: ATORVASTATIN CALCIUM 40 MG TABLET PO SCH (21:59)
[2019-09-01] MEDS: CARVEDILOL 6.25 MG TABLET PO SCH (21:59)
--- NOTE | 2019-09-01 23:00 | PDOC CONSULTATION ---
Consultation-Blank Consultation: CARDIOLOGY CONSULTATION by Dr. Jeanette Gupta on 09/01/2019. Patient seen at 11:30 AM. 60 minutes spent on this patient with more than 50% of time spent in direct patient care. REASON FOR CONSULTATION: Patient with heart failure. CONSULT REQUESTING PHYSICIAN: Dr. Vanna Vergara. HISTORY OF PRESENT ILLNESS: Patient is a 68-year-old Afro-[place] male with a history of hypertension, coronary artery disease, history of asthma and COPD chronic kidney disease stage IV admitted with 1 week history of increasing shortness of breath at rest shortness of breath with PND and orthopnea, and increasing leg edema. He denies any chest pain or discomfort. There is no palpitations or syncope or near syncope. There is no cough or wheezing. He has a history of sleep apnea and uses CPAP. The patient was seen to have acute on chronic renal failure and is been seen by statistical financial analyst. His medications have been adjusted and the patient is improved remarkably. At present he denies any chest pain or discomfort. There is no shortness of breath. There is no PND orthopnea. It has been decided that the patient although he has chronic kidney disease stage IV which is progressed has now come back to stage IV and the patient does not at present need renal replacement. He has a history of COPD and prior history of pulmonary embolism and DVT. DVT was negative this admission after work-up. His past echocardiogram showed mild aortic stenosis in 2017 preserved LV ejection fraction. He has a history of congestive heart failure secondary to volume overload due to his chronic kidney disease. He also has a history of diabetes mellitus. Past Medical History Cardiac Medical History: Reports: Coronary Artery Disease, but no history of [place] or anginal symptoms. Hyperlipidema, Hypertension, Pulmonary Embolism, Other - Chronic diastolic heart failure Pulmonary Medical History: Reports: Asthma, Chronic Obstructive Pulmonary Disease (COPD), Pneumonia Endocrine Medical History: Reports: Diabetes Mellitus Type 2 Musculoskeltal Medical History: Reports: Arthritis - GENERALIZED Psychiatric Medical History: Reports: Depression Hematology: Reports: Anemia. 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 He states cured after chemotherapy. Past Surgical History Past Surgical History: Reports: Cardiac Catheterization - stents, Cholecystectomy RESUSCITATION STATUS: The patient is a full code. The patient's daughter is his surrogate healthcare decision maker. Social History Lives with: Family Smoking Status: Former Smoker Cigarettes Packs Per Day: 1.5 Number of Years Smokin Last Time Smoked: 1994 Frequency of Alcohol Use: None Hx Recreational Drug Use: No Drugs: None Hx Prescription Drug Abuse: No Family History Family History: DM Parental Family History Reviewed: Yes Children Family History Reviewed: Yes Sibling(s) Family History Reviewed.: Yes Medication/Allergy Home Medications: Aspirin [Aspirin 325 mg Tablet] 325 mg PO DAILY 08/27/19 Atorvastatin Calcium [Lipitor 40 mg Tablet] 40 mg PO DAILY 08/27/19 Carvedilol [Coreg] 6.25 mg PO Q12 08/27/19 Clopidogrel Bisulfate [Plavix 75 mg Tablet] 75 mg PO DAILY 08/27/19 Cyclobenzaprine HCl [Flexeril 10 mg Tablet] 10 mg PO Q8HP PRN 08/27/19 Doxepin HCl [Sinequan 10 mg Capsule] 10 mg PO QHS 08/27/19 Duloxetine HCl [Cymbalta] 60 mg PO DAILY 08/27/19 Enalapril Maleate [Vasotec 20 mg Tablet] 20 mg PO DAILY 08/27/19 Furosemide [Lasix 40 mg Tablet] 40 mg PO QAM 08/27/19 Hydralazine HCl [Apresoline 25 mg Tablet] 25 mg PO Q8 08/27/19 Insulin Aspart [Novolog Flexpen] 0 unit SUBCUT .SLD SCALE 08/27/19 Insulin Glargine,Hum.rec.anlog [Lantus Insulin 100 Unit/1 ml 10 ml] 80 unit SUBCUT Q12 08/27/19 Isosorbide Dinitrate [Isordil Titradose 20 mg Tablet] 20 mg PO Q8 08/27/19 Losartan Potassium [Cozaar 100 mg Tablet] 100 mg PO DAILY 08/27/19 Montelukast Sodium [Singulair 10 mg Tablet] 10 mg PO DAILY 08/27/19 Allergies/Adverse Reactions: Iodine and Iodide Containing Produc Allergy (Verified 11/17/18 15:16) Penicillins Allergy (Verified 11/17/18 15:16) Shellfish * [Shellfish] Allergy (Verified 11/17/18 15:16) Difficulty breathing Review of Systems Constitutional: ABSENT: chills, fever(s), headache(s), weight gain, weight loss Eyes: ABSENT: visual disturbances Ears: ABSENT: hearing changes Cardiovascular: PRESENT: dyspnea on exertion, edema, orthropnea Respiratory: PRESENT: dyspnea Gastrointestinal: ABSENT: abdominal pain, constipation, diarrhea, hematemesis, hematochezia, nausea, vomiting Genitourinary: ABSENT: dysuria, hematuria Musculoskeletal: ABSENT: joint swelling Integumentary: ABSENT: rash, wounds Neurological: ABSENT: abnormal gait, abnormal speech, confusion, dizziness, focal weakness, syncope Psychiatric: ABSENT: anxiety, depression, homidical ideation, suicidal ideation Endocrine: ABSENT: cold intolerance, heat intolerance, menstrual abnormalities, polydipsia, polyuria Hematologic/Lymphatic: ABSENT: easy bleeding, easy bruising, lymphadenopathy Current Medications Atorvastatin Calcium (Lipitor 40 Mg Tablet) 40 mg PO QHS AVEL Stop: 10/01/19 21:59 Last Admin: 09/01/19 21:59 Dose: 40 mg Documented by: Carvedilol (Coreg 6.25 Mg Tablet) 6.25 mg PO Q12 AVEL Stop: 10/01/19 21:59 Last Admin: 09/01/19 21:59 Dose: 6.25 mg Documented by: Clopidogrel Bisulfate (Plavix 75 Mg Tablet) 75 mg PO DAILY [facility] Stop: 10/02/19 09:59 Cyclobenzaprine HCl (Flexeril 10 Mg Tablet) 10 mg PO Q8HP PRN PRN Reason: MUSCLE CRAMPS Stop: 09/26/19 15:48 Last Admin: 08/29/19 01:27 Dose: 10 mg Documented by: Dextrose (Dextrose Inj 50% Syringe (25 Gm/50 Ml)) 12.5 gm IV PRN PRN; Protocol PRN Reason: FOR BG 50-69 IN ALERT PATIENT Stop: 09/26/19 07:59 Dextrose (Dextrose Inj 50% Syringe (25 Gm/50 Ml)) 25 gm IV PRN PRN; Protocol Stop: 09/26/19 07:59 Duloxetine HCl (Cymbalta 30 Mg Capsule.Dr) 60 mg PO DAILY [facility] Stop: 10/02/19 09:59 Furosemide (Lasix 40 Mg Tablet) 40 mg PO DAILY AVEL Stop: 09/30/19 09:59 Last Admin: 09/01/19 09:58 Dose: 40 mg Documented by: Glucagon (Glucagen Inj 1 Mg Vial) 1 mg IM PRN PRN; Protocol PRN Reason: EVALUATE FOR BG < 70 Stop: 09/26/19 07:59 Glucose (Glutose 40% Gel 15 Gm Tube) 15 gm PO PRN PRN; Protocol PRN Reason: FOR BG 50-69 IN ALERT PATIENT Stop: 09/26/19 07:59 Glucose (Glutose 40% Gel 15 Gm Tube) 30 gm PO PRN PRN; Protocol PRN Reason: FOR BG < 50 IN ALERT PATIENT Stop: 09/26/19 07:59 Heparin Sodium (Porcine) (Heparin Inj 5,000 Units/Ml 1 Ml Vial) 5,000 unit SUBCUT Q8A [facility] Stop: 09/26/19 09:59 Last Admin: 09/01/19 17:41 Dose: 5,000 unit Documented by: Insulin Human Lispro (Humalog Insulin 100 Unit/1 Ml 3 Ml Vial) 0 - 12 unit SUBCUT ACHS [facility]; Protocol Stop: 09/26/19 07:59 Last Admin: 09/01/19 22:27 Dose: Not Given Documented by: Isosorbide Dinitrate (Isordil Titradose 20 Mg Tablet) 20 mg PO Q8 [facility] Stop: 10/01/19 13:59 Last Admin: 09/01/19 21:59 Dose: 20 mg Documented by: Throat Lozenges (Chloraseptic Sore Throat Lozenge) 1 each BUCCAL Q4HP PRN PRN Reason: FOR SORE THROAT Stop: 09/26/19 15:53 Last Admin: 08/27/19 17:19 Dose: 1 each Documented by: Discontinued Medications Furosemide (Lasix Inj/Pf 20 Mg/2 Ml Sdv) 40 mg IV NOW ONE Stop: 08/27/19 04:10 Last Admin: 08/27/19 04:25 Dose: 40 mg Documented by: Furosemide (Lasix Inj/Pf 20 Mg/2 Ml Sdv) 20 mg IV Q8 [facility] Stop: 09/28/19 13:59 Last Admin: 08/30/19 05:53 Dose: 20 mg Documented by: Furosemide 250 mg/ Sodium (Chloride) 250 mls @ 10 mls/hr IV CONTINUOUS PRN PRN Reason: THIS MED IS NOT "PRN" Stop: 09/26/19 08:23 Last Infusion: 08/29/19 11:50 Dose: Infused Documented by: Sodium Chloride (Nacl 0.45% 1000 Ml Iv Soln) 1,000 mls @ 50 mls/hr IV CONTINUOUS PRN PRN Reason: THIS MED IS NOT "PRN" Last Admin: 08/30/19 11:28 Dose: 50 mls/hr Documented by: Influenza Virus Vaccine Quadrival (Flulaval Quad Vac 0.5 Ml Syr) 0.5 ml IM .ONCE ONE Stop: 08/27/19 07:00 PHYSICAL EXAMINATION: The patient is mild to moderately obese. At present in no acute distress. Selected Entries 09/01/19 09/01/19 08:15 12:33 Temperature 97.6 F 98.3 F Temperature Oral Oral Source Pulse Rate 95 90 Respiratory 18 18 Rate Blood Pressure 144/74 H 136/75 H Blood Pressure 97 95 Mean BP Location Right Arm Right Arm BP Position Supine Supine O2 Sat by Pulse 100 97 Oximetry Oxygen Delivery Room Air Room Air Method HEAD: Is atraumatic normocephalic. EYES: Pupils are equal round regular reactive to light and accommodation. Extraocular movements are normal. There is no conjunctival pallor. There is no scleral icterus. EARS: External auditory canals are clear. There is no inflammation of the tympanic membranes. Mid tympanic memories are intact. NOSE: There is no inflammation of the nasal mucous membrane. There is no deviated nasal septum. MOUTH: Mucous membranes of the mouth are moist. Tongue is moist. There is no ulcers. There is no bleedi ng from the gums. THROAT: There is no redness of the oropharynx. There is no exudates. Skin: There is no skin rashes. There is no skin lesions. There is no petechia or ecchymosis. NECK: Is supple. There is no JVD. Carotids are equal there is no bruit there is no lymphadenopathy. There is no goiter. There is no accessory muscles respiration use. LUNGS: Trachea central. There is diminished air entry and prolonged expiration. There is no rhonchi rales or wheezing. HEART: S1-S2 is heard. There is no S3 gallop. There is no S4 gallop. There is murmur of mild aortic stenosis present. There is preserved A 2 sound. There is no diastolic murmur of aortic regurgitation. There is no significant mitral regurgitation murmur. There is no rub. ABDOMEN: Soft. Obese. Nontender there is no paraspinal megaly. EXTREMITIES: Femorals are deep. There is no femoral bruits. Leg pulses are diminished. There is trace pedal edema. There is no DVT or cellulitis. There is no calf tenderness. FOREST PATROLMAN: The patient is conscious awake alert oriented x3 with no focal deficits. PSYCHIATRIC: The patient judgment insight are intact and her affect is normal. The patient is EKG interpreted by me shows sinus rhythm. LVH. Nonspecific ST changes lateral leads. Prolonged QT interval. Labs- Entire Visit 08/27/19 08/27/19 08/27/19 01:40 01:40 01:40 WBC 7.4 RBC 3.57 L Hgb 10.0 L Hct 30.7 L MCV 86 MCH 27.9 MCHC 32.4 RDW 13.6 Plt Count 262 Lymph % (Auto) 25.1 Maries % (Auto) 10.0 Eos % (Auto) 2.7 Baso % (Auto) 1.1 Absolute Neuts (auto) 4.5 Absolute Lymphs (auto) 1.9 Absolute Monos (auto) 0.7 Absolute Eos (auto) 0.2 Absolute Basos (auto) 0.1 Seg Neutrophils % 61.1 PT INR APTT Carbonic Acid HCO3/H2CO3 Ratio ABG pH ABG pCO2 ABG pO2 ABG HCO3 ABG Total CO2 ABG O2 Saturation ABG Base Excess FiO2 Sodium 137.9 Potassium 5.3 H Chloride 110 H Carbon Dioxide 18 L Anion Gap 10 BUN 66 H Creatinine 6.41 H Est GFR ( Amer) 11 L Est GFR (MDRD) Non-Af 9 L Glucose 121 H POC Glucose Hemoglobin A1c % Calcium 8.0 L Phosphorus Magnesium Total Bilirubin 0.5 Direct Bilirubin 0.4 Neonat Total Bilirubin Not Reportable Neonat Direct Bilirubin Not Reportable Neonat Indirect Bili Not Reportable AST 36 ALT 22 Alkaline Phosphatase 104 Ammonia Creatine Kinase 1182 H CK-MB (CK-2) 6.85 H Troponin I 0.060 NT-Pro-B Natriuret Pep 4820 H Total Protein 6.7 Albumin 3.2 L Triglycerides Cholesterol LDL Cholesterol Direct VLDL Cholesterol HDL Cholesterol Amylase Lipase TSH Free T4 Urine Color Urine Appearance Urine pH Ur Specific [place] Urine Protein Urine Glucose (UA) Urine Ketones Urine Blood Urine Nitrite Urine Bilirubin Urine Urobilinogen Ur Leukocyte Esterase Urine WBC (Auto) Urine RBC (Auto) U Hyaline Cast (Auto) Urine Bacteria (Auto) Squamous Epi Cells Auto Urine Mucus (Auto) Urine Creatinine Protein/Creatinin Ratio Urine Total Protein Urine Ascorbic Acid Urine Opiates Screen Urine Methadone Screen Ur Barbiturates Screen Ur Phencyclidine Scrn Ur Amphetamines Screen U Benzodiazepines Scrn Urine Cocaine Screen U Marijuana (THC) Screen 08/27/19 08/27/19 08/27/19 01:40 01:40 01:40 WBC RBC Hgb Hct MCV MCH MCHC RDW Plt Count Lymph % (Auto) Maries % (Auto) Eos % (Auto) Baso % (Auto) Absolute Neuts (auto) Absolute Lymphs (auto) Absolute Monos (auto) Absolute Eos (auto) Absolute Basos (auto) Seg Neutrophils % PT INR APTT Carbonic Acid HCO3/H2CO3 Ratio ABG pH ABG pCO2 ABG pO2 ABG HCO3 ABG Total CO2 ABG O2 Saturation ABG Base Excess FiO2 Sodium Potassium Chloride Carbon Dioxide Anion Gap BUN Creatinine Est GFR ( Amer) Est GFR (MDRD) Non-Af Glucose POC Glucose Hemoglobin A1c % Calcium Phosphorus 5.1 H Magnesium 1.8 Total Bilirubin Direct Bilirubin Neonat Total Bilirubin Neonat Direct Bilirubin Neonat Indirect Bili AST ALT Alkaline Phosphatase Ammonia Creatine Kinase CK-MB (CK-2) Troponin I NT-Pro-B Natriuret Pep 4760 H Total Protein Albumin Triglycerides Cholesterol LDL Cholesterol Direct VLDL Cholesterol HDL Cholesterol Amylase 135 H Lipase 378.8 H TSH 4.47 Free T4 1.02 Urine Color Urine Appearance Urine pH Ur Specific [place] Urine Protein Urine Glucose (UA) Urine Ketones Urine Blood Urine Nitrite Urine Bilirubin Urine Urobilinogen Ur Leukocyte Esterase Urine WBC (Auto) Urine RBC (Auto) U Hyaline Cast (Auto) Urine Bacteria (Auto) Squamous Epi Cells Auto Urine Mucus (Auto) Urine Creatinine Protein/Creatinin Ratio Urine Total Protein Urine Ascorbic Acid Urine Opiates Screen Urine Methadone Screen Ur Barbiturates Screen Ur Phencyclidine Scrn Ur Amphetamines Screen U Benzodiazepines Scrn Urine Cocaine Screen U Marijuana (THC) Screen 08/27/19 08/27/19 08/27/19 02:05 07:32 08:55 WBC RBC Hgb Hct MCV MCH MCHC RDW Plt Count Lymph % (Auto) Maries % (Auto) Eos % (Auto) Baso % (Auto) Absolute Neuts (auto) Absolute Lymphs (auto) Absolute Monos (auto) Absolute Eos (auto) Absolute Basos (auto) Seg Neutrophils % PT INR APTT Carbonic Acid HCO3/H2CO3 Ratio ABG pH ABG pCO2 ABG pO2 ABG HCO3 ABG Total CO2 ABG O2 Saturation ABG Base Excess FiO2 Sodium Potassium Chloride Carbon Dioxide Anion Gap BUN Creatinine Est GFR ( Amer) Est GFR (MDRD) Non-Af Glucose POC Glucose 118 H Hemoglobin A1c % Calcium Phosphorus Magnesium Total Bilirubin Direct Bilirubin Neonat Total Bilirubin Neonat Direct Bilirubin Neonat Indirect Bili AST ALT Alkaline Phosphatase Ammonia Creatine Kinase CK-MB (CK-2) Troponin I NT-Pro-B Natriuret Pep Total Protein Albumin Triglycerides Cholesterol LDL Cholesterol Direct VLDL Cholesterol HDL Cholesterol Amylase Lipase TSH Free T4 Urine Color STRAW COLORLESS Urine Appearance CLEAR CLEAR Urine pH 5.0 6.0 Ur Specific [place] 1.011 1.005 Urine Protein >=500 H >=500 H Urine Glucose (UA) 50 H 50 H Urine Ketones NEGATIVE NEGATIVE Urine Blood SMALL H SMALL H Urine Nitrite NEGATIVE NEGATIVE Urine Bilirubin NEGATIVE NEGATIVE Urine Urobilinogen NEGATIVE NEGATIVE Ur Leukocyte Esterase NEGATIVE NEGATIVE Urine WBC (Auto) 1 0 Urine RBC (Auto) 3 2 U Hyaline Cast (Auto) 5 Urine Bacteria (Auto) TRACE Squamous Epi Cells Auto <1 Urine Mucus (Auto) RARE RARE Urine Creatinine Protein/Creatinin Ratio Urine Total Protein Urine Ascorbic Acid NEGATIVE NEGATIVE Urine Opiates Screen Urine Methadone Screen Ur Barbiturates Screen Ur Phencyclidine Scrn Ur Amphetamines Screen U Benzodiazepines Scrn Urine Cocaine Screen U Marijuana (THC) Screen 08/27/19 08/27/19 08/27/19 08:55 09:15 09:50 WBC RBC Hgb Hct MCV MCH MCHC RDW Plt Count Lymph % (Auto) Maries % (Auto) Eos % (Auto) Baso % (Auto) Absolute Neuts (auto) Absolute Lymphs (auto) Absolute Monos (auto) Absolute Eos (auto) Absolute Basos (auto) Seg Neutrophils % PT 13.2 INR 1.00 APTT 32.2 Carbonic Acid 0.97 L HCO3/H2CO3 Ratio 18:1 ABG pH 7.36 ABG pCO2 32.2 L ABG pO2 116.6 H ABG HCO3 17.6 L ABG Total CO2 18.6 L ABG O2 Saturation 98.1 H ABG Base Excess -6.9 FiO2 36% Sodium Potassium Chloride Carbon Dioxide Anion Gap BUN Creatinine Est GFR ( Amer) Est GFR (MDRD) Non-Af Glucose POC Glucose Hemoglobin A1c % Calcium Phosphorus Magnesium Total Bilirubin Direct Bilirubin Neonat Total Bilirubin Neonat Direct Bilirubin Neonat Indirect Bili AST ALT Alkaline Phosphatase Ammonia Creatine Kinase CK-MB (CK-2) Troponin I NT-Pro-B Natriuret Pep Total Protein Albumin Triglycerides Cholesterol LDL Cholesterol Direct VLDL Cholesterol HDL Cholesterol Amylase Lipase TSH Free T4 Urine Color Urine Appearance Urine pH Ur Specific [place] Urine Protein Urine Glucose (UA) Urine Ketones Urine Blood Urine Nitrite Urine Bilirubin Urine Urobilinogen Ur Leukocyte Esterase Urine WBC (Auto) Urine RBC (Auto) U Hyaline Cast (Auto) Urine Bacteria (Auto) Squamous Epi Cells Auto Urine Mucus (Auto) Urine Creatinine Protein/Creatinin Ratio Urine Total Protein Urine Ascorbic Acid Urine Opiates Screen NEGATIVE Urine Methadone Screen NEGATIVE Ur Barbiturates Screen NEGATIVE Ur Phencyclidine Scrn NEGATIVE Ur Amphetamines Screen NEGATIVE U Benzodiazepines Scrn NEGATIVE Urine Cocaine Screen NEGATIVE U Marijuana (THC) Screen NEGATIVE 08/27/19 08/27/19 08/27/19 09:50 09:50 09:50 WBC RBC Hgb Hct MCV MCH MCHC RDW Plt Count Lymph % (Auto) Maries % (Auto) Eos % (Auto) Baso % (Auto) Absolute Neuts (auto) Absolute Lymphs (auto) Absolute Monos (auto) Absolute Eos (auto) Absolute Basos (auto) Seg Neutrophils % PT INR APTT Carbonic Acid HCO3/H2CO3 Ratio ABG pH ABG pCO2 ABG pO2 ABG HCO3 ABG Total CO2 ABG O2 Saturation ABG Base Excess FiO2 Sodium Potassium Chloride Carbon Dioxide Anion Gap BUN Creatinine Est GFR ( Amer) Est GFR (MDRD) Non-Af Glucose POC Glucose Hemoglobin A1c % Calcium Phosphorus Magnesium Total Bilirubin Direct Bilirubin Neonat Total Bilirubin Neonat Direct Bilirubin Neonat Indirect Bili AST ALT Alkaline Phosphatase Ammonia < 8.7 L Creatine Kinase 1026 H CK-MB (CK-2) 6.22 H Troponin I 0.055 NT-Pro-B Natriuret Pep Total Protein Albumin Triglycerides Cholesterol LDL Cholesterol Direct VLDL Cholesterol HDL Cholesterol Amylase Lipase TSH Free T4 Urine Color Urine Appearance Urine pH Ur Specific [place] Urine Protein Urine Glucose (UA) Urine Ketones Urine Blood Urine Nitrite Urine Bilirubin Urine Urobilinogen Ur Leukocyte Esterase Urine WBC (Auto) Urine RBC (Auto) U Hyaline Cast (Auto) Urine Bacteria (Auto) Squamous Epi Cells Auto Urine Mucus (Auto) Urine Creatinine Protein/Creatinin Ratio Urine Total Protein Urine Ascorbic Acid Urine Opiates Screen Urine Methadone Screen Ur Barbiturates Screen Ur Phencyclidine Scrn Ur Amphetamines Screen U Benzodiazepines Scrn Urine Cocaine Screen U Marijuana (THC) Screen 08/27/19 08/27/19 08/27/19 11:31 16:31 21:18 WBC RBC Hgb Hct MCV MCH MCHC RDW Plt Count Lymph % (Auto) Maries % (Auto) Eos % (Auto) Baso % (Auto) Absolute Neuts (auto) Absolute Lymphs (auto) Absolute Monos (auto) Absolute Eos (auto) Absolute Basos (auto) Seg Neutrophils % PT INR APTT Carbonic Acid HCO3/H2CO3 Ratio ABG pH ABG pCO2 ABG pO2 ABG HCO3 ABG Total CO2 ABG O2 Saturation ABG Base Excess FiO2 Sodium Potassium Chloride Carbon Dioxide Anion Gap BUN Creatinine Est GFR ( Amer) Est GFR (MDRD) Non-Af Glucose POC Glucose 116 H 96 Hemoglobin A1c % Calcium Phosphorus Magnesium Total Bilirubin Direct Bilirubin Neonat Total Bilirubin Neonat Direct Bilirubin Neonat Indirect Bili AST ALT Alkaline Phosphatase Ammonia Creatine Kinase 913 H CK-MB (CK-2) Troponin I NT-Pro-B Natriuret Pep Total Protein Albumin Triglycerides Cholesterol LDL Cholesterol Direct VLDL Cholesterol HDL Cholesterol Amylase Lipase TSH Free T4 Urine Color Urine Appearance Urine pH Ur Specific [place] Urine Protein Urine Glucose (UA) Urine Ketones Urine Blood Urine Nitrite Urine Bilirubin Urine Urobilinogen Ur Leukocyte Esterase Urine WBC (Auto) Urine RBC (Auto) U Hyaline Cast (Auto) Urine Bacteria (Auto) Squamous Epi Cells Auto Urine Mucus (Auto) Urine Creatinine Protein/Creatinin Ratio Urine Total Protein Urine Ascorbic Acid Urine Opiates Screen Urine Methadone Screen Ur Barbiturates Screen Ur Phencyclidine Scrn Ur Amphetamines Screen U Benzodiazepines Scrn Urine Cocaine Screen U Marijuana (THC) Screen 08/27/19 08/27/19 08/28/19 21:18 21:36 03:23 WBC RBC Hgb Hct MCV MCH MCHC RDW Plt Count Lymph % (Auto) Maries % (Auto) Eos % (Auto) Baso % (Auto) Absolute Neuts (auto) Absolute Lymphs (auto) Absolute Monos (auto) Absolute Eos (auto) Absolute Basos (auto) Seg Neutrophils % PT INR APTT Carbonic Acid HCO3/H2CO3 Ratio ABG pH ABG pCO2 ABG pO2 ABG HCO3 ABG Total CO2 ABG O2 Saturation ABG Base Excess FiO2 Sodium Potassium Chloride Carbon Dioxide Anion Gap BUN Creatinine Est GFR ( Amer) Est GFR (MDRD) Non-Af Glucose POC Glucose 119 H Hemoglobin A1c % Calcium Phosphorus Magnesium Total Bilirubin Direct Bilirubin Neonat Total Bilirubin Neonat Direct Bilirubin Neonat Indirect Bili AST ALT Alkaline Phosphatase Ammonia Creatine Kinase 842 H CK-MB (CK-2) 4.02 Troponin I 0.042 NT-Pro-B Natriuret Pep Total Protein Albumin Triglycerides Cholesterol LDL Cholesterol Direct VLDL Cholesterol HDL Cholesterol Amylase Lipase TSH Free T4 Urine Color Urine Appearance Urine pH Ur Specific [place] Urine Protein Urine Glucose (UA) Urine Ketones Urine Blood Urine Nitrite Urine Bilirubin Urine Urobilinogen Ur Leukocyte Esterase Urine WBC (Auto) Urine RBC (Auto) U Hyaline Cast (Auto) Urine Bacteria (Auto) Squamous Epi Cells Auto Urine Mucus (Auto) Urine Creatinine Protein/Creatinin Ratio Urine Total Protein Urine Ascorbic Acid Urine Opiates Screen Urine Methadone Screen Ur Barbiturates Screen Ur Phencyclidine Scrn Ur Amphetamines Screen U Benzodiazepines Scrn Urine Cocaine Screen U Marijuana (THC) Screen 08/28/19 08/28/19 08/28/19 03:23 03:23 03:23 WBC 5.6 RBC 3.55 L Hgb 10.2 L Hct 30.4 L MCV 86 MCH 28.7 MCHC 33.6 RDW 13.2 Plt Count 245 Lymph % (Auto) 21.8 Maries % (Auto) 9.3 Eos % (Auto) 4.2 Baso % (Auto) 1.4 Absolute Neuts (auto) 3.5 Absolute Lymphs (auto) 1.2 Absolute Monos (auto) 0.5 Absolute Eos (auto) 0.2 Absolute Basos (auto) 0.1 Seg Neutrophils % 63.3 PT INR APTT Carbonic Acid HCO3/H2CO3 Ratio ABG pH ABG pCO2 ABG pO2 ABG HCO3 ABG Total CO2 ABG O2 Saturation ABG Base Excess FiO2 Sodium 134.0 L Potassium 5.0 Chloride 105 Carbon Dioxide 20 L Anion Gap 9 BUN 71 H Creatinine 6.29 H Est GFR ( Amer) 11 L Est GFR (MDRD) Non-Af 9 L Glucose 110 POC Glucose Hemoglobin A1c % Calcium 7.7 L Phosphorus Magnesium Total Bilirubin 0.4 Direct Bilirubin 0.1 Neonat Total Bilirubin Not Reportable Neonat Direct Bilirubin Not Reportable Neonat Indirect Bili Not Reportable AST 25 ALT 18 Alkaline Phosphatase 90 Ammonia Creatine Kinase CK-MB (CK-2) 4.06 Troponin I 0.046 NT-Pro-B Natriuret Pep Total Protein 6.3 Albumin 3.1 L Triglycerides 183 H Cholesterol 321.03 H LDL Cholesterol Direct 192 H VLDL Cholesterol 36.6 H HDL Cholesterol 56 Amylase Lipase TSH Free T4 Urine Color Urine Appearance Urine pH Ur Specific [place] Urine Protein Urine Glucose (UA) Urine Ketones Urine Blood Urine Nitrite Urine Bilirubin Urine Urobilinogen Ur Leukocyte Esterase Urine WBC (Auto) Urine RBC (Auto) U Hyaline Cast (Auto) Urine Bacteria (Auto) Squamous Epi Cells Auto Urine Mucus (Auto) Urine Creatinine Protein/Creatinin Ratio Urine Total Protein Urine Ascorbic Acid Urine Opiates Screen Urine Methadone Screen Ur Barbiturates Screen Ur Phencyclidine Scrn Ur Amphetamines Screen U Benzodiazepines Scrn Urine Cocaine Screen U Marijuana (THC) Screen 08/28/19 08/28/19 08/28/19 03:23 07:41 11:19 WBC RBC Hgb Hct MCV MCH MCHC RDW Plt Count Lymph % (Auto) Maries % (Auto) Eos % (Auto) Baso % (Auto) Absolute Neuts (auto) Absolute Lymphs (auto) Absolute Monos (auto) Absolute Eos (auto) Absolute Basos (auto) Seg Neutrophils % PT INR APTT Carbonic Acid HCO3/H2CO3 Ratio ABG pH ABG pCO2 ABG pO2 ABG HCO3 ABG Total CO2 ABG O2 Saturation ABG Base Excess FiO2 Sodium Potassium Chloride Carbon Dioxide Anion Gap BUN Creatinine Est GFR ( Amer) Est GFR (MDRD) Non-Af Glucose POC Glucose 103 121 H Hemoglobin A1c % 8.3 H Calcium Phosphorus Magnesium Total Bilirubin Direct Bilirubin Neonat Total Bilirubin Neonat Direct Bilirubin Neonat Indirect Bili AST ALT Alkaline Phosphatase Ammonia Creatine Kinase CK-MB (CK-2) Troponin I NT-Pro-B Natriuret Pep Total Protein Albumin Triglycerides Cholesterol LDL Cholesterol Direct VLDL Cholesterol HDL Cholesterol Amylase Lipase TSH Free T4 Urine Color Urine Appearance Urine pH Ur Specific [place] Urine Protein Urine Glucose (UA) Urine Ketones Urine Blood Urine Nitrite Urine Bilirubin Urine Urobilinogen Ur Leukocyte Esterase Urine WBC (Auto) Urine RBC (Auto) U Hyaline Cast (Auto) Urine Bacteria (Auto) Squamous Epi Cells Auto Urine Mucus (Auto) Urine Creatinine Protein/Creatinin Ratio Urine Total Protein Urine Ascorbic Acid Urine Opiates Screen Urine Methadone Screen Ur Barbiturates Screen Ur Phencyclidine Scrn Ur Amphetamines Screen U Benzodiazepines Scrn Urine Cocaine Screen U Marijuana (THC) Screen 08/28/19 08/28/19 08/29/19 16:07 21:52 04:29 WBC 6.8 RBC 3.53 L Hgb 10.0 L Hct 30.0 L MCV 85 MCH 28.2 MCHC 33.1 RDW 13.4 Plt Count 228 Lymph % (Auto) 23.9 [place] % (Auto) 11.1 Eos % (Auto) 3.3 Baso % (Auto) 1.1 Absolute Neuts (auto) 4.1 Absolute Lymphs (auto) 1.6 Absolute Monos (auto) 0.8 Absolute Eos (auto) 0.2 Absolute Basos (auto) 0.1 Seg Neutrophils % 60.6 PT INR APTT Carbonic Acid HCO3/H2CO3 Ratio ABG pH ABG pCO2 ABG pO2 ABG HCO3 ABG Total CO2 ABG O2 Saturation ABG Base Excess FiO2 Sodium Potassium Chloride Carbon Dioxide Anion Gap BUN Creatinine Est GFR ( Amer) Est GFR (MDRD) Non-Af Glucose POC Glucose 165 H 123 H Hemoglobin A1c % Calcium Phosphorus Magnesium Total Bilirubin Direct Bilirubin Neonat Total Bilirubin Neonat Direct Bilirubin Neonat Indirect Bili AST ALT Alkaline Phosphatase Ammonia Creatine Kinase CK-MB (CK-2) Troponin I NT-Pro-B Natriuret Pep Total Protein Albumin Triglycerides Cholesterol LDL Cholesterol Direct VLDL Cholesterol HDL Cholesterol Amylase Lipase TSH Free T4 Urine Color Urine Appearance Urine pH Ur Specific [place] Urine Protein Urine Glucose (UA) Urine Ketones Urine Blood Urine Nitrite Urine Bilirubin Urine Urobilinogen Ur Leukocyte Esterase Urine WBC (Auto) Urine RBC (Auto) U Hyaline Cast (Auto) Urine Bacteria (Auto) Squamous Epi Cells Auto Urine Mucus (Auto) Urine Creatinine Protein/Creatinin Ratio Urine Total Protein Urine Ascorbic Acid Urine Opiates Screen Urine Methadone Screen Ur Barbiturates Screen Ur Phencyclidine Scrn Ur Amphetamines Screen U Benzodiazepines Scrn Urine Cocaine Screen U Marijuana (THC) Screen 08/29/19 08/29/19 08/29/19 04:29 07:24 11:14 WBC RBC Hgb Hct MCV MCH MCHC RDW Plt Count Lymph % (Auto) [place] % (Auto) Eos % (Auto) Baso % (Auto) Absolute Neuts (auto) Absolute Lymphs (auto) Absolute Monos (auto) Absolute Eos (auto) Absolute Basos (auto) Seg Neutrophils % PT INR APTT Carbonic Acid HCO3/H2CO3 Ratio ABG pH ABG pCO2 ABG pO2 ABG HCO3 ABG Total CO2 ABG O2 Saturation ABG Base Excess FiO2 Sodium 133.9 L Potassium 5.1 H Chloride 104 Carbon Dioxide 20 L Anion Gap 10 BUN 81 H Creatinine 6.89 H Est GFR ( Amer) 10 L Est GFR (MDRD) Non-Af 8 L Glucose 101 POC Glucose 100 125 H Hemoglobin A1c % Calcium 7.5 L Phosphorus Magnesium Total Bilirubin Direct Bilirubin Neonat Total Bilirubin Neonat Direct Bilirubin Neonat Indirect Bili AST ALT Alkaline Phosphatase Ammonia Creatine Kinase CK-MB (CK-2) Troponin I NT-Pro-B Natriuret Pep Total Protein Albumin Triglycerides Cholesterol LDL Cholesterol Direct VLDL Cholesterol HDL Cholesterol Amylase Lipase TSH Free T4 Urine Color Urine Appearance Urine pH Ur Specific [place] Urine Protein Urine Glucose (UA) Urine Ketones Urine Blood Urine Nitrite Urine Bilirubin Urine Urobilinogen Ur Leukocyte Esterase Urine WBC (Auto) Urine RBC (Auto) U Hyaline Cast (Auto) Urine Bacteria (Auto) Squamous Epi Cells Auto Urine Mucus (Auto) Urine Creatinine Protein/Creatinin Ratio Urine Total Protein Urine Ascorbic Acid Urine Opiates Screen Urine Methadone Screen Ur Barbiturates Screen Ur Phencyclidine Scrn Ur Amphetamines Screen U Benzodiazepines Scrn Urine Cocaine Screen U Marijuana (THC) Screen 08/29/19 08/29/19 08/29/19 13:35 16:19 21:47 WBC RBC Hgb Hct MCV MCH MCHC RDW Plt Count Lymph % (Auto) [place] % (Auto) Eos % (Auto) Baso % (Auto) Absolute Neuts (auto) Absolute Lymphs (auto) Absolute Monos (auto) Absolute Eos (auto) Absolute Basos (auto) Seg Neutrophils % PT INR APTT Carbonic Acid HCO3/H2CO3 Ratio ABG pH ABG pCO2 ABG pO2 ABG HCO3 ABG Total CO2 ABG O2 Saturation ABG Base Excess FiO2 Sodium Potassium Chloride Carbon Dioxide Anion Gap BUN Creatinine Est GFR ( Amer) Est GFR (MDRD) Non-Af Glucose POC Glucose 108 159 H Hemoglobin A1c % Calcium Phosphorus Magnesium Total Bilirubin Direct Bilirubin Neonat Total Bilirubin Neonat Direct Bilirubin Neonat Indirect Bili AST ALT Alkaline Phosphatase Ammonia Creatine Kinase CK-MB (CK-2) Troponin I NT-Pro-B Natriuret Pep Total Protein Albumin Triglycerides Cholesterol LDL Cholesterol Direct VLDL Cholesterol HDL Cholesterol Amylase Lipase TSH Free T4 Urine Color Urine Appearance Urine pH Ur Specific [place] Urine Protein Urine Glucose (UA) Urine Ketones Urine Blood Urine Nitrite Urine Bilirubin Urine Urobilinogen Ur Leukocyte Esterase Urine WBC (Auto) Urine RBC (Auto) U Hyaline Cast (Auto) Urine Bacteria (Auto) Squamous Epi Cells Auto Urine Mucus (Auto) Urine Creatinine 46.5 Protein/Creatinin Ratio 4.0 H Urine Total Protein 184.7 H Urine Ascorbic Acid Urine Opiates Screen Urine Methadone Screen Ur Barbiturates Screen Ur Phencyclidine Scrn Ur Amphetamines Screen U Benzodiazepines Scrn Urine Cocaine Screen U Marijuana (THC) Screen 08/30/19 08/30/19 08/30/19 04:19 04:19 08:22 WBC 6.5 RBC 3.40 L Hgb 9.7 L Hct 29.0 L MCV 85 MCH 28.5 MCHC 33.5 RDW 13.5 Plt Count 234 Lymph % (Auto) 25.7 Mar[place] % (Auto) 11.1 Eos % (Auto) 3.5 Baso % (Auto) 1.3 Absolute Neuts (auto) 3.8 Absolute Lymphs (auto) 1.7 Absolute Monos (auto) 0.7 Absolute Eos (auto) 0.2 Absolute Basos (auto) 0.1 Seg Neutrophils % 58.4 PT INR APTT Carbonic Acid HCO3/H2CO3 Ratio ABG pH ABG pCO2 ABG pO2 ABG HCO3 ABG Total CO2 ABG O2 Saturation ABG Base Excess FiO2 Sodium 134.4 L Potassium 5.3 H Chloride 103 Carbon Dioxide 22 Anion Gap 9 BUN 89 H Creatinine 6.77 H Est GFR ( Amer) 10 L Est GFR (MDRD) Non-Af 8 L Glucose 105 POC Glucose 135 H Hemoglobin A1c % Calcium 7.4 L Phosphorus Magnesium Total Bilirubin Direct Bilirubin Neonat Total Bilirubin Neonat Direct Bilirubin Neonat Indirect Bili AST ALT Alkaline Phosphatase Ammonia Creatine Kinase CK-MB (CK-2) Troponin I NT-Pro-B Natriuret Pep Total Protein Albumin Triglycerides Cholesterol LDL Cholesterol Direct VLDL Cholesterol HDL Cholesterol Amylase Lipase TSH Free T4 Urine Color Urine Appearance Urine pH Ur Specific [place] Urine Protein Urine Glucose (UA) Urine Ketones Urine Blood Urine Nitrite Urine Bilirubin Urine Urobilinogen Ur Leukocyte Esterase Urine WBC (Auto) Urine RBC (Auto) U Hyaline Cast (Auto) Urine Bacteria (Auto) Squamous Epi Cells Auto Urine Mucus (Auto) Urine Creatinine Protein/Creatinin Ratio Urine Total Protein Urine Ascorbic Acid Urine Opiates Screen Urine Methadone Screen Ur Barbiturates Screen Ur Phencyclidine Scrn Ur Amphetamines Screen U Benzodiazepines Scrn Urine Cocaine Screen U Marijuana (THC) Screen 08/30/19 08/30/1908/30/20 12:13 16:17 21:24 WBC RBC Hgb Hct MCV MCH MCHC RDW Plt Count Lymph % (Auto) [place] % (Auto) Eos % (Auto) Baso % (Auto) Absolute Neuts (auto) Absolute Lymphs (auto) Absolute Monos (auto) Absolute Eos (auto) Absolute Basos (auto) Seg Neutrophils % PT INR APTT Carbonic Acid HCO3/H2CO3 Ratio ABG pH ABG pCO2 ABG pO2 ABG HCO3 ABG Total CO2 ABG O2 Saturation ABG Base Excess FiO2 Sodium Potassium Chloride Carbon Dioxide Anion Gap BUN Creatinine Est GFR ( Amer) Est GFR (MDRD) Non-Af Glucose POC Glucose 95 87 150 H Hemoglobin A1c % Calcium Phosphorus Magnesium Total Bilirubin Direct Bilirubin Neonat Total Bilirubin Neonat Direct Bilirubin Neonat Indirect Bili AST ALT Alkaline Phosphatase Ammonia Creatine Kinase CK-MB (CK-2) Troponin I NT-Pro-B Natriuret Pep Total Protein Albumin Triglycerides Cholesterol LDL Cholesterol Direct VLDL Cholesterol HDL Cholesterol Amylase Lipase TSH Free T4 Urine Color Urine Appearance Urine pH Ur Specific [place] Urine Protein Urine Glucose (UA) Urine Ketones Urine Blood Urine Nitrite Urine Bilirubin Urine Urobilinogen Ur Leukocyte Esterase Urine WBC (Auto) Urine RBC (Auto) U Hyaline Cast (Auto) Urine Bacteria (Auto) Squamous Epi Cells Auto Urine Mucus (Auto) Urine Creatinine Protein/Creatinin Ratio Urine Total Protein Urine Ascorbic Acid Urine Opiates Screen Urine Methadone Screen Ur Barbiturates Screen Ur Phencyclidine Scrn Ur Amphetamines Screen U Benzodiazepines Scrn Urine Cocaine Screen U Marijuana (THC) Screen 08/31/19 08/31/19 08/31/19 04:58 07:34 11:35 WBC RBC Hgb Hct MCV MCH MCHC RDW Plt Count Lymph % (Auto) [place] % (Auto) Eos % (Auto) Baso % (Auto) Absolute Neuts (auto) Absolute Lymphs (auto) Absolute Monos (auto) Absolute Eos (auto) Absolute Basos (auto) Seg Neutrophils % PT INR APTT Carbonic Acid HCO3/H2CO3 Ratio ABG pH ABG pCO2 ABG pO2 ABG HCO3 ABG Total CO2 ABG O2 Saturation ABG Base Excess FiO2 Sodium 134.5 L Potassium 5.3 H Chloride 106 Carbon Dioxide 21 L Anion Gap 8 BUN 82 H Creatinine 6.68 H Est GFR ( Amer) 10 L Est GFR (MDRD) Non-Af 8 L Glucose 77 POC Glucose 87 97 Hemoglobin A1c % Calcium 7.4 L Phosphorus Magnesium 1.7 Total Bilirubin Direct Bilirubin Neonat Total Bilirubin Neonat Direct Bilirubin Neonat Indirect Bili AST ALT Alkaline Phosphatase Ammonia Creatine Kinase CK-MB (CK-2) Troponin I NT-Pro-B Natriuret Pep Total Protein Albumin Triglycerides Cholesterol LDL Cholesterol Direct VLDL Cholesterol HDL Cholesterol Amylase Lipase TSH Free T4 Urine Color Urine Appearance Urine pH Ur Specific [place] Urine Protein Urine Glucose (UA) Urine Ketones Urine Blood Urine Nitrite Urine Bilirubin Urine Urobilinogen Ur Leukocyte Esterase Urine WBC (Auto) Urine RBC (Auto) U Hyaline Cast (Auto) Urine Bacteria (Auto) Squamous Epi Cells Auto Urine Mucus (Auto) Urine Creatinine Protein/Creatinin Ratio Urine Total Protein Urine Ascorbic Acid Urine Opiates Screen Urine Methadone Screen Ur Barbiturates Screen Ur Phencyclidine Scrn Ur Amphetamines Screen U Benzodiazepines Scrn Urine Cocaine Screen U Marijuana (THC) Screen 08/31/19 08/31/19 09/01/19 16:36 20:43 08:19 WBC RBC Hgb Hct MCV MCH MCHC RDW Plt Count Lymph % (Auto) [place] % (Auto) Eos % (Auto) Baso % (Auto) Absolute Neuts (auto) Absolute Lymphs (auto) Absolute Monos (auto) Absolute Eos (auto) Absolute Basos (auto) Seg Neutrophils % PT INR APTT Carbonic Acid HCO3/H2CO3 Ratio ABG pH ABG pCO2 ABG pO2 ABG HCO3 ABG Total CO2 ABG O2 Saturation ABG Base Excess FiO2 Sodium Potassium Chloride Carbon Dioxide Anion Gap BUN Creatinine Est GFR ( Amer) Est GFR (MDRD) Non-Af Glucose POC Glucose 120 H 109 142 H Hemoglobin A1c % Calcium Phosphorus Magnesium Total Bilirubin Direct Bilirubin Neonat Total Bilirubin Neonat Direct Bilirubin Neonat Indirect Bili AST ALT Alkaline Phosphatase Ammonia Creatine Kinase CK-MB (CK-2) Troponin I NT-Pro-B Natriuret Pep Total Protein Albumin Triglycerides Cholesterol LDL Cholesterol Direct VLDL Cholesterol HDL Cholesterol Amylase Lipase TSH Free T4 Urine Color Urine Appearance Urine pH Ur Specific [place] Urine Protein Urine Glucose (UA) Urine Ketones Urine Blood Urine Nitrite Urine Bilirubin Urine Urobilinogen Ur Leukocyte Esterase Urine WBC (Auto) Urine RBC (Auto) U Hyaline Cast (Auto) Urine Bacteria (Auto) Squamous Epi Cells Auto Urine Mucus (Auto) Urine Creatinine Protein/Creatinin Ratio Urine Total Protein Urine Ascorbic Acid Urine Opiates Screen Urine Methadone Screen Ur Barbiturates Screen Ur Phencyclidine Scrn Ur Amphetamines Screen U Benzodiazepines Scrn Urine Cocaine Screen U Marijuana (THC) Screen 09/01/19 09/01/19 09/01/19 12:34 17:05 21:14 WBC RBC Hgb Hct MCV MCH MCHC RDW Plt Count Lymph % (Auto) [place] % (Auto) Eos % (Auto) Baso % (Auto) Absolute Neuts (auto) Absolute Lymphs (auto) Absolute Monos (auto) Absolute Eos (auto) Absolute Basos (auto) Seg Neutrophils % PT INR APTT Carbonic Acid HCO3/H2CO3 Ratio ABG pH ABG pCO2 ABG pO2 ABG HCO3 ABG Total CO2 ABG O2 Saturation ABG Base Excess FiO2 Sodium Potassium Chloride Carbon Dioxide Anion Gap BUN Creatinine Est GFR ( Amer) Est GFR (MDRD) Non-Af Glucose POC Glucose 107 97 118 H Hemoglobin A1c % Calcium Phosphorus Magnesium Total Bilirubin Direct Bilirubin Neonat Total Bilirubin Neonat Direct Bilirubin Neonat Indirect Bili AST ALT Alkaline Phosphatase Ammonia Creatine Kinase CK-MB (CK-2) Troponin I NT-Pro-B Natriuret Pep Total Protein Albumin Triglycerides Cholesterol LDL Cholesterol Direct VLDL Cholesterol HDL Cholesterol Amylase Lipase TSH Free T4 Urine Color Urine Appearance Urine pH Ur Specific [place] Urine Protein Urine Glucose (UA) Urine Ketones Urine Blood Urine Nitrite Urine Bilirubin Urine Urobilinogen Ur Leukocyte Esterase Urine WBC (Auto) Urine RBC (Auto) U Hyaline Cast (Auto) Urine Bacteria (Auto) Squamous Epi Cells Auto Urine Mucus (Auto) Urine Creatinine Protein/Creatinin Ratio Urine Total Protein Urine Ascorbic Acid Urine Opiates Screen Urine Methadone Screen Ur Barbiturates Screen Ur Phencyclidine Scrn Ur Amphetamines Screen U Benzodiazepines Scrn Urine Cocaine Screen U Marijuana (THC) Screen Chest X-Ray 08/27/19 01:49 IMPRESSION: Bilateral peribronchial cuffing may represent chronic bronchitis or bronchiolitis. Renal Ultrasound 08/29/19 00:00 IMPRESSION: 1. No evidence of hydronephrosis. 2. 1.3 cm left renal cyst. Venous Doppler Study 08/30/19 10:49 IMPRESSION: 1. No evidence of acute DVT in either leg. 2. Nonocclusive calcified chronic thrombus within the left popliteal vein. IMPRESSION/RECOMMENDATION: 1. Acute on chronic systolic heart failure with preserved LV ejection fraction by echo of 2017. At present seems to be compensated. Most likely this is secondary to volume overload due to acute on chronic renal failure. 2. Acute on chronic kidney disease: Nephrology on the case. At present CKD back to baseline stage IV. 3. Hypertension: Seems to be well controlled. 4. Diabetes mellitus: Continue current antidiabetic medication and Accu-Cheks. 5. History of asthma and chronic obstructive pulmonary disease. Stable no evidence of acute exacerbation 6 6. Past history of pulmonary embolism and DVT. No recurrence of DVT. 7. Mild aortic stenosis by echo of 2017. Will repeat echo as an outpatient. 8. 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 He states he saw his oncologist 5 months ago. Medications reviewed. Agree with current medications. Medical regimen and management plan discussed with Dr. Vergara. 60 minutes spent as patient more than 50% time spent on direct patient care. Patient's cardiac status stable. If nephrology accepted the patient can be discharged home. Patient has not followed up with me in a year or so. The patient is desirous of following up with me. Contact numbers given to the patient.
[2019-09-02] MEDS: HEPARIN SOD (PORCINE) 5,000 UNIT/ML 1 ML VIAL SUBCUT SCH ×3 (01:03→21:07)
[2019-09-02 05:12] LABS: ANION GAP 5 (5-19); BLOOD UREA NITROGEN 79 mg/dL (7-20); CALCIUM 7.7 mg/dL (8.4-10.2); CARBON DIOXIDE 21 mmol/L (22-30); CHLORIDE 108 mmol/L (98-107); GLUCOSE 93 mg/dL (75-110); POTASSIUM 5.8 mmol/L (3.6-5.0)
[2019-09-02] MEDS: ISOSORBIDE DINITRATE 20 MG TABLET PO SCH ×3 (05:39→21:07)
[2019-09-02] MEDS: INSULIN LISPRO 100 UNIT/ML 3 ML VIAL SUBCUT SCH ×4 (08:31→21:44)
[2019-09-02] MEDS: DULOXETINE HCL 30 MG CAPSULE.DR PO SCH (10:20)
[2019-09-02] MEDS: CARVEDILOL 6.25 MG TABLET PO SCH ×2 (10:20→21:06)
[2019-09-02] MEDS: CLOPIDOGREL BISULFATE 75 MG TABLET PO SCH (10:20)
[2019-09-02] MEDS: FUROSEMIDE 40 MG TABLET PO SCH (10:20)
--- NOTE | 2019-09-02 11:04 | PDOC PROGRESS REPORT ---
Subjective Progress Note for:: 09/02/19 Subjective:: Patient is currently doing well Patient's potassium is 5.8 Patient other blood work is all stable Reason For Visit: END STAGE RENAL DISEASE WITH VOLUME OVERLOAD,HTN Physical Exam Vital Signs: Temp Pulse Resp BP Pulse Ox 97.8 F 83 17 119/65 98 09/02/19 08:08 09/02/19 08:08 09/02/19 08:08 09/02/19 08:08 09/02/19 08:08 Intake & Output 09/01/19 09/02/19 09/03/19 06:59 06:59 06:59 Intake Total 1450 1480 Output Total 2250 1950 Balance -800 -470 Weight 112.4 kg 110 kg General appearance: PRESENT: no acute distress, well-developed, well-nourished Head exam: PRESENT: atraumatic, normocephalic Eye exam: PRESENT: conjunctiva pink, EOMI, PERRLA. ABSENT: scleral icterus Ear exam: PRESENT: normal external ear exam Mouth exam: PRESENT: moist, tongue midline Neck exam: PRESENT: full ROM. ABSENT: carotid bruit, JVD, lymphadenopathy, thyromegaly Respiratory exam: PRESENT: clear to auscultation [place] Cardiovascular exam: PRESENT: RRR. ABSENT: diastolic murmur, rubs, systolic murmur Pulses: PRESENT: normal dorsalis pedis pul, +2 pedal pulses bilateral Vascular exam: PRESENT: normal capillary refill GI/Abdominal exam: PRESENT: normal bowel sounds, soft. ABSENT: distended, guarding, mass, organolmegaly, rebound, tenderness Rectal exam: PRESENT: deferred Musculoskeletal exam: PRESENT: ambulatory Neurological exam: PRESENT: alert, awake, oriented to person, oriented to place, oriented to time, oriented to situation, CN II-XII grossly intact. ABSENT: motor sensory deficit Psychiatric exam: PRESENT: appropriate affect, normal mood. ABSENT: homicidal ideation, suicidal ideation Skin exam: PRESENT: dry, intact, warm. ABSENT: cyanosis, rash Results Laboratory Results: 08/30/19 04:19 09/02/19 04:34 09/02/19 04:34 Sodium 133.7 L Potassium 5.8 H Chloride 108 H Carbon Dioxide 21 L Anion Gap 5 BUN 79 H Creatinine 6.11 H Est GFR ( Amer) 11 L Glucose 93 Calcium 7.7 L 08/27/19 11:39 Blood Blood Culture - Final NO GROWTH IN 5 DAYS 08/27/19 09:50 Blood Blood Culture - Final NO GROWTH IN 5 DAYS 08/27/19 08/27/19 08/27/19 01:40 01:40 01:40 Creatine Kinase 1182 H CK-MB (CK-2) 6.85 H Troponin I 0.060 NT-Pro-B Natriuret Pep 4820 H 4760 H 08/27/19 08/27/19 08/27/19 09:50 09:50 21:18 Creatine Kinase 1026 H 913 H CK-MB (CK-2) 6.22 H Troponin I 0.055 NT-Pro-B Natriuret Pep 08/27/19 08/28/19 08/28/19 21:18 03:23 03:23 Creatine Kinase 842 H CK-MB (CK-2) 4.02 4.06 Troponin I 0.042 0.046 NT-Pro-B Natriuret Pep Impressions: Chest X-Ray 08/27/19 01:49 IMPRESSION: Bilateral peribronchial cuffing may represent chronic bronchitis or bronchiolitis. Renal Ultrasound 08/29/19 00:00 IMPRESSION: 1. No evidence of hydronephrosis. 2. 1.3 cm left renal cyst. Venous Doppler Study 08/30/19 10:49 IMPRESSION: 1. No evidence of acute DVT in either leg. 2. Nonocclusive calcified chronic thrombus within the left popliteal vein. Assessment & Plan - Diagnosis (1) Volume overload Qualifiers: Hypervolemia type: other Qualified Code(s): E87.79 - Other fluid overload Is this a current diagnosis for this admission?: Yes (2) History of heart failure Is this a current diagnosis for this admission?: Yes (3) Chronic anemia Is this a current diagnosis for this admission?: Yes (4) Chronic kidney disease, stage 5 Is this a current diagnosis for this admission?: Yes (5) Diabetes mellitus with diabetic nephropathy Qualifiers: Diabetes mellitus type: type 2 Is this a current diagnosis for this admission?: Yes (6) Coronary artery disease Qualifiers: Coronary Disease-Associated Artery/Lesion type: [place] artery Is this a current diagnosis for this admission?: Yes (7) Hyperkalemia Is this a current diagnosis for this admission?: Yes Plan: Twelve-lead EKG Patient is currently see Dr. COLLIER We will get the Kayexalate 1 dose and repeat the potassium later - Time Time Spent with patient: 15-24 minutes Level of Care: IMCU Medications reviewed and adjusted accordingly: Yes Anticipated discharge: Home with Homehealth Within: Other - Plan Summary Plan Summary: Continues current medications
[2019-09-02] MEDS ORDERED: SODIUM POLYSTYRENE SULFONATE 15 GM/60 ML PO ONE (11:30)
--- NOTE | 2019-09-02 17:19 | Progress Note ---
Provider Note Provider Note: CARDIOLOGY PROGRESS NOTE by Dr. Jeanette Gupta on 09/02/2019. SUBJECTIVE: The patient remained stable he denies any chest pain or discomfort. He denies any PND orthopnea or leg edema. The patient's potassium is 5.8 and hence awaiting nephrology to see the patient to make a decision as to when the patient can be discharged. PHYSICAL EXAMINATION: The patient mildly obese. He is in no acute distress. Selected Entries 09/02/19 15:38 Temperature 97.9 F Temperature Oral Source Pulse Rate 91 Respiratory 18 Rate Blood Pressure 147/79 H Blood Pressure 101 Mean BP Location Right Arm BP Position Sitting O2 Sat by Pulse 97 Oximetry Oxygen Delivery Room Air Method HEAD: Is atraumatic normocephalic. EYES: Pupils are equal round regular reactive to light and accommodation. Extraocular movements are normal. There is no conjunctival pallor. There is no scleral icterus. EARS: External auditory canals are clear. There is no inflammation of the tympanic membranes. Mid tympanic memories are intact. NOSE: There is no inflammation of the nasal mucous membrane. There is no deviated nasal septum. MOUTH: Mucous membranes of the mouth are moist. Tongue is moist. There is no ulcers. There is no bleeding from the gums. THROAT: There is no redness of the oropharynx. There is no exudates. Skin: There is no skin rashes. There is no skin lesions. There is no petechia or ecchymosis. NECK: Is supple. There is no JVD. Carotids are equal there is no bruit there is no lymphadenopathy. There is no goiter. There is no accessory muscles respiration use. LUNGS: Trachea central. There is diminished air entry and prolonged expiration. There is no rhonchi rales or wheezing. HEART: S1-S2 is heard. There is no S3 gallop. There is no S4 gallop. There is murmur of mild aortic stenosis present. There is preserved A 2 sound. There is no diastolic murmur of aortic regurgitation. There is no significant mitral regurgitation murmur. There is no rub. ABDOMEN: Soft. Obese. Nontender there is no paraspinal megaly. EXTREMITIES: Femorals are deep. There is no femoral bruits. Leg pulses are diminished. There is trace pedal edema. There is no DVT or cellulitis. There is no calf tenderness. SUPPORT SPECIALIST: The patient is conscious awake alert oriented x3 with no focal deficits. PSYCHIATRIC: The patient judgment insight are intact and her affect is normal. Labs- All tests 24 hr 09/02/19 09/02/19 09/02/19 04:34 08:10 12:02 Sodium 133.7 L Potassium 5.8 H Chloride 108 H Carbon Dioxide 21 L Anion Gap 5 BUN 79 H Creatinine 6.11 H Est GFR ( Amer) 11 L Est GFR (MDRD) Non-Af 9 L Glucose 93 POC Glucose 126 H 104 Calcium 7.7 L 09/02/19 09/02/19 16:07 21:21 Sodium Potassium Chloride Carbon Dioxide Anion Gap BUN Creatinine Est GFR ( Amer) Est GFR (MDRD) Non-Af Glucose POC Glucose 117 H 118 H Calcium Chest X-Ray 08/27/19 01:49 IMPRESSION: Bilateral peribronchial cuffing may represent chronic bronchitis or bronchiolitis. Renal Ultrasound 08/29/19 00:00 IMPRESSION: 1. No evidence of hydronephrosis. 2. 1.3 cm left renal cyst. Venous Doppler Study 08/30/19 10:49 IMPRESSION: 1. No evidence of acute DVT in either leg. 2. Nonocclusive calcified chronic thrombus within the left popliteal vein. IMPRESSION/RECOMMENDATION: 1. Acute on chronic systolic heart failure with preserved LV ejection fraction by echo of 2016. At present seems to be compensated. Most likely this is secondary to volume overload due to acute on chronic renal failure. 2. Acute on chronic kidney disease: Nephrology on the case. At present CKD back to baseline stage IV. 3. Hypertension: Seems to be well controlled. 4. Diabetes mellitus: Continue current antidiabetic medication and Accu-Cheks. 5. History of asthma and chronic obstructive pulmonary disease. Stable no evidence of acute exacerbation 6 6. Past history of pulmonary embolism and DVT. No recurrence of DVT. 7. Mild aortic stenosis by echo of 2017. Will repeat echo as an outpatient. 8. 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 He states he saw his oncologist 5 months ago. Medications reviewed. Agree with current medications. Medical regimen and management plan discussed with Dr. Vergara. 60 minutes spent as patient more than 50% time spent on direct patient care. Patient's cardiac status stable. Medical decision making is of moderate complexity.. Nephrology to address the patient's hyperkalemia. Nephrology will decide the patient and patient can be discharged. Will sign off.
[2019-09-02] MEDS: ATORVASTATIN CALCIUM 40 MG TABLET PO SCH (21:07)
--- NOTE | 2019-09-03 00:21 | EKG REPORT ---
SEVERITY:- ABNORMAL ECG - SINUS RHYTHM PROBABLE LEFT ATRIAL ABNORMALITY ABNORMAL T, CONSIDER ISCHEMIA, LATERAL LEADS : Confirmed by: Rubin Sawyer 03-Sep-2019 00:20:04
[2019-09-03] MEDS: ISOSORBIDE DINITRATE 20 MG TABLET PO SCH ×3 (05:00→22:44)
[2019-09-03] MEDS: HEPARIN SOD (PORCINE) 5,000 UNIT/ML 1 ML VIAL SUBCUT SCH ×3 (05:00→22:43)
[2019-09-03 06:03] LABS: ANION GAP 7 (5-19); BLOOD UREA NITROGEN 76 mg/dL (7-20); CALCIUM 8.1 mg/dL (8.4-10.2); CARBON DIOXIDE 21 mmol/L (22-30); CHLORIDE 107 mmol/L (98-107); CREATINE KINASE 344 U/L (55-170); GLUCOSE 90 mg/dL (75-110); PHOSPHORUS 5.6 mg/dL (2.5-4.5); POTASSIUM 5.5 mmol/L (3.6-5.0)
[2019-09-03] MEDS: INSULIN LISPRO 100 UNIT/ML 3 ML VIAL SUBCUT SCH ×3 (08:42→16:36)
[2019-09-03] MEDS: DULOXETINE HCL 30 MG CAPSULE.DR PO SCH (09:32)
[2019-09-03] MEDS: CARVEDILOL 6.25 MG TABLET PO SCH ×2 (09:32→22:43)
[2019-09-03] MEDS: CLOPIDOGREL BISULFATE 75 MG TABLET PO SCH (09:32)
[2019-09-03] MEDS: FUROSEMIDE 40 MG TABLET PO SCH (09:32)
--- NOTE | 2019-09-03 11:28 | PDOC PROGRESS REPORT ---
Subjective Progress Note for:: 09/03/19 Reason For Visit: Patient seen today. He has no specific complaints of any chest pain or shortness of breath. Good appetite. No nausea or vomiting. Labs and medications were reviewed that shows a initial downtrending of his creatinine. Good urine output. Says the swelling of his legs are markedly improved. Physical Exam Vital Signs: Temp Pulse Resp BP Pulse Ox 97.4 F 89 18 144/74 H 99 09/03/19 08:33 09/03/19 08:33 09/03/19 08:33 09/03/19 08:33 09/03/19 08:33 Intake & Output 09/02/19 09/03/19 09/04/19 06:59 06:59 06:59 Intake Total 1480 1620 Output Total 1950 1025 Balance -470 595 Weight 110 kg 108.4 kg General appearance: PRESENT: no acute distress Respiratory exam: PRESENT: clear to auscultation [place]. ABSENT: crackles Cardiovascular exam: PRESENT: +S1, +S2, systolic murmur GI/Abdominal exam: PRESENT: normal bowel sounds, soft. ABSENT: organomegaly, tenderness Extremities exam: ABSENT: pedal edema Neurological exam: PRESENT: alert, awake, oriented to person, oriented to place Psychiatric exam: PRESENT: appropriate affect Results Laboratory Results: 08/30/19 04:19 09/03/19 05:20 09/03/19 09/03/19 05:20 05:20 Sodium 135.3 L Potassium 5.5 H Chloride 107 Carbon Dioxide 21 L Anion Gap 7 BUN 76 H Creatinine 5.92 H Est GFR ( Amer) 12 L Glucose 90 Calcium 8.1 L Phosphorus 5.6 H PTH Intact 270.1 H 08/27/19 08/27/19 08/27/19 01:40 01:40 01:40 Creatine Kinase 1182 H CK-MB (CK-2) 6.85 H Troponin I 0.060 NT-Pro-B Natriuret Pep 4820 H 4760 H 08/27/19 08/27/19 08/27/19 09:50 09:50 21:18 Creatine Kinase 1026 H 913 H CK-MB (CK-2) 6.22 H Troponin I 0.055 NT-Pro-B Natriuret Pep 08/27/19 08/28/19 08/28/19 21:18 03:23 03:23 Creatine Kinase 842 H CK-MB (CK-2) 4.02 4.06 Troponin I 0.042 0.046 NT-Pro-B Natriuret Pep 09/03/19 05:20 Creatine Kinase 344 H CK-MB (CK-2) Troponin I NT-Pro-B Natriuret Pep Impressions: Chest X-Ray 08/27/19 01:49 IMPRESSION: Bilateral peribronchial cuffing may represent chronic bronchitis or bronchiolitis. Renal Ultrasound 08/29/19 00:00 IMPRESSION: 1. No evidence of hydronephrosis. 2. 1.3 cm left renal cyst. Venous Doppler Study 08/30/19 10:49 IMPRESSION: 1. No evidence of acute DVT in either leg. 2. Nonocclusive calcified chronic thrombus within the left popliteal vein. Assessment & Plan - Diagnosis (1) Acute kidney injury superimposed on chronic kidney disease Plan: Nonoliguric. Multifactorial including prerenal congestive heart failure and likely an element of rhabdomyolysis. His renal labs are finally showing a d owntrending of his creatinine which is a good prognostic sign. His CPK today is 344 which is an improvement from his earlier numbers which were much higher. One has to be cautious in the use of Lipitor in this patient No indications for renal replacement therapy. Clinically he looks dehydrated. I am therefore going to start him on half normal saline for couple of liters with rest of his medications as is. His potassium is high and will put him on daily Veltassa. Advised him on a low potassium diet. Hopefully if his labs shows continued downtrending he can be discharged home tomorrow and follow-up with Dr. Ayon/nephrology in about 10 days time with labs. (2) Acute diastolic heart failure Is this a current diagnosis for this admission?: Yes Plan: Patient is making good urine output to current guidelines. Advised again on proper dietary modifications once discharged. (3) CKD stage 4 due to type 2 diabetes mellitus Plan: Patient is got acute decompensation on his underlying diabetic kidney disease. Nonoliguric. His renal labs are finally showing a downtrending which is a good prognostic sign. No indications for renal replacements. Continue to monitor closely. (4) Sleep apnea Plan: Currently using BiPAP in the hospital at night which will help him. (5) Diabetes mellitus type 2 in obese Plan: Advised tight control (6) HTN (hypertension) Qualifiers: Hypertension type: essential hypertension Qualified Code(s): I10 - Essential (primary) hypertension Plan: Controlled at the moment. Monitor. (7) Nephrotic syndrome Plan: Status quo from diabetic nephropathy.Will quantify (8) Chronic anemia Is this a current diagnosis for this admission?: Yes Plan: Stable. No indications for initiation of erythropoietin currently. (9) History of pulmonary embolism Plan: Status quo. Patient on prophylaxis. (10) Renal osteodystrophy Plan: Current PTH is 270. I would leave this to Dr. Ayon to start him on appropriate medications once he is discharged.
[2019-09-03] MEDS: 1/2 NORMAL SALINE 1,000 ML IV PRN (11:39)
[2019-09-03] MEDS: PATIROMER 8.4 GM SUSP PACKET PO SCH (16:56)
--- NOTE | 2019-09-03 18:21 | Progress Note ---
Provider Note Provider Note: CARDIOLOGY PROGRESS NOTE by Dr. Jeanette Gupta on 09/03/2019. SUBJECTIVE: The patient denies any chest pain or discomfort. There is no shortness of breath. There is no PND orthopnea. His potassium has been high and he has been started on Veltassa by nephrology. He denies PND orthopnea palpitations. There is no atrial or ventricular arrhythmia seen on the monitor. There is no TIA CVA symptoms. There is no pedal edema. Patient denies any palpitations near syncope or syncope. PHYSICAL EXAMINATION: The patient mildly obese. In no acute distress. Selected Entries 09/03/19 16:02 Temperature 98.0 F Temperature Oral Source Pulse Rate 79 Respiratory 18 Rate Blood Pressure 145/78 H Blood Pressure 100 Mean BP Location Right Arm BP Position Supine O2 Sat by Pulse 99 Oximetry Oxygen Delivery Room Air Method HEAD: Is atraumatic normocephalic. EYES: Pupils are equal round regular reactive to light and accommodation. Extraocular movements are normal. There is no conjunctival pallor. There is no scleral icterus. EARS: External auditory canals are clear. There is no inflammation of the tympanic membranes. Mid tympanic memories are intact. NOSE: There is no inflammation of the nasal mucous membrane. There is no deviated nasal septum. MOUTH: Mucous membranes of the mouth are moist. Tongue is moist. There is no ulcers. There is no bleeding from the gums. THROAT: There is no redness of the oropharynx. There is no exudates. Skin: There is no skin rashes. There is no skin lesions. There is no petechia or ecchymosis. NECK: Is supple. There is no JVD. Carotids are equal there is no bruit there is no lymphadenopathy. There is no goiter. There is no accessory muscles respiration use. LUNGS: Trachea central. There is diminished air entry and prolonged expiration. There is no rhonchi rales or wheezing. HEART: S1-S2 is heard. There is no S3 gallop. There is no S4 gallop. There is murmur of mild aortic stenosis present. There is preserved A 2 sound. There is no diastolic murmur of aortic regurgitation. There is no significant mitral regurgitation murmur. There is no rub. ABDOMEN: Soft. Obese. Nontender there is no paraspinal megaly. EXTREMITIES: Femorals are deep. There is no femoral bruits. Leg pulses are diminished. There is trace pedal edema. There is no DVT or cellulitis. There is no calf tenderness. TRANSMISSION ENGINEER: The patient is conscious awake alert oriented x3 with no focal deficits. PSYCHIATRIC: The patient judgment insight are intact and her affect is normal. Labs- All tests 24 hr 09/03/19 09/03/19 09/03/19 05:20 05:20 08:36 Sodium 135.3 L Potassium 5.5 H Chloride 107 Carbon Dioxide 21 L Anion Gap 7 BUN 76 H Creatinine 5.92 H Est GFR ( Amer) 12 L Est GFR (MDRD) Non-Af 10 L Glucose 90 POC Glucose 93 Calcium 8.1 L Phosphorus 5.6 H Creatine Kinase 344 H PTH Intact 270.1 H 09/03/19 09/03/19 11:51 16:29 Sodium Potassium Chloride Carbon Dioxide Anion Gap BUN Creatinine Est GFR ( Amer) Est GFR (MDRD) Non-Af Glucose POC Glucose 97 112 H Calcium Phosphorus Creatine Kinase PTH Intact Chest X-Ray 08/27/19 01:49 IMPRESSION: Bilateral peribronchial cuffing may represent chronic bronchitis or bronchiolitis. Renal Ultrasound 08/29/19 00:00 IMPRESSION: 1. No evidence of hydronephrosis. 2. 1.3 cm left renal cyst. Venous Doppler Study 08/30/19 10:49 IMPRESSION: 1. No evidence of acute DVT in either leg. 2. Nonocclusive calcified chronic thrombus within the left popliteal vein. IMPRESSION/RECOMMENDATION: 1. Acute on chronic systolic heart failure with preserved LV ejection fraction by echo of 2016. At present seems to be compensated. Most likely this is secondary to volume overload due to acute on chronic renal failure. 2. Acute on chronic kidney disease: Nephrology on the case. At present CKD back to baseline stage IV. 3. Hypertension: Seems to be well controlled. 4. Diabetes mellitus: Continue current antidiabetic medication and Accu-Cheks. 5. History of asthma and chronic obstructive pulmonary disease. Stable no evidence of acute exacerbation 6 6. Past history of pulmonary embolism and DVT. No recurrence of DVT. 7. Mild aortic stenosis by echo of 2016. Will repeat echo as an outpatient. 8. 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 He states he saw his oncologist 5 months ago. Medications reviewed. Medical regimen and management plan discussed with attending physician. Medical decision making is of moderate complexity. 40 minutes spent on this patient more than 50% of time spent direct patient care. My cardiac status is stable. Will sign off. Will follow the patient in the office. The patient has my contact numbers and will follow up with the office. Thank you.
--- NOTE | 2019-09-03 22:30 | PDOC PROGRESS REPORT ---
Subjective Progress Note for:: 09/03/19 Subjective:: Patient seen by the bedside no new complaints,will continue lasix infusion Reason For Visit: END STAGE RENAL DISEASE WITH VOLUME OVERLOAD,HTN Physical Exam Vital Signs: Temp Pulse Resp BP Pulse Ox 97.8 F 85 18 156/89 H 100 09/03/19 20:21 09/03/19 20:21 09/03/19 20:21 09/03/19 20:21 09/03/19 20:21 Intake & Output 09/02/19 09/03/19 09/04/19 06:59 06:59 06:59 Intake Total 1480 1620 720 Output Total 1950 1025 1300 Balance -470 595 -580 Weight 110 kg 108.4 kg General appearance: PRESENT: no acute distress Eye exam: PRESENT: PERRLA Respiratory exam: PRESENT: clear to auscultation [place] Cardiovascular exam: PRESENT: +S1, +S2 GI/Abdominal exam: PRESENT: soft Neurological exam: PRESENT: alert Results Laboratory Results: 08/30/19 04:19 09/03/19 05:20 09/03/19 09/03/19 05:20 05:20 Sodium 135.3 L Potassium 5.5 H Chloride 107 Carbon Dioxide 21 L Anion Gap 7 BUN 76 H Creatinine 5.92 H Est GFR ( Amer) 12 L Glucose 90 Calcium 8.1 L Phosphorus 5.6 H PTH Intact 270.1 H 08/27/19 08/27/19 08/27/19 01:40 01:40 01:40 Creatine Kinase 1182 H CK-MB (CK-2) 6.85 H Troponin I 0.060 NT-Pro-B Natriuret Pep 4820 H 4760 H 08/27/19 08/27/19 08/27/19 09:50 09:50 21:18 Creatine Kinase 1026 H 913 H CK-MB (CK-2) 6.22 H Troponin I 0.055 NT-Pro-B Natriuret Pep 08/27/19 08/28/19 08/28/19 21:18 03:23 03:23 Creatine Kinase 842 H CK-MB (CK-2) 4.02 4.06 Troponin I 0.042 0.046 NT-Pro-B Natriuret Pep 09/03/19 05:20 Creatine Kinase 344 H CK-MB (CK-2) Troponin I NT-Pro-B Natriuret Pep Impressions: Chest X-Ray 08/27/19 01:49 IMPRESSION: Bilateral peribronchial cuffing may represent chronic bronchitis or bronchiolitis. Renal Ultrasound 08/29/19 00:00 IMPRESSION: 1. No evidence of hydronephrosis. 2. 1.3 cm left renal cyst. Venous Doppler Study 08/30/19 10:49 IMPRESSION: 1. No evidence of acute DVT in either leg. 2. Nonocclusive calcified chronic thrombus within the left popliteal vein. Assessment & Plan - Diagnosis (1) Volume overload Qualifiers: Hypervolemia type: other Qualified Code(s): E87.79 - Other fluid overload Is this a current diagnosis for this admission?: Yes (2) Chronic kidney disease, stage 5 Is this a current diagnosis for this admission?: Yes (3) Acute diastolic heart failure Is this a current diagnosis for this admission?: Yes (4) Diabetes mellitus with diabetic nephropathy Qualifiers: Diabetes mellitus type: type 2 Is this a current diagnosis for this admission?: Yes - Time Time Spent with patient: 15-24 minutes
[2019-09-03] MEDS: ATORVASTATIN CALCIUM 40 MG TABLET PO SCH (22:43)
[2019-09-04] MEDS: INSULIN LISPRO 100 UNIT/ML 3 ML VIAL SUBCUT SCH ×4 (02:47→16:02)
[2019-09-04] MEDS: ISOSORBIDE DINITRATE 20 MG TABLET PO SCH ×2 (05:25→13:31)
[2019-09-04] MEDS: 1/2 NORMAL SALINE 1,000 ML IV PRN (05:25)
[2019-09-04 05:44] LABS: ANION GAP 8 (5-19); BLOOD UREA NITROGEN 76 mg/dL (7-20); CARBON DIOXIDE 21 mmol/L (22-30); CHLORIDE 105 mmol/L (98-107); GLUCOSE 104 mg/dL (75-110); POTASSIUM 5.3 mmol/L (3.6-5.0)
[2019-09-04] MEDS: HEPARIN SOD (PORCINE) 5,000 UNIT/ML 1 ML VIAL SUBCUT SCH ×2 (05:48→13:24)
[2019-09-04] MEDS: DULOXETINE HCL 30 MG CAPSULE.DR PO SCH (09:25)
[2019-09-04] MEDS: FUROSEMIDE 40 MG TABLET PO SCH (09:26)
[2019-09-04] MEDS: CARVEDILOL 6.25 MG TABLET PO SCH (09:26)
[2019-09-04] MEDS: CLOPIDOGREL BISULFATE 75 MG TABLET PO SCH (09:26)
--- NOTE | 2019-09-04 12:52 | PDOC PROGRESS REPORT ---
Subjective Progress Note for:: 09/04/19 Reason For Visit: Patient seen today. Feeling lots better.Denies any active chest pain shortness of breath. Good appetite eating well. Labs and medications reviewed that shows downtrending creatinine. Good urine output. at the bedside. Physical Exam Vital Signs: Temp Pulse Resp BP Pulse Ox 97.8 F 80 16 121/60 97 09/04/19 07:26 09/04/19 07:26 09/04/19 07:26 09/04/19 07:26 09/04/19 07:26 Intake & Output 09/03/19 09/04/19 09/05/19 06:59 06:59 06:59 Intake Total 1620 1720 Output Total 1025 2600 Balance 595 -880 Weight 108.4 kg 109.4 kg General appearance: PRESENT: no acute distress Respiratory exam: PRESENT: clear to auscultation [place], decreased breath sounds. ABSENT: crackles Cardiovascular exam: PRESENT: +S1, +S2, systolic murmur GI/Abdominal exam: PRESENT: normal bowel sounds, soft. ABSENT: organomegaly, tenderness Extremities exam: ABSENT: pedal edema Neurological exam: PRESENT: alert, awake, oriented to person Psychiatric exam: PRESENT: appropriate affect Results Laboratory Results: 08/30/19 04:19 09/04/19 04:26 09/04/19 04:26 Sodium 134.0 L Potassium 5.3 H Chloride 105 Carbon Dioxide 21 L Anion Gap 8 BUN 76 H Creatinine 5.53 H Est GFR ( Amer) 13 L Glucose 104 Calcium 8.0 L 08/27/19 08/27/19 08/27/19 01:40 01:40 01:40 Creatine Kinase 1182 H CK-MB (CK-2) 6.85 H Troponin I 0.060 NT-Pro-B Natriuret Pep 4820 H 4760 H 08/27/19 08/27/19 08/27/19 09:50 09:50 21:18 Creatine Kinase 1026 H 913 H CK-MB (CK-2) 6.22 H Troponin I 0.055 NT-Pro-B Natriuret Pep 08/27/19 08/28/19 08/28/19 21:18 03:23 03:23 Creatine Kinase 842 H CK-MB (CK-2) 4.02 4.06 Troponin I 0.042 0.046 NT-Pro-B Natriuret Pep 09/03/19 05:20 Creatine Kinase 344 H CK-MB (CK-2) Troponin I NT-Pro-B Natriuret Pep Impressions: Chest X-Ray 08/27/19 01:49 IMPRESSION: Bilateral peribronchial cuffing may represent chronic bronchitis or bronchiolitis. Renal Ultrasound 08/29/19 00:00 IMPRESSION: 1. No evidence of hydronephrosis. 2. 1.3 cm left renal cyst. Venous Doppler Study 08/30/19 10:49 IMPRESSION: 1. No evidence of acute DVT in either leg. 2. Nonocclusive calcified chronic thrombus within the left popliteal vein. Assessment & Plan - Diagnosis (1) Acute kidney injury superimposed on chronic kidney disease Plan: Nonoliguric. Patient has done well in the last couple of days. Multifactorial including prerenal congestive heart failure and likely an element of rhabdomyolysis. His renal labs are finally showing a downtrending of his creatinine which is a good prognostic sign. His labs shows continued downtrending and he can be discharged home today and follow-up with Dr. Ayon/nephrology in about 10 days time with labs. (2) Acute diastolic heart failure Is this a current diagnosis for this admission?: Yes Plan: Patient is making good urine output to current guidelines. Advised again on proper dietary modifications once discharged. (3) CKD stage 4 due to type 2 diabetes mellitus Plan: Patient is got acute decompensation on his underlying diabetic kidney disease. Nonoliguric. His renal labs are finally showing a downtrending which is a good prognostic sign. No indications for renal replacements. He can be discharged home and follow-up with Dr. Ayon who is his primary cell inspector.. (4) Sleep apnea Plan: Currently using BiPAP in the hospital at night which will help him. (5) Diabetes mellitus type 2 in obese Plan: Advised tight control (6) HTN (hypertension) Qualifiers: Hypertension type: essential hypertension Qualified Code(s): I10 - Essential (primary) hypertension Plan: Controlled at the moment. Monitor. (7) Nephrotic syndrome Plan: Status quo from diabetic nephropathy.Will quantify (8) Chronic anemia Is this a current diagnosis for this admission?: Yes Plan: Stable. No indications for initiation of erythropoietin currently. (9) History of pulmonary embolism Plan: Status quo. Patient on prophylaxis. (10) Renal osteodystrophy Plan: Current PTH is 270. I would leave this to Dr. Ayon to start him on appropriate medications once he is discharged.
[2019-09-04] MEDS: PATIROMER 8.4 GM SUSP PACKET PO SCH (17:04)
[2019-09-04 17:59] VITALS: BP 171/82
--- NOTE | 2019-09-04 18:01 | PDOC DISCHARGE SUMMARY ---
Impression - Admit/DC Date/PCP Admission Date/Primary Care Provider: 08/27/19 04:18 YUSEF SOMERS MD Discharge Date: 09/04/19 - Discharge Diagnosis (1) Volume overload Is this a current diagnosis for this admission?: Yes (2) Chronic kidney disease, stage 5 Is this a current diagnosis for this admission?: Yes (3) Acute diastolic heart failure Is this a current diagnosis for this admission?: Yes (4) Diabetes mellitus with diabetic nephropathy Is this a current diagnosis for this admission?: Yes - Additional Information Discharge Diet: Diabetic Referrals: YUSEF SOMERS MD [Primary Care Provider] - 09/11/19 2:00 pm Prescriptions: Patiromer Calcium Sorbitex [Veltassa 8.4 gm Susp Packet] 8.4 gm PO WSUPPER #90 packet Home Medications: Aspirin [Aspirin 325 mg Tablet] 325 mg PO DAILY 08/27/19 Atorvastatin Calcium [Lipitor 40 mg Tablet] 40 mg PO DAILY 08/27/19 Carvedilol [Coreg] 6.25 mg PO Q12 08/27/19 Clopidogrel Bisulfate [Plavix 75 mg Tablet] 75 mg PO DAILY 08/27/19 Cyclobenzaprine HCl [Flexeril 10 mg Tablet] 10 mg PO Q8HP PRN 08/27/19 Doxepin HCl [Sinequan 10 mg Capsule] 10 mg PO QHS 08/27/19 Duloxetine HCl [Cymbalta] 60 mg PO DAILY 08/27/19 Furosemide [Lasix 40 mg Tablet] 40 mg PO QAM 08/27/19 Hydralazine HCl [Apresoline 25 mg Tablet] 25 mg PO Q8 08/27/19 Insulin Aspart [Novolog Flexpen] 0 unit SUBCUT .SLD SCALE 08/27/19 Insulin Glargine,Hum.rec.anlog [Lantus Insulin 100 Unit/1 ml 10 ml] 80 unit SUBCUT Q12 08/27/19 Isosorbide Dinitrate [Isordil Titradose 20 mg Tablet] 20 mg PO Q8 08/27/19 Losartan Potassium [Cozaar 100 mg Tablet] 100 mg PO DAILY 08/27/19 Montelukast Sodium [Singulair 10 mg Tablet] 10 mg PO DAILY 08/27/19 Patiromer Calcium Sorbitex [Veltassa 8.4 gm Susp Packet] 8.4 gm PO WSUPPER #90 packet 09/04/19 History of Present Illiness History of Present Illness: CORKY JURADO JR is a 68 year old male, He has a history of diabetes nephropathy, chronic kidney disease stage IV, he came to the emergency room for evaluation of shortness of breath, wheezing, bilateral leg swelling. The serum creatinine is 6.41, BUN is 60, ABG on FiO2 36%, pH is 7.36 disease PO2 116 bicarbonate 17.6 consistent with metabolic acidosis, the chest x-ray demonstrated pulmonary vascular congestion the blood work suggests progression of kidney disease or acute on chronic renal disease. Patient is not clinically confused he does not look uremic but the clinical picture and the blood work suggests volume overload.The BNP is elevated but I do not know the value of BNP in the setting of very low GFR, He has a history of chronic diastolic heart failure Hospital Course Hospital Course: Patient was admitted for the management of volume overload felt to be due to combination of acute diastolic heart failure and progressive chronic kidney disease. He was treated with furosemide infusion, he diuresed effectively well, he was seen in consultation by nephrology Dr. Stahl. It was felt that patient does not have the indication for immediate renal replacement therapy, dialysis, he was over diuresed and received low dose IV infusion with normal saline yesterday. On admission patient was very symptomatic with shortness of breath, with treatment patient diuresed, he was less symptomatic Physical Exam Vital Signs: Temp Pulse Resp BP Pulse Ox 98.1 F 73 16 171/82 H 99 09/04/19 17:56 09/04/19 17:56 09/04/19 17:56 09/04/19 17:56 09/04/19 17:56 Intake & Output 09/03/19 09/04/19 09/05/19 06:59 06:59 06:59 Intake Total 1620 1720 1300 Output Total 1025 2600 520 Balance 595 -880 780 Weight 108.4 kg 109.4 kg General appearance: PRESENT: no acute distress Eye exam: PRESENT: PERRLA Respiratory exam: PRESENT: clear to auscultation [place] Cardiovascular exam: PRESENT: +S1, +S2 GI/Abdominal exam: PRESENT: soft Neurological exam: PRESENT: alert, CN II-XII grossly intact Results Laboratory Results: WBC 6.5 10^3/uL (4.0-10.5) 08/30/19 04:19 RBC 3.40 10^6/uL (4.35-5.55) L 08/30/19 04:19 Hgb 9.7 g/dL (13.5-17.0) L 08/30/19 04:19 Hct 29.0 % (37.9-51.0) L 08/30/19 04:19 MCV 85 fl (80-97) 08/30/19 04:19 MCH 28.5 pg (27.0-33.4) 08/30/19 04:19 MCHC 33.5 g/dL (32.0-36.0) 08/30/19 04:19 RDW 13.5 % (11.5-14.0) 08/30/19 04:19 Plt Count 234 10^3/uL (150-450) 08/30/19 04:19 Lymph % (Auto) 25.7 % (13-45) 08/30/19 04:19 [place] % (Auto) 11.1 % (3-13) 08/30/19 04:19 Eos % (Auto) 3.5 % (0-6) 08/30/19 04:19 Baso % (Auto) 1.3 % (0-2) 08/30/19 04:19 Absolute Neuts (auto) 3.8 10^3/uL (1.7-8.2) 08/30/19 04:19 Absolute Lymphs (auto) 1.7 10^3/uL (0.5-4.7) 08/30/19 04:19 Absolute Monos (auto) 0.7 10^3/uL (0.1-1.4) 08/30/19 04:19 Absolute Eos (auto) 0.2 10^3/uL (0.0-0.6) 08/30/19 04:19 Absolute Basos (auto) 0.1 10^3/uL (0.0-0.2) 08/30/19 04:19 Seg Neutrophils % 58.4 % (42-78) 08/30/19 04:19 PT 13.2 SEC (11.4-15.4) 08/27/19 09:50 INR 1.00 08/27/19 09:50 APTT 32.2 SEC (23.5-35.8) 08/27/19 09:50 Carbonic Acid 0.97 mmol/L (1.05-1.35) L 08/27/19 09:15 HCO3/H2CO3 Ratio 18:1 08/27/19 09:15 ABG pH 7.36 (7.35-7.45) 08/27/19 09:15 ABG pCO2 32.2 mmHg (35-45) L 08/27/19 09:15 ABG pO2 116.6 mmHg (80-100) H 08/27/19 09:15 ABG HCO3 17.6 mmol/L (20-24) L 08/27/19 09:15 ABG Total CO2 18.6 mmol/L (23-27) L 08/27/19 09:15 ABG O2 Saturation 98.1 % (94-98) H 08/27/19 09:15 ABG Base Excess -6.9 mmol/L 08/27/19 09:15 FiO2 36% 08/27/19 09:15 Sodium 134.0 mmol/L (137-145) L 09/04/19 04:26 Potassium 5.3 mmol/L (3.6-5.0) H 09/04/19 04:26 Chloride 105 mmol/L (98-107) 09/04/19 04:26 Carbon Dioxide 21 mmol/L (22-30) L 09/04/19 04:26 Anion Gap 8 (5-19) 09/04/19 04:26 BUN 76 mg/dL (7-20) H 09/04/19 04:26 Creatinine 5.53 mg/dL (0.52-1.25) H 09/04/19 04:26 Est GFR ( Amer) 13 (>60) L 09/04/19 04:26 Est GFR (MDRD) Non-Af 10 (>60) L 09/04/19 04:26 Glucose 104 mg/dL (75-110) 09/04/19 04:26 POC Glucose 130 mg/dL (70-110) H 09/04/19 15:41 Hemoglobin A1c % 8.3 % (4.7-6.0) H 08/28/19 03:23 Calcium 8.0 mg/dL (8.4-10.2) L 09/04/19 04:26 Phosphorus 5.6 mg/dL (2.5-4.5) H 09/03/19 05:20 Magnesium 1.7 mg/dL (1.6-2.3) 08/31/19 04:58 Total Bilirubin 0.4 mg/dL (0.2-1.3) 08/28/19 03:23 Direct Bilirubin 0.1 mg/dL (0.0-0.4) 08/28/19 03:23 Neonat Total Bilirubin Not Reportable 08/28/19 03:23 Neonat Direct Bilirubin Not Reportable 08/28/19 03:23 Neonat Indirect Bili Not Reportable 08/28/19 03:23 AST 25 U/L (17-59) 08/28/19 03:23 ALT 18 U/L (<50) 08/28/19 03:23 Alkaline Phosphatase 90 U/L (38-126) 08/28/19 03:23 Ammonia < 8.7 umol/L (9-33) L 08/27/19 09:50 Creatine Kinase 344 U/L (55-170) H 09/03/19 05:20 CK-MB (CK-2) 4.06 ng/mL (<4.55) 08/28/19 03:23 Troponin I 0.046 ng/mL 08/28/19 03:23 NT-Pro-B Natriuret Pep 4760 pg/mL (<125) H 08/27/19 01:40 NT-Pro-B Natriuret Pep 4820 pg/mL (<125) H 08/27/19 01:40 Total Protein 6.3 g/dL (6.3-8.2) 08/28/19 03:23 Albumin 3.1 g/dL (3.5-5.0) L 08/28/19 03:23 Triglycerides 183 mg/dL (<150) H 08/28/19 03:23 Cholesterol 321.03 mg/dL (0-200) H 08/28/19 03:23 LDL Cholesterol Direct 192 mg/dL (<100) H 08/28/19 03:23 VLDL Cholesterol 36.6 mg/dL (10-31) H 08/28/19 03:23 HDL Cholesterol 56 mg/dL (>40) 08/28/19 03:23 Amylase 135 U/L (30-110) H 08/27/19 01:40 Lipase 378.8 U/L (23-300) H 08/27/19 01:40 TSH 4.47 uIU/mL (0.47-4.68) 08/27/19 01:40 Free T4 1.02 ng/dL (0.78-2.19) 08/27/19 01:40 PTH Intact 270.1 pg/mL (10.0-65.0) H 09/03/19 05:20 Urine Color COLORLESS 08/27/19 08:55 Urine Appearance CLEAR 08/27/19 08:55 Urine pH 6.0 (5.0-9.0) 08/27/19 08:55 Ur Specific [place] 1.005 08/27/19 08:55 Urine Protein >=500 mg/dL (NEGATIVE) H 08/27/19 08:55 Urine Glucose (UA) 50 mg/dL (NEGATIVE) H 08/27/19 08:55 Urine Ketones NEGATIVE mg/dL (NEGATIVE) 08/27/19 08:55 Urine Blood SMALL (NEGATIVE) H 08/27/19 08:55 Urine Nitrite NEGATIVE (NEGATIVE) 08/27/19 08:55 Urine Bilirubin NEGATIVE (NEGATIVE) 08/27/19 08:55 Urine Urobilinogen NEGATIVE mg/dL (<2.0) 08/27/19 08:55 Ur Leukocyte Esterase NEGATIVE (NEGATIVE) 08/27/19 08:55 Urine WBC (Auto) 0 /HPF 08/27/19 08:55 Urine RBC (Auto) 2 /HPF 08/27/19 08:55 U Hyaline Cast (Auto) 5 /LPF 08/27/19 02:05 Urine Bacteria (Auto) TRACE /HPF 08/27/19 02:05 Squamous Epi Cells Auto <1 /HPF 08/27/19 02:05 Urine Mucus (Auto) RARE /LPF 08/27/19 08:55 Urine Creatinine 46.5 mg/dL (22-328) 08/29/19 13:35 Protein/Creatinin Ratio 4.0 mg/mg (0.0-0.2) H 08/29/19 13:35 Urine Total Protein 184.7 mg/dL (<12) H 08/29/19 13:35 Urine Ascorbic Acid NEGATIVE (NEGATIVE) 08/27/19 08:55 Urine Opiates Screen NEGATIVE 08/27/19 08:55 Urine Methadone Screen NEGATIVE 08/27/19 08:55 Ur Barbiturates Screen NEGATIVE 08/27/19 08:55 Ur Phencyclidine Scrn NEGATIVE 08/27/19 08:55 Ur Amphetamines Screen NEGATIVE 08/27/19 08:55 U Benzodiazepines Scrn NEGATIVE 08/27/19 08:55 Urine Cocaine Screen NEGATIVE 08/27/19 08:55 U Marijuana (THC) Screen NEGATIVE 08/27/19 08:55 08/27/19 08/27/19 08/27/19 01:40 01:40 09:50 CK-MB (CK-2) 6.85 H 6.22 H Troponin I 0.060 0.055 NT-Pro-B Natriuret Pep 4820 H 4760 H 08/27/19 08/28/19 21:18 03:23 CK-MB (CK-2) 4.02 4.06 Troponin I 0.042 0.046 NT-Pro-B Natriuret Pep Impressions: Chest X-Ray 08/27/19 01:49 IMPRESSION: Bilateral peribronchial cuffing may represent chronic bronchitis or bronchiolitis. Renal Ultrasound 08/29/19 00:00 IMPRESSION: 1. No evidence of hydronephrosis. 2. 1.3 cm left renal cyst. Venous Doppler Study 08/30/19 10:49 IMPRESSION: 1. No evidence of acute DVT in either leg. 2. Nonocclusive calcified chronic thrombus within the left popliteal vein. Stroke Is this a Stroke Patient?: No Acute Heart Failure - Is this a Heart Failure Patient?: No
== END 2019-09-04 19:58 | disposition home or self-care (01) | DRG 291 ==
LOC: ER 01:06 → EH 04:18 → 3N 06:01
PROVIDERS: ADMIT Internal Medicine; ATTEND Internal Medicine
DX: I13.2 Hypertensive heart and chronic kidney disease with heart failure and with stage 5 chronic kidney disease, or end stage renal disease (principal); I50.33 Acute on chronic diastolic (congestive) heart failure; N18.5 Chronic kidney disease, stage 5; E87.2 Acidosis; N17.9 Acute kidney failure, unspecified; E11.22 Type 2 diabetes mellitus with diabetic chronic kidney disease; I25.10 Atherosclerotic heart disease of native coronary artery without angina pectoris; E78.5 Hyperlipidemia, unspecified; T50.1X5A Adverse effect of loop [high-ceiling] diuretics, initial encounter; J44.9 Chronic obstructive pulmonary disease, unspecified; M15.9 Polyosteoarthritis, unspecified; D63.1 Anemia in chronic kidney disease; R06.81 Apnea, not elsewhere classified; E87.5 Hyperkalemia; E66.01 Morbid (severe) obesity due to excess calories; N25.0 Renal osteodystrophy; E87.79 Other fluid overload; Z99.2 Dependence on renal dialysis; Z79.02 Long term (current) use of antithrombotics/antiplatelets; Z86.711 Personal history of pulmonary embolism; Z87.891 Personal history of nicotine dependence; Z79.4 Long term (current) use of insulin; Z79.82 Long term (current) use of aspirin; Z79.899 Other long term (current) drug therapy; Z88.0 Allergy status to penicillin; Z88.2 Allergy status to sulfonamides; Z88.8 Allergy status to other drugs, medicaments and biological substances; Z85.89 Personal history of malignant neoplasm of other organs and systems; Z92.21 Personal history of antineoplastic chemotherapy; Z90.49 Acquired absence of other specified parts of digestive tract; Z83.3 Family history of diabetes mellitus; Z95.5 Presence of coronary angioplasty implant and graft
CPT/HCPCS: 36415; 36600; 71045; 76770; 80048; 80053; 80061; 80307; 81001; 82140; 82150; 82550; 82553; 82570; 82803; 82962; 83036; 83690; 83735; 83880; 83970; 84100; 84156; 84439; 84443; 84484; 85025; 85610; 85730; 87040; 87086; 93005; 93010; 93970; 94660; 99285; J1644; J1815; J1940; J3490; J7050

== ENCOUNTER → 2019-10-30 | Outpatient (CLI) | payer MEDICARE, MEDICAID ==
[2019-10-30 10:07] LABS: ABSOLUTE BASOPHILS # (AUTO) 0.2 10^3/uL (0.0-0.2); ABSOLUTE EOSINOPHILS # (AUTO) 0.3 10^3/uL (0.0-0.6); ABSOLUTE LYMPHOCYTES (AUTO) 1.5 10^3/uL (0.5-4.7); ABSOLUTE MONOCYTES (AUTO) 0.8 10^3/uL (0.1-1.4); ABSOLUTE NEUT (AUTO) 5.7 10^3/uL (1.7-8.2); BASOPHILS % (AUTO) 1.8 % (0-2); EOSINOPHILS % (AUTO) 3.9 % (0-6); HEMATOCRIT 31.8 % (37.9-51.0); HEMOGLOBIN 10.5 g/dL (13.5-17.0); LYMPHOCYTES % (AUTO) 18.1 % (13-45); MEAN CORPUSCULAR HEMOGLOBIN 28.3 pg (27.0-33.4); MEAN CORPUSCULAR VOLUME 86 fl (80-97); MONOCYTES % (AUTO) 9.8 % (3-13); PLATELET COUNT 269 10^3/uL (150-450); RED BLOOD COUNT 3.71 10^6/uL (4.35-5.55); RED CELL DISTRIBUTION WIDTH 13.3 % (11.5-14.0); SEGMENTED NEUTROPHILS % (AUTO) 66.4 % (42-78); TOTAL CELLS COUNTED % (AUTO) 100 %; WHITE BLOOD COUNT 8.5 10^3/uL (4.0-10.5)
[2019-10-30 10:18] LABS: APPEARANCE,URINE CLEAR; BILIRUBIN,URINE NEGATIVE (NEGATIVE); COLOR,URINE YELLOW; GLUCOSE, URINE 50 mg/dL (NEGATIVE); KETONES,URINE NEGATIVE (NEGATIVE); LEUKOCYTE ESTERASE,URINE NEGATIVE (NEGATIVE); NITRITE,URINE NEGATIVE (NEGATIVE); PROTEIN,URINE >=500 mg/dL (NEGATIVE); URINE SPECIFIC GRAVITY 1.015; UROBILINOGEN,URINE NEGATIVE mg/dL (<2.0)
[2019-10-30 10:23] LABS: ALBUMIN 3.4 g/dL (3.5-5.0); ANION GAP 8 (5-19); BLOOD UREA NITROGEN 79 mg/dL (7-20); CALCIUM 7.6 mg/dL (8.4-10.2); CARBON DIOXIDE 24 mmol/L (22-30); CHLORIDE 104 mmol/L (98-107); GLUCOSE 106 mg/dL (75-110); PHOSPHORUS 6.8 mg/dL (2.5-4.5); POTASSIUM 5.4 mmol/L (3.6-5.0)
[2019-10-30 11:20] LABS: URINE CREATININE 106.3 mg/dL (22-328)
== END ==
LOC: OD 09:31
PROVIDERS: ATTEND Physician Assistant Medical
DX: N17.9 Acute kidney failure, unspecified (principal); E11.22 Type 2 diabetes mellitus with diabetic chronic kidney disease; I13.0 Hypertensive heart and chronic kidney disease with heart failure and stage 1 through stage 4 chronic kidney disease, or unspecified chronic kidney disease; N18.4 Chronic kidney disease, stage 4 (severe); I50.9 Heart failure, unspecified; R80.9 Proteinuria, unspecified
CPT/HCPCS: 36415; 80069; 81001; 82570; 83970; 84156; 85025

== ENCOUNTER → 2019-12-07 | Outpatient (CLI) | payer MEDICARE, MEDICAID ==
[2019-12-07 11:05] LABS: ABSOLUTE BASOPHILS # (AUTO) 0.2 10^3/uL (0.0-0.2); ABSOLUTE EOSINOPHILS # (AUTO) 0.3 10^3/uL (0.0-0.6); ABSOLUTE LYMPHOCYTES (AUTO) 1.5 10^3/uL (0.5-4.7); ABSOLUTE MONOCYTES (AUTO) 0.7 10^3/uL (0.1-1.4); BASOPHILS % (AUTO) 2.3 % (0-2); EOSINOPHILS % (AUTO) 4.2 % (0-6); HEMATOCRIT 26.9 % (37.9-51.0); LYMPHOCYTES % (AUTO) 22.1 % (13-45); MEAN CORPUSCULAR HEMOGLOBIN 28.7 pg (27.0-33.4); MEAN CORPUSCULAR HGB CONC 33.5 g/dL (32.0-36.0); MEAN CORPUSCULAR VOLUME 86 fl (80-97); MONOCYTES % (AUTO) 10.6 % (3-13); PLATELET COUNT 258 10^3/uL (150-450); RED BLOOD COUNT 3.14 10^6/uL (4.35-5.55); RED CELL DISTRIBUTION WIDTH 13.6 % (11.5-14.0); SEGMENTED NEUTROPHILS % (AUTO) 60.8 % (42-78); TOTAL CELLS COUNTED % (AUTO) 100 %; WHITE BLOOD COUNT 6.6 10^3/uL (4.0-10.5)
[2019-12-07 11:12] LABS: COLOR,URINE STRAW
[2019-12-07 11:13] LABS: APPEARANCE,URINE CLEAR; BILIRUBIN,URINE NEGATIVE (NEGATIVE); GLUCOSE, URINE 150 mg/dL (NEGATIVE); KETONES,URINE NEGATIVE (NEGATIVE); URINE SPECIFIC GRAVITY 1.013
[2019-12-07 11:14] LABS: LEUKOCYTE ESTERASE,URINE NEGATIVE (NEGATIVE); NITRITE,URINE NEGATIVE (NEGATIVE); PROTEIN,URINE >=500 mg/dL (NEGATIVE); UROBILINOGEN,URINE NEGATIVE mg/dL (<2.0)
[2019-12-07 11:22] LABS: ALBUMIN 3.2 g/dL (3.5-5.0); ANION GAP 8 (5-19); BLOOD UREA NITROGEN 76 mg/dL (7-20); CARBON DIOXIDE 22 mmol/L (22-30); CHLORIDE 104 mmol/L (98-107); GLUCOSE 127 mg/dL (75-110); PHOSPHORUS 8.1 mg/dL (2.5-4.5); POTASSIUM 5.6 mmol/L (3.6-5.0)
[2019-12-07 11:41] LABS: URINE CREATININE 100.4 mg/dL (22-328)
[2019-12-07 13:12] LABS: URINE PROTEIN 505.4 mg/dL (<12)
[2019-12-07 13:36] LABS: IRON(TIBC) 70.6 ug/dL (49-181)
[2019-12-10 15:52] LABS: CALCIUM 6.6 mg/dL (8.4-10.2)
== END ==
LOC: OD 10:39
PROVIDERS: ATTEND Physician Assistant Medical
DX: I12.9 Hypertensive chronic kidney disease with stage 1 through stage 4 chronic kidney disease, or unspecified chronic kidney disease (principal); N18.4 Chronic kidney disease, stage 4 (severe); E11.22 Type 2 diabetes mellitus with diabetic chronic kidney disease; D63.1 Anemia in chronic kidney disease; R80.9 Proteinuria, unspecified; E83.51 Hypocalcemia
CPT/HCPCS: 36415; 80069; 81001; 82310; 82570; 82728; 83540; 83550; 83970; 84132; 84156; 85025

== ENCOUNTER 2020-04-16 19:03 | Inpatient (IN) | payer MEDICARE, MEDICAID ==
--- NOTE | 2020-04-16 19:59 | ER Document Report ---
ED Medical Screen (RME) - General Chief Complaint: Shortness Of Breath Stated Complaint: ABNORMAL LABS Time Seen by Provider: 04/16/20 19:56 Primary Care Provider: DENNIS DUNCAN PA-C [Primary Care Provider] - Follow up as needed Notes: Patient is a 69-year-old male with a history of chronic kidney disease who presents emergency department with chief complaint of abnormal labs. Patient reports earlier today he had blood work drawn at Dr. Stahl's office. He states that they called him this afternoon and stated his potassium was high and he needed to go to the emergency department. Patient reports also while he is here he would like to get checked out for his congestive heart failure as he has had increased swelling to his lower extremities and shortness of breath when ambulating. TRAVEL OUTSIDE OF THE [place] IN LAST 30 DAYS: No - Related Data Allergies/Adverse Reactions: Iodine and Iodide Containing Produc Allergy (Verified 04/16/20 19:44) Penicillins Allergy (Verified 04/16/20 19:44) Shellfish * [Shellfish] Allergy (Verified 04/16/20 19:44) Difficulty breathing Home Medications: Lantus, novolog, oxycodone, montelukastatorvastatin, glipizide,cyclobenzaprine, clopidogrel,hydralazine, duloxetine, furosemide/ Past Medical History - Social History Chew tobacco use (# tins/day): No Drug Abuse: None - Past Medical History Cardiac Medical History: Reports: Hx Congestive Heart Failure, Hx Coronary Artery Disease, Hx Hypercholesterolemia, Hx Hypertension, Hx Pulmonary Embolism Denies: Hx Heart Attack Pulmonary Medical History: Reports: Hx Asthma, Hx COPD, Hx Pneumonia Denies: Hx Bronchitis, Hx Tuberculosis Neurological Medical History: Denies: Hx Cerebrovascular Accident, Hx Seizures Endocrine Medical History: Reports: Hx Diabetes Mellitus Type 2 Renal/ Medical History: Denies: Hx Peritoneal Dialysis GI Medical History: Denies: Hx Hepatitis, Hx Hiatal Hernia, Hx Ulcer, Hx Colonoscopy, Hx Endoscopy Musculoskeltal Medical History: Reports Hx Arthritis - GENERALIZED, Reports Hx Musculoskeletal Deformity, Reports Hx Musculoskeletal Trauma Skin Medical History: Reports Hx Cellulitis Psychiatric Medical History: Reports: Hx Depression Infectious Medical History: Denies: Hx Hepatitis Past Surgical History: Reports: Hx Cardiac Catheterization - stents, Hx Cholecystectomy. Denies: Hx Open Heart Surgery, Hx Pacemaker - Immunizations Hx Diphtheria, Pertussis, Tetanus Vaccination: Yes Physical Exam - Vital signs Vitals: Temp Pulse Resp BP Pulse Ox 98.5 F 101 H 22 H 168/83 H 99 04/16/20 19:22 04/16/20 19:22 04/16/20 19:22 04/16/20 19:22 04/16/20 19:22 Course - Re-evaluation Re-evalutation: 04/16/20 19:58 Patient has +4 pitting edema to bilateral lower extremities. There is no erythema. Lungs are clear to auscultation. Will initiate labs and EKG with chest x-ray here in triage. I have greeted and performed a rapid initial assessment of this patient. A comprehensive ED assessment and evaluation of the patient, analysis of test results and completion of the medical decision making process will be conducted by additional ED providers. - Vital Signs Vital signs: Temp Pulse Resp BP Pulse Ox 98.5 F 101 H 22 H 168/83 H 99 04/16/20 19:22 04/16/20 19:22 04/16/20 19:22 04/16/20 19:22 04/16/20 19:22 Doctor's Discharge - Discharge Referrals: DENNIS DUNCAN PA-C [Primary Care Provider] - Follow up as needed
--- NOTE | 2020-04-16 20:43 | RADIOLOGY REPORT (SQ) ---
XR CHEST 2 VIEWS HISTORY: Shortness of breath, hx. chf. COMPARISON: 08/27/2019 FINDINGS: The heart size is enlarged with mild central pulmonary vascular congestion. No consolidation, pleural effusion, or pneumothorax is seen. No acute bony findings are seen. IMPRESSION: Mild pulmonary edema pattern, without pleural effusions or focal consolidation.
[2020-04-16 21:17] LABS: ABSOLUTE BASOPHILS # (AUTO) 0.1 10^3/uL (0.0-0.2); ABSOLUTE EOSINOPHILS # (AUTO) 0.3 10^3/uL (0.0-0.6); ABSOLUTE MONOCYTES (AUTO) 0.8 10^3/uL (0.1-1.4); ABSOLUTE NEUT (AUTO) 4.1 10^3/uL (1.7-8.2); BASOPHILS % (AUTO) 1.1 % (0-2); EOSINOPHILS % (AUTO) 3.7 % (0-6); HEMATOCRIT 29.9 % (37.9-51.0); HEMOGLOBIN 9.7 g/dL (13.5-17.0); LYMPHOCYTES % (AUTO) 27.9 % (13-45); MEAN CORPUSCULAR HEMOGLOBIN 28.6 pg (27.0-33.4); MEAN CORPUSCULAR HGB CONC 32.6 g/dL (32.0-36.0); MEAN CORPUSCULAR VOLUME 88 fl (80-97); MONOCYTES % (AUTO) 11.3 % (3-13); PLATELET COUNT 289 10^3/uL (150-450); RED CELL DISTRIBUTION WIDTH 14.5 % (11.5-14.0); TOTAL CELLS COUNTED % (AUTO) 100 %; WHITE BLOOD COUNT 7.3 10^3/uL (4.0-10.5)
[2020-04-16] MEDS ORDERED: CYCLOBENZAPRINE HCL 10 MG TABLET PO ONE (21:20)
--- NOTE | 2020-04-16 21:21 | ER Document Report ---
ED General - General Chief Complaint: Shortness Of Breath Stated Complaint: ABNORMAL LABS Time Seen by Provider: 04/16/20 19:56 Notes: Patient is a very alize 69-year-old male with a history of congestive heart failure, diabetes, chronic pain, and hypertension, who presents emergency department with a chief complaint of shortness of breath upon exertion. Patient states that walking short distances, he becomes short of breath. 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 Labs were drawn and he was told that his potassium was high. He then reported to the emergency department and his blood sugar was 42. Stated that he sometimes does not check his blood sugar, but took his medications. TRAVEL OUTSIDE OF THE [place] IN LAST 30 DAYS: No - Related Data Allergies/Adverse Reactions: Iodine and Iodide Containing Produc Allergy (Verified 04/16/20 19:44) Penicillins Allergy (Verified 04/16/20 19:44) Shellfish * [Shellfish] Allergy (Verified 04/16/20 19:44) Difficulty breathing Home Medications: Lantus, novolog, oxycodone, montelukastatorvastatin, glipizide,cyclobenzaprine, clopidogrel,hydralazine, duloxetine, furosemide/ Past Medical History - Social History Smoking Status: Never Smoker Chew tobacco use (# tins/day): No Drug Abuse: None Family History: DM - Past Medical History Cardiac Medical History: Reports: Hx Congestive Heart Failure, Hx Coronary Artery Disease, Hx Hypercholesterolemia, Hx Hypertension, Hx Pulmonary Embolism Denies: Hx Heart Attack Pulmonary Medical History: Reports: Hx Asthma, Hx COPD, Hx Pneumonia Denies: Hx Bronchitis, Hx Tuberculosis Neurological Medical History: Denies: Hx Cerebrovascular Accident, Hx Seizures Endocrine Medical History: Reports: Hx Diabetes Mellitus Type 2 Renal/ Medical History: Denies: Hx Peritoneal Dialysis GI Medical History: Denies: Hx Hepatitis, Hx Hiatal Hernia, Hx Ulcer, Hx Colonoscopy, Hx Endoscopy Musculoskeletal Medical History: Reports Hx Arthritis - GENERALIZED, Reports Hx Musculoskeletal Deformity, Reports Hx Musculoskeletal Trauma Skin Medical History: Reports Hx Cellulitis Psychiatric Medical History: Reports: Hx Depression Infectious Medical History: Denies: Hx Hepatitis Past Surgical History: Reports: Hx Cardiac Catheterization - stents, Hx Cholecystectomy. Denies: Hx Open Heart Surgery, Hx Pacemaker - Immunizations Hx Diphtheria, Pertussis, Tetanus Vaccination: Yes Hx Pneumococcal Vaccination: 01/01/14 Review of Systems - Review of Systems Notes: REVIEW OF SYSTEMS: CONSTITUTIONAL : Denies recent illness. Denies recent unintentional weight loss. Denies fever, chills, or sweats. EENT: Denies eye, ear, throat, or mouth pain, discharge, or symptoms. Denies nasal or sinus congestion. CARDIOVASCULAR: Denies chest pain. RESPIRATORY: See HPI. GASTROINTESTINAL: Denies nausea, vomiting, and diarrhea. Denies abdominal pain. Denies constipation. GENITOURINARY: Denies difficulty urinating, burning, blood in urine, urgency or frequency. MUSCULOSKELETAL: See HPI. SKIN: Denies rash, itchiness, or lesions HEMATOLOGIC : Denies easy bruising or bleeding. LYMPHATIC: Denies swollen, painful, enlarged glands. NEUROLOGICAL: Denies no numbness or tingling denies weakness. Denies headache. Denies altered mental status. Denies alteration in speech. PSYCHIATRIC: Denies stress, anxiety, alteration in sleep patterns, or depression. All other systems reviewed and negative. Physical Exam - Vital signs Vitals: Temp Pulse Resp BP Pulse Ox 98.5 F 101 H 22 H 168/83 H 99 04/16/20 19:22 04/16/20 19:22 04/16/20 19:22 04/16/20 19:22 04/16/20 19:22 - Notes Notes: PHYSICAL EXAMINATION: GENERAL: Appears well, healthy, well-nourished, no acute distress. HEAD: Normocephalic, atraumatic. EYES: PERRL, conjunctiva normal, all extraocular movements intact, sclera nonicteric ENT: Moist mucous membranes. NECK: Supple, no noticeable swelling, redness, rash. Normal range of motion. LUNGS: Equal breath sounds bilaterally and clear to auscultation. No wheezes rales or rhonchi. CARDIOVASCULAR: S1-S2, regular rate, regular rhythm. Radial pulses 2+, normal. ABDOMEN: Normoactive bowel sounds. Soft, nontender, no guarding, no rebound tenderness, and no masses palpated. EXTREMITIES: Normal strength and range of motion, no pitting or edema. No cyanosis. NEUROLOGICAL: Moves all extremities upon command. Strength 5/5 in all extremities. PSYCH: Normal mood, normal affect. SKIN: Warm, dry. No rash, lesions, ulcerations noted. Normal skin turgor. Course - Re-evaluation Re-evalutation: 04/16/20 21:24 Patient went to go sit up and he ended up having a muscle cramp in his right leg. Patient normally takes cyclobenzaprine, which helps for him care and will give him a dose here in the emergency department. Awaiting labs. We will recheck blood sugar, as it was 42. He was given crackers and juice. 04/16/20 21:56 Patient's repeat blood sugar was 71, which is better. We give the patient a sandwich and drink. Potassium is 5.1, creatinine is 5.2. His last labs back in September states that his creatinine was 5.91. Calcium is 6.7. Patient will receive calcium gluconate. BNP is 19,700, consistent with a CHF exacerbation. Ordered 40 mg of Lasix. Spoke with Dr. Cavazos, the patient will be admitted to [facility]. Patient is aware of admission, along with his . 04/16/20 23:[address] Stahl. He was updated on patient's status. - Vital Signs Vital signs: Temp Pulse Resp BP Pulse Ox 98.4 F 101 H 17 177/107 H 100 04/16/20 23:27 04/16/20 19:22 04/16/20 22:59 04/16/20 23:00 04/16/20 23:01 - Laboratory Result Diagrams: 04/16/20 20:40 04/16/20 20:40 Laboratory results interpreted by me: 04/16/20 04/16/20 04/16/20 20:28 20:40 20:40 RBC 3.40 L Hgb 9.7 L Hct 29.9 L RDW 14.5 H Potassium 5.1 H Chloride 110 H Carbon Dioxide 20 L BUN 76 H Creatinine 9.20 H Est GFR ( Amer) 7 L Est GFR (MDRD) Non-Af 6 L Glucose 51 L POC Glucose 42 L Calcium 6.7 L* Phosphorus Alkaline Phosphatase 140 H Creatine Kinase CK-MB (CK-2) NT-Pro-B Natriuret Pep Amylase 04/16/20 04/16/20 04/16/20 20:40 20:40 20:40 RBC Hgb Hct RDW Potassium Chloride Carbon Dioxide BUN Creatinine Est GFR ( Amer) Est GFR (MDRD) Non-Af Glucose POC Glucose Calcium Phosphorus 6.9 H Alkaline Phosphatase Creatine Kinase 2096 H CK-MB (CK-2) NT-Pro-B Natriuret Pep 94258 H Amylase 134 H 04/16/20 20:40 RBC Hgb Hct RDW Potassium Chloride Carbon Dioxide BUN Creatinine Est GFR ( Amer) Est GFR (MDRD) Non-Af Glucose POC Glucose Calcium Phosphorus Alkaline Phosphatase Creatine Kinase CK-MB (CK-2) 10.70 H NT-Pro-B Natriuret Pep Amylase Discharge - Discharge Clinical Impression: CHF exacerbation Qualifiers: Heart failure type: unspecified Qualified Code(s): I50.9 - Heart failure, unspecified Condition: Stable Disposition: ADMITTED INPATIENT Admitting Provider: [facility] Unit Admitted: [facility]
[2020-04-16 21:29] LABS: ALBUMIN 3.6 g/dL (3.5-5.0); ALKALINE PHOSPHATASE 140 U/L (38-126); ANION GAP 10 (5-19); ASPARTATE AMINO TRANSFERASE 34 U/L (17-59); BILIRUBIN,DIRECT 0.4 mg/dL (0.0-0.4); BILIRUBIN,TOTAL 0.4 mg/dL (0.2-1.3); BLOOD UREA NITROGEN 76 mg/dL (7-20); CARBON DIOXIDE 20 mmol/L (22-30); CHLORIDE 110 mmol/L (98-107); POTASSIUM 5.1 mmol/L (3.6-5.0); TOTAL PROTEIN 7.1 g/dL (6.3-8.2)
[2020-04-16 21:42] LABS: CALCIUM 6.7 mg/dL (8.4-10.2); GLUCOSE 51 mg/dL (75-110)
[2020-04-16] MEDS ORDERED: FUROSEMIDE INJ/PF 40 MG/4 ML SDV IV ONE (21:44)
[2020-04-16] MEDS ORDERED: CALCIUM GLUCONATE 1000 MG/10 ML INJ IV ONE (21:46)
[2020-04-16] MEDS ORDERED: ACETAMINOPHEN 325 MG TABLET PO PRN (22:23)
[2020-04-16] MEDS ORDERED: DEXTROSE 50%-WATER 25 GM/50 ML DISP.SYRIN IV PRN ×2 (22:29)
[2020-04-16] MEDS ORDERED: DEXTROSE 40% GEL 15 GM TUBE PO PRN ×2 (22:29)
[2020-04-16] MEDS ORDERED: GLUCAGON,HUMAN RECOMB 1 MG INJ IM PRN (22:29)
[2020-04-16] MEDS ORDERED: NORMAL SALINE 250 ML with FUROSEMIDE 250 MG IV PRN ×2 (22:30)
[2020-04-16] MEDS ORDERED: INSULIN LISPRO 100 UNIT/ML 3 ML VIAL SUBCUT SCH (22:30)
[2020-04-16 22:46] LABS: INTERNATIONAL RATION (INR) 1.07; PROTHROMBIN TIME 14.1 SEC (11.4-15.4)
[2020-04-16 22:47] LABS: PARTIAL THROMBOPLASTIN TIME 33.8 SEC (23.5-35.8)
[2020-04-16 22:51] LABS: PHOSPHORUS 6.9 mg/dL (2.5-4.5)
[2020-04-16 22:58] LABS: FREE T4 (FREE THYROXINE) 1.21 ng/dL (0.78-2.19)
[2020-04-16 23:12] LABS: CREATINE KINASE MB 10.7 ng/mL (<4.55); THYROID STIMULATING HORMONE 4.44 uIU/mL (0.47-4.68)
[2020-04-16 23:14] LABS: APPEARANCE,URINE CLEAR; BILIRUBIN,URINE NEGATIVE (NEGATIVE); COLOR,URINE YELLOW; GLUCOSE, URINE 50 mg/dL (NEGATIVE); KETONES,URINE NEGATIVE (NEGATIVE); LEUKOCYTE ESTERASE,URINE NEGATIVE (NEGATIVE); NITRITE,URINE NEGATIVE (NEGATIVE); PROTEIN,URINE >=500 mg/dL (NEGATIVE); URINE SPECIFIC GRAVITY 1.014; UROBILINOGEN,URINE NEGATIVE mg/dL (<2.0)
[2020-04-16 23:17] LABS: TROPONIN I 0.069 ng/mL
[2020-04-16 23:24] LABS: URINE AMPHETAMINES SCREEN NEGATIVE; URINE BARBITURATES SCREEN NEGATIVE; URINE BENZODIAZEPINES SCREEN NEGATIVE; URINE COCAINE SCREEN NEGATIVE; URINE MARIJUANA (THC) SCREEN NEGATIVE; URINE METHADONE SCREEN NEGATIVE; URINE PHENCYCLIDINE SCREEN NEGATIVE
[2020-04-17] MEDS: HEPARIN SOD (PORCINE) 5,000 UNIT/ML 1 ML VIAL SUBCUT SCH ×4 (01:00→22:11)
[2020-04-17] MEDS: INSULIN LISPRO 100 UNIT/ML 3 ML VIAL SUBCUT SCH ×7 (01:00→22:11)
[2020-04-17 05:44] LABS: ABSOLUTE BASOPHILS # (AUTO) 0.1 10^3/uL (0.0-0.2); ABSOLUTE EOSINOPHILS # (AUTO) 0.2 10^3/uL (0.0-0.6); ABSOLUTE LYMPHOCYTES (AUTO) 0.9 10^3/uL (0.5-4.7); ABSOLUTE MONOCYTES (AUTO) 0.6 10^3/uL (0.1-1.4); ABSOLUTE NEUT (AUTO) 4.3 10^3/uL (1.7-8.2); BASOPHILS % (AUTO) 1.1 % (0-2); EOSINOPHILS % (AUTO) 2.9 % (0-6); HEMATOCRIT 27.2 % (37.9-51.0); LYMPHOCYTES % (AUTO) 14.8 % (13-45); MEAN CORPUSCULAR HEMOGLOBIN 28.9 pg (27.0-33.4); MEAN CORPUSCULAR HGB CONC 33.1 g/dL (32.0-36.0); MEAN CORPUSCULAR VOLUME 87 fl (80-97); MONOCYTES % (AUTO) 9.5 % (3-13); PLATELET COUNT 226 10^3/uL (150-450); RED BLOOD COUNT 3.12 10^6/uL (4.35-5.55); RED CELL DISTRIBUTION WIDTH 14.2 % (11.5-14.0); SEGMENTED NEUTROPHILS % (AUTO) 71.7 % (42-78); TOTAL CELLS COUNTED % (AUTO) 100 %
[2020-04-17] MEDS ORDERED: HEPARIN SOD (PORCINE) 5,000 UNIT/ML 1 ML VIAL SUBCUT SCH (06:00)
[2020-04-17 06:03] LABS: ALBUMIN 3.1 g/dL (3.5-5.0); ALKALINE PHOSPHATASE 122 U/L (38-126); ANION GAP 9 (5-19); ASPARTATE AMINO TRANSFERASE 31 U/L (17-59); BILIRUBIN,DIRECT 0.4 mg/dL (0.0-0.4); BILIRUBIN,TOTAL 0.5 mg/dL (0.2-1.3); BLOOD UREA NITROGEN 79 mg/dL (7-20); CARBON DIOXIDE 16 mmol/L (22-30); CHLORIDE 112 mmol/L (98-107); CREATINE KINASE 1556 U/L (55-170); GLUCOSE 99 mg/dL (75-110); POTASSIUM 5.7 mmol/L (3.6-5.0); TOTAL PROTEIN 6.2 g/dL (6.3-8.2); TRIGLYCERIDES 123 mg/dL (<150)
[2020-04-17 06:15] LABS: CREATINE KINASE MB 7.71 ng/mL (<4.55); DIRECT LDL 35 mg/dL (<100); TROPONIN I 0.063 ng/mL
[2020-04-17 06:20] LABS: CALCIUM 6.5 mg/dL (8.4-10.2)
--- NOTE | 2020-04-17 09:17 | EKG REPORT ---
SEVERITY:- ABNORMAL ECG - SINUS RHYTHM ABNORMAL T, CONSIDER ISCHEMIA, LATERAL LEADS BORDERLINE PROLONGED QT INTERVAL : Confirmed by: Rubin Sawyer 17-Apr-2020 09:16:53
[2020-04-17 12:01] LABS: CREATINE KINASE MB 7.45 ng/mL (<4.55)
[2020-04-17 12:06] LABS: TROPONIN I 0.073 ng/mL
[2020-04-17] MEDS ORDERED: NORMAL SALINE 250 ML with FUROSEMIDE 250 MG IV PRN ×2 (12:56)
[2020-04-17] MEDS ORDERED: (PENDING PHARMACY ID) (Exenatide Microspheres [Bydureon Pen] 2 MG) SQ SCH (13:15)
[2020-04-17] MEDS ORDERED: INSULIN DETEMIR 80 UNIT SQ SCH (13:15)
[2020-04-17] MEDS ORDERED: (PENDING PHARMACY ID) (Calcitriol [Calcitriol] 0.5 MCG) PO SCH (13:15)
[2020-04-17 13:49] LABS: IRON(TIBC) 34.4 ug/dL (49-181)
[2020-04-17] MEDS ORDERED: (PENDING PHARMACY ID) (Oxycodone Hcl/Acetaminophen [Percocet 10-325 Mg Tablet] 1 EACH) PO SCH (14:00)
[2020-04-17] MEDS: CALCITRIOL 0.25 MCG CAPSULE PO SCH (14:02)
[2020-04-17] MEDS: ASPIRIN 81 MG TABLET, ENT COATED PO SCH (14:04)
[2020-04-17] MEDS: OXYCODONE HCL IR 5 MG TABLET PO SCH ×2 (14:04→22:10)
[2020-04-17] MEDS: OXYCODONE-ACETAMINOPHEN 5-325 MG TABLET PO SCH ×2 (14:05→22:14)
--- NOTE | 2020-04-17 14:36 | PDOC CONSULTATION ---
Consultation Consult Date: 04/17/20 Provider Consulted: Rosey SOARES Consult reason:: CKD5 History of Present Illness Admission Date/PCP: 04/16/20 22:12 YUSEF SOMERS MD History of Present Illness: CORKY JURADO JR is a 69 year old male with past medical history of CHF, COPD, DM, HTN, CKD5 last seen via telemedicine in November and in the office this past September. Both times he was following with me and he was in the middle of an SANDRA. Unfortunately he missed the next couple of scheduled appointments. He was sent to the ER by my nursing staff after we got labs for his overdue follow up. The calcium was found to be around 6.7 corrected, potassium of 5.8, and his creatinine was elevated to 9.3 with a bun of 90. He denied s/s related to the labs, but due the severity/risk of complication of his abnormal labs he was told to go straight to the ER. In the ER he had similar looking labs plus an elevated CK in the low 1999s, a bnp of 19,700. He was short of breath and did having swelling on his legs. Chest x-ray showed pulmonary edema and an enlarged heart. He was give IV lasix and t hen started on a lasix drip. He was given calcium gluconate. His atorvastatin was stopped. Today he claims to be doing better. He said that he had been having swelling and SOB for the past month. He denies any fever/chills, chest pain or heart palpitations. He denies having sore muscles, exercising at an intense rate, or being sedentary for a prolong period of time. His urination has been good. A ppetite is slightly decreased but he denies any other s/s of uremia. Past Medical History Cardiac Medical History: Reports: Coronary Artery Disease, Hyperlipidemia, Hypertension-primary, Pulmonary Embolism Denies: Myocardial Infarction Pulmonary Medical History: Reports: Asthma, Chronic Obstructive Pulmonary Disease (COPD), Pneumonia Denies: Bronchitis, Tuberculosis Neurological Medical History: Denies: Seizures Endocrine Medical History: Reports: Diabetes Mellitus Type 2 Renal/ Medical History: Reports: Chronic Kidney Disease Stage V GI Medical History: Denies: Hepatitis, Hiatal Hernia Musculoskeltal Medical History: Reports: Arthritis - GENERALIZED Psychiatric Medical History: Reports: Depression Past Surgical History Past Surgical History: Reports: Cardiac Catheterization - stents, Cholecystectomy Denies: Pacemaker Social History Smoking Status: Former Smoker Electronic Cigarette use?: No Frequency of Alcohol Use: None Hx Recreational Drug Use: No Drugs: None Hx Prescription Drug Abuse: No Family History Parental Family History Reviewed: Yes Children Family History Reviewed: Unknown Sibling(s) Family History Reviewed.: Unknown Medication/Allergy Home Medications: Atorvastatin Calcium [Lipitor 40 mg Tablet] 40 mg PO DAILY 08/27/19 Clopidogrel Bisulfate [Plavix 75 mg Tablet] 75 mg PO DAILY 08/27/19 Cyclobenzaprine HCl [Flexeril 10 mg Tablet] 10 mg PO Q8HP PRN 08/27/19 Furosemide [Lasix 40 mg Tablet] 40 mg PO QAM 08/27/19 Aspirin [Ecotrin 81 mg EC Tablet] 81 mg PO DAILY 04/17/20 Calcitriol 0.5 mcg PO DAILY 04/17/20 Cetirizine HCl [Zyrtec 10 mg Tablet] 10 mg PO DAILY 04/17/20 Exenatide Microspheres [Bydureon Pen] 2 mg SQ Q7D 04/17/20 Insulin Detemir [Levemir] 80 unit SQ BID 04/17/20 Oxycodone HCl/Acetaminophen [Percocet 10-325 Mg Tablet] 1 each PO TID 04/17/20 Allergies/Adverse Reactions: Iodine and Iodide Containing Produc Allergy (Verified 04/16/20 19:44) Penicillins Allergy (Verified 04/16/20 19:44) Shellfish * [Shellfish] Allergy (Verified 04/16/20 19:44) Difficulty breathing Review of Systems Constitutional: ABSENT: chills, fever(s), headache(s), night sweats, weight loss Eyes: ABSENT: visual disturbances Cardiovascular: PRESENT: dyspnea on exertion, edema, orthropnea. ABSENT: chest pain, palpitations Respiratory: PRESENT: dyspnea. ABSENT: cough, sputum Gastrointestinal: ABSENT: abdominal pain, constipation, diarrhea, nausea, vomiting Genitourinary: ABSENT: difficulty urinating, dysuria, hematuria Musculoskeletal: ABSENT: muscle weakness Neurological: ABSENT: abnormal movements, confusion, dizziness, weakness Physical Exam Vital Signs: Temp Pulse Resp BP Pulse Ox 97.7 F 94 16 159/87 H 97 04/17/20 07:44 04/17/20 07:44 04/17/20 07:44 04/17/20 07:44 04/17/20 07:44 Intake & Output 04/16/20 04/17/20 04/18/20 06:59 06:59 06:59 Intake Total 260 Output Total 500 Balance -240 Weight 114.1 kg General appearance: PRESENT: no acute distress, well-developed, well-nourished Eye exam: ABSENT: scleral icterus Mouth exam: PRESENT: moist, neck supple Neck exam: ABSENT: JVD, tracheal deviation Respiratory exam: PRESENT: crackles, rales. ABSENT: accessory muscle use, clear to auscultation [place], rhonchi, wheezes Cardiovascular exam: PRESENT: +S1, +S2 GI/Abdominal exam: PRESENT: soft. ABSENT: diminished bowel sounds, distended, guarding, tenderness Extremities exam: PRESENT: pedal edema, +1 edema Musculoskeletal exam: PRESENT: normal inspection. ABSENT: deformity Neurological exam: PRESENT: alert, awake, oriented to person, oriented to place, oriented to time, oriented to situation Psychiatric exam: PRESENT: appropriate affect, normal mood Skin exam: PRESENT: dry, intact, warm. ABSENT: cyanosis Results Laboratory Results: 04/17/20 05:00 04/17/20 05:00 04/16/20 04/16/20 04/16/20 20:40 20:40 20:40 WBC 7.3 RBC 3.40 L Hgb 9.7 L Hct 29.9 L MCV 88 MCH 28.6 MCHC 32.6 RDW 14.5 H Plt Count 289 Seg Neutrophils % 56.0 Sodium 139.7 Potassium 5.1 H Chloride 110 H Carbon Dioxide 20 L Anion Gap 10 BUN 76 H Creatinine 9.20 H Est GFR ( Amer) 7 L Glucose 51 L Calcium 6.7 L* Phosphorus Magnesium 1.7 Total Bilirubin 0.4 AST 34 Alkaline Phosphatase 140 H Total Protein 7.1 Albumin 3.6 Triglycerides Cholesterol LDL Cholesterol Direct VLDL Cholesterol HDL Cholesterol Amylase Lipase TSH Free T4 Urine Color Urine Appearance Urine pH Ur Specific [place] Urine Protein Urine Glucose (UA) Urine Ketones Urine Blood Urine Nitrite Ur Leukocyte Esterase Urine WBC (Auto) Urine RBC (Auto) 04/16/20 04/16/20 04/16/20 20:40 20:40 22:41 WBC RBC Hgb Hct MCV MCH MCHC RDW Plt Count Seg Neutrophils % Sodium Potassium Chloride Carbon Dioxide Anion Gap BUN Creatinine Est GFR ( Amer) Glucose Calcium Phosphorus 6.9 H Magnesium Cancelled Total Bilirubin AST Alkaline Phosphatase Total Protein Albumin Triglycerides Cholesterol LDL Cholesterol Direct VLDL Cholesterol HDL Cholesterol Amylase 134 H Lipase 189.7 TSH 4.44 Free T4 1.21 Urine Color YELLOW Urine Appearance CLEAR Urine pH 5.0 Ur Specific [place] 1.014 Urine Protein >=500 H Urine Glucose (UA) 50 H Urine Ketones NEGATIVE Urine Blood MODERATE H Urine Nitrite NEGATIVE Ur Leukocyte Esterase NEGATIVE Urine WBC (Auto) 1 Urine RBC (Auto) 2 04/17/20 04/17/20 05:00 05:00 WBC 6.0 RBC 3.12 L Hgb 9.0 L Hct 27.2 L MCV 87 MCH 28.9 MCHC 33.1 RDW 14.2 H Plt Count 226 Seg Neutrophils % 71.7 Sodium 137.1 Potassium 5.7 H Chloride 112 H Carbon Dioxide 16 L Anion Gap 9 BUN 79 H Creatinine 8.64 H Est GFR ( Amer) 7 L Glucose 99 Calcium 6.5 L* Phosphorus Magnesium Total Bilirubin 0.5 AST 31 Alkaline Phosphatase 122 Total Protein 6.2 L Albumin 3.1 L Triglycerides 123 Cholesterol 118.70 LDL Cholesterol Direct 35 VLDL Cholesterol 25.0 HDL Cholesterol 54 Amylase Lipase TSH Free T4 Urine Color Urine Appearance Urine pH Ur Specific [place] Urine Protein Urine Glucose (UA) Urine Ketones Urine Blood Urine Nitrite Ur Leukocyte Esterase Urine WBC (Auto) Urine RBC (Auto) 04/16/20 04/16/20 04/16/20 20:40 20:40 20:40 Creatine Kinase 2096 H CK-MB (CK-2) 10.70 H Troponin I 0.069 NT-Pro-B Natriuret Pep 71301 H 04/17/20 04/17/20 04/17/20 05:00 05:00 10:27 Creatine Kinase 1556 H 1357 H CK-MB (CK-2) 7.71 H Troponin I 0.063 NT-Pro-B Natriuret Pep 04/17/20 10:27 Creatine Kinase CK-MB (CK-2) 7.45 H Troponin I 0.073 NT-Pro-B Natriuret Pep Impressions: Chest X-Ray 04/16/20 19:57 IMPRESSION: Mild pulmonary edema pattern, without pleural effusions or focal consolidation. Assessment & Plan - Diagnosis (1) Acute kidney injury superimposed on chronic kidney disease Plan: Nonoliguric, likely related to his fluid overload with factors if an elevated CK. Also could be reaching a new baseline and nearing dialysis. Decreasing furosemide drip to 5mg an hour. Continue to remove fluid. Monitor CK and urine output. Need strict Is&Os. May need to use light fluids if the ck does not go down farther. Will get an ultrasound and trend labs. No indication for PRESCHOOL EDUCATION DIRECTOR at this time. (2) Hypocalcemia Plan: Will look to get a PTH level. Will start on PO calcium bid on and empty stomach. Will also start calcitriol and a calcium based binder. Retest the labs. (3) CHF exacerbation Qualifiers: Heart failure type: unspecified Qualified Code(s): I50.9 - Heart failure, unspecified Plan: improving on a lasix drip. With the SANDRA and the level of creatinine 10mg/hour. Decreasing it to 5mg/hour (4) Anemia in CKD (chronic kidney disease) Plan: On retacrit, will look to have last had a shot over two weeks ago. Will look to give him another. Will also check anemia labs to see if he needs IV iron. (5) Rhabdomyolysis Plan: slowly trending down, does not look like he needs fluids at this time to help flush him out. (6) Chronic kidney disease, stage 5 Plan: Base line lately has been in 6s and 7s for his creatinine. Previously he was in the 4s and 5s. (7) Hyperkalemia Plan: likely from his decreased kidney function and diet. He has not received any kayexelate, veltassa, or lokelma. He has received a significant amount of f urosemide and fluid removed. Will see if he has wasted some potassium with his urination. (8) Hyperphosphatemia Plan: Likely related to CKD and possible from the slight elevation in CK. Will look to start him on a calcium acetate to take with meals. (9) Diabetes mellitus with nephropathy Plan: look to be controlled (10) HTN (hypertension) Qualifiers: Hypertension type: essential hypertension Qualified Code(s): I10 - Essential (primary) hypertension Plan: improving after restarting his medications and removing fluid (11) Renal osteodystrophy Plan: restarting calcitriol and getting an intact PTH. (12) Noncompliance Plan: patient has a significant history of noncompliance for which he admits to. Advised on compliance with medications and appointments.
[2020-04-17 14:48] LABS: ABSOLUTE RETICS # 0.033 10^6/uL (0.028-0.122); RETICULOCYTE COUNT (AUTO) 1.02 % (0.66-2.85)
[2020-04-17 14:54] LABS: FOLATE 8.98 ng/mL (>2.76)
--- NOTE | 2020-04-17 16:42 | RADIOLOGY REPORT (SQ) ---
EXAM DESCRIPTION: U/S RETROPERITON (RENAL/AORTA) IMAGES COMPLETED DATE/TIME: 04/17/2020 4:32 pm REASON FOR STUDY: Due to SANDRA COMPARISON: 08/29/2019 TECHNIQUE: Dynamic and static grayscale images acquired of the kidneys and bladder and recorded on P ACS. Additional selected color Doppler and spectral images recorded. LIMITATIONS: None. FINDINGS: RIGHT KIDNEY: Normal size. Lobulated margins. No solid or suspicious masses. No hyd ronephrosis. No calcifications. LEFT KIDNEY: Normal size. Lobulated margins. 1.6 cm upper pole cyst. No solid or suspicious mas ses. No hydronephrosis. No calcifications. BLADDER: Decompressed. OTHER FINDINGS: Trace of free fluid in Morison's pouch. IMPRESSION: No hydronephrosis. Trace ascites. TECHNICAL DOCUMENTATION: JOB ID: [id number] 2010 [employer]- All Rights Reserved Reading location - IP/workstation name: [email or web address]
[2020-04-17] MEDS: PHARMACY COMMUNICATION ORDER MC SCH (17:28)
[2020-04-17] MEDS: CALCIUM CARBONATE 600 MG TABLET PO SCH (17:38)
[2020-04-17] MEDS: CALCIUM ACETATE 667 MG CAPSULE PO SCH (17:38)
--- NOTE | 2020-04-17 18:23 | PDOC CONSULTATION ---
Consultation-Blank Consultation: CARDIOLOGY CONSULTATION by Dr. Gupta on 04/17/2020. Patient seen at 6:45 PM. 60 minutes spent as patient more than 50% of time spent direct patient care. CONSULT REQUESTING PHYSICIAN: Dr. Cavazos REASON FOR CONSULTATION: Patient known well-known to me admitted with congestive heart failure and echocardiogram shows moderate to severely reduced LV ejection fraction. HISTORY OF PRESENT ILLNESS: Past Medical History Cardiac Medical History: Reports: Coronary Artery Disease, but no history of [place] or anginal symptoms. Hyperlipidema, Hypertension, Pulmonary Embolism, Other - Chronic diastolic heart failure Pulmonary Medical History: Reports: Asthma, Chronic Obstructive Pulmonary Disea se (COPD), Pneumonia Endocrine Medical History: Reports: Diabetes Mellitus Type 2 Musculoskeltal Medical History: Reports: Arthritis - GENERALIZED Psychiatric Medical History: Reports: Depression Hematology: Reports: Anemia. 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 He states cured after chemotherapy. Past Surgical History Past Surgical History: Reports: Cardiac Catheterization -history of right coronary artery stents, Cholecystectomy RESUSCITATION STATUS: The patient is a full code. The patient's daughter is his surrogate healthcare decision maker. Social History Lives with: Family Smoking Status: Former Smoker Cigarettes Packs Per Day: 1.5 Number of Years Smokin Last Time Smoked: 1994 Frequency of Alcohol Use: None Hx Recreational Drug Use: No Drugs: None Hx Prescription Drug Abuse: No Family History Family History: DM Parental Family History Reviewed: Yes Children Family History Reviewed: Yes Sibling(s) Family History Reviewed.: Yes Medication/Allergy Allergies/Adverse Reactions: Iodine and Iodide Containing Produc Allergy,Penicillins Allergy, shellfish :Difficulty breathing Review of Systems Constitutional: ABSENT: chills, fever(s), headache(s), weight gain, weight loss Eyes: ABSENT: visual disturbances Ears: ABSENT: hearing changes Cardiovascular: PRESENT: dyspnea on exertion, edema, orthropnea. Denies palpit ations or syncope. Denies chest pain or anginal symptoms. Respiratory: PRESENT: dyspnea Gastrointestinal: ABSENT: abdominal pain, constipation, diarrhea, hematemesis, hematochezia, nausea, vomiting Genitourinary: ABSENT: dysuria, hematuria Musculoskeletal: ABSENT: joint swelling Integumentary: ABSENT: rash, wounds Neurological: ABSENT: abnormal gait, abnormal speech, confusion, dizziness, focal weakness, syncope Psychiatric: ABSENT: anxiety, depression, homidical ideation, suicidal ideation Endocrine: ABSENT: cold intolerance, heat intolerance, menstrual abnormalities, polydipsia, polyuria Hematologic/Lymphatic: ABSENT: easy bleeding, easy bruising, lymphadenopathy PHYSICAL EXAMINATION: The patient is morbidly obese. At present in no acute distress. HEAD: Is atraumatic normocephalic. EYES: Pupils are equal round regular reactive to light and accommodation. Extraocular movements are normal. There is no conjunctival pallor. There is no scleral icterus. EARS: External auditory canals are clear. There is no inflammation of the tympanic membranes. Mid tympanic memories are intact. NOSE: There is no inflammation of the nasal mucous membrane. There is no deviated nasal septum. MOUTH: Mucous membranes of the mouth are moist. Tongue is moist. There is no ulcers. There is no bleeding from the gums. THROAT: There is no redness of the oropharynx. There is no exudates. Skin: There is no skin rashes. There is no skin lesions. There is no petechia or ecchymosis. NECK: Is supple. There is no JVD. Carotids are equal there is no bruit there is no lymphadenopathy. There is no goiter. There is no accessory muscles respiration use. LUNGS: Trachea central. There is diminished air entry and prolonged expiration. There is no rhonchi rales or wheezing. HEART: S1-S2 is heard. There is no S3 gallop. There is no S4 gallop. There is murmur of mild aortic stenosis present. There is preserved A 2 sound. There is no diastolic murmur of aortic regurgitation. There is no significant mitral regurgitation murmur. There is no rub. ABDOMEN: Soft. Obese. Nontender there is no paraspinal megaly. EXTREMITIES: Femorals are deep. There is no femoral bruits. Leg pulses are diminished. There is mild pedal edema. There is no DVT or cellulitis. There is no calf tenderness. CLAIMS COORDINATOR: The patient is conscious awake alert oriented x3 with no focal deficits. PSYCHI ATRIC: The patient judgment insight are intact and her affect is normal. IMPRESSION/RECOMMENDATION: 1. Acute on chronic systolic heart failure with preserved LV ejection fraction by echo of 2017. At present seems to be compensated. Most likely this is secondary to volume overload due to acute on chronic renal failure. 2. Dilated and ischemic cardiomyopathy with moderate to severely reduced LV ejection fraction. Would increase the patient's afterload reduction and start continue the patient on beta-petra. The patient will be recommended to have a repeat echocardiogram in 3 months and full anti-cardiomyopathy treatment. If the repeat echocardiogram shows LV ejection fraction of 35% or below then patient would be recommended to have an electrophysiology consult for AICD placement. 3. Chronic kidney disease stage V 3. Coronary artery disease. History of coronary artery stent in the past. Later once the acute phase of heart failure is resolved would recommend getting IV Lexiscan Cardiolite stress test. This can be done as an outpatient. 4. Hypertension: Seems to be well controlled. 5. Diabetes mellitus: Continue current antidiabetic medication and Accu-Cheks. 5. History of asthma and chronic obstructive pulmonary disease. Stable no evidence of acute exacerbation 6 6. Past history of pulmonary embolism and DVT. No recurrence of DVT. 7. Aortic stenosis by exam and echo. Does not appear to be severe or critical. 8. History of gallbladder cancer: Cured after chemotherapy as per patient
--- NOTE | 2020-04-17 20:36 | PDOC H&P ---
History of Present Illness Admission Date/PCP: 04/16/20 22:12 YUSEF SOMERS MD History of Present Illness: CORKY JURADO JR is a 69 year old male, He has history of diabetes mellitus type 2 complicated with chronic kidney disease stage V, diabetic nephropathy with nephrotic range proteinuria, atherosclerotic heart disease, RCA disease with stent placement he apparently came to the emergency room for evaluation of hyperkalemia the history was that he had blood work drawn at Dr. 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 He was called from home to go emergency room when he arrived in the ER he complained of better leg swelling shortness of breath on exertion. In the emergency room he was further evaluated, chest x-ray was consistent with pulmonary edema he has hyperkalemia, hypocalcemia and CKD stage V.It was felt patient needed to be admitted. Past Medical History Cardiac Medical History: Reports: Congestive Heart Failure, Coronary Artery Disease, Hyperlipidema, Hypertension, Pulmonary Embolism Pulmonary Medical History: Reports: Asthma, Chronic Obstructive Pulmonary Disease (COPD), Pneumonia Endocrine Medical History: Reports: Diabetes Mellitus Type 2 Renal/ Medical History: Reports: Chronic Kidney Disease, Other - Chronic kidney disease stage V Musculoskeltal Medical History: Reports: Arthritis - GENERALIZED Psychiatric Medical History: Reports: Depression Hematology: Reports: Anemia Denies: Sickle Cell Disease Past Surgical History Past Surgical History: Reports: Cardiac Catheterization - stents, Cholecystectomy Social History Smoking Status: Former Smoker Electronic Cigarette use?: No Frequency of Alcohol Use: None Hx Recreational Drug Use: No Drugs: None Hx Prescription Drug Abuse: No Family History Family History: DM Parental Family History Reviewed: Yes Children Family History Reviewed: Yes Sibling(s) Family History Reviewed.: Yes Medication/Allergy Home Medications: Atorvastatin Calcium [Lipitor 40 mg Tablet] 40 mg PO DAILY 08/27/19 Clopidogrel Bisulfate [Plavix 75 mg Tablet] 75 mg PO DAILY 08/27/19 Cyclobenzaprine HCl [Flexeril 10 mg Tablet] 10 mg PO Q8HP PRN 08/27/19 Furosemide [Lasix 40 mg Tablet] 40 mg PO QAM 08/27/19 Aspirin [Ecotrin 81 mg EC Tablet] 81 mg PO DAILY 04/17/20 Calcitriol 0.5 mcg PO DAILY 04/17/20 Cetirizine HCl [Zyrtec 10 mg Tablet] 10 mg PO DAILY 04/17/20 Exenatide Microspheres [Bydureon Pen] 2 mg SQ Q7D 04/17/20 Insulin Detemir [Levemir] 80 unit SQ BID 04/17/20 Oxycodone HCl/Acetaminophen [Percocet 10-325 Mg Tablet] 1 each PO TID 04/17/20 Allergies/Adverse Reactions: Iodine and Iodide Containing Produc Allergy (Verified 04/16/20 19:44) Penicillins Allergy (Verified 04/16/20 19:44) Shellfish * [Shellfish] Allergy (Verified 04/16/20 19:44) Difficulty breathing Review of Systems Constitutional: PRESENT: weakness Eyes: ABSENT: visual disturbances Ears: ABSENT: hearing changes Cardiovascular: PRESENT: dyspnea on exertion, edema Respiratory: PRESENT: dyspnea Gastrointestinal: ABSENT: abdominal pain, constipation, diarrhea, hematemesis, hematochezia, nausea, vomiting Genitourinary: ABSENT: dysuria, hematuria Musculoskeletal: ABSENT: joint swelling Integumentary: ABSENT: rash, wounds Neurological: ABSENT: abnormal gait, abnormal speech, confusion, dizziness, focal weakness, syncope Psychiatric: ABSENT: anxiety, depression, homidical ideation, suicidal ideation Endocrine: ABSENT: cold intolerance, heat intolerance, menstrual abnormalities, polydipsia, polyuria Hematologic/Lymphatic: ABSENT: easy bleeding, easy bruising, lymphadenopathy Physical Exam Vital Signs: Temp Pulse Resp BP Pulse Ox 97.5 F 93 19 165/88 H 99 04/17/20 19:35 04/17/20 19:35 04/17/20 19:35 04/17/20 19:35 04/17/20 19:35 Intake & Output 04/16/20 04/17/20 04/18/20 06:59 06:59 06:59 Intake Total 260 2023 Output Total 500 950 Balance -240 1073 Weight 114.1 kg General appearance: PRESENT: obese Head exam: PRESENT: atraumatic, normocephalic Eye exam: PRESENT: PERRLA Ear exam: PRESENT: normal external ear exam Neck exam: PRESENT: full ROM Respiratory exam: PRESENT: rhonchi Cardiovascular exam: PRESENT: RRR, +S1, +S2 Pulses: PRESENT: normal dorsalis pedis pul, +2 pedal pulses bilateral Vascular exam: PRESENT: normal capillary refill GI/Abdominal exam: PRESENT: normal bowel sounds, soft Rectal exam: PRESENT: deferred Neurological exam: PRESENT: alert, CN II-XII grossly intact. ABSENT: motor sensory deficit Psychiatric exam: PRESENT: appropriate affect, normal mood Skin exam: PRESENT: dry, intact, warm Results Laboratory Results: 04/17/20 05:00 04/17/20 05:00 04/16/20 04/16/20 04/16/20 20:40 20:40 20:40 WBC 7.3 RBC 3.40 L Hgb 9.7 L Hct 29.9 L MCV 88 MCH 28.6 MCHC 32.6 RDW 14.5 H Plt Count 289 Seg Neutrophils % 56.0 Retic Count (auto) Sodium 139.7 Potassium 5.1 H Chloride 110 H Carbon Dioxide 20 L Anion Gap 10 BUN 76 H Creatinine 9.20 H Est GFR ( Amer) 7 L Glucose 51 L Calcium 6.7 L* Phosphorus Magnesium 1.7 Iron TIBC % Saturation Ferritin Total Bilirubin 0.4 AST 34 Alkaline Phosphatase 140 H Total Protein 7.1 Albumin 3.6 Triglycerides Cholesterol LDL Cholesterol Direct VLDL Cholesterol HDL Cholesterol Amylase Lipase Vitamin B12 Folate TSH Free T4 PTH Intact Urine Color Urine Appearance Urine pH Ur Specific [place] Urine Protein Urine Glucose (UA) Urine Ketones Urine Blood Urine Nitrite Ur Leukocyte Esterase Urine WBC (Auto) Urine RBC (Auto) 04/16/20 04/16/20 04/16/20 20:40 20:40 22:41 WBC RBC Hgb Hct MCV MCH MCHC RDW Plt Count Seg Neutrophils % Retic Count (auto) Sodium Potassium Chloride Carbon Dioxide Anion Gap BUN Creatinine Est GFR ( Amer) Glucose Calcium Phosphorus 6.9 H Magnesium Cancelled Iron TIBC % Saturation Ferritin Total Bilirubin AST Alkaline Phosphatase Total Protein Albumin Triglycerides Cholesterol LDL Cholesterol Direct VLDL Cholesterol HDL Cholesterol Amylase 134 H Lipase 189.7 Vitamin B12 Folate TSH 4.44 Free T4 1.21 PTH Intact Urine Color YELLOW Urine Appearance CLEAR Urine pH 5.0 Ur Specific [place] 1.014 Urine Protein >=500 H Urine Glucose (UA) 50 H Urine Ketones NEGATIVE Urine Blood MODERATE H Urine Nitrite NEGATIVE Ur Leukocyte Esterase NEGATIVE Urine WBC (Auto) 1 Urine RBC (Auto) 2 04/17/20 04/17/20 04/17/20 05:00 05:00 10:27 WBC 6.0 RBC 3.12 L Hgb 9.0 L Hct 27.2 L MCV 87 MCH 28.9 MCHC 33.1 RDW 14.2 H Plt Count 226 Seg Neutrophils % 71.7 Retic Count (auto) Sodium 137.1 Potassium 5.7 H Chloride 112 H Carbon Dioxide 16 L Anion Gap 9 BUN 79 H Creatinine 8.64 H Est GFR ( Amer) 7 L Glucose 99 Calcium 6.5 L* Phosphorus Magnesium Iron 34.4 L TIBC 297 % Saturation 12 Ferritin 80.00 Total Bilirubin 0.5 AST 31 Alkaline Phosphatase 122 Total Protein 6.2 L Albumin 3.1 L Triglycerides 123 Cholesterol 118.70 LDL Cholesterol Direct 35 VLDL Cholesterol 25.0 HDL Cholesterol 54 Amylase Lipase Vitamin B12 538.0 Folate 8.98 TSH Free T4 PTH Intact Urine Color Urine Appearance Urine pH Ur Specific [place] Urine Protein Urine Glucose (UA) Urine Ketones Urine Blood Urine Nitrite Ur Leukocyte Esterase Urine WBC (Auto) Urine RBC (Auto) 04/17/20 04/17/20 14:37 14:37 WBC RBC Hgb Hct MCV MCH MCHC RDW Plt Count Seg Neutrophils % Retic Count (auto) 1.02 Sodium Potassium Chloride Carbon Dioxide Anion Gap BUN Creatinine Est GFR ( Amer) Glucose Calcium Phosphorus Magnesium Iron TIBC % Saturation Ferritin Total Bilirubin AST Alkaline Phosphatase Total Protein Albumin Triglycerides Cholesterol LDL Cholesterol Direct VLDL Cholesterol HDL Cholesterol Amylase Lipase Vitamin B12 Folate TSH Free T4 PTH Intact 484.7 H Urine Color Urine Appearance Urine pH Ur Specific [place] Urine Protein Urine Glucose (UA) Urine Ketones Urine Blood Urine Nitrite Ur Leukocyte Esterase Urine WBC (Auto) Urine RBC (Auto) 04/16/20 04/16/20 04/16/20 20:40 20:40 20:40 Creatine Kinase 2096 H CK-MB (CK-2) 10.70 H Troponin I 0.069 NT-Pro-B Natriuret Pep 36865 H 04/17/20 04/17/20 04/17/20 05:00 05:00 10:27 Creatine Kinase 1556 H 1357 H CK-MB (CK-2) 7.71 H Troponin I 0.063 NT-Pro-B Natriuret Pep 04/17/20 10:27 Creatine Kinase CK-MB (CK-2) 7.45 H Troponin I 0.073 NT-Pro-B Natriuret Pep Impressions: Chest X-Ray 04/16/20 19:57 IMPRESSION: Mild pulmonary edema pattern, without pleural effusions or focal consolidation. Renal Ultrasound 04/17/20 00:00 IMPRESSION: No hydronephrosis. Trace ascites. Assessment & Plan - Diagnosis (1) Acute pulmonary edema Is this a current diagnosis for this admission?: Yes Plan: The differential diagnosis include volume overload from CKD stage V, acute systolic heart failure, a transthoracic echocardiogram was obtained, the estimated ejection fraction of left ventricle 35%. There is a component of cardiorenal syndrome as well in this patient. Consult cardiology and nephrology.Will start furosemide infusion (2) Acute systolic heart failure Is this a current diagnosis for this admission?: Yes Plan: The transthoracic echocardiogram demonstrated ejection fraction of left ventricle, 35%, history of underlining atherosclerotic heart disease status post stent placement of the right coronary Patient is not a candidate for ARN I because of the advanced CKD (3) Chronic kidney disease, stage 5 Is this a current diagnosis for this admission?: Yes Plan: He has CKD stage V with evidence of end-stage disease, volume overload, hyperkalemia hypocalcemia anemia patient is close, or about ready ready for dialysis consult nephrology for guidance (4) Personal history of malignant neoplasm of gallbladder Is this a current diagnosis for this admission?: Yes (5) Type 2 diabetes mellitus with diabetic chronic kidney disease Qualifiers: Diabetes mellitus halfway insulin use: with superintendent terminal use Chronic kidney disease stage: stage 5, not on chronic dialysis Qualified Code(s): E11.22 - Type 2 diabetes mellitus with diabetic chronic kidney disease; N18.5 - Chronic kidney disease, stage 5; 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 Is this a current diagnosis for this admission?: Yes (6) Hyperkalemia Is this a current diagnosis for this admission?: Yes - Time Time Spent: Greater than 70 Minutes Smoking Cessation Education: over 10 minutes Medications reviewed and adjusted accordingly: Yes Anticipated Discharge Disposition: Home, Self Care Anticipated Discharge Timeframe: within 72 hours - Inpatient Certification Based on my medical assessment, after consideration of the patient's comorbidities, presenting symptoms, or acuity I expect that the services needed warrant INPATIENT care.: Yes I certify that my determination is in accordance with my understanding of Medicare's requirements for reasonable and necessary INPATIENT services [42 CFR 412.3e].: Yes Medical Necessity: Failure to Improve With Outpatient Therapy, Significant Comorbidiites Make Outpatient Treatment Too Risky, Need Close Monitoring Due to Risk of Patient Decompensation, Need For Continuous Telemetry Monitoring
[2020-04-17] MEDS ORDERED: INSULIN GLARGINE,HUM.REC.ANLOG 1,000 UNIT/10 ML VIAL (PYX) SUBCUT SCH (22:00)
[2020-04-17] MEDS: ATORVASTATIN CALCIUM 40 MG TABLET PO SCH (22:10)
[2020-04-17] MEDS: CETIRIZINE 10 MG TABLET PO SCH (22:10)
[2020-04-17] MEDS: INSULIN GLARGINE,HUM.REC.ANLOG 1,000 UNIT/10 ML VIAL SUBCUT SCH (22:12)
[2020-04-18] MEDS: OXYCODONE-ACETAMINOPHEN 5-325 MG TABLET PO SCH ×3 (05:01→22:07)
[2020-04-18] MEDS: HEPARIN SOD (PORCINE) 5,000 UNIT/ML 1 ML VIAL SUBCUT SCH ×3 (05:01→22:03)
[2020-04-18] MEDS: OXYCODONE HCL IR 5 MG TABLET PO SCH ×3 (05:01→22:02)
[2020-04-18 05:57] LABS: ABSOLUTE BASOPHILS # (AUTO) 0.1 10^3/uL (0.0-0.2); ABSOLUTE EOSINOPHILS # (AUTO) 0.3 10^3/uL (0.0-0.6); ABSOLUTE LYMPHOCYTES (AUTO) 1.1 10^3/uL (0.5-4.7); ABSOLUTE MONOCYTES (AUTO) 0.5 10^3/uL (0.1-1.4); ABSOLUTE NEUT (AUTO) 3.5 10^3/uL (1.7-8.2); BASOPHILS % (AUTO) 1.5 % (0-2); EOSINOPHILS % (AUTO) 5.4 % (0-6); HEMATOCRIT 27.2 % (37.9-51.0); HEMOGLOBIN 9.1 g/dL (13.5-17.0); LYMPHOCYTES % (AUTO) 20.5 % (13-45); MEAN CORPUSCULAR HEMOGLOBIN 28.8 pg (27.0-33.4); MEAN CORPUSCULAR HGB CONC 33.3 g/dL (32.0-36.0); MEAN CORPUSCULAR VOLUME 87 fl (80-97); MONOCYTES % (AUTO) 9.8 % (3-13); PLATELET COUNT 255 10^3/uL (150-450); RED BLOOD COUNT 3.14 10^6/uL (4.35-5.55); RED CELL DISTRIBUTION WIDTH 14.1 % (11.5-14.0); SEGMENTED NEUTROPHILS % (AUTO) 62.8 % (42-78); TOTAL CELLS COUNTED % (AUTO) 100 %; WHITE BLOOD COUNT 5.5 10^3/uL (4.0-10.5)
[2020-04-18 06:24] LABS: ANION GAP 12 (5-19); BLOOD UREA NITROGEN 77 mg/dL (7-20); CARBON DIOXIDE 17 mmol/L (22-30); CHLORIDE 108 mmol/L (98-107); GLUCOSE 77 mg/dL (75-110); POTASSIUM 5.7 mmol/L (3.6-5.0)
[2020-04-18 06:36] LABS: CALCIUM 6.9 mg/dL (8.4-10.2)
[2020-04-18] MEDS ORDERED: SODIUM POLYSTYRENE SULFONATE 15 GM/60 ML PO ONE (07:38)
[2020-04-18] MEDS: CALCIUM ACETATE 667 MG CAPSULE PO SCH ×3 (08:17→17:31)
[2020-04-18] MEDS: INSULIN LISPRO 100 UNIT/ML 3 ML VIAL SUBCUT SCH ×4 (08:28→22:03)
[2020-04-18] MEDS ORDERED: FERRIC CARBOXYMALTOSE INJ 750 MG/15 ML VIAL IV PRN (08:32)
--- NOTE | 2020-04-18 08:36 | PDOC PROGRESS REPORT ---
Subjective Progress Note for:: 04/18/20 Subjective:: Patient was seen sitting up in his chair eating breakfast at the time of examination. He claims that his breathing is better at this time. He appetite is a little better. He denies any nausea/vomiting. He produced over 2400+ mL of urine yesterday. Unfortunately he consumed over that amount. Reason For Visit: CKD STAGE 5, VOLUME OVERLOAD. ? CHF, UREAMIA Physical Exam Vital Signs: Temp Pulse Resp BP Pulse Ox 97.3 F 93 15 142/73 H 99 04/18/20 03:02 04/18/20 03:02 04/18/20 04:16 04/18/20 03:02 04/18/20 03:02 Intake & Output 04/17/20 04/18/20 04/19/20 06:59 06:59 06:59 Intake Total 260 2765 Output Total 500 2475 Balance -240 290 Weight 114.1 kg 115.3 kg General appearance: PRESENT: no acute distress, well-developed, well-nourished Mouth exam: PRESENT: moist, neck supple Neck exam: ABSENT: JVD, tracheal deviation Respiratory exam: PRESENT: crackles, rales. ABSENT: accessory muscle use, clear to auscultation [place], wheezes Cardiovascular exam: PRESENT: +S1, +S2 GI/Abdominal exam: PRESENT: soft. ABSENT: diminished bowel sounds, distended, guarding, tenderness Extremities exam: PRESENT: pedal edema, +2 edema Musculoskeletal exam: PRESENT: normal inspection. ABSENT: tenderness Neurological exam: PRESENT: alert, awake, oriented to person, oriented to place, oriented to time, oriented to situation Skin exam: PRESENT: dry, intact, warm Results Laboratory Results: 04/18/20 05:30 04/18/20 05:30 04/17/20 04/17/20 04/17/20 10:27 14:37 14:37 WBC RBC Hgb Hct MCV MCH MCHC RDW Plt Count Seg Neutrophils % Retic Count (auto) 1.02 Sodium Potassium Chloride Carbon Dioxide Anion Gap BUN Creatinine Est GFR ( Amer) Glucose Calcium Iron 34.4 L TIBC 297 % Saturation 12 Ferritin 80.00 Albumin Vitamin B12 538.0 Folate 8.98 PTH Intact 484.7 H 04/18/20 04/18/20 04/18/20 05:30 05:30 05:30 WBC 5.5 RBC 3.14 L Hgb 9.1 L Hct 27.2 L MCV 87 MCH 28.8 MCHC 33.3 RDW 14.1 H Plt Count 255 Seg Neutrophils % 62.8 Retic Count (auto) Sodium 136.6 L Potassium 5.7 H Chloride 108 H Carbon Dioxide 17 L Anion Gap 12 BUN 77 H Creatinine 8.50 H Est GFR ( Amer) 8 L Glucose 77 Calcium 6.9 L* Iron TIBC % Saturation Ferritin Albumin 3.0 L Vitamin B12 Folate PTH Intact 04/16/20 04/16/20 04/16/20 20:40 20:40 20:40 Creatine Kinase 2096 H CK-MB (CK-2) 10.70 H Troponin I 0.069 NT-Pro-B Natriuret Pep 61704 H 04/17/20 04/17/20 04/17/20 05:00 05:00 10:27 Creatine Kinase 1556 H 1357 H CK-MB (CK-2) 7.71 H Troponin I 0.063 NT-Pro-B Natriuret Pep 04/17/20 10:27 Creatine Kinase CK-MB (CK-2) 7.45 H Troponin I 0.073 NT-Pro-B Natriuret Pep Impressions: Chest X-Ray 04/16/20 19:57 IMPRESSION: Mild pulmonary edema pattern, without pleural effusions or focal consolidation. Renal Ultrasound 04/17/20 00:00 IMPRESSION: No hydronephrosis. Trace ascites. Assessment & Plan - Diagnosis (1) Acute kidney injury superimposed on chronic kidney disease Plan: Nonoliguric, likely related to his fluid overload with factors if an elevated CK. Looks to be producing a good amount of urine. Advised on cutting back on the amount of fluids he is drinking. Continue with furosemide drip will increase to 10mg an hour, since the creatinine was not affected by the drip. 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 (2) Hypocalcemia Plan: corrected calcium is up to 7.7, continue with current medications. (3) CHF exacerbation Qualifiers: Heart failure type: unspecified Qualified Code(s): I50.9 - Heart failure, unspecified Plan: improving on a lasix drip, continue with furosemide drip will increase to 10mg an hour, since the creatinine was not affected by the drip.. Advised on decreasing fluid intake. Cardiology following (4) Anemia in CKD (chronic kidney disease) Plan: looks to need IV iron. He was agreeable to receive IV injectofer. Will also look to line up a retacrit shot for after. (5) Rhabdomyolysis Plan: slowly trending down, does not look like he needs fluids at this time to help flush him out. (6) Chronic kidney disease, stage 5 Is this a current diagnosis for this admission?: Yes Plan: Base line lately has been in 6s and 7s for his creatinine. Previously he was in the 4s and 5s. (7) Hyperkalemia Is this a current diagnosis for this admission?: Yes Plan: giving kayexelate this morning and then rechecking his potassium. He also had a lot of high potassium foods on his tray. Adding a low potassium diet to his orders. Discussed with patient high potassium foods to avoid. (8) Hyperphosphatemia Plan: Likely related to CKD and possible from the slight elevation in CK. On calcium acetate with meals. (9) Diabetes mellitus with nephropathy Plan: look to be controlled (10) HTN (hypertension) Qualifiers: Hypertension type: essential hypertension Qualified Code(s): I10 - Og werner (primary) hypertension Plan: improving after restarting his medications and removing fluid (11) Renal osteodystrophy Plan: restarting calcitriol (13) Metabolic acidosis Plan: starting sodium bicarb 650mg bid
[2020-04-18] MEDS: SODIUM BICARBONATE 650 MG TABLET PO SCH ×2 (09:50→22:02)
[2020-04-18] MEDS: CALCIUM CARBONATE 600 MG TABLET PO SCH ×2 (09:50→17:32)
[2020-04-18] MEDS: ASPIRIN 81 MG TABLET, ENT COATED PO SCH (09:50)
[2020-04-18] MEDS: CETIRIZINE 10 MG TABLET PO SCH (09:50)
[2020-04-18] MEDS: INSULIN GLARGINE,HUM.REC.ANLOG 1,000 UNIT/10 ML VIAL SUBCUT SCH ×2 (09:52→22:03)
[2020-04-18] MEDS: CALCITRIOL 0.25 MCG CAPSULE PO SCH (09:57)
[2020-04-18] MEDS ORDERED: EPOETIN ALFA-EPBX 10,000 UNIT/ML VIAL (NON-ESRD) SUBCUT PRN (10:00)
[2020-04-18] MEDS ORDERED: FERRIC CARBOXYMALTOSE 750 MG in NORMAL SALINE 100 ML IV ONE (11:00)
--- NOTE | 2020-04-18 14:20 | Progress Note ---
Provider Note Provider Note: CARDIOLOGY PROGRESS NOTE by Dr. Jeanette Gupta on 04/18/2020 SUBJECTIVE: The patient states his shortness of breath is better. He still has some orthopnea but no PND. His leg edema is much improved. There is only trace to mild edema at present. He denies any chest pain discomfort. He still uses the BiPAP off and on. There is no arrhythmias seen on the monitor. He has no anginal symptoms. His potassium is up. We will start the patient on beta- petra and also start the patient on hydralazine. PHYSICAL EXAMINATION: The patient is moderately obese. At present in no acute distress. Selected Entries 04/18/20 08:18 Temperature 97.3 F Temperature Oral Source Pulse Rate 100 Respiratory 16 Rate Blood Pressure 152/76 H Blood Pressure 101 Mean BP Location Left Arm BP Position Sitting O2 Sat by Pulse 95 Oximetry Oxygen Delivery Room Air Method HEAD: Is atraumatic normocephalic. EYES: Pupils are equal round regular reactive to light and accommodation. Extraocular movements are normal. There is no conjunctival pallor. There is no scleral icterus. EARS: External auditory canals are clear. There is no inflammation of the tympanic membranes. Mid tympanic memories are intact. NOSE: There is no inflammation of the nasal mucous membrane. There is no deviated nasal septum. MOUTH: Mucous membranes of the mouth are moist. Tongue is moist. There is no ulcers. There is no bleeding from the gums. THROAT: There is no redness of the oropharynx. There is no exudates. Skin: There is no skin rashes. There is no skin lesions. There is no petechia or ecchymosis. NECK: Is supple. There is no JVD. Carotids are equal there is no bruit there is no lymphadenopathy. There is no goiter. There is no accessory muscles respiration use. LUNGS: Trachea central. There is diminished air entry and prolonged expiration. There is no rhonchi rales or wheezing. HEART: S1-S2 is heard. There is no S3 gallop. There is no S4 gallop. There is murmur of mild aortic stenosis present. There is preserved A 2 sound. There is no diastolic murmur of aortic regurgitation. There is no significant mitral regurgitation murmur. There is no rub. ABDOMEN: Soft. Obese. Nontender there is no paraspinal megaly. EXTREMITIES: Femorals are deep. There is no femoral bruits. Leg pulses are diminished. There is trace to mild pedal edema. There is no DVT or cellulitis. There is no calf tenderness. 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 PSYCHIATRIC: The patient judgment insight are intact and her affect is normal. The patient's 24-hour total intake is 2765. The patient's output is 2465 mL. Labs- All tests 24 hr 04/18/20 04/18/20 04/18/20 05:30 05:30 05:30 WBC 5.5 RBC 3.14 L Hgb 9.1 L Hct 27.2 L MCV 87 MCH 28.8 MCHC 33.3 RDW 14.1 H Plt Count 255 Lymph % (Auto) 20.5 [place] % (Auto) 9.8 Eos % (Auto) 5.4 Baso % (Auto) 1.5 Absolute Neuts (auto) 3.5 Absolute Lymphs (auto) 1.1 Absolute Monos (auto) 0.5 Absolute Eos (auto) 0.3 Absolute Basos (auto) 0.1 Seg Neutrophils % 62.8 Sodium 136.6 L Potassium 5.7 H Chloride 108 H Carbon Dioxide 17 L Anion Gap 12 BUN 77 H Creatinine 8.50 H Est GFR ( Amer) 8 L Est GFR (MDRD) Non-Af 6 L Glucose 77 POC Glucose Calcium 6.9 L* Albumin 3.0 L 04/18/20 04/18/20 04/18/20 08:17 11:54 14:38 WBC RBC Hgb Hct MCV MCH MCHC RDW Plt Count Lymph % (Auto) [place] % (Auto) Eos % (Auto) Baso % (Auto) Absolute Neuts (auto) Absolute Lymphs (auto) Absolute Monos (auto) Absolute Eos (auto) Absolute Basos (auto) Seg Neutrophils % Sodium Potassium 5.3 H Chloride Carbon Dioxide Anion Gap BUN Creatinine Est GFR ( Amer) Est GFR (MDRD) Non-Af Glucose POC Glucose 112 H 113 H Calcium Albumin 04/18/20 04/18/20 16:36 21:53 WBC RBC Hgb Hct MCV MCH MCHC RDW Plt Count Lymph % (Auto) [place] % (Auto) Eos % (Auto) Baso % (Auto) Absolute Neuts (auto) Absolute Lymphs (auto) Absolute Monos (auto) Absolute Eos (auto) Absolute Basos (auto) Seg Neutrophils % Sodium Potassium Chloride Carbon Dioxide Anion Gap BUN Creatinine Est GFR ( Amer) Est GFR (MDRD) Non-Af Glucose POC Glucose 144 H 199 H Calcium Albumin Chest X-Ray 04/16/20 19:57 IMPRESSION: Mild pulmonary edema pattern, without pleural effusions or focal consolidation. Renal Ultrasound 04/17/20 00:00 IMPRESSION: No hydronephrosis. Trace ascites. IMPRESSION/RECOMMENDATION: 1. Acute on chronic systolic heart failure with moderate to severely reduced LV ejection fraction by echocardiogram obtained this admission. Also it is secondary to volume overload due to renal failure. 2. Dilated and ischemic cardiomyopathy with moderate to severely reduced LV ejection fraction. Would increase the patient's afterload reduction and start continue the patient on beta-petra. The patient will be recommended to have a repeat echocardiogram in 3 months and full anti-cardiomyopathy treatment. If the repeat echocardiogram shows LV ejection fraction of 35% or below then patient would be recommended to have an electrophysiology consult for AICD placement. We will start the patient on beta-petra at a dose of metoprolol extended release 25 mg p.o. every 12 hours and increase as tolerated. We will also start the patient on hydralazine in view of the patient's renal function. 3. Chronic kidney disease stage V: Nephrology on the case. 4. Hyperkalemia recommend Kayexalate 5. Coronary artery disease. History of coronary artery stent in the past. Later once the acute phase of heart failure is resolved would recommend getting IV Lexiscan Cardiolite stress test. This can be done as an outpatient. 6. Hypertension: Seems to be well controlled. 7. Diabetes mellitus: Continue current antidiabetic medication and Accu-Cheks. 8. History of asthma and chronic obstructive pulmonary disease. Stable no evidence of acute exacerbation 9. Past history of pulmonary embolism and DVT. No recurrence of DVT. 10. Pulmonary hypertension. Hydralazine should help 11. Aortic stenosis by exam and echo. Does not appear to be severe or critical. 12. 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 Medications added. Medical decision making is of high complexity. 40 minutes spent with patient more than 50% of the time spent in direct patient care. Will follow
[2020-04-18] MEDS: NORMAL SALINE 250 ML with FUROSEMIDE 250 MG IV PRN ×4 (14:28→17:29)
[2020-04-18] MEDS: PHARMACY COMMUNICATION ORDER MC SCH (17:30)
--- NOTE | 2020-04-18 21:05 | PDOC PROGRESS REPORT ---
Subjective Progress Note for:: 04/18/20 Subjective:: Patient seen by the bedside, still on IV furosemide infusion, feeling better Reason For Visit: CKD STAGE 5, VOLUME OVERLOAD. ? CHF, UREAMIA Physical Exam Vital Signs: Temp Pulse Resp BP Pulse Ox 97.3 F 94 18 164/81 H 100 04/18/20 19:33 04/18/20 19:33 04/18/20 19:33 04/18/20 19:33 04/18/20 19:33 Intake & Output 04/17/20 04/18/20 04/19/20 06:59 06:59 06:59 Intake Total 260 2765 849 Output Total 500 2475 Balance -240 290 849 Weight 114.1 kg 115.3 kg General appearance: PRESENT: no acute distress Eye exam: PRESENT: PERRLA Respiratory exam: PRESENT: clear to auscultation [place] Cardiovascular exam: PRESENT: +S1, +S2 GI/Abdominal exam: PRESENT: soft Extremities exam: PRESENT: pedal edema Neurological exam: PRESENT: alert, CN II-XII grossly intact Results Laboratory Results: 04/18/20 05:30 04/18/20 14:38 04/18/20 04/18/20 04/18/20 05:30 05:30 05:30 WBC 5.5 RBC 3.14 L Hgb 9.1 L Hct 27.2 L MCV 87 MCH 28.8 MCHC 33.3 RDW 14.1 H Plt Count 255 Seg Neutrophils % 62.8 Sodium 136.6 L Potassium 5.7 H Chloride 108 H Carbon Dioxide 17 L Anion Gap 12 BUN 77 H Creatinine 8.50 H Est GFR ( Amer) 8 L Glucose 77 Calcium 6.9 L* Albumin 3.0 L 04/18/20 14:38 WBC RBC Hgb Hct MCV MCH MCHC RDW Plt Count Seg Neutrophils % Sodium Potassium 5.3 H Chloride Carbon Dioxide Anion Gap BUN Creatinine Est GFR ( Amer) Glucose Calcium Albumin 04/16/20 22:41 Clean Catch Midstream Urine Culture - Final NO GROWTH 2 DAYS 04/16/20 04/16/20 04/16/20 20:40 20:40 20:40 Creatine Kinase 2096 H CK-MB (CK-2) 10.70 H Troponin I 0.069 NT-Pro-B Natriuret Pep 97682 H 04/17/20 04/17/20 04/17/20 05:00 05:00 10:27 Creatine Kinase 1556 H 1357 H CK-MB (CK-2) 7.71 H Troponin I 0.063 NT-Pro-B Natriuret Pep 04/17/20 10:27 Creatine Kinase CK-MB (CK-2) 7.45 H Troponin I 0.073 NT-Pro-B Natriuret Pep Impressions: Chest X-Ray 04/16/20 19:57 IMPRESSION: Mild pulmonary edema pattern, without pleural effusions or focal consolidation. Renal Ultrasound 04/17/20 00:00 IMPRESSION: No hydronephrosis. Trace ascites. Assessment & Plan - Diagnosis (1) Acute pulmonary edema Is this a current diagnosis for this admission?: Yes Plan: Continue present treatment (2) Acute systolic heart failure Is this a current diagnosis for this admission?: Yes (3) Chronic kidney disease, stage 5 Is this a current diagnosis for this admission?: Yes (4) Personal history of malignant neoplasm of gallbladder Is this a current diagnosis for this admission?: Yes (5) Type 2 diabetes mellitus with diabetic chronic kidney disease Qualifiers: Diabetes mellitus usp insulin use: with usp use Chronic kidney disease stage: stage 5, not on chronic dialysis Qualified Code(s): E11.22 - Type 2 diabetes mellitus with diabetic chronic kidney disease; N18.5 - Chronic kidney disease, stage 5; Z79.4 - [employer] (current) use of insulin Is this a current diagnosis for this admission?: Yes (6) Hyperkalemia Is this a current diagnosis for this admission?: Yes - Time Time Spent with patient: 25-34 minutes Level of Care: IMCU Medications reviewed and adjusted accordingly: Yes Anticipated discharge: Home Anticipated DC Timeframe: within 72 hours
[2020-04-18] MEDS: ATORVASTATIN CALCIUM 40 MG TABLET PO SCH (22:02)
[2020-04-18] MEDS: NITROGLYCERIN 2% OINTMENT 1 GM PACKET TP SCH (23:46)
[2020-04-18] MEDS: HYDRALAZINE HCL 25 MG TABLET PO SCH (23:46)
[2020-04-18] MEDS: METOPROLOL SUCCINATE 25 MG TAB.SR.24H PO SCH (23:46)
[2020-04-19] MEDS: HEPARIN SOD (PORCINE) 5,000 UNIT/ML 1 ML VIAL SUBCUT SCH ×3 (05:48→21:37)
[2020-04-19] MEDS: OXYCODONE HCL IR 5 MG TABLET PO SCH ×3 (05:48→21:37)
[2020-04-19] MEDS: HYDRALAZINE HCL 25 MG TABLET PO SCH ×4 (05:48→23:37)
[2020-04-19] MEDS: OXYCODONE-ACETAMINOPHEN 5-325 MG TABLET PO SCH ×3 (05:49→21:39)
[2020-04-19] MEDS: NITROGLYCERIN 2% OINTMENT 1 GM PACKET TP SCH ×4 (05:49→23:37)
[2020-04-19 06:44] LABS: ABSOLUTE BASOPHILS # (AUTO) 0.1 10^3/uL (0.0-0.2); ABSOLUTE EOSINOPHILS # (AUTO) 0.3 10^3/uL (0.0-0.6); ABSOLUTE LYMPHOCYTES (AUTO) 1.1 10^3/uL (0.5-4.7); ABSOLUTE MONOCYTES (AUTO) 0.6 10^3/uL (0.1-1.4); ABSOLUTE NEUT (AUTO) 3.7 10^3/uL (1.7-8.2); BASOPHILS % (AUTO) 2.3 % (0-2); EOSINOPHILS % (AUTO) 5.6 % (0-6); HEMATOCRIT 32.4 % (37.9-51.0); HEMOGLOBIN 10.6 g/dL (13.5-17.0); MEAN CORPUSCULAR HEMOGLOBIN 28.1 pg (27.0-33.4); MEAN CORPUSCULAR HGB CONC 32.6 g/dL (32.0-36.0); MEAN CORPUSCULAR VOLUME 86 fl (80-97); MONOCYTES % (AUTO) 9.6 % (3-13); PLATELET COUNT 260 10^3/uL (150-450); RED BLOOD COUNT 3.76 10^6/uL (4.35-5.55); SEGMENTED NEUTROPHILS % (AUTO) 63.5 % (42-78); TOTAL CELLS COUNTED % (AUTO) 100 %; WHITE BLOOD COUNT 5.8 10^3/uL (4.0-10.5)
[2020-04-19] MEDS: INSULIN LISPRO 100 UNIT/ML 3 ML VIAL SUBCUT SCH ×4 (08:05→21:30)
[2020-04-19] MEDS: CALCIUM ACETATE 667 MG CAPSULE PO SCH ×3 (08:25→18:41)
[2020-04-19] MEDS: CALCIUM CARBONATE 600 MG TABLET PO SCH ×2 (10:20→18:41)
[2020-04-19] MEDS: CETIRIZINE 10 MG TABLET PO SCH (10:20)
[2020-04-19] MEDS: METOPROLOL SUCCINATE 25 MG TAB.SR.24H PO SCH ×2 (10:20→21:38)
[2020-04-19] MEDS: CALCITRIOL 0.25 MCG CAPSULE PO SCH (10:20)
[2020-04-19] MEDS: SODIUM BICARBONATE 650 MG TABLET PO SCH ×2 (10:20→21:39)
[2020-04-19] MEDS: ASPIRIN 81 MG TABLET, ENT COATED PO SCH (10:20)
[2020-04-19] MEDS: INSULIN GLARGINE,HUM.REC.ANLOG 1,000 UNIT/10 ML VIAL SUBCUT SCH ×2 (10:21→21:30)
--- NOTE | 2020-04-19 10:27 | PDOC PROGRESS REPORT ---
Subjective Progress Note for:: 04/19/20 Subjective:: Patient is currently doing fair Patient's denied any chest pain no short of breath Patient admitted for CHF currently follow with cardiology Reason For Visit: CKD STAGE 5, VOLUME OVERLOAD. ? CHF, UREAMIA Physical Exam Vital Signs: Temp Pulse Resp BP Pulse Ox 97.3 F 84 15 158/89 H 100 04/19/20 08:30 04/19/20 07:32 04/19/20 07:32 04/19/20 07:32 04/19/20 07:32 Intake & Output 04/18/20 04/19/20 04/20/20 06:59 06:59 06:59 Intake Total 2765 1599 Output Total 1425 2125 Balance 290 -526 Weight 115.3 kg 111.9 kg General appearance: PRESENT: no acute distress, well-developed, well-nourished Head exam: PRESENT: atraumatic, normocephalic Eye exam: PRESENT: conjunctiva pink, EOMI, PERRLA. ABSENT: scleral icterus Ear exam: PRESENT: normal external ear exam Mouth exam: PRESENT: moist, tongue midline Neck exam: PRESENT: full ROM. ABSENT: carotid bruit, JVD, lymphadenopathy, thyr omegaly Respiratory exam: PRESENT: clear to auscultation [place] Cardiovascular exam: PRESENT: RRR. ABSENT: diastolic murmur, rubs, systolic murmur Pulses: PRESENT: normal dorsalis pedis pul, +2 pedal pulses bilateral Vascular exam: PRESENT: normal capillary refill GI/Abdominal exam: PRESENT: normal bowel sounds, soft. ABSENT: distended, guarding, mass, organolmegaly, rebound, tenderness Rectal exam: PRESENT: deferred Musculoskeletal exam: PRESENT: ambulatory Neurological exam: PRESENT: alert, awake, oriented to person, oriented to place, oriented to time, oriented to situation, CN II-XII grossly intact. ABSENT: motor sensory deficit Psychiatric exam: PRESENT: appropriate affect, normal mood. ABSENT: homicidal ideation, suicidal ideation Skin exam: PRESENT: dry, intact, warm. ABSENT: cyanosis, rash Results Laboratory Results: 04/19/20 06:08 04/18/20 14:38 04/18/20 04/19/20 14:38 06:08 WBC 5.8 RBC 3.76 L Hgb 10.6 L Hct 32.4 L MCV 86 MCH 28.1 MCHC 32.6 RDW 14.0 Plt Count 260 Seg Neutrophils % 63.5 Potassium 5.3 H 04/16/20 22:41 Clean Catch Midstream Urine Culture - Final NO GROWTH 2 DAYS 04/16/20 04/16/20 04/16/20 20:40 20:40 20:40 Creatine Kinase 2096 H CK-MB (CK-2) 10.70 H Troponin I 0.069 NT-Pro-B Natriuret Pep 98422 H 04/17/20 04/17/20 04/17/20 05:00 05:00 10:27 Creatine Kinase 1556 H 1357 H CK-MB (CK-2) 7.71 H Troponin I 0.063 NT-Pro-B Natriuret Pep 04/17/20 10:27 Creatine Kinase CK-MB (CK-2) 7.45 H Troponin I 0.073 NT-Pro-B Natriuret Pep Impressions: Chest X-Ray 04/16/20 19:57 IMPRESSION: Mild pulmonary edema pattern, without pleural effusions or focal consolidation. Renal Ultrasound 04/17/20 00:00 IMPRESSION: No hydronephrosis. Trace ascites. Assessment & Plan - Diagnosis (1) Acute pulmonary edema Is this a current diagnosis for this admission?: Yes (2) Acute systolic heart failure Is this a current diagnosis for this admission?: Yes (3) Anemia in CKD (chronic kidney disease) Is this a current diagnosis for this admission?: Yes (4) Metabolic acidosis Is this a current diagnosis for this admission?: Yes - Time Time Spent with patient: 15-24 minutes Level of Care: IMCU Medications reviewed and adjusted accordingly: Yes Anticipated discharge: Other Anticipated DC Timeframe: Other - Plan Summary Plan Summary: Continues to current medications
--- NOTE | 2020-04-19 17:17 | EKG REPORT ---
SEVERITY:- ABNORMAL ECG - SINUS RHYTHM FIRST DEGREE AV BLOCK PROBABLE LEFT ATRIAL ABNORMALITY NONSPECIFIC T ABNORMALITIES, LATERAL LEADS BORDERLINE PROLONGED QT INTERVAL : Confirmed by: Rubin Sawyer 19-Apr-2020 17:16:04
[2020-04-19] MEDS: NORMAL SALINE 250 ML with FUROSEMIDE 250 MG IV PRN ×2 (18:41)
[2020-04-19] MEDS: PHARMACY COMMUNICATION ORDER MC SCH (18:45)
[2020-04-19] MEDS: ATORVASTATIN CALCIUM 40 MG TABLET PO SCH (21:37)
--- NOTE | 2020-04-19 22:44 | Progress Note ---
Provider Note Provider Note: CARDIOLOGY PROGRESS NOTE by Dr. Jeanette Gupta on 04/19/2020 SUBJECTIVE: The patient states his shortness of breath is better. He still has some orthopnea but no PND. His leg edema is much improved. There is only trace to mild edema at present. He denies any chest pain discomfort. He still uses the BiPAP off and on. There is no arrhythmias seen on the monitor. He has no anginal symptoms. His potassium is up. Continue beta-petra and hydralazine and increase as tolerated. PHYSICAL EXAMINATION: The patient is moderately obese. At present in no acute distress. Selected Entries 04/19/20 11:50 Temperature 97.8 F Temperature Oral Source Pulse Rate 84 Respiratory 17 Rate Blood Pressure 150/83 H Blood Pressure 105 Mean BP Location Left Arm BP Position Sitting O2 Sat by Pulse 100 Oximetry Oxygen Delivery Room Air Method HEAD: Is atraumatic normocephalic. EYES: Pupils are equal round regular reactive to light and accommodation. Extraocular movements are normal. There is no conjunctival pallor. There is no scleral icterus. EARS: External auditory canals are clear. There is no inflammation of the tympanic membranes. Mid tympanic memories are intact. NOSE: There is no inflammation of the nasal mucous membrane. There is no deviated nasal septum. MOUTH: Mucous membranes of the mouth are moist. Tongue is moist. There is no ulcers. There is no bleeding from the gums. THROAT: There is no redness of the oropharynx. There is no exudates. Skin: There is no skin rashes. There is no skin lesions. There is no petechia or ecchymosis. NECK: Is supple. There is no JVD. Carotids are equal there is no bruit there is no lymphadenopathy. There is no goiter. There is no accessory muscles respiration use. LUNGS: Trachea central. There is diminished air entry and prolonged expiration. There is no rhonchi rales or wheezing. HEART: S1-S2 is heard. There is no S3 gallop. There is no S4 gallop. There is murmur of mild aortic stenosis present. There is preserved A 2 sound. There is no diastolic murmur of aortic regurgitation. There is no significant mitral regurgitation murmur. There is no rub. ABDOMEN: Soft. Obese. Nontender there is no paraspinal megaly. EXTREMITIES: Femorals are de ep. There is no femoral bruits. Leg pulses are diminished. There is trace to mild pedal edema. There is no DVT or cellulitis. There is no calf tenderness. FIELD MARKETER: The patient is conscious awake alert oriented x3 with no focal deficits. PSYCHIATRIC: The patient judgment insight are intact and her affect is normal. The patient's 24-hour total intake is 1599. The patient's output is 2125 mL. Chest X-Ray 04/16/20 19:57 IMPRESSION: Mild pulmonary edema pattern, without pleural effusions or focal consolidation. Renal Ultrasound 04/17/20 00:00 IMPRESSION: No hydronephrosis. Trace ascites. Labs- Entire Visit 04/16/20 04/16/20 04/16/20 20:28 20:40 20:40 WBC 7.3 RBC 3.40 L Hgb 9.7 L Hct 29.9 L MCV 88 MCH 28.6 MCHC 32.6 RDW 14.5 H Plt Count 289 Lymph % (Auto) 27.9 [place] % (Auto) 11.3 Eos % (Auto) 3.7 Baso % (Auto) 1.1 Reticulocyte # Absolute Neuts (auto) 4.1 Absolute Lymphs (auto) 2.0 Absolute Monos (auto) 0.8 Absolute Eos (auto) 0.3 Absolute Basos (auto) 0.1 Seg Neutrophils % 56.0 Retic Count (auto) PT INR APTT Sodium 139.7 Potassium 5.1 H Chloride 110 H Carbon Dioxide 20 L Anion Gap 10 BUN 76 H Creatinine 9.20 H Est GFR ( Amer) 7 L Est GFR (MDRD) Non-Af 6 L Glucose 51 L POC Glucose 42 L Hemoglobin A1c % Calcium 6.7 L* Phosphorus Magnesium Iron TIBC % Saturation Ferritin Total Bilirubin 0.4 Direct Bilirubin 0.4 Neonat Total Bilirubin Not Reportable Neonat Direct Bilirubin Not Reportable Neonat Indirect Bili Not Reportable AST 34 ALT 29 Alkaline Phosphatase 140 H Creatine Kinase CK-MB (CK-2) Troponin I NT-Pro-B Natriuret Pep Total Protein 7.1 Albumin 3.6 Triglycerides Cholesterol LDL Cholesterol Direct VLDL Cholesterol HDL Cholesterol Amylase Lipase Vitamin B12 Folate TSH Free T4 PTH Intact Urine Color Urine Appearance Urine pH Ur Specific [place] Urine Protein Urine Glucose (UA) Urine Ketones Urine Blood Urine Nitrite Urine Bilirubin Urine Urobilinogen Ur Leukocyte Esterase Urine WBC (Auto) Urine RBC (Auto) Squamous Epi Cells Auto Urine Mucus (Auto) Urine Ascorbic Acid Urine Opiates Screen Urine Methadone Screen Ur Barbiturates Screen Ur Phencyclidine Scrn Ur Amphetamines Screen U Benzodiazepines Scrn Urine Cocaine Screen U Marijuana (THC) Screen 04/16/20 04/16/20 04/16/20 20:40 20:40 20:40 WBC RBC Hgb Hct MCV MCH MCHC RDW Plt Count Lymph % (Auto) [place] % (Auto) Eos % (Auto) Baso % (Auto) Reticulocyte # Absolute Neuts (auto) Absolute Lymphs (auto) Absolute Monos (auto) Absolute Eos (auto) Absolute Basos (auto) Seg Neutrophils % Retic Count (auto) PT 14.1 INR 1.07 APTT 33.8 Sodium Potassium Chloride Carbon Dioxide Anion Gap BUN Creatinine Est GFR ( Amer) Est GFR (MDRD) Non-Af Glucose POC Glucose Hemoglobin A1c % Calcium Phosphorus Magnesium 1.7 Iron TIBC % Saturation Ferritin Total Bilirubin Direct Bilirubin Neonat Total Bilirubin Neonat Direct Bilirubin Neonat Indirect Bili AST ALT Alkaline Phosphatase Creatine Kinase CK-MB (CK-2) Troponin I NT-Pro-B Natriuret Pep 30043 H Total Protein Albumin Triglycerides Cholesterol LDL Cholesterol Direct VLDL Cholesterol HDL Cholesterol Amylase Lipase Vitamin B12 Folate TSH Free T4 PTH Intact Urine Color Urine Appearance Urine pH Ur Specific [place] Urine Protein Urine Glucose (UA) Urine Ketones Urine Blood Urine Nitrite Urine Bilirubin Urine Urobilinogen Ur Leukocyte Esterase Urine WBC (Auto) Urine RBC (Auto) Squamous Epi Cells Auto Urine Mucus (Auto) Urine Ascorbic Acid Urine Opiates Screen Urine Methadone Screen Ur Barbiturates Screen Ur Phencyclidine Scrn Ur Amphetamines Screen U Benzodiazepines Scrn Urine Cocaine Screen U Marijuana (THC) Screen 04/16/20 04/16/20 04/16/20 20:40 20:40 20:40 WBC RBC Hgb Hct MCV MCH MCHC RDW Plt Count Lymph % (Auto) [place] % (Auto) Eos % (Auto) Baso % (Auto) Reticulocyte # Absolute Neuts (auto) Absolute Lymphs (auto) Absolute Monos (auto) Absolute Eos (auto) Absolute Basos (auto) Seg Neutrophils % Retic Count (auto) PT INR APTT Sodium Potassium Chloride Carbon Dioxide Anion Gap BUN Creatinine Est GFR ( Amer) Est GFR (MDRD) Non-Af Glucose POC Glucose Hemoglobin A1c % Calcium Phosphorus 6.9 H Magnesium Cancelled Iron TIBC % Saturation Ferritin Total Bilirubin Direct Bilirubin Neonat Total Bilirubin Neonat Direct Bilirubin Neonat Indirect Bili AST ALT Alkaline Phosphatase Creatine Kinase 2096 H CK-MB (CK-2) Troponin I NT-Pro-B Natriuret Pep Total Protein Albumin Triglycerides Cholesterol LDL Cholesterol Direct VLDL Cholesterol HDL Cholesterol Amylase 134 H Lipase 189.7 Vitamin B12 Folate TSH 4.44 Free T4 1.21 PTH Intact Urine Color Urine Appearance Urine pH Ur Specific [place] Urine Protein Urine Glucose (UA) Urine Ketones Urine Blood Urine Nitrite Urine Bilirubin Urine Urobilinogen Ur Leukocyte Esterase Urine WBC (Auto) Urine RBC (Auto) Squamous Epi Cells Auto Urine Mucus (Auto) Urine Ascorbic Acid Urine Opiates Screen Urine Methadone Screen Ur Barbiturates Screen Ur Phencyclidine Scrn Ur Amphetamines Screen U Benzodiazepines Scrn Urine Cocaine Screen U Marijuana (THC) Screen 04/16/20 04/16/20 04/16/20 20:40 21:27 22:41 WBC RBC Hgb Hct MCV MCH MCHC RDW Plt Count Lymph % (Auto) [place] % (Auto) Eos % (Auto) Baso % (Auto) Reticulocyte # Absolute Neuts (auto) Absolute Lymphs (auto) Absolute Monos (auto) Absolute Eos (auto) Absolute Basos (auto) Seg Neutrophils % Retic Count (auto) PT INR APTT Sodium Potassium Chloride Carbon Dioxide Anion Gap BUN Creatinine Est GFR ( Amer) Est GFR (MDRD) Non-Af Glucose POC Glucose 71 Hemoglobin A1c % Calcium Phosphorus Magnesium Iron TIBC % Saturation Ferritin Total Bilirubin Direct Bilirubin Neonat Total Bilirubin Neonat Direct Bilirubin Neonat Indirect Bili AST ALT Alkaline Phosphatase Creatine Kinase CK-MB (CK-2) 10.70 H Troponin I 0.069 NT-Pro-B Natriuret Pep Total Protein Albumin Triglycerides Cholesterol LDL Cholesterol Direct VLDL Cholesterol HDL Cholesterol Amylase Lipase Vitamin B12 Folate TSH Free T4 PTH Intact Urine Color Urine Appearance Urine pH Ur Specific [place] Urine Protein Urine Glucose (UA) Urine Ketones Urine Blood Urine Nitrite Urine Bilirubin Urine Urobilinogen Ur Leukocyte Esterase Urine WBC (Auto) Urine RBC (Auto) Squamous Epi Cells Auto Urine Mucus (Auto) Urine Ascorbic Acid Urine Opiates Screen NEGATIVE Urine Methadone Screen NEGATIVE Ur Barbiturates Screen NEGATIVE Ur Phencyclidine Scrn NEGATIVE Ur Amphetamines Screen NEGATIVE U Benzodiazepines Scrn NEGATIVE Urine Cocaine Screen NEGATIVE U Marijuana (THC) Screen NEGATIVE 04/16/20 04/17/20 04/17/20 22:41 00:49 01:13 WBC RBC Hgb Hct MCV MCH MCHC RDW Plt Count Lymph % (Auto) [place] % (Auto) Eos % (Auto) Baso % (Auto) Reticulocyte # Absolute Neuts (auto) Absolute Lymphs (auto) Absolute Monos (auto) Absolute Eos (auto) Absolute Basos (auto) Seg Neutrophils % Retic Count (auto) PT INR APTT Sodium Potassium Chloride Carbon Dioxide Anion Gap BUN Creatinine Est GFR ( Amer) Est GFR (MDRD) Non-Af Glucose POC Glucose 52 L 96 Hemoglobin A1c % Calcium Phosphorus Magnesium Iron TIBC % Saturation Ferritin Total Bilirubin Direct Bilirubin Neonat Total Bilirubin Neonat Direct Bilirubin Neonat Indirect Bili AST ALT Alkaline Phosphatase Creatine Kinase CK-MB (CK-2) Troponin I NT-Pro-B Natriuret Pep Total Protein Albumin Triglycerides Cholesterol LDL Cholesterol Direct VLDL Cholesterol HDL Cholesterol Amylase Lipase Vitamin B12 Folate TSH Free T4 PTH Intact Urine Color YELLOW Urine Appearance CLEAR Urine pH 5.0 Ur Specific [place] 1.014 Urine Protein >=500 H Urine Glucose (UA) 50 H Urine Ketones NEGATIVE Urine Blood MODERATE H Urine Nitrite NEGATIVE Urine Bilirubin NEGATIVE Urine Urobilinogen NEGATIVE Ur Leukocyte Esterase NEGATIVE Urine WBC (Auto) 1 Urine RBC (Auto) 2 Squamous Epi Cells Auto <1 Urine Mucus (Auto) RARE Urine Ascorbic Acid NEGATIVE Urine Opiates Screen Urine Methadone Screen Ur Barbiturates Screen Ur Phencyclidine Scrn Ur Amphetamines Screen U Benzodiazepines Scrn Urine Cocaine Screen U Marijuana (THC) Screen 04/17/20 04/17/20 04/17/20 05:00 05:00 05:00 WBC 6.0 RBC 3.12 L Hgb 9.0 L Hct 27.2 L MCV 87 MCH 28.9 MCHC 33.1 RDW 14.2 H Plt Count 226 Lymph % (Auto) 14.8 [place] % (Auto) 9.5 Eos % (Auto) 2.9 Baso % (Auto) 1.1 Reticulocyte # Absolute Neuts (auto) 4.3 Absolute Lymphs (auto) 0.9 Absolute Monos (auto) 0.6 Absolute Eos (auto) 0.2 Absolute Basos (auto) 0.1 Seg Neutrophils % 71.7 Retic Count (auto) PT INR APTT Sodium 137.1 Potassium 5.7 H Chloride 112 H Carbon Dioxide 16 L Anion Gap 9 BUN 79 H Creatinine 8.64 H Est GFR ( Amer) 7 L Est GFR (MDRD) Non-Af 6 L Glucose 99 POC Glucose Hemoglobin A1c % Calcium 6.5 L* Phosphorus Magnesium Iron TIBC % Saturation Ferritin Total Bilirubin 0.5 Direct Bilirubin 0.4 Neonat Total Bilirubin Not Reportable Neonat Direct Bilirubin Not Reportable Neonat Indirect Bili Not Reportable AST 31 ALT 27 Alkaline Phosphatase 122 Creatine Kinase 1556 H CK-MB (CK-2) 7.71 H Troponin I 0.063 NT-Pro-B Natriuret Pep Total Protein 6.2 L Albumin 3.1 L Triglycerides 123 Cholesterol 118.70 LDL Cholesterol Direct 35 VLDL Cholesterol 25.0 HDL Cholesterol 54 Amylase Lipase Vitamin B12 Folate TSH Free T4 PTH Intact Urine Color Urine Appearance Urine pH Ur Specific [place] Urine Protein Urine Glucose (UA) Urine Ketones Urine Blood Urine Nitrite Urine Bilirubin Urine Urobilinogen Ur Leukocyte Esterase Urine WBC (Auto) Urine RBC (Auto) Squamous Epi Cells Auto Urine Mucus (Auto) Urine Ascorbic Acid Urine Opiates Screen Urine Methadone Screen Ur Barbiturates Screen Ur Phencyclidine Scrn Ur Amphetamines Screen U Benzodiazepines Scrn Urine Cocaine Screen U Marijuana (THC) Screen 04/17/20 04/17/20 04/17/20 05:00 07:43 08:29 WBC RBC Hgb Hct MCV MCH MCHC RDW Plt Count Lymph % (Auto) [place] % (Auto) Eos % (Auto) Baso % (Auto) Reticulocyte # Absolute Neuts (auto) Absolute Lymphs (auto) Absolute Monos (auto) Absolute Eos (auto) Absolute Basos (auto) Seg Neutrophils % Retic Count (auto) PT INR APTT Sodium Potassium Chloride Carbon Dioxide Anion Gap BUN Creatinine Est GFR ( Amer) Est GFR (MDRD) Non-Af Glucose POC Glucose 62 L 89 Hemoglobin A1c % 5.8 Calcium Phosphorus Magnesium Iron TIBC % Saturation Ferritin Total Bilirubin Direct Bilirubin Neonat Total Bilirubin Neonat Direct Bilirubin Neonat Indirect Bili AST ALT Alkaline Phosphatase Creatine Kinase CK-MB (CK-2) Troponin I NT-Pro-B Natriuret Pep Total Protein Albumin Triglycerides Cholesterol LDL Cholesterol Direct VLDL Cholesterol HDL Cholesterol Amylase Lipase Vitamin B12 Folate TSH Free T4 PTH Intact Urine Color Urine Appearance Urine pH Ur Specific [place] Urine Protein Urine Glucose (UA) Urine Ketones Urine Blood Urine Nitrite Urine Bilirubin Urine Urobilinogen Ur Leukocyte Esterase Urine WBC (Auto) Urine RBC (Auto) Squamous Epi Cells Auto Urine Mucus (Auto) Urine Ascorbic Acid Urine Opiates Screen Urine Methadone Screen Ur Barbiturates Screen Ur Phencyclidine Scrn Ur Amphetamines Screen U Benzodiazepines Scrn Urine Cocaine Screen U Marijuana (THC) Screen 04/17/20 04/17/20 04/17/20 09:08 10:27 10:27 WBC RBC Hgb Hct MCV MCH MCHC RDW Plt Count Lymph % (Auto) [place] % (Auto) Eos % (Auto) Baso % (Auto) Reticulocyte # Absolute Neuts (auto) Absolute Lymphs (auto) Absolute Monos (auto) Absolute Eos (auto) Absolute Basos (auto) Seg Neutrophils % Retic Count (auto) PT INR APTT Sodium Potassium Chloride Carbon Dioxide Anion Gap BUN Creatinine Est GFR ( Amer) Est GFR (MDRD) Non-Af Glucose POC Glucose 153 H Hemoglobin A1c % Calcium Phosphorus Magnesium Iron TIBC % Saturation Ferritin Total Bilirubin Direct Bilirubin Neonat Total Bilirubin Neonat Direct Bilirubin Neonat Indirect Bili AST ALT Alkaline Phosphatase Creatine Kinase 1357 H CK-MB (CK-2) 7.45 H Troponin I 0.073 NT-Pro-B Natriuret Pep Total Protein Albumin Triglycerides Cholesterol LDL Cholesterol Direct VLDL Cholesterol HDL Cholesterol Amylase Lipase Vitamin B12 Folate TSH Free T4 PTH Intact Urine Color Urine Appearance Urine pH Ur Specific [place] Urine Protein Urine Glucose (UA) Urine Ketones Urine Blood Urine Nitrite Urine Bilirubin Urine Urobilinogen Ur Leukocyte Esterase Urine WBC (Auto) Urine RBC (Auto) Squamous Epi Cells Auto Urine Mucus (Auto) Urine Ascorbic Acid Urine Opiates Screen Urine Methadone Screen Ur Barbiturates Screen Ur Phencyclidine Scrn Ur Amphetamines Screen U Benzodiazepines Scrn Urine Cocaine Screen U Marijuana (THC) Screen 04/17/20 04/17/20 04/17/20 10:27 12:28 14:37 WBC RBC Hgb Hct MCV MCH MCHC RDW Plt Count Lymph % (Auto) [place] % (Auto) Eos % (Auto) Baso % (Auto) Reticulocyte # 0.033 Absolute Neuts (auto) Absolute Lymphs (auto) Absolute Monos (auto) Absolute Eos (auto) Absolute Basos (auto) Seg Neutrophils % Retic Count (auto) 1.02 PT INR APTT Sodium Potassium Chloride Carbon Dioxide Anion Gap BUN Creatinine Est GFR ( Amer) Est GFR (MDRD) Non-Af Glucose POC Glucose 115 H Hemoglobin A1c % Calcium Phosphorus Magnesium Iron 34.4 L TIBC 297 % Saturation 12 Ferritin 80.00 Total Bilirubin Direct Bilirubin Neonat Total Bilirubin Neonat Direct Bilirubin Neonat Indirect Bili AST ALT Alkaline Phosphatase Creatine Kinase CK-MB (CK-2) Troponin I NT-Pro-B Natriuret Pep Total Protein Albumin Triglycerides Cholesterol LDL Cholesterol Direct VLDL Cholesterol HDL Cholesterol Amylase Lipase Vitamin B12 538.0 Folate 8.98 TSH Free T4 PTH Intact Urine Color Urine Appearance Urine pH Ur Specific [place] Urine Protein Urine Glucose (UA) Urine Ketones Urine Blood Urine Nitrite Urine Bilirubin Urine Urobilinogen Ur Leukocyte Esterase Urine WBC (Auto) Urine RBC (Auto) Squamous Epi Cells Auto Urine Mucus (Auto) Urine Ascorbic Acid Urine Opiates Screen Urine Methadone Screen Ur Barbiturates Screen Ur Phencyclidine Scrn Ur Amphetamines Screen U Benzodiazepines Scrn Urine Cocaine Screen U Marijuana (THC) Screen 04/17/20 04/17/20 04/17/20 14:37 16:55 21:29 WBC RBC Hgb Hct MCV MCH MCHC RDW Plt Count Lymph % (Auto) [place] % (Auto) Eos % (Auto) Baso % (Auto) Reticulocyte # Absolute Neuts (auto) Absolute Lymphs (auto) Absolute Monos (auto) Absolute Eos (auto) Absolute Basos (auto) Seg Neutrophils % Retic Count (auto) PT INR APTT Sodium Potassium Chloride Carbon Dioxide Anion Gap BUN Creatinine Est GFR ( Amer) Est GFR (MDRD) Non-Af Glucose POC Glucose 92 162 H Hemoglobin A1c % Calcium Phosphorus Magnesium Iron TIBC % Saturation Ferritin Total Bilirubin Direct Bilirubin Neonat Total Bilirubin Neonat Direct Bilirubin Neonat Indirect Bili AST ALT Alkaline Phosphatase Creatine Kinase CK-MB (CK-2) Troponin I NT-Pro-B Natriuret Pep Total Protein Albumin Triglycerides Cholesterol LDL Cholesterol Direct VLDL Cholesterol HDL Cholesterol Amylase Lipase Vitamin B12 Folate TSH Free T4 PTH Intact 484.7 H Urine Color Urine Appearance Urine pH Ur Specific [place] Urine Protein Urine Glucose (UA) Urine Ketones Urine Blood Urine Nitrite Urine Bilirubin Urine Urobilinogen Ur Leukocyte Esterase Urine WBC (Auto) Urine RBC (Auto) Squamous Epi Cells Auto Urine Mucus (Auto) Urine Ascorbic Acid Urine Opiates Screen Urine Methadone Screen Ur Barbiturates Screen Ur Phencyclidine Scrn Ur Amphetamines Screen U Benzodiazepines Scrn Urine Cocaine Screen U Marijuana (THC) Screen 04/18/20 04/18/20 04/18/20 05:30 05:30 05:30 WBC 5.5 RBC 3.14 L Hgb 9.1 L Hct 27.2 L MCV 87 MCH 28.8 MCHC 33.3 RDW 14.1 H Plt Count 255 Lymph % (Auto) 20.5 [place] % (Auto) 9.8 Eos % (Auto) 5.4 Baso % (Auto) 1.5 Reticulocyte # Absolute Neuts (auto) 3.5 Absolute Lymphs (auto) 1.1 Absolute Monos (auto) 0.5 Absolute Eos (auto) 0.3 Absolute Basos (auto) 0.1 Seg Neutrophils % 62.8 Retic Count (auto) PT INR APTT Sodium 136.6 L Potassium 5.7 H Chloride 108 H Carbon Dioxide 17 L Anion Gap 12 BUN 77 H Creatinine 8.50 H Est GFR ( Amer) 8 L Est GFR (MDRD) Non-Af 6 L Glucose 77 POC Glucose Hemoglobin A1c % Calcium 6.9 L* Phosphorus Magnesium Iron TIBC % Saturation Ferritin Total Bilirubin Direct Bilirubin Neonat Total Bilirubin Neonat Direct Bilirubin Neonat Indirect Bili AST ALT Alkaline Phosphatase Creatine Kinase CK-MB (CK-2) Troponin I NT-Pro-B Natriuret Pep Total Protein Albumin 3.0 L Triglycerides Cholesterol LDL Cholesterol Direct VLDL Cholesterol HDL Cholesterol Amylase Lipase Vitamin B12 Folate TSH Free T4 PTH Intact Urine Color Urine Appearance Urine pH Ur Specific [place] Urine Protein Urine Glucose (UA) Urine Ketones Urine Blood Urine Nitrite Urine Bilirubin Urine Urobilinogen Ur Leukocyte Esterase Urine WBC (Auto) Urine RBC (Auto) Squamous Epi Cells Auto Urine Mucus (Auto) Urine Ascorbic Acid Urine Opiates Screen Urine Methadone Screen Ur Barbiturates Screen Ur Phencyclidine Scrn Ur Amphetamines Screen U Benzodiazepines Scrn Urine Cocaine Screen U Marijuana (THC) Screen 04/18/20 04/18/20 04/18/20 08:17 11:54 14:38 WBC RBC Hgb Hct MCV MCH MCHC RDW Plt Count Lymph % (Auto) [place] % (Auto) Eos % (Auto) Baso % (Auto) Reticulocyte # Absolute Neuts (auto) Absolute Lymphs (auto) Absolute Monos (auto) Absolute Eos (auto) Absolute Basos (auto) Seg Neutrophils % Retic Count (auto) PT INR APTT Sodium Potassium 5.3 H Chloride Carbon Dioxide Anion Gap BUN Creatinine Est GFR ( Amer) Est GFR (MDRD) Non-Af Glucose POC Glucose 112 H 113 H Hemoglobin A1c % Calcium Phosphorus Magnesium Iron TIBC % Saturation Ferritin Total Bilirubin Direct Bilirubin Neonat Total Bilirubin Neonat Direct Bilirubin Neonat Indirect Bili AST ALT Alkaline Phosphatase Creatine Kinase CK-MB (CK-2) Troponin I NT-Pro-B Natriuret Pep Total Protein Albumin Triglycerides Cholesterol LDL Cholesterol Direct VLDL Cholesterol HDL Cholesterol Amylase Lipase Vitamin B12 Folate TSH Free T4 PTH Intact Urine Color Urine Appearance Urine pH Ur Specific [place] Urine Protein Urine Glucose (UA) Urine Ketones Urine Blood Urine Nitrite Urine Bilirubin Urine Urobilinogen Ur Leukocyte Esterase Urine WBC (Auto) Urine RBC (Auto) Squamous Epi Cells Auto Urine Mucus (Auto) Urine Ascorbic Acid Urine Opiates Screen Urine Methadone Screen Ur Barbiturates Screen Ur Phencyclidine Scrn Ur Amphetamines Screen U Benzodiazepines Scrn Urine Cocaine Screen U Marijuana (THC) Screen 04/18/20 04/18/20 04/19/20 16:36 21:53 06:08 WBC 5.8 RBC 3.76 L Hgb 10.6 L Hct 32.4 L MCV 86 MCH 28.1 MCHC 32.6 RDW 14.0 Plt Count 260 Lymph % (Auto) 19.0 [place] % (Auto) 9.6 Eos % (Auto) 5.6 Baso % (Auto) 2.3 H Reticulocyte # Absolute Neuts (auto) 3.7 Absolute Lymphs (auto) 1.1 Absolute Monos (auto) 0.6 Absolute Eos (auto) 0.3 Absolute Basos (auto) 0.1 Seg Neutrophils % 63.5 Retic Count (auto) PT INR APTT Sodium Potassium Chloride Carbon Dioxide Anion Gap BUN Creatinine Est GFR ( Amer) Est GFR (MDRD) Non-Af Glucose POC Glucose 144 H 199 H Hemoglobin A1c % Calcium Phosphorus Magnesium Iron TIBC % Saturation Ferritin Total Bilirubin Direct Bilirubin Neonat Total Bilirubin Neonat Direct Bilirubin Neonat Indirect Bili AST ALT Alkaline Phosphatase Creatine Kinase CK-MB (CK-2) Troponin I NT-Pro-B Natriuret Pep Total Protein Albumin Triglycerides Cholesterol LDL Cholesterol Direct VLDL Cholesterol HDL Cholesterol Amylase Lipase Vitamin B12 Folate TSH Free T4 PTH Intact Urine Color Urine Appearance Urine pH Ur Specific [place] Urine Protein Urine Glucose (UA) Urine Ketones Urine Blood Urine Nitrite Urine Bilirubin Urine Urobilinogen Ur Leukocyte Esterase Urine WBC (Auto) Urine RBC (Auto) Squamous Epi Cells Auto Urine Mucus (Auto) Urine Ascorbic Acid Urine Opiates Screen Urine Methadone Screen Ur Barbiturates Screen Ur Phencyclidine Scrn Ur Amphetamines Screen U Benzodiazepines Scrn Urine Cocaine Screen U Marijuana (THC) Screen 04/19/20 04/19/20 07:33 11:52 WBC RBC Hgb Hct MCV MCH MCHC RDW Plt Count Lymph % (Auto) [place] % (Auto) Eos % (Auto) Baso % (Auto) Reticulocyte # Absolute Neuts (auto) Absolute Lymphs (auto) Absolute Monos (auto) Absolute Eos (auto) Absolute Basos (auto) Seg Neutrophils % Retic Count (auto) PT INR APTT Sodium Potassium Chloride Carbon Dioxide Anion Gap BUN Creatinine Est GFR ( Amer) Est GFR (MDRD) Non-Af Glucose POC Glucose 108 133 H Hemoglobin A1c % Calcium Phosphorus Magnesium Iron TIBC % Saturation Ferritin Total Bilirubin Direct Bilirubin Neonat Total Bilirubin Neonat Direct Bilirubin Neonat Indirect Bili AST ALT Alkaline Phosphatase Creatine Kinase CK-MB (CK-2) Troponin I NT-Pro-B Natriuret Pep Total Protein Albumin Triglycerides Cholesterol LDL Cholesterol Direct VLDL Cholesterol HDL Cholesterol Amylase Lipase Vitamin B12 Folate TSH Free T4 PTH Intact Urine Color Urine Appearance Urine pH Ur Specific [place] Urine Protein Urine Glucose (UA) Urine Ketones Urine Blood Urine Nitrite Urine Bilirubin Urine Urobilinogen Ur Leukocyte Esterase Urine WBC (Auto) Urine RBC (Auto) Squamous Epi Cells Auto Urine Mucus (Auto) Urine Ascorbic Acid Urine Opiates Screen Urine Methadone Screen Ur Barbiturates Screen Ur Phencyclidine Scrn Ur Amphetamines Screen U Benzodiazepines Scrn Urine Cocaine Screen U Marijuana (THC) Screen IMPRESSION/RECOMMENDATION: 1. Acute on chronic systolic heart failure with moderate to severely reduced LV ejection fraction by echocardiogram obtained this admission. Also it is secondary to volume overload due to renal failure. 2. Dilated and ischemic cardiomyopathy with moderate to severely reduced LV ejection fraction. Would increase the patient's afterload reduction and start continue the patient on beta-petra. The patient will be recommended to have a repeat echocardiogram in 3 months and full anti-cardiomyopathy treatment. If the repeat echocardiogram shows LV ejection fraction of 35% or below then patient would be recommended to have an electrophysiology consult for AICD placement. Will continue the patient on beta-petra at a dose of metoprolol extended release 25 mg p.o. every 12 hours and increase as tolerated. We will also continue topical nitrates and continue hydralazine patient on hydralazine in view of the patient's renal function. 3. Chronic kidney disease stage V: Nephrology on the case. We will leave the continuation of the Lasix drip with a aircraft machinist helper. 4. Hyperkalemia recommend Kayexalate 5. Coronary artery disease. History of coronary artery stent in the past. Later once the acute phase of heart failure is resolved would recommend getting IV Lexiscan Cardiolite stress test. This can be done as an outpatient. 6. Hypertension: Seems to be well controlled. 7. Diabetes mellitus: Continue current antidiabetic medication and Accu-Cheks. 8. History of asthma and chronic obstructive pulmonary disease. Stable no evidence of acute exacerbation 9. Past history of pulmonary embolism and DVT. No recurrence of DVT. 10. Pulmonary hypertension. Hydralazine should help 11. Aortic stenosis by exam and echo. Does not appear to be severe or critical. 12. 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 Medications added. Medical decision making is of high complexity. 40 minutes spent with patient more than 50% of the time spent in direct patient care. Will follow
[2020-04-20] MEDS: OXYCODONE HCL IR 5 MG TABLET PO SCH ×3 (05:36→21:25)
[2020-04-20] MEDS: OXYCODONE-ACETAMINOPHEN 5-325 MG TABLET PO SCH ×3 (05:37→21:25)
[2020-04-20] MEDS: HEPARIN SOD (PORCINE) 5,000 UNIT/ML 1 ML VIAL SUBCUT SCH ×3 (05:37→21:24)
[2020-04-20] MEDS: HYDRALAZINE HCL 25 MG TABLET PO SCH (05:37)
[2020-04-20] MEDS: NITROGLYCERIN 2% OINTMENT 1 GM PACKET TP SCH (05:38)
[2020-04-20 06:13] LABS: ANION GAP 11 (5-19); BLOOD UREA NITROGEN 84 mg/dL (7-20); CARBON DIOXIDE 24 mmol/L (22-30); CHLORIDE 102 mmol/L (98-107); GLUCOSE 103 mg/dL (75-110); POTASSIUM 5.1 mmol/L (3.6-5.0)
[2020-04-20] MEDS: INSULIN LISPRO 100 UNIT/ML 3 ML VIAL SUBCUT SCH ×3 (07:28→16:26)
[2020-04-20] MEDS: CALCIUM ACETATE 667 MG CAPSULE PO SCH ×3 (08:18→18:05)
--- NOTE | 2020-04-20 09:51 | PDOC PROGRESS REPORT ---
Subjective Progress Note for:: 04/20/20 Subjective:: Patient is currently doing fair Patient's denied any chest pain no short of breath Patient admitted for CHF currently follow with cardiology Reason For Visit: CKD STAGE 5, VOLUME OVERLOAD. ? CHF, UREAMIA Physical Exam Vital Signs: Temp Pulse Resp BP Pulse Ox 97.8 F 86 16 154/86 H 98 04/20/20 08:24 04/20/20 07:00 04/20/20 04:43 04/20/20 03:06 04/20/20 03:06 Intake & Output 04/19/20 04/20/20 04/21/20 06:59 06:59 06:59 Intake Total 1599 2238 Output Total 2125 1900 Balance -526 338 Weight 111.9 kg 110 kg General appearance: PRESENT: no acute distress, well-developed, well-nourished Head exam: PRESENT: atraumatic, normocephalic Eye exam: PRESENT: conjunctiva pink, EOMI, PERRLA. ABSENT: scleral icterus Ear exam: PRESENT: normal external ear exam Mouth exam: PRESENT: moist, tongue midline Neck exam: PRESENT: full ROM. ABSENT: carotid bruit, JVD, lymphadenopathy, thyromegaly Respiratory exam: PRESENT: clear to auscultation [place] Cardiovascular exam: PRESENT: RRR. ABSENT: diastolic murmur, rubs, systolic murmur Pulses: PRESENT: normal dorsalis pedis pul, +2 pedal pulses bilateral Vascular exam: PRESENT: normal capillary refill GI/Abdominal exam: PRESENT: normal bowel sounds, soft. ABSENT: distended, guarding, mass, organolmegaly, rebound, tenderness Rectal exam: PRESENT: deferred Neurological exam: PRESENT: alert, awake, oriented to person, oriented to place, oriented to time, oriented to situation, CN II-XII grossly intact. ABSENT: motor sensory deficit Psychiatric exam: PRESENT: appropriate affect, normal mood. ABSENT: homicidal ideation, suicidal ideation Skin exam: PRESENT: dry, intact, warm. ABSENT: cyanosis, rash Results Laboratory Results: 04/19/20 06:08 04/20/20 04:41 04/20/20 04:41 Sodium 137.0 Potassium 5.1 H Chloride 102 Carbon Dioxide 24 Anion Gap 11 BUN 84 H Creatinine 9.01 H Est GFR ( Amer) 7 L Glucose 103 Calcium 8.0 L 04/17/20 05:00 Blood Blood Culture (PCR) - Final 04/16/20 04/16/20 04/16/20 20:40 20:40 20:40 Creatine Kinase 2096 H CK-MB (CK-2) 10.70 H Troponin I 0.069 NT-Pro-B Natriuret Pep 49908 H 04/17/20 04/17/20 04/17/20 05:00 05:00 10:27 Creatine Kinase 1556 H 1357 H CK-MB (CK-2) 7.71 H Troponin I 0.063 NT-Pro-B Natriuret Pep 04/17/20 10:27 Creatine Kinase CK-MB (CK-2) 7.45 H Troponin I 0.073 NT-Pro-B Natriuret Pep Impressions: Chest X-Ray 04/16/20 19:57 IMPRESSION: Mild pulmonary edema pattern, without pleural effusions or focal consolidation. Renal Ultrasound 04/17/20 00:00 IMPRESSION: No hydronephrosis. Trace ascites. Assessment & Plan - Diagnosis (1) Acute pulmonary edema Is this a current diagnosis for this admission?: Yes (2) Acute systolic heart failure Is this a current diagnosis for this admission?: Yes (3) Anemia in CKD (chronic kidney disease) Is this a current diagnosis for this admission?: Yes (4) Metabolic acidosis Is this a current diagnosis for this admission?: Yes (5) Chronic kidney disease, stage 5 Is this a current diagnosis for this admission?: Yes - Time Time Spent with patient: 15-24 minutes Level of Care: IMCU Medications reviewed and adjusted accordingly: Yes Anticipated discharge: Other Anticipated DC Timeframe: Other - Plan Summary Plan Summary: Continues to current medications patient is currently on a Lasix drip follow with the cardiology and nephrology
[2020-04-20] MEDS: METOPROLOL SUCCINATE 25 MG TAB.SR.24H PO SCH (10:20)
[2020-04-20] MEDS: CALCIUM CARBONATE 600 MG TABLET PO SCH ×2 (10:20→18:05)
[2020-04-20] MEDS: CETIRIZINE 10 MG TABLET PO SCH (10:20)
[2020-04-20] MEDS: SODIUM BICARBONATE 650 MG TABLET PO SCH ×2 (10:20→21:25)
[2020-04-20] MEDS: ASPIRIN 81 MG TABLET, ENT COATED PO SCH (10:20)
[2020-04-20] MEDS: CALCITRIOL 0.25 MCG CAPSULE PO SCH (10:20)
[2020-04-20] MEDS: INSULIN GLARGINE,HUM.REC.ANLOG 1,000 UNIT/10 ML VIAL SUBCUT SCH (10:20)
[2020-04-20] MEDS ORDERED: ISOSORBIDE MONONITRATE 60 MG TAB.ER.24H PO SCH (12:00)
[2020-04-20] MEDS: ISOSORBIDE MONONITRATE 30 MG TAB.ER.24H PO SCH (12:57)
[2020-04-20] MEDS ORDERED: HYDRALAZINE HCL 25 MG TABLET PO SCH (14:00)
[2020-04-20] MEDS: HYDRALAZINE HCL 50 MG TABLET PO SCH ×2 (14:55→21:25)
[2020-04-20] MEDS: NORMAL SALINE 250 ML with FUROSEMIDE 250 MG IV PRN ×2 (18:06)
[2020-04-20] MEDS: PHARMACY COMMUNICATION ORDER MC SCH (18:06)
--- NOTE | 2020-04-20 20:37 | Progress Note ---
Provider Note Provider Note: CARDIOLOGY PROGRESS NOTE by Dr. Jeanette Gupta on 04/20/2020. SUBJECTIVE: The patient is on a BiPAP. He states he feels that his shortness of breath is much improved. He still has orthopnea. He has no chest pain or discomfort. There is no arrhythmias seen on monitor. He has mild pedal edema bilaterally. There is no palpitations or syncope. PHYSICAL EXAMINATION: The patient's mild to moderately obese. At present in no acute distress. Selected Entries 04/20/20 16:14 Temperature 97.6 F Temperature Axillary Source Pulse Rate 85 Respiratory 19 Rate Blood Pressure 147/82 H Blood Pressure 103 Mean BP Location Left Arm BP Position Sitting O2 Sat by Pulse 100 Oximetry Oxygen Delivery Cpap Method HEAD: Is atraumatic normocephalic. EYES: Pupils are equal round regular reactive to light and accommodation. Extraocular movements are normal. There is no conjunctival pallor. There is no scleral icterus. EARS: External auditory canals are clear. There is no inflammation of the tympanic membranes. Mid tympanic memories are intact. NOSE: There is no inflammation of the nasal mucous membrane. There is no deviated nasal septum. MOUTH: Mucous membranes of the mouth are moist. Tongue is moist. There is no ulcers. There is no bleeding from the gums. THROAT: There is no redness of the oropharynx. There is no exudates. Skin: There is no skin rashes. There is no skin lesions. There is no petechia or ecchymosis. NECK: Is supple. There is no JVD. Carotids are equal there is no bruit there is no lymphadenopathy. There is no goiter. There is no accessory muscles respiration use. LUNGS: Trachea central. There is diminished air entry and prolonged expiration. There is no rhonchi rales or wheezing. HEART: S1-S2 is heard. There is no S3 gallop. There is no S4 gallop. There is murmur of mild aortic stenosis present. There is preserved A 2 sound. There is no diastolic murmur of aortic regurgitation. There is no significant mitral regurgitation murmur. There is no rub. ABDOMEN: Soft. Obese. Nontender there is no paraspinal megaly. EXTREMITIES: Femorals are deep. There is no femoral bruits. Leg pulses are diminished. There is mild pedal edema. There is no DVT or cellulitis. There is no calf tenderness. HAM SAWYER: The patient is conscious awake alert oriented x3 with no focal deficits. PSYCHIATRIC: The patient judgment insight are intact and her affect is normal. The patient's 24-hour total intake is 2238. The patient's output is 1900 mL Labs- All tests 24 hr 04/20/20 04/20/20 04/20/20 04:41 07:19 11:21 Sodium 137.0 Potassium 5.1 H Chloride 102 Carbon Dioxide 24 Anion Gap 11 BUN 84 H Creatinine 9.01 H Est GFR ( Amer) 7 L Est GFR (MDRD) Non-Af 6 L Glucose 103 POC Glucose 100 101 Calcium 8.0 L 04/20/20 04/20/20 16:15 22:44 Sodium Potassium Chloride Carbon Dioxide Anion Gap BUN Creatinine Est GFR ( Amer) Est GFR (MDRD) Non-Af Glucose POC Glucose 143 H 121 H Calcium Chest X-Ray 04/16/20 19:57 IMPRESSION: Mild pulmonary edema pattern, without pleural effusions or focal consolidation. Renal Ultrasound 04/17/20 00:00 IMPRESSION: No hydronephrosis. Trace ascites. IMPRESSION/RECOMMENDATION: 1. Acute on chronic systolic heart failure with moderate to severely reduced LV ejection fraction by echocardiogram obtained this admission. Also it is secondary to volume overload due to renal failure. 2. Dilated and ischemic cardiomyopathy with moderate to severely reduced LV ejection fraction. Would increase the patient's afterload reduction and start continue the patient on beta-petra. The patient will be recommended to have a repeat echocardiogram in 3 months and full anti-cardiomyopathy treatment. If the repeat echocardiogram shows LV ejection fraction of 35% or below then patient would be recommended to have an electrophysiology consult for AICD placement. Will increase Toprol XL to 50mg p.o. every 12 hours and increase as tolerated. We will also continue topical nitrates and continue hydralazine patient on hydralazine in view of the patient's renal function. 3. Chronic kidney disease stage V: Nephrology on the case. We will leave the continuation of the Lasix drip with a prime minister. 4. Hyperkalemia recommend Kayexalate 5. Coronary artery disease. History of coronary artery stent in the past. Later once the acute phase of heart failure is resolved would recommend getting IV Lexiscan Cardiolite stress test. This can be done as an outpatient. 6. Hypertension: Seems to be well controlled. 7. Diabetes mellitus: Continue current antidiabetic medication and Accu-Cheks. 8. History of asthma and chronic obstructive pulmonary disease. Stable no evidence of acute exacerbation 9. Past history of pulmonary embolism and DVT. No recurrence of DVT. 10. Pulmonary hypertension. Hydralazine should help 11. Aortic stenosis by exam and echo. Does not appear to be severe or critical. 12. 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 Medications added. Medical decision making is of high complexity. 40 minutes spent with patient more than 50% of the time spent in direct patient care. Will follow
[2020-04-20] MEDS: METOPROLOL SUCCINATE 50 MG TAB.SR.24H PO SCH (21:25)
[2020-04-20] MEDS: ATORVASTATIN CALCIUM 40 MG TABLET PO SCH (21:26)
[2020-04-20] MEDS ORDERED: METOPROLOL SUCCINATE 25 MG TAB.SR.24H PO SCH (22:00)
[2020-04-21] MEDS: INSULIN GLARGINE,HUM.REC.ANLOG 1,000 UNIT/10 ML VIAL SUBCUT SCH ×3 (04:09→22:02)
[2020-04-21] MEDS: INSULIN LISPRO 100 UNIT/ML 3 ML VIAL SUBCUT SCH ×5 (04:09→22:02)
[2020-04-21] MEDS: HEPARIN SOD (PORCINE) 5,000 UNIT/ML 1 ML VIAL SUBCUT SCH ×3 (06:01→21:52)
[2020-04-21] MEDS: OXYCODONE-ACETAMINOPHEN 5-325 MG TABLET PO SCH ×3 (06:02→21:52)
[2020-04-21] MEDS: OXYCODONE HCL IR 5 MG TABLET PO SCH ×3 (06:03→21:51)
[2020-04-21] MEDS: HYDRALAZINE HCL 50 MG TABLET PO SCH ×3 (06:03→21:52)
[2020-04-21 06:19] LABS: ANION GAP 13 (5-19); BLOOD UREA NITROGEN 87 mg/dL (7-20); CALCIUM 8.2 mg/dL (8.4-10.2); CARBON DIOXIDE 22 mmol/L (22-30); CHLORIDE 101 mmol/L (98-107); GLUCOSE 103 mg/dL (75-110); POTASSIUM 5.1 mmol/L (3.6-5.0)
[2020-04-21] MEDS: CALCIUM ACETATE 667 MG CAPSULE PO SCH ×3 (08:45→17:23)
--- NOTE | 2020-04-21 09:57 | XCELERA REPORT ---
[address] [address] Transthoracic Echocardiogram Report Name: CORKY JURADO JR Age: 69 yrs Gender: Male : 1950 Patient Status: Inpatient Patient Location: [address] [place], [place] [address] Study Date: 04/17/2020 09:32 AM Height: 72 in Weight: 253 lb BSA: 2.4 m2 Procedure: A two-dimensional transthoracic echocardiogram with color flow and Doppler was performed. Study Quality: Fair. Reason For Study: ? CHF History: CHF. Ordering Physician: YUSEF SOMERS Performed By: Margaret Morrison Interpretation Summary The left ventricle is mildly dilated. There is mild concentric left ventricular hypertrophy. LV EF is 30% to 35% Left ventricular systolic function is moderate to severely reduced. There is moderate to severe global hypokinesis of the left ventricle. There is no thrombus. No ASD,VSD,or PFO seen. Doppler measurements suggest impaired left ventricular relaxation, which is associated with grade I/IV or mild diastolic dysfunction : By tissue dopplers. The right ventricle is mildly dilated. The right ventricular systolic function is normal. The right atrium is mildly dilated. The left atrium is mildly dilated. There is no vegetation seen on the mitral valve. There is no mitral valve stenosis. There is a mild to moderate amount of mitral regurgitation There is no aortic valvular vegetation. There is mild aortic stenosis There is a peak gradient of 21.1 mm of Hg , and mean gradient of 12.4 mm of Hg. There is a trace to mild amount of aortic regurgitation There is no tricuspid stenosis. There is a mild amount of tricuspid regurgitation There is moderate pulmonary hypertension by echo RVSP is 49 to 54 mm of Hg , with RA mean of 15 to 20. There is no pulmonic valvular stenosis. There is a trace amount of pulmonic regurgitation The aortic root is normal size. The inferior vena cava appeared dilated and decreased < 50% with respiration (RAP 15-20 mmHg) There is no pericardial effusion. MMode/2D Measurements & Calculations RVDd: 2.4 cm LVIDd: 5.2 cm FS: 17.7 % Ao root diam: 2.5 cm IVSd: 1.3 cm LVIDs: 4.3 cm EDV(Teich): LVPWd: 1.3 cm 127.5 ml Ao root area: ESV(Teich): 5.0 cm2 80.9 ml EF(Teich): 36.5 % EDV(MOD-sp4): SV(MOD-sp4): 164.2 ml 87.4 ml ESV(MOD-sp4): 76.9 ml EF(MOD-sp4): 53.2 % Doppler Measurements & Calculations MV E max quinten: MV dec slope: Ao V2 max: AI max quinten: 106.2 cm/sec 229.5 cm/sec 379.8 cm/sec MV A max quinten: 567.9 cm/sec2 Ao max PG: AI max P.7 mmHg 0.32 cm/sec MV dec time: 21.1 mmHg AI dec slope: MV E/A: 332.7 0.19 sec Ao V2 mean: 164.6 cm/sec 260.9 cm/sec2 AI P1/2t: 426.3 msec Ao mean P.4 mmHg Ao V2 VTI: 46.3 cm LV V1 max PG: PA V2 max: PI end-d quinten: TR max quinten: 2.3 mmHg 41.5 cm/sec 148.3 cm/sec 290.4 cm/sec LV V1 mean PG: PA max P.69 mmHg TR max P.8 mmHg 1.1 mmHg LV V1 max: 75.4 cm/sec LV V1 mean: 51.1 cm/sec LV V1 VTI: 13.6 cm Left Ventricle The left ventricle is mildly dilated. There is mild concentric left ventricular hypertrophy. LV EF is 30% to 35%. Left ventricular systolic function is moderate to severely reduced. Doppler measurements suggest impaired left ventricular relaxation, which is associated with grade I/IV or mild diastolic dysfunction. : By tissue dopplers. There is moderate to severe global hypokinesis of the left ventricle. There is no thrombus. No ASD,VSD,or PFO seen. Right Ventricle The right ventricle is mildly dilated. The right ventricular systolic function is normal. Atria The right atrium is mildly dilated. The left atrium is mildly dilated. Mitral Valve There is no evidence of mitral valve prolapse. There is no vegetation seen on the mitral valve. There is no mitral valve stenosis. There is a mild to moderate amount of mitral regurgitation. Aortic Valve There is no aortic valvular vegetation. There is mild aortic stenosis. There is a peak gradient of 21.1 mm of Hg , and mean gradient of 12.4 mm of Hg. There is a trace to mild amount of aortic regurgitation. Tricuspid Valve There is no tricuspid stenosis. There is a mild amount of tricuspid regurgitation. There is moderate pulmonary hypertension by echo. RVSP is 49 to 54 mm of Hg , with RA mean of 15 to 20. Pulmonic Valve There is no pulmonic valvular stenosis. There is a trace amount of pulmonic regurgitation. Great Vessels The aortic root is normal size. The inferior vena cava appeared dilated and decreased < 50% with respiration (RAP 15-20 mmHg). Effusions There is no pericardial effusion. : YUSEF SOMERS Lakshmi
[2020-04-21] MEDS: CETIRIZINE 10 MG TABLET PO SCH (10:09)
[2020-04-21] MEDS: ASPIRIN 81 MG TABLET, ENT COATED PO SCH (10:09)
[2020-04-21] MEDS: CALCIUM CARBONATE 600 MG TABLET PO SCH ×2 (10:09→17:23)
[2020-04-21] MEDS: ISOSORBIDE MONONITRATE 30 MG TAB.ER.24H PO SCH (10:09)
[2020-04-21] MEDS: SODIUM BICARBONATE 650 MG TABLET PO SCH ×2 (10:09→21:52)
[2020-04-21] MEDS: METOPROLOL SUCCINATE 50 MG TAB.SR.24H PO SCH ×2 (10:09→21:51)
[2020-04-21] MEDS: CALCITRIOL 0.25 MCG CAPSULE PO SCH (10:09)
[2020-04-21] MEDS: NORMAL SALINE 250 ML with FUROSEMIDE 250 MG IV PRN ×2 (17:23)
[2020-04-21] MEDS: PHARMACY COMMUNICATION ORDER MC SCH (18:46)
--- NOTE | 2020-04-21 20:05 | PDOC PROGRESS REPORT ---
Subjective Progress Note for:: 04/21/20 Subjective:: Patient was seen sitting in his chair with his in his room. He did have some SOB over the weekend that required him to be on bipap. He claims to be doing better today. Still has occasional sob. Denies any chest pain, n/v/d. His appetite has improved. He continues to produce a good amount of urine. Reason For Visit: CKD STAGE 5, VOLUME OVERLOAD. ? CHF, UREAMIA Physical Exam Vital Signs: Temp Pulse Resp BP Pulse Ox 97.5 F 77 20 148/78 H 99 04/21/20 16:45 04/21/20 19:00 04/21/20 16:45 04/21/20 16:45 04/21/20 16:45 Intake & Output 04/20/20 04/21/20 04/22/20 06:59 06:59 06:59 Intake Total 2238 1324 713 Output Total 1900 1975 1175 Balance 338 -851 -462 Weight 110 kg 109.3 kg General appearance: PRESENT: no acute distress, well-developed, well-nourished Neck exam: ABSENT: JVD, tracheal deviation Respiratory exam: PRESENT: crackles, rales. ABSENT: accessory muscle use, clear to auscultation [place], rhonchi, wheezes Cardiovascular exam: PRESENT: +S1, +S2 GI/Abdominal exam: PRESENT: soft. ABSENT: diminished bowel sounds, distended, guarding, tenderness Extremities exam: PRESENT: pedal edema, +2 edema. ABSENT: tenderness Musculoskeletal exam: PRESENT: normal inspection. ABSENT: deformity Neurological exam: PRESENT: alert, awake, oriented to person, oriented to place, oriented to time, oriented to situation Psychiatric exam: PRESENT: appropriate affect, normal mood Skin exam: PRESENT: dry, intact, warm Results Laboratory Results: 04/19/20 06:08 04/21/20 04:57 04/21/20 04:57 Sodium 135.7 L Potassium 5.1 H Chloride 101 Carbon Dioxide 22 Anion Gap 13 BUN 87 H Creatinine 8.74 H Est GFR ( Amer) 7 L Glucose 103 Calcium 8.2 L 04/16/20 04/16/20 04/16/20 20:40 20:40 20:40 Creatine Kinase 2096 H CK-MB (CK-2) 10.70 H Troponin I 0.069 NT-Pro-B Natriuret Pep 74250 H 04/17/20 04/17/20 04/17/20 05:00 05:00 10:27 Creatine Kinase 1556 H 1357 H CK-MB (CK-2) 7.71 H Troponin I 0.063 NT-Pro-B Natriuret Pep 04/17/20 10:27 Creatine Kinase CK-MB (CK-2) 7.45 H Troponin I 0.073 NT-Pro-B Natriuret Pep Impressions: Chest X-Ray 04/16/20 19:57 IMPRESSION: Mild pulmonary edema pattern, without pleural effusions or focal consolidation. Renal Ultrasound 04/17/20 00:00 IMPRESSION: No hydronephrosis. Trace ascites. Assessment & Plan - Diagnosis (1) Acute kidney injury superimposed on chronic kidney disease Plan: Nonoliguric, likely related to his fluid overload with factors if an elevated CK. Looks to be producing a good amount of urine. Advised on cutting back on the amount of fluids he is drinking. Continue with furosemide drip at 10mg an hour, since the creatinine was not affected by the drip. 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 Possibly at a new baseline. Discussed with him the need to get a fistula placed the impending dialysis. (2) Hypocalcemia Plan: continue with current medications. (3) CHF exacerbation Qualifiers: Heart failure type: unspecified Qualified Code(s): I50.9 - Heart failure, unspecified Plan: improving on a furosemide drip, continue with furosemide drip will increase to 10mg an hour, since the creatinine was not affected by the drip.. Advised on decreasing fluid intake. Cardiology following. Weight continues to go down. (4) Anemia in CKD (chronic kidney disease) Is this a current diagnosis for this admission?: Yes Plan: improving with retacrit and recent IV injectofer (5) Rhabdomyolysis Plan: resolved (6) Chronic kidney disease, stage 5 Is this a current diagnosis for this admission?: Yes Plan: Base line lately has been in 6s and 7s for his creatinine. Previously he was in the 4s and 5s. (7) Hyperkalemia Is this a current diagnosis for this admission?: Yes Plan: resolved (8) Hyperphosphatemia Plan: Likely related to CKD. On calcium acetate with meals. (9) Diabetes mellitus with nephropathy Plan: look to be controlled (10) HTN (hypertension) Qualifiers: Hypertension type: essential hypertension Qualified Code(s): I10 - Essential (primary) hypertension Plan: improving after restarting his medications and removing fluid (11) Renal osteodystrophy Plan: restarting calcitriol (12) Noncompliance Plan: patient has a significant history of noncompliance for which he admits to. Advised on compliance with medications and appointments. (13) Metabolic acidosis Is this a current diagnosis for this admission?: Yes Plan: improving on sodium bicarb 650mg bid
--- NOTE | 2020-04-21 20:35 | Progress Note ---
Provider Note Provider Note: CARDIOLOGY PROGRESS NOTE by Dr. Jeanette Gupta on 04/21/2020. SUBJECTIVE: The patient is on a BiPAP. He states he feels that his shortness of breath is much improved. He still has orthopnea. He has no chest pain or discomfort. There is no arrhythmias seen on monitor. He has mild pedal edema bilaterally. There is no palpitations or syncope. PHYSICAL EXAMINATION: The patient's mild to moderately obese. At present in no acute distress. Selected Entries 04/21/20 12:01 Temperature 97.5 F Temperature Axillary Source Pulse Rate 83 Respiratory 18 Rate Blood Pressure 140/70 H Blood Pressure 93 Mean BP Location Left Arm BP Position Sitting O2 Sat by Pulse 100 Oximetry Oxygen Delivery Cpap Method HEAD: Is atraumatic normocephalic. EYES: Pupils are equal round regular reactive to light and accommodation. Extraocular movements are normal. There is no conjunctival pallor. There is no scleral icterus. EARS: External auditory canals are clear. There is no inflammation of the tympanic membranes. Mid tympanic memories are intact. NOSE: There is no inflammation of the nasal mucous membrane. There is no deviated nasal septum. MOUTH: Mucous membranes of the mouth are moist. Tongue is moist. There is no ulcers. There is no bleeding from the gums. THROAT: There is no redness of the oropharynx. There is no exudates. Skin: There is no skin rashes. There is no skin lesions. There is no petechia or ecchymosis. NECK: Is supple. There is no JVD. Carotids are equal there is no bruit there is no lymphadenopathy. There is no goiter. There is no accessory muscles respiration use. LUNGS: Trachea central. There is diminished air entry and prolonged expiration. There is no rhonchi rales or wheezing. HEART: S1-S2 is heard. There is no S3 gallop. There is no S4 gallop. There is murmur of mild aortic stenosis present. There is preserved A 2 sound. There is no diastolic murmur of aortic regurgitation. There is no significant mitral regurgitation murmur. There is no rub. ABDOMEN: Soft. Obese. Nontender there is no paraspinal megaly. EXTREMITIES: Femorals are deep. There is no femoral bruits. Leg pulses are diminished. There is mild pedal edema. There is no DVT or cellulitis. There is no calf tenderness. 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 PSYCHIATRIC: The patient judgment insight are intact and her affect is normal. The patient's 24-hour total intake is 1324. The patient's output is 1975 mL Labs- All tests 24 hr 04/20/20 04/21/20 04/21/20 22:44 04:57 08:05 Sodium 135.7 L Potassium 5.1 H Chloride 101 Carbon Dioxide 22 Anion Gap 13 BUN 87 H Creatinine 8.74 H Est GFR ( Amer) 7 L Est GFR (MDRD) Non-Af 6 L Glucose 103 POC Glucose 121 H 95 Calcium 8.2 L 04/21/20 04/21/20 12:02 16:46 Sodium Potassium Chloride Carbon Dioxide Anion Gap BUN Creatinine Est GFR ( Amer) Est GFR (MDRD) Non-Af Glucose POC Glucose 108 147 H Calcium Chest X-Ray 04/16/20 19:57 IMPRESSION: Mild pulmonary edema pattern, without pleural effusions or focal consolidation. Renal Ultrasound 04/17/20 00:00 IMPRESSION: No hydronephrosis. Trace ascites. IMPRESSION/RECOMMENDATION: 1. Acute on chronic systolic heart failure with moderate to severely reduced LV ejection fraction by echocardiogram obtained this admission. Also it is secondary to volume overload due to renal failure. 2. Dilated and ischemic cardiomyopathy with moderate to severely reduced LV ejection fraction. Would increase the patient's afterload reduction and start continue the patient on beta-petra. The patient will be recommended to have a repeat echocardiogram in 3 months and full anti-cardiomyopathy treatment. If the repeat echocardiogram shows LV ejection fraction of 35% or below then patient would be recommended to have an electrophysiology consult for AICD placement. Will increase Toprol XL to 50mg p.o. every 12 hours and increase as tolerated. We will also continue topical nitrates and continue hydralazine patient on hydralazine in view of the patient's renal function. 3. Chronic kidney disease stage V: Nephrology on the case. We will leave the continuation of the Lasix drip with a linen keeper. 4. Hyperkalemia recommend Kayexalate 5. Coronary artery disease. History of coronary artery stent in the past. Later once the acute phase of heart failure is resolved would recommend getting IV Lexiscan Cardiolite stress test. This can be done as an outpatient. 6. Hypertension: Seems to be well controlled. 7. Diabetes mellitus: Continue current antidiabetic medication and Accu-Cheks. 8. History of asthma and chronic obstructive pulmonary disease. Stable no evidence of acute exacerbation 9. Past history of pulmonary embolism and DVT. No recurrence of DVT. 10. Pulmonary hypertension. Hydralazine should help 11. Aortic stenosis by exam and echo. Does not appear to be severe or critical. 12. 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 Medications added. Medical decision making is of high complexity. 40 minutes spent with patient more than 50% of the time spent in direct patient care. Will follow
--- NOTE | 2020-04-21 20:59 | PDOC PROGRESS REPORT ---
Subjective Progress Note for:: 04/21/20 Subjective:: Patient seen by the bedside still requiring intravenous furosemide infusion, diuresing very well Reason For Visit: CKD STAGE 5, VOLUME OVERLOAD. ? CHF, UREAMIA Physical Exam Vital Signs: Temp Pulse Resp BP Pulse Ox 98.1 F 87 18 151/68 H 100 04/21/20 20:45 04/21/20 20:45 04/21/20 20:45 04/21/20 20:45 04/21/20 20:45 Intake & Output 04/20/20 04/21/20 04/22/20 06:59 06:59 06:59 Intake Total 2238 1324 713 Output Total 1904 2629 1173 Balance 441 -018 -980 Weight 110 kg 109.3 kg General appearance: PRESENT: no acute distress Eye exam: PRESENT: PERRLA Respiratory exam: PRESENT: clear to auscultation [place] Cardiovascular exam: PRESENT: +S1, +S2 GI/Abdominal exam: PRESENT: soft Neurological exam: PRESENT: alert Results Laboratory Results: 04/19/20 06:08 04/21/20 04:57 04/21/20 04:57 Sodium 135.7 L Potassium 5.1 H Chloride 101 Carbon Dioxide 22 Anion Gap 13 BUN 87 H Creatinine 8.74 H Est GFR ( Amer) 7 L Glucose 103 Calcium 8.2 L 04/16/20 04/16/20 04/16/20 20:40 20:40 20:40 Creatine Kinase 2096 H CK-MB (CK-2) 10.70 H Troponin I 0.069 NT-Pro-B Natriuret Pep 18382 H 04/17/20 04/17/20 04/17/20 05:00 05:00 10:27 Creatine Kinase 1556 H 1357 H CK-MB (CK-2) 7.71 H Troponin I 0.063 NT-Pro-B Natriuret Pep 04/17/20 10:27 Creatine Kinase CK-MB (CK-2) 7.45 H Troponin I 0.073 NT-Pro-B Natriuret Pep Impressions: Chest X-Ray 04/16/20 19:57 IMPRESSION: Mild pulmonary edema pattern, without pleural effusions or focal consolidation. Renal Ultrasound 04/17/20 00:00 IMPRESSION: No hydronephrosis. Trace ascites. Assessment & Plan - Diagnosis (1) Acute pulmonary edema Is this a current diagnosis for this admission?: Yes Plan: continue IV lasix (2) Acute systolic heart failure Is this a current diagnosis for this admission?: Yes (3) Chronic kidney disease, stage 5 Is this a current diagnosis for this admission?: Yes (4) Personal history of malignant neoplasm of gallbladder Is this a current diagnosis for this admission?: Yes (5) Type 2 diabetes mellitus with diabetic chronic kidney disease Qualifiers: Diabetes mellitus jail insulin use: with jail use Chronic kidney disease stage: stage 5, not on chronic dialysis Qualified Code(s): E11.22 - Type 2 diabetes mellitus with diabetic chronic kidney disease; N18.5 - Chronic kidney disease, stage 5; Z79.4 - group home (current) use of insulin Is this a current diagnosis for this admission?: Yes (6) Hyperkalemia Is this a current diagnosis for this admission?: Yes - Time Time Spent with patient: 25-34 minutes Level of Care: IMCU Medications reviewed and adjusted accordingly: Yes Anticipated discharge: Home Anticipated DC Timeframe: within 72 hours - Inpatient Certification Based on my medical assessment, after consideration of the patient's comorbidities, presenting symptoms, or acuity I expect that the services needed warrant INPATIENT care.: No I certify that my determination is in accordance with my understanding of Medicare's requirements for reasonable and necessary INPATIENT services [42 CFR 412.3e].: No
[2020-04-21] MEDS: ATORVASTATIN CALCIUM 40 MG TABLET PO SCH (21:52)
[2020-04-22] MEDS: OXYCODONE-ACETAMINOPHEN 5-325 MG TABLET PO SCH ×3 (05:56→22:18)
[2020-04-22] MEDS: HEPARIN SOD (PORCINE) 5,000 UNIT/ML 1 ML VIAL SUBCUT SCH ×3 (05:56→22:17)
[2020-04-22] MEDS: HYDRALAZINE HCL 50 MG TABLET PO SCH ×3 (05:56→22:14)
[2020-04-22] MEDS: OXYCODONE HCL IR 5 MG TABLET PO SCH ×3 (05:56→22:18)
[2020-04-22 07:38] LABS: ANION GAP 10 (5-19); BLOOD UREA NITROGEN 89 mg/dL (7-20); CALCIUM 8.6 mg/dL (8.4-10.2); CARBON DIOXIDE 24 mmol/L (22-30); CHLORIDE 99 mmol/L (98-107); GLUCOSE 99 mg/dL (75-110)
[2020-04-22] MEDS: INSULIN LISPRO 100 UNIT/ML 3 ML VIAL SUBCUT SCH ×4 (08:11→22:16)
[2020-04-22] MEDS: INSULIN GLARGINE,HUM.REC.ANLOG 1,000 UNIT/10 ML VIAL SUBCUT SCH (09:50)
[2020-04-22] MEDS: ISOSORBIDE MONONITRATE 30 MG TAB.ER.24H PO SCH (10:05)
[2020-04-22] MEDS: CETIRIZINE 10 MG TABLET PO SCH (10:05)
[2020-04-22] MEDS: CALCIUM ACETATE 667 MG CAPSULE PO SCH ×3 (10:07→17:44)
[2020-04-22] MEDS: CALCIUM CARBONATE 600 MG TABLET PO SCH (10:07)
[2020-04-22] MEDS: SODIUM BICARBONATE 650 MG TABLET PO SCH ×2 (10:07→22:14)
[2020-04-22] MEDS: METOPROLOL SUCCINATE 50 MG TAB.SR.24H PO SCH ×2 (10:07→22:15)
[2020-04-22] MEDS: CALCITRIOL 0.25 MCG CAPSULE PO SCH (10:07)
[2020-04-22] MEDS: ASPIRIN 81 MG TABLET, ENT COATED PO SCH (10:08)
--- NOTE | 2020-04-22 15:09 | PDOC PROGRESS REPORT ---
Subjective Progress Note for:: 04/22/20 Subjective:: Patient was seen laying in bed at the time. He was requiring bipap to sleep. He does admit to shortness of breath when laying flat and moving. He claims the appetite increased. Denies any s/s of uremia. Continues to produce over 2L of urine. Reason For Visit: CKD STAGE 5, VOLUME OVERLOAD. ? CHF, UREAMIA Physical Exam Vital Signs: Temp Pulse Resp BP Pulse Ox 97.6 F 80 14 136/72 H 94 04/22/20 11:48 04/22/20 11:48 04/22/20 11:48 04/22/20 11:48 04/22/20 11:48 Intake & Output 04/21/20 04/22/20 04/23/20 06:59 06:59 06:59 Intake Total 1324 973 260 Output Total 1975 2200 300 Balance -651 -1227 -40 Weight 109.3 kg 110.5 kg General appearance: PRESENT: no acute distress, well-developed, well-nourished, other - bipap mask on Mouth exam: PRESENT: moist, neck supple Neck exam: ABSENT: JVD, tracheal deviation Respiratory exam: PRESENT: crackles, rales. ABSENT: accessory muscle use, clear to auscultation [place], wheezes Cardiovascular exam: PRESENT: +S1, +S2 GI/Abdominal exam: PRESENT: soft. ABSENT: diminished bowel sounds, distended, guarding, tenderness Extremities exam: PRESENT: pedal edema, +2 edema Neurological exam: PRESENT: alert, awake, oriented to person, oriented to place, oriented to time, oriented to situation Psychiatric exam: PRESENT: appropriate affect, normal mood Skin exam: PRESENT: dry, intact, warm. ABSENT: cyanosis Results Laboratory Results: 04/19/20 06:08 04/22/20 07:05 04/22/20 07:05 Sodium 133.3 L Potassium 5.0 Chloride 99 Carbon Dioxide 24 Anion Gap 10 BUN 89 H Creatinine 8.89 H Est GFR ( Amer) 7 L Glucose 99 Calcium 8.6 04/16/20 22:41 Blood Blood Culture - Final NO GROWTH IN 5 DAYS 04/16/20 04/16/20 04/16/20 20:40 20:40 20:40 Creatine Kinase 2096 H CK-MB (CK-2) 10.70 H Troponin I 0.069 NT-Pro-B Natriuret Pep 01991 H 04/17/20 04/17/20 04/17/20 05:00 05:00 10:27 Creatine Kinase 1556 H 1357 H CK-MB (CK-2) 7.71 H Troponin I 0.063 NT-Pro-B Natriuret Pep 04/17/20 10:27 Creatine Kinase CK-MB (CK-2) 7.45 H Troponin I 0.073 NT-Pro-B Natriuret Pep Impressions: Chest X-Ray 04/16/20 19:57 IMPRESSION: Mild pulmonary edema pattern, without pleural effusions or focal consolidation. Renal Ultrasound 04/17/20 00:00 IMPRESSION: No hydronephrosis. Trace ascites. Assessment & Plan - Diagnosis (1) Acute kidney injury superimposed on chronic kidney disease Plan: Nonoliguric, likely related to his fluid overload with factors if an elevated CK. Looks to be producing a good amount of urine. He unfortunately is not making as much progress with a heavy dose of IV furosemide as I would hope. At this time I do think he would benefit from dialysis. He is not willing to receive di alysis. I explained to him the risks of not starting dialysis, including falling back in the hospital worsening CHF, requiring intubation or possibly leading to . Continue on current medications. Will look to get a 24 hour urine creatinine clearance. (2) Hypocalcemia Plan: improving, reducing calcium supplement to once a day (3) CHF exacerbation Qualifiers: Heart failure type: unspecified Qualified Code(s): I50.9 - Heart failure, unspecified Plan: slowly improving on a heavy dose of IV furosemide. I do believe he would benefit from dialysis at this time. Once he switches to PO diuretics I do not believe he will produce enough urine. (4) Anemia in CKD (chronic kidney disease) Is this a current diagnosis for this admission?: Yes Plan: improving with retacrit and recent IV injectofer (6) Chronic kidney disease, stage 5 Is this a current diagnosis for this admission?: Yes Plan: Base line lately has been in 6s and 7s for his creatinine. Previously he was in the 4s and 5s. getting a 24 hour creatinine clearance (7) Hyperkalemia Is this a current diagnosis for this admission?: Yes Plan: resolved (8) Hyperphosphatemia Plan: Likely related to CKD. On calcium acetate with meals. (9) Diabetes mellitus with nephropathy Plan: look to be controlled (10) HTN (hypertension) Qualifiers: Hypertension type: essential hypertension Qualified Code(s): I10 - Essential (primary) hypertension Plan: improving after restarting his medications and removing fluid (11) Renal osteodystrophy Plan: restarting calcitriol (12) Noncompliance Plan: patient has a significant history of noncompliance for which he admits to. Advised on compliance with medications and appointments. (13) Metabolic acidosis Is this a current diagnosis for this admission?: Yes Plan: improving on sodium bicarb 650mg bid
[2020-04-22] MEDS: NORMAL SALINE 250 ML with FUROSEMIDE 250 MG IV PRN ×2 (17:45)
[2020-04-22] MEDS: PHARMACY COMMUNICATION ORDER MC SCH (17:56)
--- NOTE | 2020-04-22 21:56 | PDOC PROGRESS REPORT ---
Subjective Progress Note for:: 04/22/20 Subjective:: Patient seen by the bedside, still on IV furosemide infusion Reason For Visit: CKD STAGE 5, VOLUME OVERLOAD. ? CHF, UREAMIA Physical Exam Vital Signs: Temp Pulse Resp BP Pulse Ox 98.1 F 80 15 141/71 H 98 04/22/20 15:52 04/22/20 15:52 04/22/20 15:52 04/22/20 15:52 04/22/20 15:52 Intake & Output 04/21/20 04/22/20 04/23/20 06:59 06:59 06:59 Intake Total 1324 973 834 Output Total 1974 2200 300 Balance -651 1227 534 Weight 109.3 kg 110.5 kg General appearance: PRESENT: no acute distress Eye exam: PRESENT: PERRLA Respiratory exam: PRESENT: clear to auscultation [place] Cardiovascular exam: PRESENT: +S1, +S2 Results Laboratory Results: 04/19/20 06:08 04/22/20 07:05 04/22/20 07:05 Sodium 133.3 L Potassium 5.0 Chloride 99 Carbon Dioxide 24 Anion Gap 10 BUN 89 H Creatinine 8.89 H Est GFR ( Amer) 7 L Glucose 99 Calcium 8.6 04/16/20 22:41 Blood Blood Culture - Final NO GROWTH IN 5 DAYS 04/16/20 04/16/20 04/16/20 20:40 20:40 20:40 Creatine Kinase 2096 H CK-MB (CK-2) 10.70 H Troponin I 0.069 NT-Pro-B Natriuret Pep 18675 H 04/17/20 04/17/20 04/17/20 05:00 05:00 10:27 Creatine Kinase 1556 H 1357 H CK-MB (CK-2) 7.71 H Troponin I 0.063 NT-Pro-B Natriuret Pep 04/17/20 10:27 Creatine Kinase CK-MB (CK-2) 7.45 H Troponin I 0.073 NT-Pro-B Natriuret Pep Impressions: Chest X-Ray 04/16/20 19:57 IMPRESSION: Mild pulmonary edema pattern, without pleural effusions or focal consolidation. Renal Ultrasound 04/17/20 00:00 IMPRESSION: No hydronephrosis. Trace ascites. Assessment & Plan - Diagnosis (1) Acute pulmonary edema Is this a current diagnosis for this admission?: Yes Plan: continue IV lasix (2) Acute systolic heart failure Is this a current diagnosis for this admission?: Yes (3) Chronic kidney disease, stage 5 Is this a current diagnosis for this admission?: Yes (4) Personal history of malignant neoplasm of gallbladder Is this a current diagnosis for this admission?: Yes (5) Type 2 diabetes mellitus with diabetic chronic kidney disease Qualifiers: Diabetes mellitus detention insulin use: with long term care phlebotomist use Chronic kidney disease stage: stage 5, not on chronic dialysis Qualified Code(s): E11.22 - Type 2 diabetes mellitus with diabetic chronic kidney disease; N18.5 - Chronic kidney disease, stage 5; Z79.4 - long term care phlebotomist (current) use of insulin Is this a current diagnosis for this admission?: Yes (6) Hyperkalemia Is this a current diagnosis for this admission?: Yes - Time Time Spent with patient: 15-24 minutes Level of Care: IMCU Medications reviewed and adjusted accordingly: Yes Anticipated discharge: Home Anticipated DC Timeframe: within 72 hours
[2020-04-22] MEDS: INSULIN GLARGINE,HUM.REC.ANLOG 1,000 UNIT/10 ML VIAL (PYX) SUBCUT SCH (22:15)
[2020-04-22] MEDS: ATORVASTATIN CALCIUM 40 MG TABLET PO SCH (22:15)
--- NOTE | 2020-04-22 22:34 | Progress Note ---
Provider Note Provider Note: CARDIOLOGY PROGRESS NOTE by Dr. Jeanette Gupta on 04/22/2020. SUBJECTIVE: The patient is on a BiPAP. He states he feels that his shortness of breath is much improved. He still has orthopnea. He has no chest pain or discomfort. There is no arrhythmias seen on monitor. He has mild pedal edema bilaterally. There is no palpitations or syncope. PHYSICAL EXAMINATION: The patient's mild to moderately obese. At present in no acute distress. Selected Entries 04/22/20 04/22/20 04/22/20 08:00 11:48 15:52 Temperature 97.6 F 98.1 F Temperature Axillary Oral Source Pulse Rate 80 80 Respiratory 14 15 Rate Blood Pressure 136/72 H 141/71 H Blood Pressure 93 94 Mean BP Location Left Arm Left Arm BP Position Supine O2 Sat by Pulse 94 98 Oximetry Oxygen Delivery Room Air Bipap Bipap Method 04/23/20 11:08 Temperature 97.7 F Temperature Oral Source Pulse Rate 80 Respiratory 14 Rate Blood Pressure 147/73 H Blood Pressure 97 Mean BP Location Left Arm BP Position Supine O2 Sat by Pulse 100 Oximetry Oxygen Delivery Room Air Method HEAD: Is atraumatic normocephalic. EYES: Pupils are equal round regular reactive to light and accommodation. Extraocular movements are normal. There is no conjunctival pallor. There is no scleral icterus. EARS: External auditory canals are clear. There is no inflammation of the tympanic membranes. Mid tympanic memories are intact. NOSE: There is no inflammation of the nasal mucous membrane. There is no deviated nasal septum. MOUTH: Mucous membranes of the mouth are moist. Tongue is moist. There is no ulcers. There is no bleeding from the gums. THROAT: There is no redness of the oropharynx. There is no exudates. Skin: There is no skin rashes. There is no skin lesions. There is no petechia or ecchymosis. NECK: Is supple. There is no JVD. Carotids are equal there is no bruit there is no lymphadenopathy. There is no goiter. There is no accessory muscles respiration use. LUNGS: Trachea central. There is diminished air entry and prolonged expiration. There is no rhonchi rales or wheezing. HEART: S1-S2 is heard. There is no S3 gallop. There is no S4 gallop. There is murmur of mild aortic stenosis present. There is preserved A 2 sound. There is no diastolic murmur of aortic regurgitation. There is no significant mitral regurgitation murmur. There is no rub. ABDOMEN: Soft. Obese. Nontender there is no paraspinal megaly. EXTREMITIES: Femorals are deep. There is no femoral bruits. Leg pulses are diminished. There is mild pedal edema. There is no DVT or cellulitis. There is no calf tenderness. CRM ARCHITECT: The patient is conscious awake alert oriented x3 with no focal deficits. PSYCHIATRIC: The patient judgment insight are intact and her affect is normal. The patient's 24-hour total intake is 973. The patient's output is 2200 mL. Labs- All tests 24 hr 04/22/20 04/22/20 04/22/20 07:05 08:01 11:46 Sodium 133.3 L Potassium 5.0 Chloride 99 Carbon Dioxide 24 Anion Gap 10 BUN 89 H Creatinine 8.89 H Est GFR ( Amer) 7 L Est GFR (MDRD) Non-Af 6 L Glucose 99 POC Glucose 88 130 H Calcium 8.6 04/22/20 04/22/20 15:54 21:09 Sodium Potassium Chloride Carbon Dioxide Anion Gap BUN Creatinine Est GFR ( Amer) Est GFR (MDRD) Non-Af Glucose POC Glucose 142 H 151 H Calcium Chest X-Ray 04/16/20 19:57 IMPRESSION: Mild pulmonary edema pattern, without pleural effusions or focal consolidation. Renal Ultrasound 04/17/20 00:00 IMPRESSION: No hydronephrosis. Trace ascites. IMPRESSION/RECOMMENDATION: 1. Acute on chronic systolic heart failure with moderate to severely reduced LV ejection fraction by echocardiogram obtained this admission. Also it is secondary to volume overload due to renal failure. 2. Dilated and ischemic cardiomyopathy with moderate to severely reduced LV ejection fraction. Would increase the patient's afterload reduction and start continue the patient on beta-petra. The patient will be recommended to have a repeat echocardiogram in 3 months and full anti-cardiomyopathy treatment. If the repeat echocardiogram shows LV ejection fraction of 35% or below then patient would be recommended to have an electrophysiology consult for AICD placement. Will increase Toprol XL to 50mg p.o. every 12 hours and increase as tolerated. We will also continue topical nitrates and continue hydralazine patient on hydralazine in view of the patient's renal function. 3. Chronic kidney disease stage V: Nephrology on the case. We will leave the continuation of the Lasix drip with a director security management. 4. Hyperkalemia: Resolved potassium of 5.0 5. Coronary artery disease. History of coronary artery stent in the past. Later once the acute phase of heart failure is resolved would recommend getting IV Lexiscan Cardiolite stress test. This can be done as an outpatient. 6. Hypertension: Seems to be well controlled. 7. Diabetes mellitus: Continue current antidiabetic medication and Accu-Cheks. 8. History of asthma and chronic obstructive pulmonary disease. Stable no evidence of acute exacerbation 9. Past history of pulmonary embolism and DVT. No recurrence of DVT. 10. Pulmonary hypertension. Hydralazine should help 11. Aortic stenosis by exam and echo. Does not appear to be severe or critical. 12. 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 Medications added. Medical decision making is of high complexity. 40 minutes spent with patient more than 50% of the time spent in direct patient care. Will follow
[2020-04-23] MEDS: HEPARIN SOD (PORCINE) 5,000 UNIT/ML 1 ML VIAL SUBCUT SCH ×3 (05:28→21:27)
[2020-04-23] MEDS: HYDRALAZINE HCL 50 MG TABLET PO SCH ×3 (05:28→21:28)
[2020-04-23] MEDS: OXYCODONE-ACETAMINOPHEN 5-325 MG TABLET PO SCH ×3 (05:28→21:28)
[2020-04-23] MEDS: OXYCODONE HCL IR 5 MG TABLET PO SCH ×3 (05:29→21:27)
[2020-04-23] MEDS: METOPROLOL SUCCINATE 50 MG TAB.SR.24H PO SCH ×2 (10:32→21:27)
[2020-04-23] MEDS: ISOSORBIDE MONONITRATE 30 MG TAB.ER.24H PO SCH (10:33)
[2020-04-23] MEDS: ASPIRIN 81 MG TABLET, ENT COATED PO SCH (10:33)
[2020-04-23] MEDS: CALCIUM ACETATE 667 MG CAPSULE PO SCH ×3 (10:33→17:41)
[2020-04-23] MEDS: CALCITRIOL 0.25 MCG CAPSULE PO SCH (10:33)
[2020-04-23] MEDS: CETIRIZINE 10 MG TABLET PO SCH (10:33)
[2020-04-23] MEDS: SODIUM BICARBONATE 650 MG TABLET PO SCH (10:33)
[2020-04-23] MEDS: INSULIN LISPRO 100 UNIT/ML 3 ML VIAL SUBCUT SCH ×3 (10:34→17:34)
[2020-04-23] MEDS: CALCIUM CARBONATE 600 MG TABLET PO SCH (10:34)
[2020-04-23] MEDS: INSULIN GLARGINE,HUM.REC.ANLOG 1,000 UNIT/10 ML VIAL (PYX) SUBCUT SCH (10:35)
[2020-04-23 12:09] LABS: ANION GAP 11 (5-19); BLOOD UREA NITROGEN 94 mg/dL (7-20); CALCIUM 8.3 mg/dL (8.4-10.2); CARBON DIOXIDE 27 mmol/L (22-30); CHLORIDE 98 mmol/L (98-107); POTASSIUM 4.9 mmol/L (3.6-5.0)
[2020-04-23 12:17] LABS: GLUCOSE 61 mg/dL (75-110)
--- NOTE | 2020-04-23 13:00 | PDOC PROGRESS REPORT ---
Subjective Progress Note for:: 04/23/20 Subjective:: Patient was seen sitting up on the edge of his bed eating lunch. He claims that the sob has improved with sitting around. He is still SOB with laying down. He also still has the 2 to 3+ pitting edema. At this time he is still resistant to dialysis. Urine output has decreased and creatinine has started to go up. Reason For Visit: CKD STAGE 5, VOLUME OVERLOAD. ? CHF, UREAMIA Physical Exam Vital Signs: Temp Pulse Resp BP Pulse Ox 97.3 F 86 14 140/65 H 98 04/23/20 10:00 04/23/20 08:05 04/23/20 08:05 04/23/20 08:05 04/23/20 08:05 Intake & Output 04/22/20 04/23/20 04/24/20 06:59 06:59 06:59 Intake Total 973 1094 Output Total 2200 1450 Balance -1227 -356 Weight 110.5 kg 109.4 kg General appearance: PRESENT: no acute distress, well-developed, well-nourished Mouth exam: PRESENT: moist, neck supple Neck exam: ABSENT: JVD, tracheal deviation Respiratory exam: PRESENT: crackles, rales. ABSENT: accessory muscle use, rhonchi, wheezes Cardiovascular exam: PRESENT: +S1, +S2 GI/Abdominal exam: PRESENT: soft. ABSENT: diminished bowel sounds, distended, guarding, tenderness Extremities exam: PRESENT: +2 edema. ABSENT: pedal edema Musculoskeletal exam: PRESENT: normal inspection. ABSENT: tenderness Neurological exam: PRESENT: alert, awake, oriented to person, oriented to place, oriented to time, oriented to situation Skin exam: PRESENT: intact, warm. ABSENT: cyanosis Results Laboratory Results: 04/19/20 06:08 04/23/20 11:02 04/23/20 11:02 Sodium 136.1 L Potassium 4.9 Chloride 98 Carbon Dioxide 27 Anion Gap 11 BUN 94 H Creatinine 10.50 H Est GFR ( Amer) 6 L Glucose 61 L Calcium 8.3 L 04/16/20 04/16/20 04/16/20 20:40 20:40 20:40 Creatine Kinase 2096 H CK-MB (CK-2) 10.70 H Troponin I 0.069 NT-Pro-B Natriuret Pep 64308 H 0904/17/20 04/17/20 05:00 05:00 10:27 Creatine Kinase 1556 H 1357 H CK-MB (CK-2) 7.71 H Troponin I 0.063 NT-Pro-B Natriuret Pep 04/17/20 10:27 Creatine Kinase CK-MB (CK-2) 7.45 H Troponin I 0.073 NT-Pro-B Natriuret Pep Impressions: Chest X-Ray 04/16/20 19:57 IMPRESSION: Mild pulmonary edema pattern, without pleural effusions or focal consolidation. Renal Ultrasound 04/17/20 00:00 IMPRESSION: No hydronephrosis. Trace ascites. Assessment & Plan - Diagnosis (1) Acute kidney injury superimposed on chronic kidney disease Plan: Looks to have reached a new baseline. Urine production has started to go down and his creatinine has started to go up. He unfortunately is not making as much progress with a heavy dose of IV furosemide as I would hope, now the creatinine is starting to elevate up. At this time I do think he would benefit from dialysis. He is not willing to receive dialysis. I once again explained to him the risks of not starting dialysis, including falling back in the hospital worsening CHF, requiring intubation or possibly leading to . I also explain the procedure of having to get a CVC and the risk with having a CVC. Will look to switch him to bumex and metolazone to see how much urine he would produce on the pills that he is likely to be discharged with. Ultimately I would like to get him on dialysis. Will try again later this afternoon to convince him to start dialysis. IF he agrees than I will have a CVC placed on him in the AM and start dialysis on Tuesday. Went back around 1630 to speak with patient about the importance of starting dialysis. He was informed of the dangers of not starting, including . Also the likelihood that he will be right back in the hospital with CHF due to decreasing kidney function. He still is in denial about needing to do dialysis at this time. I advised him to think some more about it tonight and we will discuss it tomorrow. (2) Hypocalcemia Plan: continue on calcium supplements (3) CHF exacerbation Qualifiers: Heart failure type: unspecified Qualified Code(s): I50.9 - Heart failure, unspecified Plan: switching to PO medications, ultimately I would like to start him on dialysis. (4) Anemia in CKD (chronic kidney disease) Is this a current diagnosis for this admission?: Yes Plan: improving with retacrit and recent IV injectofer (5) Rhabdomyolysis Plan: resolved (6) Chronic kidney disease, stage 5 Is this a current diagnosis for this admission?: Yes Plan: At a new baseline, he needs dialysis at this time (7) Hyperkalemia Is this a current diagnosis for this admission?: Yes Plan: resolved (8) Hyperphosphatemia Plan: Likely related to CKD. On calcium acetate with meals. (9) Diabetes mellitus with nephropathy Plan: look to be controlled (10) HTN (hypertension) Qualifiers: Hypertension type: essential hypertension Qualified Code(s): I10 - Essential (primary) hypertension Plan: improving after restarting his medications and removing fluid (11) Renal osteodystrophy Plan: restarting calcitriol (13) Metabolic acidosis Is this a current diagnosis for this admission?: Yes Plan: improving, will decrease sodium bicarb to 650mg qd - Notes Notes: Case discussed with Dr. Stahl.
[2020-04-23] MEDS ORDERED: BUMETANIDE 1 MG TABLET PO ONE (13:15)
--- NOTE | 2020-04-23 15:12 | Progress Note ---
Provider Note Provider Note: CARDIOLOGY PROGRESS NOTE by Dr. Jeanette Gupta on 04/23/2020. SUBJECTIVE: The patient is on a BiPAP. He states he feels that his shortness of breath is much improved. He still has orthopnea. He has no chest pain or discomfort. There is no arrhythmias seen on monitor. He still has pedal edema bilaterally. His urine output is less, and his renal functions are worsening. The patient now states that he has discussed with family prior to Accepting Dialysis As a Form of Treatment. There is no palpitations or syncope. PHYSICAL EXAMINATION: The patient's mild to moderately obese. At present in no acute distress. Selected Entries 04/23/20 04/23/20 11:08 16:00 Temperature 97.7 F Temperature Oral Source Pulse Rate 80 Respiratory 14 Rate Blood Pressure 147/73 H Blood Pressure 97 Mean BP Position Supine O2 Sat by Pulse 100 100 Oximetry Oxygen Delivery CPAP Method ( includes room air) Oxygen Delivery Room Air Method HEAD: Is atraumatic normocephalic. EYES: Pupils are equal round regular reactive to light and accommodation. Extraocular movements are normal. There is no conjunctival pallor. There is no scleral icterus. EARS: External auditory canals are clear. There is no inflammation of the tympanic membranes. Mid tympanic memories are intact. NOSE: There is no inflammation of the nasal mucous membrane. There is no deviated nasal septum. MOUTH: Mucous membranes of the mouth are moist. Tongue is moist. There is no ulcers. There is no bleeding from the gums. THROAT: There is no redness of the oropharynx. There is no exudates. Skin: There is no skin rashes. There is no skin lesions. There is no petechia or ecchymosis. NECK: Is supple. There is no JVD. Carotids are equal there is no bruit there is no lymphadenopathy. There is no goiter. There is no accessory muscles respiration use. LUNGS: Trachea central. There is diminished air entry and prolonged expiration. There is no rhonchi rales or wheezing. HEART: S1-S2 is heard. There is no S3 gallop. There is no S4 gallop. There is murmur of mild aortic stenosis present. There is preserved A 2 sound. There is no diastolic murmur of aortic regurgitation. There is no significant mitral regurgitation murmur. There is no rub. ABDOMEN: Soft. Obese. Nontender there is no paraspinal megaly. EXTREMITIES: Femorals are deep. There is no femoral bruits. Leg pulses are diminished. There is mild pedal edema. There is no DVT or cellulitis. There is no calf tenderness. 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 PSYCHIATRIC: The patient judgment insight are intact and her affect is normal. The patient's 24-hour total intake is 1094he patient's output is 1450 ml. Labs- All tests 24 hr 04/23/20 04/23/20 04/23/20 08:06 08:23 08:38 Sodium Potassium Chloride Carbon Dioxide Anion Gap BUN Creatinine Est GFR ( Amer) Est GFR (MDRD) Non-Af Glucose POC Glucose 57 L 82 121 H Calcium 04/23/20 04/23/20 04/23/20 11:02 12:12 13:07 Sodium 136.1 L Potassium 4.9 Chloride 98 Carbon Dioxide 27 Anion Gap 11 BUN 94 H Creatinine 10.50 H Est GFR ( Amer) 6 L Est GFR (MDRD) Non-Af 5 L Glucose 61 L POC Glucose 70 131 H Calcium 8.3 L 04/23/20 04/23/20 16:21 21:48 Sodium Potassium Chloride Carbon Dioxide Anion Gap BUN Creatinine Est GFR ( Amer) Est GFR (MDRD) Non-Af Glucose POC Glucose 80 144 H Calcium Chest X-Ray 04/16/20 19:57 IMPRESSION: Mild pulmonary edema pattern, without pleural effusions or focal consolidation. Renal Ultrasound 04/17/20 00:00 IMPRESSION: No hydronephrosis. Trace ascites. IMPRESSION/RECOMMENDATION: 1. Acute on chronic systolic heart failure with moderate to severely reduced LV ejection fraction by echocardiogram obtained this admission. Also it is secondary to volume overload due to renal failure. 2. Dilated and ischemic cardiomyopathy with moderate to severely reduced LV ejection fraction. Would increase the patient's afterload reduction and start continue the patient on beta-petra. The patient will be recommended to have a repeat echocardiogram in 3 months and full anti-cardiomyopathy treatment. If the repeat echocardiogram shows LV ejection fraction of 35% or below then patient would be recommended to have an electrophysiology consult for AICD placement. Will increase Toprol XL to 50mg p.o. every 12 hours and increase as tolerated. We will also continue topical nitrates and continue hydralazine patient on hydralazine in view of the patient's renal function. 3. Chronic kidney disease stage V: Nephrology on the case. We will leave the continuation of the Lasix drip with a office services clerk. 4. Hyperkalemia: Resolved potassium of 5.0 5. Coronary artery disease. History of coronary artery stent in the past. Later once the acute phase of heart failure is resolved would recommend getting IV Lexiscan Cardiolite stress test. This can be done as an outpatient. 6. Hypertension: Seems to be well controlled. 7. Diabetes mellitus: Continue current antidiabetic medication and Accu-Cheks. 8. History of asthma and chronic obstructive pulmonary disease. Stable no evidence of acute exacerbation 9. Past history of pulmonary embolism and DVT. No recurrence of DVT. 10. Pulmonary hypertension. Hydralazine should help 11. Aortic stenosis by exam and echo. Does not appear to be severe or critic al. 12. 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 Medications added. Medical decision making is of high complexity. 40 minutes spent with patient more than 50% of the time spent in direct patient care. Will follow
--- NOTE | 2020-04-23 16:33 | PDOC PROGRESS REPORT ---
Subjective Progress Note for:: 04/23/20 Subjective:: Patient seen by the bedside, he feels better but the serum creatinine is getting worse, the GFR is 7, I reviewed nephrology notes, patient was offered dialysis but he is hesitant in pursuing dialysis at this time. Reason For Visit: CKD STAGE 5, VOLUME OVERLOAD. ? CHF, UREAMIA Physical Exam Vital Signs: Temp Pulse Resp BP Pulse Ox 98 F 80 17 140/80 H 100 04/23/20 16:00 04/23/20 16:00 04/23/20 16:00 04/23/20 16:00 04/23/20 16:00 Intake & Output 04/22/20 04/23/20 04/24/20 06:59 06:59 06:59 Intake Total 973 1094 880 Output Total 2200 1450 900 Balance -1227 -356 -20 Weight 110.5 kg 109.4 kg General appearance: PRESENT: no acute distress Eye exam: PRESENT: PERRLA Respiratory exam: PRESENT: clear to auscultation savannah Cardiovascular exam: PRESENT: +S1, +S2 GI/Abdominal exam: PRESENT: soft Neurological exam: PRESENT: alert Results Laboratory Results: 04/19/20 06:08 04/23/20 11:02 04/23/20 11:02 Sodium 136.1 L Potassium 4.9 Chloride 98 Carbon Dioxide 27 Anion Gap 11 BUN 94 H Creatinine 10.50 H Est GFR ( Amer) 6 L Glucose 61 L Calcium 8.3 L 04/16/20 04/16/20 04/16/20 20:40 20:40 20:40 Creatine Kinase 2096 H CK-MB (CK-2) 10.70 H Troponin I 0.069 NT-Pro-B Natriuret Pep 10592 H 04/17/20 04/17/20 04/17/20 05:00 05:00 10:27 Creatine Kinase 1556 H 1357 H CK-MB (CK-2) 7.71 H Troponin I 0.063 NT-Pro-B Natriuret Pep 04/17/20 10:27 Creatine Kinase CK-MB (CK-2) 7.45 H Troponin I 0.073 NT-Pro-B Natriuret Pep Impressions: Chest X-Ray 04/16/20 19:57 IMPRESSION: Mild pulmonary edema pattern, without pleural effusions or focal consolidation. Renal Ultrasound 04/17/20 00:00 IMPRESSION: No hydronephrosis. Trace ascites. Assessment & Plan - Diagnosis (1) Acute pulmonary edema Is this a current diagnosis for this admission?: Yes Plan: Improve the intravenous furosemide was transitioned to p.o. diuretic today by ne phrology, since patient is not ready to start hemodialysis, he be discharge home tomorrow to follow outpatient with nephrology (2) Acute systolic heart failure Is this a current diagnosis for this admission?: Yes (3) Chronic kidney disease, stage 5 Is this a current diagnosis for this admission?: Yes (4) Personal history of malignant neoplasm of gallbladder Is this a current diagnosis for this admission?: Yes (5) Type 2 diabetes mellitus with diabetic chronic kidney disease Qualifiers: Diabetes mellitus usp insulin use: with extermination supervisor use Chronic kidney disease stage: stage 5, not on chronic dialysis Qualified Code(s): E11.22 - Type 2 diabetes mellitus with diabetic chronic kidney disease; N18.5 - Chronic kidney disease, stage 5; Z79.4 - skilled nursing (current) use of insulin Is this a current diagnosis for this admission?: Yes (6) Hyperkalemia Is this a current diagnosis for this admission?: Yes - Time Time Spent with patient: 25-34 minutes Level of Care: IMCU Medications reviewed and adjusted accordingly: Yes Anticipated discharge: Home Anticipated DC Timeframe: within 24 hours
[2020-04-23] MEDS: PHARMACY COMMUNICATION ORDER MC SCH (17:35)
[2020-04-23] MEDS ORDERED: METOLAZONE 5 MG TABLET PO SCH (18:00)
[2020-04-23] MEDS: ATORVASTATIN CALCIUM 40 MG TABLET PO SCH (21:28)
[2020-04-23] MEDS: BUMETANIDE 1 MG TABLET PO SCH (21:28)
[2020-04-24] MEDS: INSULIN LISPRO 100 UNIT/ML 3 ML VIAL SUBCUT SCH ×5 (00:17→21:28)
[2020-04-24] MEDS: INSULIN GLARGINE,HUM.REC.ANLOG 1,000 UNIT/10 ML VIAL (PYX) SUBCUT SCH ×3 (00:24→21:27)
[2020-04-24] MEDS: OXYCODONE-ACETAMINOPHEN 5-325 MG TABLET PO SCH (05:39)
[2020-04-24] MEDS: HEPARIN SOD (PORCINE) 5,000 UNIT/ML 1 ML VIAL SUBCUT SCH ×3 (05:39→21:20)
[2020-04-24] MEDS: HYDRALAZINE HCL 50 MG TABLET PO SCH ×3 (05:39→21:19)
[2020-04-24] MEDS: OXYCODONE HCL IR 5 MG TABLET PO SCH (05:40)
[2020-04-24 06:48] LABS: HEMATOCRIT 29.1 % (37.9-51.0); HEMOGLOBIN 9.6 g/dL (13.5-17.0); MEAN CORPUSCULAR HEMOGLOBIN 28.2 pg (27.0-33.4); MEAN CORPUSCULAR HGB CONC 32.8 g/dL (32.0-36.0); MEAN CORPUSCULAR VOLUME 86 fl (80-97); PLATELET COUNT 261 10^3/uL (150-450); RED BLOOD COUNT 3.39 10^6/uL (4.35-5.55); RED CELL DISTRIBUTION WIDTH 13.5 % (11.5-14.0); WHITE BLOOD COUNT 5.9 10^3/uL (4.0-10.5)
[2020-04-24 07:14] LABS: ANION GAP 13 (5-19); BLOOD UREA NITROGEN 99 mg/dL (7-20); CALCIUM 8.5 mg/dL (8.4-10.2); CARBON DIOXIDE 27 mmol/L (22-30); CHLORIDE 96 mmol/L (98-107); GLUCOSE 74 mg/dL (75-110); POTASSIUM 4.9 mmol/L (3.6-5.0)
[2020-04-24] MEDS: CALCIUM ACETATE 667 MG CAPSULE PO SCH ×3 (09:20→17:40)
[2020-04-24] MEDS: CALCIUM CARBONATE 600 MG TABLET PO SCH (09:56)
[2020-04-24] MEDS: CETIRIZINE 10 MG TABLET PO SCH (09:57)
[2020-04-24] MEDS: BUMETANIDE 1 MG TABLET PO SCH ×2 (09:57→17:40)
[2020-04-24] MEDS: ISOSORBIDE MONONITRATE 30 MG TAB.ER.24H PO SCH (09:57)
[2020-04-24] MEDS: ASPIRIN 81 MG TABLET, ENT COATED PO SCH (09:57)
[2020-04-24] MEDS: CALCITRIOL 0.25 MCG CAPSULE PO SCH (09:58)
[2020-04-24] MEDS: METOPROLOL SUCCINATE 50 MG TAB.SR.24H PO SCH ×2 (09:58→21:20)
[2020-04-24] MEDS ORDERED: SODIUM BICARBONATE 650 MG TABLET PO SCH (10:00)
[2020-04-24] MEDS: METOLAZONE 5 MG TABLET PO SCH ×2 (10:07→17:40)
[2020-04-24] MEDS ORDERED: ONDANSETRON 4 MG TAB.RAPDIS PO PRN (12:23)
[2020-04-24] MEDS ORDERED: ONDANSETRON HCL INJ/PF 4 MG/2 ML SDV IV PRN (14:15)
--- NOTE | 2020-04-24 15:10 | PDOC CONSULTATION ---
Consultation Consult Date: 04/24/20 Provider Consulted: MITCH DOMINIQUE Consult reason:: Evaluate for PermCath. History of Present Illness Admission Date/PCP: 04/16/20 22:12 YUSEF SOMERS MD History of Present Illness: CORKY JURADO JR is a 69 year old male with end-stage renal disease who will require hemodialysis. Request being made for PermCath placement. Patient is currently in the hospital for management of his renal failure. Patient has had no prior hemodialysis access. Past Medical History Cardiac Medical History: Reports: Congestive Heart Failure, Coronary Artery Disease, Hyperlipidema, Hypertension, Pulmonary Embolism Denies: Myocardial Infarction Pulmonary Medical History: Reports: Asthma, Chronic Obstructive Pulmonary Disease (COPD), Pneumonia Denies: Bronchitis, Tuberculosis Neurological Medical History: Denies: Seizures Endocrine Medical History: Reports: Diabetes Mellitus Type 2 Renal/ Medical History: Reports: Chronic Kidney Disease, Other - Chronic kidney disease stage V GI Medical History: Denies: Hepatitis, Hiatal Hernia Musculoskeltal Medical History: Reports: Arthritis - GENERALIZED Psychiatric Medical History: Reports: Depression Hematology: Reports: Anemia Denies: Sickle Cell Disease Past Surgical History Past Surgical History: Reports: Cardiac Catheterization - stents, Cholecystectomy Denies: Pacemaker Social History Smoking Status: Former Smoker Electronic Cigarette use?: No Frequency of Alcohol Use: None Hx Recreational Drug Use: No Drugs: None Hx Prescription Drug Abuse: No Family History Family History: DM Parental Family History Reviewed: No Children Family History Reviewed: No Sibling(s) Family History Reviewed.: No Medication/Allergy Home Medications: Atorvastatin Calcium [Lipitor 40 mg Tablet] 40 mg PO DAILY 08/27/19 Clopidogrel Bisulfate [Plavix 75 mg Tablet] 75 mg PO DAILY 08/27/19 Cyclobenzaprine HCl [Flexeril 10 mg Tablet] 10 mg PO Q8HP PRN 08/27/19 Furosemide [Lasix 40 mg Tablet] 40 mg PO QAM 08/27/19 Aspirin [Ecotrin 81 mg EC Tablet] 81 mg PO DAILY 04/17/20 Calcitriol 0.5 mcg PO DAILY 04/17/20 Cetirizine HCl [Zyrtec 10 mg Tablet] 10 mg PO DAILY 04/17/20 Exenatide Microspheres [Bydureon Pen] 2 mg SQ Q7D 04/17/20 Insulin Detemir [Levemir] 80 unit SQ BID 04/17/20 Oxycodone HCl/Acetaminophen [Percocet 10-325 Mg Tablet] 1 each PO TID 04/17/20 Allergies/Adverse Reactions: Iodine and Iodide Containing Produc Allergy (Verified 04/16/20 19:44) Penicillins Allergy (Verified 04/16/20 19:44) Shellfish * [Shellfish] Allergy (Verified 04/16/20 19:44) Difficulty breathing Physical Exam Vital Signs: Temp Pulse Resp BP Pulse Ox 97.5 F 79 15 145/82 H 100 04/24/20 12:20 04/24/20 12:20 04/24/20 12:20 04/24/20 12:20 04/24/20 12:20 Intake & Output 04/23/20 04/24/20 04/25/20 06:59 06:59 06:59 Intake Total 1094 1643 360 Output Total 1450 1475 400 Balance -356 168 -40 Weight 109.4 kg 106.1 kg General appearance: PRESENT: no acute distress, cooperative Respiratory exam: PRESENT: clear to auscultation savannah Cardiovascular exam: PRESENT: RRR GI/Abdominal exam: PRESENT: other - Soft, nondistended, nontender to palpation. Neurological exam: PRESENT: alert, awake Psychiatric exam: PRESENT: appropriate affect Skin exam: PRESENT: warm Results Laboratory Results: 04/24/20 05:53 04/24/20 05:53 04/24/20 04/24/20 05:53 05:53 WBC 5.9 RBC 3.39 L Hgb 9.6 L Hct 29.1 L MCV 86 MCH 28.2 MCHC 32.8 RDW 13.5 Plt Count 261 Sodium 135.6 L Potassium 4.9 Chloride 96 L Carbon Dioxide 27 Anion Gap 13 BUN 99 H Creatinine 10.55 H Est GFR ( Amer) 6 L Glucose 74 L Calcium 8.5 04/16/20 04/16/20 04/16/20 20:40 20:40 20:40 Creatine Kinase 2096 H CK-MB (CK-2) 10.70 H Troponin I 0.069 NT-Pro-B Natriuret Pep 98324 H 04/17/20 04/17/20 04/17/20 05:00 05:00 10:27 Creatine Kinase 1556 H 1357 H CK-MB (CK-2) 7.71 H Troponin I 0.063 NT-Pro-B Natriuret Pep 04/17/20 10:27 Creatine Kinase CK-MB (CK-2) 7.45 H Troponin I 0.073 NT-Pro-B Natriuret Pep Impressions: Chest X-Ray 04/16/20 19:57 IMPRESSION: Mild pulmonary edema pattern, without pleural effusions or focal consolidation. Renal Ultrasound 04/17/20 00:00 IMPRESSION: No hydronephrosis. Trace ascites. Assessment & Plan - Diagnosis (1) End stage renal disease Is this a current diagnosis for this admission?: Yes Plan: Need PermCath for hemodialysis. We will plan PermCath placement tomorrow in the operating room. I have discussed with the patient the risk and benefits of the procedure including risk of vascular injury, bleeding, infection, lung injury. Patient understands and agrees to proceed.
[2020-04-24] MEDS ORDERED: GLUCAGON,HUMAN RECOMB 1 MG INJ SUBCUT PRN (15:12)
[2020-04-24] MEDS ORDERED: DEXTROSE 40% GEL 15 GM TUBE PO PRN ×2 (15:12)
[2020-04-24] MEDS ORDERED: DEXTROSE 50%-WATER 25 GM/50 ML DISP.SYRIN IV PRN ×2 (15:12)
--- NOTE | 2020-04-24 15:32 | PDOC PROGRESS REPORT ---
Subjective Progress Note for:: 04/24/20 Subjective:: Patient was seen today sitting up at the side of his bed. At the time he was getting nausious and vomiting. He claims to have a decreased appetite. He continues to have SOB with exertion and laying down. It is better when sitting. Urine output continues to be low. His creatinine and BUN continue to elevate. After several conversations about dialysis. He finally was agreeable to receive dialysis. Reason For Visit: CKD STAGE 5, VOLUME OVERLOAD. ? CHF, UREAMIA Physical Exam Vital Signs: Temp Pulse Resp BP Pulse Ox 97.5 F 79 15 145/82 H 100 04/24/20 12:20 04/24/20 12:20 04/24/20 12:20 04/24/20 12:20 04/24/20 12:20 Intake & Output 04/23/20 04/24/20 04/25/20 06:59 06:59 06:59 Intake Total 1094 1643 360 Output Total 1450 1475 400 Balance -356 168 -40 Weight 109.4 kg 106.1 kg General appearance: PRESENT: mild distress - vomitting, well-developed, well- nourished Mouth exam: PRESENT: moist, neck supple Neck exam: ABSENT: JVD, tracheal deviation Respiratory exam: PRESENT: crackles, rales. ABSENT: accessory muscle use, clear to auscultation savannah, rhonchi, wheezes Cardiovascular exam: PRESENT: +S1, +S2 Extremities exam: PRESENT: pedal edema, +2 edema - /3+. ABSENT: tenderness Musculoskeletal exam: PRESENT: normal inspection. ABSENT: deformity, tenderness Neurological exam: PRESENT: alert, awake, oriented to person, oriented to place, oriented to time, oriented to situation Psychiatric exam: PRESENT: appropriate affect, normal mood Skin exam: PRESENT: dry, intact, warm Results Laboratory Results: 04/24/20 05:53 04/24/20 05:53 04/24/20 04/24/20 05:53 05:53 WBC 5.9 RBC 3.39 L Hgb 9.6 L Hct 29.1 L MCV 86 MCH 28.2 MCHC 32.8 RDW 13.5 Plt Count 261 Sodium 135.6 L Potassium 4.9 Chloride 96 L Carbon Dioxide 27 Anion Gap 13 BUN 99 H Creatinine 10.55 H Est GFR ( Amer) 6 L Glucose 74 L Calcium 8.5 04/16/20 04/16/20 04/16/20 20:40 20:40 20:40 Creatine Kinase 2096 H CK-MB (CK-2) 10.70 H Troponin I 0.069 NT-Pro-B Natriuret Pep 26092 H 04/17/20 04/17/20 04/17/20 05:00 05:00 10:27 Creatine Kinase 1556 H 1357 H CK-MB (CK-2) 7.71 H Troponin I 0.063 NT-Pro-B Natriuret Pep 04/17/20 10:27 Creatine Kinase CK-MB (CK-2) 7.45 H Troponin I 0.073 NT-Pro-B Natriuret Pep Impressions: Chest X-Ray 04/16/20 19:57 IMPRESSION: Mild pulmonary edema pattern, without pleural effusions or focal consolidation. Renal Ultrasound 04/17/20 00:00 IMPRESSION: No hydronephrosis. Trace ascites. Assessment & Plan - Diagnosis (1) End stage renal disease Is this a current diagnosis for this admission?: Yes Plan: At this time he is finally willing to agree to have dialysis. Will look to have a CVC placed tomorrow morning and start dialysis later in the morning. Will look to get labs for dialysis and a ppd. (2) Hypocalcemia Plan: improving at this time (3) CHF exacerbation Qualifiers: Heart failure type: unspecified Qualified Code(s): I50.9 - Heart failure, unspecified Plan: will look to remove fluid with dialysis (4) Anemia in CKD (chronic kidney disease) Is this a current diagnosis for this admission?: Yes Plan: switching to retacrit with dialysis and epogen as outpatient (5) Rhabdomyolysis Plan: resolved (6) Hyperkalemia Is this a current diagnosis for this admission?: Yes Plan: resolved (7) Hyperphosphatemia Plan: Likely related to CKD. On calcium acetate with meals. (8) Diabetes mellitus with nephropathy Plan: look to be controlled (9) HTN (hypertension) Qualifiers: Hypertension type: essential hypertension Qualified Code(s): I10 - Essential (primary) hypertension Plan: improving after restarting his medications and removing fluid (10) Renal osteodystrophy Plan: on calcitriol (12) Metabolic acidosis Is this a current diagnosis for this admission?: Yes Plan: improving, will stop sodium bicarb
[2020-04-24] MEDS ORDERED: TUBERCULIN,PURIF.PROT.DERIV. 5 TU/0.1 ML TEST 1 ML VIAL ID ONE ×2 (18:00→20:00)
--- NOTE | 2020-04-24 20:34 | PDOC PROGRESS REPORT ---
Subjective Progress Note for:: 04/24/20 Subjective:: Patient was symptomatic, shortness of breath, now agreeable to dialysis Reason For Visit: CKD STAGE 5, VOLUME OVERLOAD. ? CHF, UREAMIA Physical Exam Vital Signs: Temp Pulse Resp BP Pulse Ox 97.4 F 81 17 130/57 H 97 04/24/20 16:52 04/24/20 16:52 04/24/20 16:52 04/24/20 16:52 04/24/20 16:52 Intake & Output 04/23/20 04/24/20 04/25/20 06:59 06:59 06:59 Intake Total 1094 1643 972 Output Total 1450 1475 400 Balance -356 168 572 Weight 109.4 kg 106.1 kg General appearance: PRESENT: no acute distress Eye exam: PRESENT: PERRLA Respiratory exam: PRESENT: clear to auscultation savannah Cardiovascular exam: PRESENT: +S1, +S2 GI/Abdominal exam: PRESENT: soft Neurological exam: PRESENT: alert, CN II-XII grossly intact Results Laboratory Results: 04/24/20 05:53 04/24/20 05:53 04/24/20 04/24/20 05:53 05:53 WBC 5.9 RBC 3.39 L Hgb 9.6 L Hct 29.1 L MCV 86 MCH 28.2 MCHC 32.8 RDW 13.5 Plt Count 261 Sodium 135.6 L Potassium 4.9 Chloride 96 L Carbon Dioxide 27 Anion Gap 13 BUN 99 H Creatinine 10.55 H Est GFR ( Amer) 6 L Glucose 74 L Calcium 8.5 04/16/20 04/16/20 04/16/20 20:40 20:40 20:40 Creatine Kinase 2096 H CK-MB (CK-2) 10.70 H Troponin I 0.069 NT-Pro-B Natriuret Pep 67446 H 04/17/20 04/17/20 04/17/20 05:00 05:00 10:27 Creatine Kinase 1556 H 1357 H CK-MB (CK-2) 7.71 H Troponin I 0.063 NT-Pro-B Natriuret Pep 04/17/20 10:27 Creatine Kinase CK-MB (CK-2) 7.45 H Troponin I 0.073 NT-Pro-B Natriuret Pep Impressions: Chest X-Ray 04/16/20 19:57 IMPRESSION: Mild pulmonary edema pattern, without pleural effusions or focal consolidation. Renal Ultrasound 04/17/20 00:00 IMPRESSION: No hydronephrosis. Trace ascites. Assessment & Plan - Diagnosis (1) Acute pulmonary edema Is this a current diagnosis for this admission?: Yes (2) Acute systolic heart failure Is this a current diagnosis for this admission?: Yes (3) Chronic kidney disease, stage 5 Is this a current diagnosis for this admission?: Yes Plan: Patient presently end-stage renal disease, scheduled for hemodialysis on this admission (4) Personal history of malignant neoplasm of gallbladder Is this a current diagnosis for this admission?: Yes (5) Type 2 diabetes mellitus with diabetic chronic kidney disease Qualifiers: Diabetes mellitus termite treater helper insulin use: with assisted use Chronic kidney disease stage: stage 5, not on chronic dialysis Qualified Code(s): E11.22 - Type 2 diabetes mellitus with diabetic chronic kidney disease; N18.5 - Chronic kidney disease, stage 5; Z79.4 - terminal gauger (current) use of insulin Is this a current diagnosis for this admission?: Yes (6) Hyperkalemia Is this a current diagnosis for this admission?: Yes - Time Time Spent with patient: 25-34 minutes Level of Care: IMCU Medications reviewed and adjusted accordingly: Yes Anticipated discharge: Home Anticipated DC Timeframe: within 72 hours - Inpatient Certification Based on my medical assessment, after consideration of the patient's comorbidities, presenting symptoms, or acuity I expect that the services needed warrant INPATIENT care.: Yes I certify that my determination is in accordance with my understanding of Medicare's requirements for reasonable and necessary INPATIENT services [42 CFR 412.3e].: Yes
[2020-04-24] MEDS: ATORVASTATIN CALCIUM 40 MG TABLET PO SCH (21:20)
[2020-04-25] MEDS ORDERED: EPOETIN ALFA-EPBX 10,000 UNIT in SYRINGE, DISPOSABLE, 1 EACH IV PRN (05:00)
[2020-04-25 05:34] LABS: HEMATOCRIT 29.6 % (37.9-51.0); HEMOGLOBIN 9.8 g/dL (13.5-17.0); MEAN CORPUSCULAR HEMOGLOBIN 28.2 pg (27.0-33.4); MEAN CORPUSCULAR VOLUME 85 fl (80-97); PLATELET COUNT 255 10^3/uL (150-450); RED BLOOD COUNT 3.46 10^6/uL (4.35-5.55); RED CELL DISTRIBUTION WIDTH 13.6 % (11.5-14.0); WHITE BLOOD COUNT 5.9 10^3/uL (4.0-10.5)
[2020-04-25 05:51] LABS: ANION GAP 10 (5-19); BLOOD UREA NITROGEN 100 mg/dL (7-20); CALCIUM 8.5 mg/dL (8.4-10.2); CARBON DIOXIDE 28 mmol/L (22-30); CHLORIDE 98 mmol/L (98-107); POTASSIUM 4.7 mmol/L (3.6-5.0)
[2020-04-25] MEDS: HEPARIN SOD (PORCINE) 5,000 UNIT/ML 1 ML VIAL SUBCUT SCH ×3 (05:54→22:52)
[2020-04-25] MEDS: HYDRALAZINE HCL 50 MG TABLET PO SCH ×3 (05:54→22:51)
[2020-04-25 05:55] LABS: GLUCOSE 69 mg/dL (75-110)
[2020-04-25] MEDS ORDERED: FENTANYL CITRATE INJ/PF 100 MCG/2 ML AMPUL ONE ×3 (06:47→14:57)
[2020-04-25] MEDS ORDERED: KETAMINE HCL INJ 500 MG/10 ML VIAL ONE (06:47)
[2020-04-25] MEDS ORDERED: PROPOFOL INJ 200 MG/20 ML VIAL IV ONE (06:47)
[2020-04-25] MEDS ORDERED: MIDAZOLAM 2 MG/2 ML INJ ONE ×3 (06:47→14:47)
[2020-04-25] MEDS ORDERED: IPRATROPIUM/ALBUTEROL 0.5-2.5 MG/3 ML AMPUL NEB ONE (08:27)
--- NOTE | 2020-04-25 08:44 | PDOC PROGRESS REPORT ---
Subjective Progress Note for:: 04/25/20 Subjective:: 69-year-old male with end-stage renal disease. He is in need of semipermanent dialysis access (permacath). Today, the patient reports feeling well. He denies chest pain, shortness of breath, headache, nausea, vomiting, melena, hematochezia, hematemesis, abdominal pain, dizziness. Reason For Visit: CKD STAGE 5, VOLUME OVERLOAD. ? CHF, UREAMIA Physical Exam Vital Signs: Temp Pulse Resp BP Pulse Ox 98.0 F 88 17 116/50 L 93 04/25/20 03:51 04/25/20 03:51 04/25/20 03:51 04/25/20 03:51 04/25/20 03:51 Intake & Output 04/24/20 04/25/20 04/26/20 06:59 06:59 06:59 Intake Total 1643 972 Output Total 1475 1100 Balance 168 -128 Weight 106.1 kg 103.8 kg General appearance: PRESENT: no acute distress, cooperative Head exam: PRESENT: atraumatic, normocephalic Eye exam: PRESENT: EOMI, PERRLA. ABSENT: scleral icterus Mouth exam: PRESENT: moist, neck supple Neck exam: ABSENT: meningismus, tenderness, thyromegaly, tracheal deviation Respiratory exam: PRESENT: unlabored. ABSENT: tachypnea, wheezes Cardiovascular exam: ABSENT: tachycardia GI/Abdominal exam: PRESENT: soft. ABSENT: distended, tenderness Rectal exam: PRESENT: deferred Extremities exam: ABSENT: clubbing Musculoskeletal exam: ABSENT: deformity Neurological exam: PRESENT: alert, awake, oriented to person, oriented to place, oriented to time, oriented to situation, CN II-XII grossly intact. ABSENT: motor sensory deficit Psychiatric exam: ABSENT: agitated, anxious, depressed Focused psych exam: ABSENT: delusional Skin exam: ABSENT: cyanosis, erythema, jaundice Results Laboratory Results: 04/25/20 05:09 04/25/20 05:09 04/25/20 04/25/20 05:09 05:09 WBC 5.9 RBC 3.46 L Hgb 9.8 L Hct 29.6 L MCV 85 MCH 28.2 MCHC 33.0 RDW 13.6 Plt Count 255 Sodium 135.8 L Potassium 4.7 Chloride 98 Carbon Dioxide 28 Anion Gap 10 BUN 100 H Creatinine 10.87 H Est GFR ( Amer) 6 L Glucose 69 L Calcium 8.5 04/16/20 04/16/20 04/16/20 20:40 20:40 20:40 Creatine Kinase 2096 H CK-MB (CK-2) 10.70 H Troponin I 0.069 NT-Pro-B Natriuret Pep [id number] H 04/17/20 04/17/20 04/17/20 05:00 05:00 10:27 Creatine Kinase 1556 H 1357 H CK-MB (CK-2) 7.71 H Troponin I 0.063 NT-Pro-B Natriuret Pep 04/17/20 10:27 Creatine Kinase CK-MB (CK-2) 7.45 H Troponin I 0.073 NT-Pro-B Natriuret Pep Impressions: Chest X-Ray 04/16/20 19:57 IMPRESSION: Mild pulmonary edema pattern, without pleural effusions or focal consolidation. Renal Ultrasound 04/17/20 00:00 IMPRESSION: No hydronephrosis. Trace ascites. Assessment & Plan - Diagnosis (1) End stage renal disease Is this a current diagnosis for this admission?: Yes - Time Anticipated Discharge Disposition: unknown Anticipated Discharge Timeframe: unknown - Plan Summary Plan Summary: 69-year-old male with end-stage renal disease. The patient is in need of a permacath for dialysis access after discharge home. Plan for permacath placement today. Risk/benefits discussed, informed consent obtained, and all questions answered. Follow-up with Dr. Davis at [facility] as an outpatient for planning on more permanent dialysis access.
[2020-04-25] MEDS ORDERED: CLINDAMYCIN 900 MG/D5W RTU 900 MG/50 ML RTUPB IV ONE (08:52)
[2020-04-25] MEDS: LIDOCAINE 1% INJ-PF (10 MG/ML) 30 ML SDV ONE ×2 (09:01→14:34)
[2020-04-25] MEDS: BUPIVACAINE HCL 0.25 % INJ/PF (2.5 MG/1 ML) 30 ML VIAL ONE ×2 (09:01→14:34)
[2020-04-25] MEDS ORDERED: FENTANYL CITRATE INJ/PF 100 MCG/2 ML AMPUL IV PRN (09:11)
[2020-04-25] MEDS ORDERED: MEPERIDINE HCL/PF INJ 25 MG/1 ML DISP.SYRIN IV PRN (09:11)
[2020-04-25] MEDS ORDERED: PROMETHAZINE HCL INJ 25 MG/1 ML VIAL IV PRN ×2 (09:11)
[2020-04-25] MEDS ORDERED: DIPHENHYDRAMINE HCL 50 MG/ML VIAL IV PRN (09:11)
[2020-04-25] MEDS: INSULIN LISPRO 100 UNIT/ML 3 ML VIAL SUBCUT SCH ×3 (09:15→16:31)
[2020-04-25] MEDS: CALCIUM ACETATE 667 MG CAPSULE PO SCH ×3 (09:15→19:27)
--- NOTE | 2020-04-25 09:38 | Operative Report ---
Nonrecallable Operative Report DATE OF SURGERY: 04/25/20 PREOPERATIVE DIAGNOSIS: End-stage renal disease, requiring dialysis POSTOPERATIVE DIAGNOSIS: Same as above OPERATION: 1. Ultrasound-guided central venous puncture. 2. Left internal jugular vein permacath placement. SURGEON: ARMEN PIERRE ANESTHESIA: LMAC TISSUE REMOVED OR ALTERED: None COMPLICATIONS: None apparent ESTIMATED BLOOD LOSS: Minimal PROCEDURE: Drains/implants: Permacath in the left IJ. Procedure in detail: After informed consent was obtained, the patient was brought to the operating room and laid in the Trendelenburg position. The area of the neck and chest were prepped and draped in a normal sterile fashion. An ultrasound was used to identify the left internal jugular vein. The vein was compressible, with normal flow. Under direct ultrasonic guidance, the internal jugular vein was cannulated using the supplied access needle. Dark venous, nonpulsatile blood was returned in the syringe. The wire was inserted into the vein easily. The wire was confirmed to be within the lumen of the vein using ultrasonography and fluoroscopy. Picture documentation was obtained and placed on the chart. Next, the catheter was tunneled from a separate stab site, to the needle insertion site. Next, dilators were used to dilate the soft tissues around the wire. This was done under direct fluoroscopic guidance. Next, the dilator and breakaway sheath were inserted over the wire. Again this was done under direct fluoroscopic guidance. The dilator and wire were removed, leaving the breakaway sheath within the superior vena cava. The catheter was then inserted into the breakaway sheath. The sheath was cracked and pulled away, ashely ving the catheter within the vena cava. The catheter was confirmed to be in good place using fluoroscopy. The catheter was aspirated and flushed with heparinized saline. The catheter was then sutured to the skin. A Biopatch was placed. The needle insertion site was closed using 3-0 Vicryl suture in subcuticular fashion. Dressings were placed, and the procedure was concluded.
[2020-04-25] MEDS ORDERED: GLYCOPYRROLATE 1 MG/5 ML VIAL ONE (10:08)
[2020-04-25] MEDS ORDERED: PHENYLEPHRINE HCL INJ/PF 10 MG/1 ML SDV ONE (10:08)
[2020-04-25] MEDS: INSULIN GLARGINE,HUM.REC.ANLOG 1,000 UNIT/10 ML VIAL (PYX) SUBCUT SCH ×2 (10:48→22:53)
[2020-04-25] MEDS: ISOSORBIDE MONONITRATE 30 MG TAB.ER.24H PO SCH (11:12)
[2020-04-25] MEDS: CALCIUM CARBONATE 600 MG TABLET PO SCH (11:12)
[2020-04-25] MEDS: ASPIRIN 81 MG TABLET, ENT COATED PO SCH (11:12)
[2020-04-25] MEDS: METOPROLOL SUCCINATE 50 MG TAB.SR.24H PO SCH ×2 (11:12→22:52)
[2020-04-25] MEDS: CETIRIZINE 10 MG TABLET PO SCH (11:12)
[2020-04-25] MEDS: METOLAZONE 5 MG TABLET PO SCH ×2 (11:13→19:27)
[2020-04-25] MEDS: CALCITRIOL 0.25 MCG CAPSULE PO SCH (11:13)
[2020-04-25] MEDS: BUMETANIDE 1 MG TABLET PO SCH ×2 (11:15→19:27)
[2020-04-25] MEDS ORDERED: HEPARIN SOD (PORCINE) 1,000 UNIT/ML 10 ML VIAL IV PRN (12:32)
--- NOTE | 2020-04-25 12:37 | RADIOLOGY REPORT (SQ) ---
EXAM DESCRIPTION: FLUORO/CV PLACEMENT IMAGES COMPLETED DATE/TIME: 04/25/2020 10:00 am REASON FOR STUDY: PERMCATH PLCMT LEFT SIDE ASSISTED WITH FLUORO IN OR COMPARISON: None. FLUOROSCOPY TIME: 0.9 minutes 2 images saved to PACS. TECHNIQUE: Intra-operative images acquired during surgical procedure to evaluate progress. NUMBER OF IMAGES: 2 LIMITATIONS: None. FINDINGS: Left-sided central line tip overlies SVC. IMPRESSION: IMAGE(S) OBTAINED DURING PROCEDURE. COMMENT: Quality ID 145: Final reports for procedures using fluoroscopy that document radiation exp osure indices, or exposure time and number of fluorographic images (if radiation exposure indices are not available) Please consult full operative report of the attending physician for description of the procedure. TECHNICAL DOCUMENTATION: JOB ID: [id number] 2010 [employer]- All Rights Reserved Reading location - IP/workstation name: [email or web address]
[2020-04-25] MEDS ORDERED: BUPIVACAINE HCL 0.25 % INJ/PF (2.5 MG/1 ML) 30 ML VIAL ONE (14:03)
[2020-04-25] MEDS ORDERED: LIDOCAINE 1% INJ-PF (10 MG/ML) 30 ML SDV ONE (14:03)
[2020-04-25] MEDS ORDERED: CLINDAMYCIN 600 MG/D5W RTU 600 MG/50 ML RTUPB IV ONE (14:32)
--- NOTE | 2020-04-25 15:44 | RADIOLOGY REPORT (SQ) ---
EXAM DESCRIPTION: NO CHG FLUORO; FLUORO/CV PLACEMENT IMAGES COMPLETED DATE/TIME: 04/25/2020 3:26 pm REASON FOR STUDY: PERMCATH EXCHANGE ASSISTED WITH FLUORO IN OR COMPARISON: None. FLUOROSCOPY TIME: 3.6 minutes 3 images saved to PACS. TECHNIQUE: Intra-operative images acquired during surgical procedure to evaluate progress. NUMBER OF IMAGES: 3 LIMITATIONS: None. FINDINGS: Left central line catheter exchange. IMPRESSION: IMAGE(S) OBTAINED DURING PROCEDURE. COMMENT: Quality ID 145: Final reports for procedures using fluoroscopy that document radiation exp osure indices, or exposure time and number of fluorographic images (if radiation exposure indices are not available) Please consult full operative report of the attending physician for description of the procedure. TECHNICAL DOCUMENTATION: JOB ID: [id number] 2010 [employer]- All Rights Reserved Reading location - IP/workstation name: [email or web address]
--- NOTE | 2020-04-25 15:44 | RADIOLOGY REPORT (SQ) ---
EXAM DESCRIPTION: NO CHG FLUORO; FLUORO/CV PLACEMENT IMAGES COMPLETED DATE/TIME: 04/25/2020 3:26 pm REASON FOR STUDY: PERMCATH EXCHANGE ASSISTED WITH FLUORO IN OR COMPARISON: None. FLUOROSCOPY TIME: 3.6 minutes 3 images saved to PACS. TECHNIQUE: Intra-operative images acquired during surgical procedure to evaluate progress. NUMBER OF IMAGES: 3 LIMITATIONS: None. FINDINGS: Left central line catheter exchange. IMPRESSION: IMAGE(S) OBTAINED DURING PROCEDURE. COMMENT: Quality ID 145: Final reports for procedures using fluoroscopy that document radiation exp osure indices, or exposure time and number of fluorographic images (if radiation exposure indices are not available) Please consult full operative report of the attending physician for description of the procedure. TECHNICAL DOCUMENTATION: JOB ID: [id number] 2010 [employer]- All Rights Reserved Reading location - IP/workstation name: [email or web address]
--- NOTE | 2020-04-25 18:32 | Operative Report ---
Nonrecallable Operative Report DATE OF SURGERY: 04/25/20 PREOPERATIVE DIAGNOSIS: Dysfunctional Permacath, unable to draw adequate blood flow during dialysis POSTOPERATIVE DIAGNOSIS: Same as above, due to kinking at the clavicular head OPERATION: 1. Removal of previously placed permacath. 2. Placement of new left internal jugular vein permacath. SURGEON: ARMEN PIERRE ANESTHESIA: LMAC TISSUE REMOVED OR ALTERED: None COMPLICATIONS: Dysfunctional permacath, requiring replacement ESTIMATED BLOOD LOSS: Minimal PROCEDURE: Drains/implants: Permacath the left IJ. Procedure in detail: After informed consent was obtained, the patient was brought into the operating room and laid in the supine position. The previously placed subcutaneous sutures were removed from the neck, using a 15 blade scalpel. The previous permacath was easily identified. It was elevated up, and divided with curved Baca scissors. The distal end of the permacath was then removed from the patient. The lumen of the permacath was then used to reintroduce a guidewire (0.035 diameter) into the SVC. The distal end of the permacath was then removed, leaving the wire within the SVC. Once this was completed, the dilator and breakaway sheath were inserted over the wire. This was done under direct fluoroscopic guidance. Once the breakaway sheath was in the SVC, a new permacath was tunneled from an area on the left superior shoulder toward the IJ insertion site. The tip of the permacath was placed into the breakaway sheath, after the wire and dilator were removed. The catheter was advanced into the SVC. The sheath was cracked and pulled away, leaving the catheter within the superior vena cava. The permacath was sutured to the skin of the left shoulder. There was noted to be absolutely no kinking of the permacath. The skin overlying the IJ insertion point was closed using 3-0 Vicryl suture in simple, subcuticular interrupted fashion. Dressings were then placed, and the procedure was concluded. The permacath aspirated and flushed very easily. Heparinized Saline was used to block the catheter. The patient was then taken to the recovery room in stable condition. Condition: Stable.
--- NOTE | 2020-04-25 21:20 | PDOC PROGRESS REPORT ---
Subjective Progress Note for:: 04/25/20 Subjective:: Patient apparently had hemodialysis today but it was not complete because of malfunction of the PermCath Reason For Visit: CKD STAGE 5, VOLUME OVERLOAD. ? CHF, UREAMIA Physical Exam Vital Signs: Temp Pulse Resp BP Pulse Ox 97.3 F 81 14 143/61 H 97 04/25/20 19:52 04/25/20 19:52 04/25/20 19:52 04/25/20 19:52 04/25/20 19:52 Intake & Output 04/24/20 04/25/20 04/26/20 06:59 06:59 06:59 Intake Total 1643 972 200 Output Total 1475 1100 310 Balance 168 -128 -110 Weight 106.1 kg 103.8 kg General appearance: PRESENT: no acute distress Eye exam: PRESENT: PERRLA Respiratory exam: PRESENT: clear to auscultation [place] Cardiovascular exam: PRESENT: +S1, +S2 Results Laboratory Results: 04/25/20 05:09 04/25/20 05:09 04/25/20 04/25/20 05:09 05:09 WBC 5.9 RBC 3.46 L Hgb 9.8 L Hct 29.6 L MCV 85 MCH 28.2 MCHC 33.0 RDW 13.6 Plt Count 255 Sodium 135.8 L Potassium 4.7 Chloride 98 Carbon Dioxide 28 Anion Gap 10 BUN 100 H Creatinine 10.87 H Est GFR ( Amer) 6 L Glucose 69 L Calcium 8.5 04/16/20 04/16/20 04/16/20 20:40 20:40 20:40 Creatine Kinase 2096 H CK-MB (CK-2) 10.70 H Troponin I 0.069 NT-Pro-B Natriuret Pep 56396 H 04/17/20 04/17/20 04/17/20 05:00 05:00 10:27 Creatine Kinase 1556 H 1357 H CK-MB (CK-2) 7.71 H Troponin I 0.063 NT-Pro-B Natriuret Pep 04/17/20 10:27 Creatine Kinase CK-MB (CK-2) 7.45 H Troponin I 0.073 NT-Pro-B Natriuret Pep Impressions: Chest X-Ray 04/16/20 19:57 IMPRESSION: Mild pulmonary edema pattern, without pleural effusions or focal consolidation. Renal Ultrasound 04/17/20 00:00 IMPRESSION: No hydronephrosis. Trace ascites. Fluoroscopy 04/25/20 00:00 IMPRESSION: IMAGE(S) OBTAINED DURING PROCEDURE. Guidance Fluoroscopy 04/25/20 00:00 IMPRESSION: IMAGE(S) OBTAINED DURING PROCEDURE. Assessment & Plan - Diagnosis (1) Acute pulmonary edema Is this a current diagnosis for this admission?: Yes (2) Acute systolic heart failure Is this a current diagnosis for this admission?: Yes (3) Chronic kidney disease, stage 5 Is this a current diagnosis for this admission?: Yes Plan: Patient presently end-stage renal disease, had hemodialysis today (4) Personal history of malignant neoplasm of gallbladder Is this a current diagnosis for this admission?: Yes (5) Type 2 diabetes mellitus with diabetic chronic kidney disease Qualifiers: Diabetes mellitus termite control servicer insulin use: with termite control servicer use Chronic kidney disease stage: stage 5, not on chronic dialysis Qualified Code(s): E11.22 - Type 2 diabetes mellitus with diabetic chronic kidney disease; N18.5 - Chronic kidney disease, stage 5; Z79.4 - termite control servicer (current) use of insulin Is this a current diagnosis for this admission?: Yes (6) Hyperkalemia Is this a current diagnosis for this admission?: Yes - Time Time Spent with patient: 25-34 minutes Level of Care: IMCU Medications reviewed and adjusted accordingly: Yes
--- NOTE | 2020-04-25 22:41 | Progress Note ---
Provider Note Provider Note: CARDIOLOGY PROGRESS NOTE by Dr. Jeanette Del Cid on 04/25/2020. SUBJECTIVE: The patient has no anginal symptoms. He has orthopnea but no PND. His leg edema is still present and is mild. He states his shortness of breath is still there and has not improved a lot. The patient did have a permacath placed and is complaining of pain at the site of insertion. There is no arrhythmias seen on the monitor. PHYSICAL EXAMINATION: The patient is mildly obese in no acute distress. Selected Entries 04/25/20 19:52 Temperature 97.3 F Temperature Oral Source Pulse Rate 81 Respiratory 14 Rate Blood Pressure 143/61 H Blood Pressure 88 Mean BP Location Left Arm BP Position Supine O2 Sat by Pulse 97 Oximetry Oxygen Delivery Room Air Method HEAD: Is atraumatic normocephalic. EYES: Pupils are equal round regular reactive to light and accommodation. Extraocular movements are normal. There is no conjunctival pallor. There is no scleral icterus. EARS: External auditory canals are clear. There is no inflammation of the tympanic membranes. Mid tympanic memories are intact. NOSE: There is no inflammation of the nasal mucous membrane. There is no deviated nasal septum. MOUTH: Mucous membranes of the mouth are moist. Tongue is moist. There is no ulcers. There is no bleeding from the gums. THROAT: There is no redness of the oropharynx. There is no exudates. Skin: There is no skin rashes. There is no skin lesions. There is no petechia or ecchymosis. NECK: Is supple. There is no JVD. Carotids are equal there is no bruit there is no lymphadenopathy. There is no goiter. There is no accessory muscles respiration use. LUNGS: Trachea central. There is diminished air entry and prolonged expiration. There is no rhonchi rales or wheezing. He has a dialysis permacath in the left infraclavicular region. HEART: S1-S2 is heard. There is no S3 gallop. There is no S4 gallop. There is murmur of mild aortic stenosis present. There is preserved A 2 sound. There is no diastolic murmur of aortic regurgitation. There is no significant mitral regurgitation murmur. There is no rub. ABDOMEN: Soft. Obese. Nontender there is no paraspinal megaly. EXTREMITIES: Femorals are deep. There is no femoral bruits. Leg pulses are diminished. There is mild pedal edema. There is no DVT or cellulitis. There is no calf tenderness. AU PAIR: The patient is conscious awake alert oriented x3 with no focal deficits. PSYCHIATRIC: The patient judgment insight are intact and her affect is normal. The patient's 24-hour total intake is 972 mL he patient's output is 1100 ml. Labs- All tests 24 hr 04/25/20 04/25/20 04/25/20 05:09 05:09 06:03 WBC 5.9 RBC 3.46 L Hgb 9.8 L Hct 29.6 L MCV 85 MCH 28.2 MCHC 33.0 RDW 13.6 Plt Count 255 Sodium 135.8 L Potassium 4.7 Chloride 98 Carbon Dioxide 28 Anion Gap 10 BUN 100 H Creatinine 10.87 H Est GFR ( Amer) 6 L Est GFR (MDRD) Non-Af 5 L Glucose 69 L POC Glucose 64 L Calcium 8.5 04/25/20 04/25/20 04/25/20 06:36 07:23 10:41 WBC RBC Hgb Hct MCV MCH MCHC RDW Plt Count Sodium Potassium Chloride Carbon Dioxide Anion Gap BUN Creatinine Est GFR ( Amer) Est GFR (MDRD) Non-Af Glucose POC Glucose 138 H 109 105 Calcium 04/25/20 04/25/20 04/25/20 11:32 16:28 23:32 WBC RBC Hgb Hct MCV MCH MCHC RDW Plt Count Sodium Potassium Chloride Carbon Dioxide Anion Gap BUN Creatinine Est GFR ( Amer) Est GFR (MDRD) Non-Af Glucose POC Glucose 127 H 98 180 H Calcium Chest X-Ray 04/16/20 19:57 IMPRESSION: Mild pulmonary edema pattern, without pleural effusions or focal consolidation. Renal Ultrasound 04/17/20 00:00 IMPRESSION: No hydronephrosis. Trace ascites. Fluoroscopy 04/25/20 00:00 IMPRESSION: IMAGE(S) OBTAINED DURING PROCEDURE. Guidance Fluoroscopy 04/25/20 00:00 IMPRESSION: IMAGE(S) OBTAINED DURING PROCEDURE. Guidance Fluoroscopy 04/25/20 00:00 IMPRESSION: IMAGE(S) OBTAINED DURING PROCEDURE. IMPRESSION/RECOMMENDATION: 1. Acute on chronic systolic heart failure with moderate to severely reduced LV ejection fraction by echocardiogram obtained this admission. Also it is secondary to volume overload due to renal failure. 2. Dilated and ischemic cardiomyopathy with moderate to severely reduced LV ejection fraction. Would increase the patient's afterload reduction and start continue the patient on beta-petra. The patient will be recommended to have a repeat echocardiogram in 3 months and full anti-cardiomyopathy treatment. If the repeat echocardiogram shows LV ejection fraction of 35% or below then patient would be recommended to have an electrophysiology consult for AICD placement. Will increase Toprol XL to 50mg p.o. every 12 hours and increase as tolerated. We will also continue topical nitrates and continue hydralazine patient on hydralazine in view of the patient's renal function. 3. Chronic kidney disease stage V: Nephrology on the case. Patient will be getting dialysis. He has a permacath placed for dialysis. 4. Hyperkalemia: Resolved. 5. Coronary artery disease. History of coronary artery stent in the past. Later once the acute phase of heart failure is resolved would recommend getting IV Lexiscan Cardiolite stress test. This can be done as an outpatient. 6. Hypertension: Seems to be well controlled. 7. Diabetes mellitus: Continue current antidiabetic medication and Accu-Cheks. 8. History of asthma and chronic obstructive pulmonary disease. Stable no evidence of acute exacerbation 9. Past history of pulmonary embolism and DVT. No recurrence of DVT. 10. Pulmonary hypertension. Hydralazine should help 11. Aortic stenosis by exam and echo. Does not appear to be severe or critical. 12. 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 Medications added. Medical decision making is of moderate complexity. 40 minutes spent with patient more than 50% of the time spent in direct patient care. Will follow
[2020-04-25] MEDS: ATORVASTATIN CALCIUM 40 MG TABLET PO SCH (22:51)
[2020-04-26] MEDS: INSULIN LISPRO 100 UNIT/ML 3 ML VIAL SUBCUT SCH ×5 (00:43→21:34)
[2020-04-26] MEDS: HEPARIN SOD (PORCINE) 5,000 UNIT/ML 1 ML VIAL SUBCUT SCH ×3 (05:08→21:34)
[2020-04-26] MEDS: HYDRALAZINE HCL 50 MG TABLET PO SCH ×3 (05:08→21:34)
[2020-04-26 08:37] LABS: HEPATITS B SURFACE ANTIGEN Negative (Negative)
--- NOTE | 2020-04-26 10:05 | PDOC PROGRESS REPORT ---
Subjective Progress Note for:: 04/25/20 Subjective:: I am seeing the patient during initiation of for his first dialysis treatment after PermCath insertion this morning. Our dialysis nurse is having difficulty to make the catheter work. There was not a good blood flow especially on the arterial port and it seems to be collapsing. There is also a high venous pressure. We tried all kinds of maneuver including reversing the lines and asking patient to change head position but unfortunately the catheter did not w ork so well. We only run the patient for dialysis for 15 minutes and needed to stop due to malfunctioning catheter. I spoke to Dr. Downing about this and he is going to either reposition or reinsert the new catheter today. Patient states that he is a still nauseated but no vomiting. He is a still's drowsy post PermCath procedure. He admits feeling weak. He understood that the catheter needs to be fixed today. Reason For Visit: CKD STAGE 5, VOLUME OVERLOAD. ? CHF, UREAMIA Physical Exam Vital Signs: Temp Pulse Resp BP Pulse Ox 97.2 F 84 16 132/70 H 96 04/25/20 10:13 04/25/20 10:13 04/25/20 10:13 04/25/20 10:13 04/25/20 10:13 Intake & Output 04/24/20 04/25/20 04/26/20 06:59 06:59 06:59 Intake Total 1643 972 100 Output Total 1475 1100 Balance 168 -128 100 Weight 106.1 kg 103.8 kg Vitals during initiation of dialysis: Blood pressure 150/89, heart rate of 78, blood flow is only at 200 mL/min and the dialysate flow was 600 mL/min using the new PermCath. Exam: General appearance: PRESENT: no acute distress, cooperative, well-developed, well-nourished Head exam: PRESENT: atraumatic, normocephalic Eye exam: PRESENT: conjunctiva pink, PERRLA. ABSENT: scleral icterus Neck exam: ABSENT: JVD Respiratory exam: PRESENT: Diminished breath sounds. ABSENT: crackles, rales, rhonchi, unlabored, wheezes Cardiovascular exam: PRESENT: Regular rate rhythm -+S1, +S2. ABSENT: diastolic murmur, systolic murmur GI/Abdominal exam: PRESENT: normal bowel sounds, soft. ABSENT: guarding, mass, tenderness Extremities exam: Grade 1 bilateral lower extremity pitting edema Neurological exam: PRESENT: Slightly drowsy but awake, oriented to person, place and time. Skin exam: PRESENT: dry, warm, Cardiovascular exam: PRESENT: +S1, +S2 GI/Abdominal exam: PRESENT: soft. ABSENT: diminished bowel sounds, distended, guarding, tenderness Results Laboratory Results: 04/25/20 05:09 04/25/20 05:09 04/25/20 04/25/20 05:09 05:09 WBC 5.9 RBC 3.46 L Hgb 9.8 L Hct 29.6 L MCV 85 MCH 28.2 MCHC 33.0 RDW 13.6 Plt Count 255 Sodium 135.8 L Potassium 4.7 Chloride 98 Carbon Dioxide 28 Anion Gap 10 BUN 100 H Creatinine 10.87 H Est GFR ( Amer) 6 L Glucose 69 L Calcium 8.5 04/16/20 04/16/20 04/16/20 20:40 20:40 20:40 Creatine Kinase 2096 H CK-MB (CK-2) 10.70 H Troponin I 0.069 NT-Pro-B Natriuret Pep 51918 H 04/17/20 04/17/20 04/17/20 05:00 05:00 10:27 Creatine Kinase 1556 H 1357 H CK-MB (CK-2) 7.71 H Troponin I 0.063 NT-Pro-B Natriuret Pep 04/17/20 10:27 Creatine Kinase CK-MB (CK-2) 7.45 H Troponin I 0.073 NT-Pro-B Natriuret Pep Impressions: Chest X-Ray 04/16/20 19:57 IMPRESSION: Mild pulmonary edema pattern, without pleural effusions or focal consolidation. Renal Ultrasound 04/17/20 00:00 IMPRESSION: No hydronephrosis. Trace ascites. Assessment & Plan - Diagnosis (1) End stage renal disease Is this a current diagnosis for this admission?: Yes Plan: Due to diabetic nephropathy and cardiorenal syndrome associated with proteinuria. Patient is still making some urine. Patient had 15 minutes of hemodialysis treatment and needed to be stopped due to malfunctioning catheter. Dr. Downing will either reposition or replace the PermCath. We will plan to do his hemodialysis again on Tuesday. 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 I will give Retacrit and Venofer during dialysis treatment. (4) Acute on chronic systolic CHF (congestive heart failure) Is this a current diagnosis for this admission?: Yes Plan: Patient with dilated cardiomyopathy being followed by Dr. Gupta. Patient has clinical fluid overload. We will try to get ultrafiltration during hemodialysis. Continue current Bumex and metolazone. (5) Diabetes mellitus type 2 in obese Is this a current diagnosis for this admission?: Yes (6) HTN (hypertension) Qualifiers: Hypertension type: essential hypertension Qualified Code(s): I10 - Essential (primary) hypertension Is this a current diagnosis for this admission?: Yes Plan: Needs volume control which hopefully we can achieve during dialysis treatment. (7) Chronic kidney disease-mineral and bone disorder Is this a current diagnosis for this admission?: Yes Plan: PTH is elevated at 484.7, phosphorus elevated at 6.9 with calcium of 8.5. Currently on calcitriol, calcium acetate and calcium carbonate.
[2020-04-26] MEDS: CALCIUM ACETATE 667 MG CAPSULE PO SCH ×3 (11:10→17:26)
[2020-04-26] MEDS: ISOSORBIDE MONONITRATE 30 MG TAB.ER.24H PO SCH (11:18)
[2020-04-26] MEDS: CALCITRIOL 0.25 MCG CAPSULE PO SCH (11:18)
[2020-04-26] MEDS: METOPROLOL SUCCINATE 50 MG TAB.SR.24H PO SCH ×2 (11:18→21:34)
[2020-04-26] MEDS: CALCIUM CARBONATE 600 MG TABLET PO SCH (11:19)
[2020-04-26] MEDS: METOLAZONE 5 MG TABLET PO SCH ×2 (11:19→17:26)
[2020-04-26] MEDS: CETIRIZINE 10 MG TABLET PO SCH (11:19)
[2020-04-26] MEDS: ASPIRIN 81 MG TABLET, ENT COATED PO SCH (11:19)
[2020-04-26] MEDS: BUMETANIDE 1 MG TABLET PO SCH ×2 (11:19→17:26)
[2020-04-26] MEDS: INSULIN GLARGINE,HUM.REC.ANLOG 1,000 UNIT/10 ML VIAL SUBCUT SCH ×2 (11:20→23:28)
[2020-04-26 15:00] LABS: HEPATITIS B CORE AB TOT Negative (Negative)
--- NOTE | 2020-04-26 15:01 | PDOC PROGRESS REPORT ---
Subjective Progress Note for:: 04/26/20 Subjective:: Patient is alert, he had hemodialysis yesterday, he has no new complaint today Reason For Visit: CKD STAGE 5, VOLUME OVERLOAD. ? CHF, UREAMIA Physical Exam Vital Signs: Temp Pulse Resp BP Pulse Ox 97.9 F 80 18 130/62 H 95 04/26/20 11:14 04/26/20 11:14 04/26/20 11:14 04/26/20 11:14 04/26/20 11:14 Intake & Output 04/25/20 04/26/20 04/27/20 06:59 06:59 06:59 Intake Total 972 320 240 Output Total 1100 1035 175 Balance -128 -715 65 Weight 103.8 kg 106.4 kg General appearance: PRESENT: no acute distress Eye exam: PRESENT: PERRLA Respiratory exam: PRESENT: clear to auscultation [place] Cardiovascular exam: PRESENT: +S1, +S2 GI/Abdominal exam: PRESENT: soft Neurological exam: PRESENT: alert Results Laboratory Results: 04/25/20 05:09 04/25/20 05:09 04/16/20 04/16/20 04/16/20 20:40 20:40 20:40 Creatine Kinase 2096 H CK-MB (CK-2) 10.70 H Troponin I 0.069 NT-Pro-B Natriuret Pep 76367 H 04/17/20 04/17/20 04/17/20 05:00 05:00 10:27 Creatine Kinase 1556 H 1357 H CK-MB (CK-2) 7.71 H Troponin I 0.063 NT-Pro-B Natriuret Pep 04/17/20 10:27 Creatine Kinase CK-MB (CK-2) 7.45 H Troponin I 0.073 NT-Pro-B Natriuret Pep Impressions: Chest X-Ray 04/16/20 19:57 IMPRESSION: Mild pulmonary edema pattern, without pleural effusions or focal consolidation. Renal Ultrasound 04/17/20 00:00 IMPRESSION: No hydronephrosis. Trace ascites. Fluoroscopy 04/25/20 00:00 IMPRESSION: IMAGE(S) OBTAINED DURING PROCEDURE. Guidance Fluoroscopy 04/25/20 00:00 IMPRESSION: IMAGE(S) OBTAINED DURING PROCEDURE. 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 Chronic kidney disease stage: stage 5, not on chronic dialysis Qualified Code(s): E11.22 - Type 2 diabetes mellitus with diabetic chronic kidney disease; N18.5 - Chronic kidney disease, stage 5; 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 Is this a current diagnosis for this admission?: Yes (6) Hyperkalemia Is this a current diagnosis for this admission?: Yes - Time Time Spent with patient: 25-34 minutes Level of Care: IMCU Medications reviewed and adjusted accordingly: Yes Anticipated discharge: Home Anticipated DC Timeframe: within 72 hours - Inpatient Certification Based on my medical assessment, after consideration of the patient's comorbidities, presenting symptoms, or acuity I expect that the services needed warrant INPATIENT care.: Yes I certify that my determination is in accordance with my understanding of Medicare's requirements for reasonable and necessary INPATIENT services [42 CFR 412.3e].: Yes
[2020-04-26] MEDS: ATORVASTATIN CALCIUM 40 MG TABLET PO SCH (21:34)
--- NOTE | 2020-04-26 22:04 | Progress Note ---
Provider Note Provider Note: Cardiology PROGRESS by Dr. Sidney Noble on 04/26/2020. SUBJECTIVE: The patient denies any chest pain discomfort. His shortness of breath is improved. He is still awaiting dialysis which most probably will be done on Tuesday. His pain at the site of permacath insertion in the left anterior clavicle area is much improved. There is no arrhythmias seen on the monitor. The patient has no anginal symptoms. The patient does have orthopnea but no PND. He intermittently uses BiPAP. PHYSICAL EXAMINATION: The patient is mildly to moderately obese in no acute distress. Selected Entries 04/26/20 11:14 Temperature 97.9 F Temperature Oral Source Pulse Rate 80 Respiratory 18 Rate Blood Pressure 130/62 H Blood Pressure 84 Mean BP Location Right Arm BP Position Sitting O2 Sat by Pulse 95 Oximetry Oxygen Delivery Room Air Method HEAD: Is atraumatic normocephalic. EYES: Pupils are equal round regular reactive to light and accommodation. Extraocular movements are normal. There is no conjunctival pallor. There is no scleral icterus. EARS: casting operator y canals are clear. There is no inflammation of the tympanic membranes. Mid tympanic memories are intact. NOSE: There is no inflammation of the nasal mucous membrane. There is no deviated nasal septum. MOUTH: Mucous membranes of the mouth are moist. Tongue is moist. There is no ulcers. There is no bleeding from the gums. THROAT: There is no redness of the oropharynx. There is no exudates. Skin: There is no skin rashes. There is no skin lesions. There is no petechia or ecchymosis. NECK: Is supple. There is no JVD. Carotids are equal there is no bruit there is no lymphadenopathy. There is no goiter. There is no accessory muscles respiration use. LUNGS: Trachea central. There is diminished air entry and prolonged expiration. There is no rhonchi rales or wheezing. He has a dialysis permacath in the left infraclavicular region. HEART: S1-S2 is heard. There is no S3 gallop. There is no S4 gallop. There is murmur of mild aortic stenosis present. There is preserved A 2 sound. There is no diastolic murmur of aortic regurgitation. There is no significant mitral regurgitation murmur. There is no rub. ABDOMEN: Soft. Obese. Nontender there is no paraspinal megaly. EXTREMITIES: Femorals are deep. There is no femoral bruits. Leg pulses are diminished. There is mild pedal edema. There is no DVT or cellulitis. There is no calf tenderness. 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 PSYCHIATRIC: The patient judgment insight are intact and her affect is normal. Labs- All tests 24 hr 04/24/20 04/25/20 04/26/20 16:00 23:32 07:18 POC Glucose 180 H 113 H Hep Bs Antigen Negative Hep Bs Antibody, Quant <3.1 L Hep B Core Total Ab Negative 04/26/20 04/26/20 04/26/20 11:15 16:26 21:01 POC Glucose 129 H 203 H 224 H Hep Bs Antigen Hep Bs Antibody, Quant Hep B Core Total Ab Chest X-Ray 04/16/20 19:57 IMPRESSION: Mild pulmonary edema pattern, without pleural effusions or focal consolidation. Renal Ultrasound 04/17/20 00:00 IMPRESSION: No hydronephrosis. Trace ascites. Fluoroscopy 04/25/20 00:00 IMPRESSION: IMAGE(S) OBTAINED DURING PROCEDURE. Guidance Fluoroscopy 04/25/20 00:00 IMPRESSION: IMAGE(S) OBTAINED DURING PROCEDURE. Guidance Fluoroscopy 04/25/20 00:00 IMPRESSION: IMAGE(S) OBTAINED DURING PROCEDURE. IMPRESSION/RECOMMENDATION: 1. Acute on chronic systolic heart failure with moderate to severely reduced LV ejection fraction by echocardiogram obtained this admission. Also it is secondary to volume overload due to renal failure. 2. Dilated and ischemic cardiomyopathy with moderate to severely reduced LV ejection fraction. Would increase the patient's afterload reduction and start continue the patient on beta-petra. The patient will be recommended to have a repeat echocardiogram in 3 months and full anti-cardiomyopathy treatment. If the repeat echocardiogram shows LV ejection fraction of 35% or below then patient would be recommended to have an electrophysiology consult for AICD placement. Will increase Toprol XL to 50mg p.o. every 12 hours and increase as tolerated. We will also continue topical nitrates and continue hydralazine pa tient on hydralazine in view of the patient's renal function. 3. Chronic kidney disease stage V: Nephrology on the case. Patient will be getting dialysis. He has a permacath placed for dialysis. 4. Hyperkalemia: Resolved. 5. Coronary artery disease. History of coronary artery stent in the past. Later once the acute phase of heart failure is resolved would recommend getting IV Lexiscan Cardiolite stress test. This can be done as an outpatient. 6. Hypertension: Seems to be well controlled. 7. Diabetes mellitus: Continue current antidiabetic medication and Accu-Cheks. 8. History of asthma and chronic obstructive pulmonary disease. Stable no evidence of acute exacerbation 9. Past history of pulmonary embolism and DVT. No recurrence of DVT. 10. Pulmonary hypertension. Hydralazine should help 11. Aortic stenosis by exam and echo. Does not appear to be severe or critical. 12. 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 Medications added. Medical decision making is of moderate complexity. 40 minutes spent with patient more than 50% of the time spent in direct patient care. Will follow.
[2020-04-27] MEDS: HYDRALAZINE HCL 50 MG TABLET PO SCH ×3 (05:33→22:04)
[2020-04-27] MEDS: HEPARIN SOD (PORCINE) 5,000 UNIT/ML 1 ML VIAL SUBCUT SCH ×3 (05:33→22:05)
[2020-04-27] MEDS: INSULIN LISPRO 100 UNIT/ML 3 ML VIAL SUBCUT SCH ×3 (09:25→17:37)
[2020-04-27] MEDS: CALCIUM ACETATE 667 MG CAPSULE PO SCH ×3 (11:13→17:37)
[2020-04-27] MEDS: ISOSORBIDE MONONITRATE 30 MG TAB.ER.24H PO SCH (11:13)
[2020-04-27] MEDS: METOLAZONE 5 MG TABLET PO SCH ×2 (11:13→17:36)
[2020-04-27] MEDS: ASPIRIN 81 MG TABLET, ENT COATED PO SCH (11:14)
[2020-04-27] MEDS: METOPROLOL SUCCINATE 50 MG TAB.SR.24H PO SCH ×2 (11:14→22:04)
[2020-04-27] MEDS: CETIRIZINE 10 MG TABLET PO SCH (11:14)
[2020-04-27] MEDS: CALCITRIOL 0.25 MCG CAPSULE PO SCH (11:14)
[2020-04-27] MEDS: CALCIUM CARBONATE 600 MG TABLET PO SCH (11:14)
[2020-04-27] MEDS: INSULIN GLARGINE,HUM.REC.ANLOG 1,000 UNIT/10 ML VIAL SUBCUT SCH ×2 (11:17→22:19)
[2020-04-27] MEDS: BUMETANIDE 1 MG TABLET PO SCH ×2 (11:17→17:36)
[2020-04-27 13:36] LABS: HEPATITIS C QUANTITATION HCV Not Detected IU/mL (.)
--- NOTE | 2020-04-27 15:39 | PDOC PROGRESS REPORT ---
Subjective Progress Note for:: 04/27/20 Subjective:: Patient is alert, he had hemodialysis yesterday, he has no new complaint today Reason For Visit: CKD STAGE 5, VOLUME OVERLOAD. ? CHF, UREAMIA Physical Exam Vital Signs: Temp Pulse Resp BP Pulse Ox 97.4 F 82 16 133/69 H 96 04/27/20 10:52 04/27/20 10:52 04/27/20 10:52 04/27/20 10:52 04/27/20 10:52 Intake & Output 04/26/20 04/27/20 04/28/20 06:59 06:59 06:59 Intake Total 320 390 240 Output Total 1035 175 400 Balance -715 215 -160 Weight 106.4 kg General appearance: PRESENT: no acute distress Eye exam: PRESENT: PERRLA Respiratory exam: PRESENT: clear to auscultation [place] Cardiovascular exam: PRESENT: +S1, +S2 GI/Abdominal exam: PRESENT: soft Neurological exam: PRESENT: alert, CN II-XII grossly intact Results Laboratory Results: 04/25/20 05:09 04/25/20 05:09 04/16/20 04/16/20 04/16/20 20:40 20:40 20:40 Creatine Kinase 2096 H CK-MB (CK-2) 10.70 H Troponin I 0.069 NT-Pro-B Natriuret Pep 15903 H 04/17/20 04/17/20 04/17/20 05:00 05:00 10:27 Creatine Kinase 1556 H 1357 H CK-MB (CK-2) 7.71 H Troponin I 0.063 NT-Pro-B Natriuret Pep 04/17/20 10:27 Creatine Kinase CK-MB (CK-2) 7.45 H Troponin I 0.073 NT-Pro-B Natriuret Pep Impressions: Chest X-Ray 04/16/20 19:57 IMPRESSION: Mild pulmonary edema pattern, without pleural effusions or focal consolidation. Renal Ultrasound 04/17/20 00:00 IMPRESSION: No hydronephrosis. Trace ascites. Fluoroscopy 04/25/20 00:00 IMPRESSION: IMAGE(S) OBTAINED DURING PROCEDURE. Guidance Fluoroscopy 04/25/20 00:00 IMPRESSION: IMAGE(S) OBTAINED DURING PROCEDURE. Assessment & Plan - Diagnosis (1) Acute pulmonary edema Is this a current diagnosis for this admission?: Yes (2) Acute systolic heart failure Is this a current diagnosis for this admission?: Yes (3) Chronic kidney disease, stage 5 Is this a current diagnosis for this admission?: Yes (4) Personal history of malignant neoplasm of gallbladder Is this a current diagnosis for this admission?: Yes (5) Type 2 diabetes mellitus with diabetic chronic kidney disease Qualifiers: Diabetes mellitus intermediate insulin use: with intermediate use Chronic kidney disease stage: stage 5, not on chronic dialysis Qualified Code(s): E11.22 - Type 2 diabetes mellitus with diabetic chronic kidney disease; N18.5 - Chronic kidney disease, stage 5; Z79.4 - penitentiary (current) use of insulin Is this a current diagnosis for this admission?: Yes (6) Hyperkalemia Is this a current diagnosis for this admission?: Yes - Time Time Spent with patient: 25-34 minutes Level of Care: IMCU Medications reviewed and adjusted accordingly: Yes Anticipated discharge: Home Anticipated DC Timeframe: within 72 hours
--- NOTE | 2020-04-27 20:29 | Progress Note ---
Provider Note Provider Note: CARDIOLOGY PROGRESS NOTE by Dr. Jeanette Gupta on 04/27/2020. SUBJECTIVE: The patient denies any chest pain or discomfort. His shortness breath is much improved. He still has some orthopnea but no PND. He uses BiPAP intermittently. There is no arrhythmias seen on the monitor. The patient has no anginal symptoms. He has only trace leg edema. His shortness of breath is much improved. The patient is for dialysis tomorrow. We will asked the television agent if it is okay to start the patient on Entresto. This is given the fact that the patient be on hemodialysis. Physical EXAMINATION: The patient is mild to moderately obese. At present in no acute distress Selected Entries 04/27/20 10:52 Temperature 97.4 F Temperature Axillary Source Pulse Rate 82 Respiratory 16 Rate Blood Pressure 133/69 H Blood Pressure 90 Mean BP Location Right Arm BP Position Sitting O2 Sat by Pulse 96 Oximetry Oxygen Delivery Bipap Method HEAD: Is atraumatic normocephalic. EYES: Pupils are equal round regular reactive to light and accommodation. Extraocular movements are normal. There is no conjunctival pallor. There is no scleral icterus. EARS: External auditory canals are clear. There is no inflammation of the tympanic membranes. Mid tympanic memories are intact. NOSE: There is no inflammation of the nasal mucous membrane. There is no deviated nasal septum. MOUTH: Mucous membranes of the mouth are moist. Tongue is moist. There is no ulcers. There is no bleeding from the gums. THROAT: There is no redness of the oropharynx. There is no exudates. Skin: There is no skin rashes. There is no skin lesions. There is no petechia or ecchymosis. NECK: Is supple. There is no JVD. Carotids are equal there is no bruit there is no lymphadenopathy. There is no goiter. There is no accessory muscles respiration use. LUNGS: Trachea central. There is diminished air entry and prolonged expiration. There is no rhonchi rales or wheezing. He has a dialysis permacath in the left infraclavicular region. HEART: S1-S2 is heard. There is no S3 gallop. There is no S4 gallop. There is murmur of mild aortic stenosis present. There is preserved A 2 sound. There is no diastolic murmur of aortic regurgitation. There is no significant mitral regurgitation murmur. There is no rub. ABDOMEN: Soft. Obese. Nontender there is no paraspinal megaly. EXTREMITIES: Femorals are deep. There is no femoral bruits. Leg pulses are diminished. There is mild pedal edema. There is no DVT or cellulitis. There is no calf tenderness. 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 PSYCHIATRIC: The patient judgment insight are intact and her affect is normal. Labs- All tests 24 hr 04/27/20 04/27/20 04/27/20 07:02 10:48 16:37 POC Glucose 133 H 183 H 229 H 04/27/20 20:25 POC Glucose 135 H Chest X-Ray 04/16/20 19:57 IMPRESSION: Mild pulmonary edema pattern, without pleural effusions or focal consolidation. Renal Ultrasound 04/17/20 00:00 IMPRESSION: No hydronephrosis. Trace ascites. Fluoroscopy 04/25/20 00:00 IMPRESSION: IMAGE(S) OBTAINED DURING PROCEDURE. Guidance Fluoroscopy 04/25/20 00:00 IMPRESSION: IMAGE(S) OBTAINED DURING PROCEDURE. Guidance Fluoroscopy 04/25/20 00:00 IMPRESSION: IMAGE(S) OBTAINED DURING PROCEDURE. IMPRESSION/RECOMMENDATION: 1. Acute on chronic systolic heart failure with moderate to severely reduced LV ejection fraction by echocardiogram obtained this admission. Also it is secondary to volume overload due to renal failure. 2. Dilated and ischemic cardiomyopathy with moderate to severely reduced LV ejection fraction. Would increase the patient's afterload reduction and start continue the patient on beta-petra. The patient will be recommended to have a repeat echocardiogram in 3 months and full anti-cardiomyopathy treatment. If the repeat echocardiogram shows LV ejection fraction of 35% or below then patient would be recommended to have an electrophysiology consult for AICD placement. Will increase Toprol XL to 50mg p.o. every 12 hours and increase as tolerated. We will also continue topical nitrates and continue hydralazine patient on hydralazine in view of the patient's renal function. 3. Chronic kidney disease stage V: Nephrology on the case. Patient will be getting dialysis. He has a permacath placed for dialysis. 4. Hyperkalemia: Resolved. 5. Coronary artery disease. History of coronary artery stent in the past. L ater once the acute phase of heart failure is resolved would recommend getting IV Lexiscan Cardiolite stress test. This can be done as an outpatient. 6. Hypertension: Seems to be well controlled. 7. Diabetes mellitus: Continue current antidiabetic medication and Accu-Cheks. 8. History of asthma and chronic obstructive pulmonary disease. Stable no evidence of acute exacerbation 9. Past history of pulmonary embolism and DVT. No recurrence of DVT. 10. Pulmonary hypertension. Hydralazine should help 11. Aortic stenosis by exam and echo. Does not appear to be severe or critical. 12. 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 Medications added. Medical decision making is of moderate complexity. 40 minutes spent with patient more than 50% of the time spent in direct patient care. Will follow.
[2020-04-27] MEDS: ATORVASTATIN CALCIUM 40 MG TABLET PO SCH (22:04)
[2020-04-28] MEDS: INSULIN LISPRO 100 UNIT/ML 3 ML VIAL SUBCUT SCH ×5 (00:50→22:44)
[2020-04-28] MEDS ORDERED: NORMAL SALINE 1000 ML 1,000 ML IV PRN (05:00)
[2020-04-28] MEDS ORDERED: HEPARIN SOD (PORCINE) 1,000 UNIT/ML 10 ML VIAL IV PRN (05:00)
[2020-04-28] MEDS ORDERED: EPOETIN ALFA-EPBX 10,000 UNIT in SYRINGE, DISPOSABLE, 1 EACH IV PRN (05:00)
[2020-04-28] MEDS ORDERED: IRON SUCROSE COMPLEX INJ/PF 100 MG/5 ML SDV IV PRN (05:00)
[2020-04-28 05:28] LABS: ABSOLUTE BASOPHILS # (AUTO) 0.1 10^3/uL (0.0-0.2); ABSOLUTE EOSINOPHILS # (AUTO) 0.3 10^3/uL (0.0-0.6); ABSOLUTE LYMPHOCYTES (AUTO) 1.5 10^3/uL (0.5-4.7); ABSOLUTE NEUT (AUTO) 5.6 10^3/uL (1.7-8.2); BASOPHILS % (AUTO) 1.3 % (0-2); EOSINOPHILS % (AUTO) 3.3 % (0-6); HEMATOCRIT 28.5 % (37.9-51.0); HEMOGLOBIN 9.4 g/dL (13.5-17.0); LYMPHOCYTES % (AUTO) 17.2 % (13-45); MEAN CORPUSCULAR HEMOGLOBIN 28.4 pg (27.0-33.4); MEAN CORPUSCULAR HGB CONC 33.2 g/dL (32.0-36.0); MEAN CORPUSCULAR VOLUME 86 fl (80-97); PLATELET COUNT 245 10^3/uL (150-450); RED BLOOD COUNT 3.32 10^6/uL (4.35-5.55); RED CELL DISTRIBUTION WIDTH 13.7 % (11.5-14.0); SEGMENTED NEUTROPHILS % (AUTO) 66.2 % (42-78); TOTAL CELLS COUNTED % (AUTO) 100 %; WHITE BLOOD COUNT 8.5 10^3/uL (4.0-10.5)
[2020-04-28 06:03] LABS: ANION GAP 10 (5-19); BLOOD UREA NITROGEN 110 mg/dL (7-20); CALCIUM 8.4 mg/dL (8.4-10.2); CARBON DIOXIDE 28 mmol/L (22-30); CHLORIDE 93 mmol/L (98-107); GLUCOSE 159 mg/dL (75-110); PHOSPHORUS 6.3 mg/dL (2.5-4.5); POTASSIUM 5.1 mmol/L (3.6-5.0)
[2020-04-28] MEDS: HYDRALAZINE HCL 50 MG TABLET PO SCH ×2 (06:19→14:59)
[2020-04-28] MEDS: HEPARIN SOD (PORCINE) 5,000 UNIT/ML 1 ML VIAL SUBCUT SCH ×3 (06:20→22:41)
--- NOTE | 2020-04-28 08:37 | RADIOLOGY REPORT (SQ) ---
EXAM DESCRIPTION: CHEST SINGLE VIEW IMAGES COMPLETED DATE/TIME: 04/28/2020 8:26 am REASON FOR STUDY: catheter position COMPARISON: None. EXAM PARAMETERS: NUMBER OF VIEWS: One view. TECHNIQUE: An AP view of the chest was obtained. RADIATION DOSE: NA LIMITATIONS: None. FINDINGS: LUNGS AND PLEURA: No consolidation, pleural effusion or pneumothorax. MEDIASTINUM AND HILAR STRUCTURES: No mediastinal or hilar contour abnormality. HEART AND VASCULAR STRUCTURES: The cardiac silhouette is borderline enlarged. BONES: No acute findings. HARDWARE: The tip of the left IJ approach hemodialysis catheter projects within the azygos vein. OTHER: No other finding. IMPRESSION: The tip of the left IJ approach hemodialysis catheter projects within the azygos vein. TECHNICAL DOCUMENTATION: JOB ID: [id number] 2010 [employer]- All Rights Reserved Reading location - IP/workstation name: [email or web address]
[2020-04-28] MEDS: CALCIUM ACETATE 667 MG CAPSULE PO SCH ×3 (08:40→16:22)
--- NOTE | 2020-04-28 09:42 | PDOC PROGRESS REPORT ---
Subjective Progress Note for:: 04/28/20 Subjective:: I am seeing the patient during dialysis this morning. He had an issue again with his newly placed permacath. I called Dr. Downing and he graciously checked the catheter and had a x-ray done and adjusted it. Currently catheter is functioning and he is tolerating dialysis for the first time. He said he feels all right. He denies any nausea, vomiting, chest pains no shortness of breath. He said he is eating okay. Reason For Visit: CKD STAGE 5, VOLUME OVERLOAD. ? CHF, UREAMIA Physical Exam Vital Signs: Temp Pulse Resp BP Pulse Ox 97.4 F 84 20 141/69 H 99 04/28/20 04:00 04/28/20 07:00 04/28/20 04:00 04/28/20 04:00 04/28/20 04:00 Intake & Output 04/27/20 04/28/20 04/29/20 06:59 06:59 06:59 Intake Total 390 980 Output Total 175 950 Balance 215 30 Weight 104.5 kg Vitals during dialysis 158/59, heart rate of 75, blood flow rate of 250 mL/min and dialysate flow rate of 600 mL/min. Exam: General appearance: PRESENT: no acute distress, cooperative, well-developed, well-nourished Head exam: PRESENT: atraumatic, normocephalic Eye exam: PRESENT: conjunctiva pink, PERRLA. ABSENT: scleral icterus Neck exam: ABSENT: JVD Respiratory exam: PRESENT: Normal breath sounds. ABSENT: crackles, rales, rhonchi, unlabored, wheezes Cardiovascular exam: PRESENT: Regular rate rhythm -+S1, +S2. Grade 2/6 systolic murmur GI/Abdominal exam: PRESENT: normal bowel sounds, soft. ABSENT: guarding, mass, tenderness Extremities exam: Trace bilateral lower extremity pitting edema Neurological exam: PRESENT: alert, awake, oriented to person, place and time. Skin exam: PRESENT: dry, warm, Cardiovascular exam: PRESENT: +S1, +S2 GI/Abdominal exam: PRESENT: soft. ABSENT: diminished bowel sounds, distended, guarding, tenderness Results Laboratory Results: 04/28/20 05:09 04/28/20 05:09 04/28/20 04/28/20 05:09 05:09 WBC 8.5 RBC 3.32 L Hgb 9.4 L Hct 28.5 L MCV 86 MCH 28.4 MCHC 33.2 RDW 13.7 Plt Count 245 Seg Neutrophils % 66.2 Sodium 131.4 L Potassium 5.1 H Chloride 93 L Carbon Dioxide 28 Anion Gap 10 BUN 110 H Creatinine 12.52 H Est GFR ( Amer) 5 L Glucose 159 H Calcium 8.4 Phosphorus 6.3 H 04/16/20 04/16/20 04/16/20 20:40 20:40 20:40 Creatine Kinase 2096 H CK-MB (CK-2) 10.70 H Troponin I 0.069 NT-Pro-B Natriuret Pep 91162 H 04/17/20 04/17/20 04/17/20 05:00 05:00 10:27 Creatine Kinase 1556 H 1357 H CK-MB (CK-2) 7.71 H Troponin I 0.063 NT-Pro-B Natriuret Pep 04/17/20 10:27 Creatine Kinase CK-MB (CK-2) 7.45 H Troponin I 0.073 NT-Pro-B Natriuret Pep Impressions: Renal Ultrasound 04/17/20 00:00 IMPRESSION: No hydronephrosis. Trace ascites. Fluoroscopy 04/25/20 00:00 IMPRESSION: IMAGE(S) OBTAINED DURING PROCEDURE. Guidance Fluoroscopy 04/25/20 00:00 IMPRESSION: IMAGE(S) OBTAINED DURING PROCEDURE. Chest X-Ray 04/28/20 00:00 IMPRESSION: The tip of the left IJ approach hemodialysis catheter projects within the azygos vein. Assessment & Plan - Diagnosis (1) End stage renal disease Is this a current diagnosis for this admission?: Yes Plan: We will do dialysis today for 2 hours, using the patient's PermCath, with 2 potassium bath, blood flow rate of 250 mL per minute, dialysate flow rate of 6 mL per minute, ultrafiltration 1 to 1.5 L as tolerated, no heparin and Procrit with 10,000 units during dialysis intravenously. Patient currently monitored throughout dialysis treatment. Awaiting historic preservationist to arrange chronic outpatient hemodialysis treatment at [facility]. Once arranged the patient can be discharged home. 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 I will give Retacrit and Venofer during dialysis treatment. (4) Acute on chronic systolic CHF (congestive heart failure) Is this a current diagnosis for this admission?: Yes Plan: Patient with dilated cardiomyopathy being followed by Dr. Gupta. Patient has clinical fluid overload. We will try to get ultrafiltration during hemodialysis. Continue current Bumex and metolazone. May start on Entresto. (5) Diabetes mellitus type 2 in obese Is this a current diagnosis for this admission?: Yes (6) HTN (hypertension) Qualifiers: Hypertension type: essential hypertension Qualified Code(s): I10 - Essential (primary) hypertension Is this a current diagnosis for this admission?: Yes Plan: Needs volume control which hopefully we can achieve during dialysis treatment. (7) Chronic kidney disease-mineral and bone disorder Is this a current diagnosis for this admission?: Yes Plan: PTH is elevated at 484.7, phosphorus elevated at 6.9 with calcium of 8.5. Currently on calcitriol, calcium acetate and calcium carbonate. - Time Time with patient: 15-25 minutes
[2020-04-28] MEDS ORDERED: INSULIN GLARGINE,HUM.REC.ANLOG 1,000 UNIT/10 ML VIAL SUBCUT SCH (10:00)
[2020-04-28] MEDS: CALCITRIOL 0.25 MCG CAPSULE PO SCH (11:33)
[2020-04-28] MEDS: CETIRIZINE 10 MG TABLET PO SCH (11:33)
[2020-04-28] MEDS: ASPIRIN 81 MG TABLET, ENT COATED PO SCH (11:33)
[2020-04-28] MEDS: CALCIUM CARBONATE 600 MG TABLET PO SCH (11:34)
[2020-04-28] MEDS: METOLAZONE 5 MG TABLET PO SCH ×2 (11:34→17:26)
[2020-04-28] MEDS: METOPROLOL SUCCINATE 50 MG TAB.SR.24H PO SCH ×2 (12:26→22:43)
[2020-04-28] MEDS: BUMETANIDE 1 MG TABLET PO SCH ×2 (12:26→17:35)
[2020-04-28] MEDS: ISOSORBIDE MONONITRATE 30 MG TAB.ER.24H PO SCH (12:26)
[2020-04-28] MEDS ORDERED: HYDRALAZINE HCL 50 MG TABLET PO SCH (22:00)
--- NOTE | 2020-04-28 22:06 | Progress Note ---
Provider Note Provider Note: Cardiology PROGRESS NOTE by Dr. Jeanette Gupta on 04/28/2020. SUBJECTIVE: The patient did have his dialysis. He states he feels slightly better. He denies any chest pain discomfort. There is no arrhythmias seen on the monitor. I spoke to Dr. Ayon about starting the patient on Entresto. She states that there should be no problem since the patient now is on dialysis. Hence will decrease the patient's hydralazine to 25 mg p.o. every 8 hours and start the patient on Entresto at the lowest dose and slowly increase as tolerated. His leg leg edema is also improved. PHYSICAL EXAMINATION: The patient mild to moderately obese. In no acute distress. Selected Entries 04/28/20 16:02 Temperature 98.2 F Temperature Oral Source Pulse Rate 88 Respiratory 17 Rate Blood Pressure 120/63 Blood Pressure 82 Mean BP Location Right Arm BP Position Sitting O2 Sat by Pulse 95 Oximetry Oxygen Delivery Room Air Method HEAD: Is atraumatic normocephalic. EYES: Pupils are equal round regular reactive to light and accommodation. Extraocular movements are normal. There is no conjunctival pallor. There is no scleral icterus. EARS: External auditory canals are clear. There is no inflammation of the tympanic membranes. Mid tympanic memories are intact. NOSE: There is no inflammation of the nasal mucous membrane. There is no deviated nasal septum. MOUTH: Mucous membranes of the mouth are moist. Tongue is moist. There is no ulcers. There is no bleedin g from the gums. THROAT: There is no redness of the oropharynx. There is no exudates. Skin: There is no skin rashes. There is no skin lesions. There is no petechia or ecchymosis. NECK: Is supple. There is no JVD. Carotids are equal there is no bruit there is no lymphadenopathy. There is no goiter. There is no accessory muscles respiration use. LUNGS: Trachea central. There is diminished air entry and prolonged expiration. There is no rhonchi rales or wheezing. He has a dialysis permacath in the left infraclavicular region. HEART: S1-S2 is heard. There is no S3 gallop. There is no S4 gallop. There is murmur of mild aortic stenosis present. There is preserved A 2 sound. There is no diastolic murmur of aortic regurgitation. There is no significant mitral regurgitation murmur. There is no rub. ABDOMEN: Soft. Obese. Nontender there is no paraspinal megaly. EXTREMITIES: Femorals are deep. There is no femoral bruits. Leg pulses are diminished. There is mild pedal edema. There is no DVT or cellulitis. There is no calf tenderness. YARN SALVAGER: The patient is conscious awake alert oriented x3 with no focal deficits. PSYCHIATRIC: The patient judgment insight are intact and her affect is normal. Labs- All tests 24 hr 04/24/20 04/28/20 04/28/20 16:00 05:09 05:09 WBC 8.5 RBC 3.32 L Hgb 9.4 L Hct 28.5 L MCV 86 MCH 28.4 MCHC 33.2 RDW 13.7 Plt Count 245 Lymph % (Auto) 17.2 Mason % (Auto) 12.0 Eos % (Auto) 3.3 Baso % (Auto) 1.3 Absolute Neuts (auto) 5.6 Absolute Lymphs (auto) 1.5 Absolute Monos (auto) 1.0 Absolute Eos (auto) 0.3 Absolute Basos (auto) 0.1 Seg Neutrophils % 66.2 Sodium 131.4 L Potassium 5.1 H Chloride 93 L Carbon Dioxide 28 Anion Gap 10 BUN 110 H Creatinine 12.52 H Est GFR ( Amer) 5 L Est GFR (MDRD) Non-Af 4 L Glucose 159 H POC Glucose Calcium 8.4 Phosphorus 6.3 H HCV Quantitation HCV Not Detected HCV RNA PCR Test Info Comment 04/28/20 04/28/20 04/28/20 11:55 16:03 21:15 WBC RBC Hgb Hct MCV MCH MCHC RDW Plt Count Lymph % (Auto) Mason % (Auto) Eos % (Auto) Baso % (Auto) Absolute Neuts (auto) Absolute Lymphs (auto) Absolute Monos (auto) Absolute Eos (auto) Absolute Basos (auto) Seg Neutrophils % Sodium Potassium Chloride Carbon Dioxide Anion Gap BUN Creatinine Est GFR ( Amer) Est GFR (MDRD) Non-Af Glucose POC Glucose 148 H 170 H 123 H Calcium Phosphorus HCV Quantitation HCV RNA PCR Test Info Chest X-Ray 04/16/20 19:57 IMPRESSION: Mild pulmonary edema pattern, without pleural effusions or focal consolidation. Renal Ultrasound 04/17/20 00:00 IMPRESSION: No hydronephrosis. Trace ascites. Fluoroscopy 04/25/20 00:00 IMPRESSION: IMAGE(S) OBTAINED DURING PROCEDURE. Guidance Fluoroscopy 04/25/20 00:00 IMPRESSION: IMAGE(S) OBTAINED DURING PROCEDURE. Guidance Fluoroscopy 04/25/20 00:00 IMPRESSION: IMAGE(S) OBTAINED DURING PROCEDURE. Chest X-Ray 04/28/20 00:00 IMPRESSION: The tip of the left IJ approach hemodialysis catheter projects within the azygos vein. IMPRESSION/RECOMMENDATION: 1. Acute on chronic systolic heart failure with moderate to severely reduced LV ejection fraction by echocardiogram obtained this admission. Also it is secondary to volume overload due to renal failure. 2. Dilated and ischemic cardiomyopathy with moderate to severely reduced LV ejection fraction. Would increase the patient's afterload reduction and start continue the patient on beta-eptra. The patient will be recommended to have a repeat echocardiogram in 3 months and full anti-cardiomyopathy treatment. If the repeat echocardiogram shows LV ejection fraction of 35% or below then patient would be recommended to have an electrophysiology consult for AICD placement. Will increase Toprol XL to 50mg p.o. every 12 hours and increase as tolerated. We will also continue topical nitrates and continue hydralazine patient on hydralazine in view of the patient's renal function. 3. Chronic kidney disease stage V: Nephrology on the case. Patient will be getting dialysis. He has a permacath placed for dialysis. 4. Hyperkalemia: Resolved. 5. Coronary artery disease. History of coronary artery stent in the past. Later once the acute phase of heart failure is resolved would recommend getting IV Lexiscan Cardiolite stress test. This can be done as an outpatient. 6. Hypertension: Seems to be well controlled. 7. Diabetes mellitus: Continue current antidiabetic medication and Accu-Cheks. 8. History of asthma and chronic obstructive pulmonary disease. Stable no evidence of acute exacerbation 9. Past history of pulmonary embolism and DVT. No recurrence of DVT. 10. Pulmonary hypertension. Hydralazine should help 11. Aortic stenosis by exam and echo. Does not appear to be severe or critical. 12. 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 Medications added. Medical decision making is of moderate complexity. 40 minutes spent with patient more than 50% of the time spent in direct patient care. Will follow.
--- NOTE | 2020-04-28 22:18 | PDOC PROGRESS REPORT ---
Subjective Progress Note for:: 04/28/20 Subjective:: Patient seen today by the bedside, he had hemodialysis today Reason For Visit: CKD STAGE 5, VOLUME OVERLOAD. ? CHF, UREAMIA Physical Exam Vital Signs: Temp Pulse Resp BP Pulse Ox 99.2 F 91 19 121/78 96 04/28/20 20:15 04/28/20 20:15 04/28/20 20:15 04/28/20 21:41 04/28/20 20:15 Intake & Output 04/27/20 04/28/20 04/29/20 06:59 06:59 06:59 Intake Total 792 464 9723 Output Total 752 720 3271 Balance 215 30 -900 Weight 104.5 kg 104.5 kg General appearance: PRESENT: no acute distress Eye exam: PRESENT: PERRLA Respiratory exam: PRESENT: clear to auscultation [place] Cardiovascular exam: PRESENT: +S1, +S2 GI/Abdominal exam: PRESENT: soft Neurological exam: PRESENT: alert, CN II-XII grossly intact Results Laboratory Results: 04/28/20 05:09 04/28/20 05:09 04/28/20 04/28/20 05:09 05:09 WBC 8.5 RBC 3.32 L Hgb 9.4 L Hct 28.5 L MCV 86 MCH 28.4 MCHC 33.2 RDW 13.7 Plt Count 245 Seg Neutrophils % 66.2 Sodium 131.4 L Potassium 5.1 H Chloride 93 L Carbon Dioxide 28 Anion Gap 10 BUN 110 H Creatinine 12.52 H Est GFR ( Amer) 5 L Glucose 159 H Calcium 8.4 Phosphorus 6.3 H 04/16/20 04/16/20 04/16/20 20:40 20:40 20:40 Creatine Kinase 2096 H CK-MB (CK-2) 10.70 H Troponin I 0.069 NT-Pro-B Natriuret Pep 30926 H 04/17/20 04/17/20 04/17/20 05:00 05:00 10:27 Creatine Kinase 1556 H 1357 H CK-MB (CK-2) 7.71 H Troponin I 0.063 NT-Pro-B Natriuret Pep 04/17/20 10:27 Creatine Kinase CK-MB (CK-2) 7.45 H Troponin I 0.073 NT-Pro-B Natriuret Pep Impressions: Renal Ultrasound 04/17/20 00:00 IMPRESSION: No hydronephrosis. Trace ascites. Fluoroscopy 04/25/20 00:00 IMPRESSION: IMAGE(S) OBTAINED DURING PROCEDURE. Guidance Fluoroscopy 04/25/20 00:00 IMPRESSION: IMAGE(S) OBTAINED DURING PROCEDURE. Chest X-Ray 04/28/20 00:00 IMPRESSION: The tip of the left IJ approach hemodialysis catheter projects within the azygos vein. Assessment & Plan - Diagnosis (1) Acute pulmonary edema Is this a current diagnosis for this admission?: Yes (2) Acute systolic heart failure Is this a current diagnosis for this admission?: Yes (3) Chronic kidney disease, stage 5 Is this a current diagnosis for this admission?: Yes (4) Personal history of malignant neoplasm of gallbladder Is this a current diagnosis for this admission?: Yes (5) Type 2 diabetes mellitus with diabetic chronic kidney disease Qualifiers: Diabetes mellitus fci insulin use: with terminal manager use Chronic kidney disease stage: stage 5, not on chronic dialysis Qualified Code(s): E11.22 - Type 2 diabetes mellitus with diabetic chronic kidney disease; N18.5 - Chronic kidney disease, stage 5; Z79.4 - snf (current) use of insulin Is this a current diagnosis for this admission?: Yes (6) Hyperkalemia Is this a current diagnosis for this admission?: Yes - Time Time Spent with patient: 25-34 minutes Level of Care: IMCU Medications reviewed and adjusted accordingly: Yes Anticipated discharge: Home Anticipated DC Timeframe: within 72 hours
[2020-04-28] MEDS: HYDRALAZINE HCL 25 MG TABLET PO SCH (22:42)
[2020-04-28] MEDS: ATORVASTATIN CALCIUM 40 MG TABLET PO SCH (22:43)
[2020-04-28] MEDS: SACUBITRIL/VALSARTAN 24 MG/26 MG TABLET PO SCH (22:44)
[2020-04-28] MEDS: INSULIN GLARGINE,HUM.REC.ANLOG 1,000 UNIT/10 ML VIAL (PYX) SUBCUT SCH (22:53)
[2020-04-29] MEDS: HYDRALAZINE HCL 25 MG TABLET PO SCH ×3 (06:33→22:54)
[2020-04-29] MEDS: HEPARIN SOD (PORCINE) 5,000 UNIT/ML 1 ML VIAL SUBCUT SCH ×3 (06:34→22:54)
[2020-04-29] MEDS: INSULIN LISPRO 100 UNIT/ML 3 ML VIAL SUBCUT SCH ×4 (08:07→22:46)
[2020-04-29] MEDS: CALCIUM ACETATE 667 MG CAPSULE PO SCH ×3 (08:26→17:20)
[2020-04-29] MEDS: SACUBITRIL/VALSARTAN 24 MG/26 MG TABLET PO SCH ×2 (10:15→22:54)
[2020-04-29] MEDS: CALCITRIOL 0.25 MCG CAPSULE PO SCH (10:15)
[2020-04-29] MEDS: CETIRIZINE 10 MG TABLET PO SCH (10:15)
[2020-04-29] MEDS: ASPIRIN 81 MG TABLET, ENT COATED PO SCH (10:15)
[2020-04-29] MEDS: METOLAZONE 5 MG TABLET PO SCH ×2 (10:15→17:20)
[2020-04-29] MEDS: ISOSORBIDE MONONITRATE 30 MG TAB.ER.24H PO SCH (10:15)
[2020-04-29] MEDS: BUMETANIDE 1 MG TABLET PO SCH ×2 (10:15→17:20)
[2020-04-29] MEDS: METOPROLOL SUCCINATE 50 MG TAB.SR.24H PO SCH ×2 (10:15→22:54)
[2020-04-29] MEDS: CALCIUM CARBONATE 600 MG TABLET PO SCH (10:16)
[2020-04-29] MEDS: INSULIN GLARGINE,HUM.REC.ANLOG 1,000 UNIT/10 ML VIAL (PYX) SUBCUT SCH ×2 (10:16→23:15)
--- NOTE | 2020-04-29 10:32 | PDOC PROGRESS REPORT ---
Subjective Progress Note for:: 04/29/20 Subjective:: Patient states that earlier he felt tight but currently he is feeling okay without any chest pains no shortness of breath. He tolerated dialysis well yesterday for the first time. We are awaiting approval from [facility]. He is eating good. Reason For Visit: CKD STAGE 5, VOLUME OVERLOAD. ? CHF, UREAMIA Physical Exam Vital Signs: Temp Pulse Resp BP Pulse Ox 98.7 F 87 18 93/39 L 93 04/29/20 08:29 04/29/20 07:00 04/29/20 03:06 04/29/20 03:06 04/29/20 03:06 Intake & Output 04/28/20 04/29/20 04/30/20 06:59 06:59 06:59 Intake Total 980 1360 Output Total 950 2000 Balance 30 -640 Weight 104.5 kg 87.2 kg Exam: General appearance: PRESENT: no acute distress, cooperative, well-developed, well-nourished Head exam: PRESENT: atraumatic, normocephalic Eye exam: PRESENT: conjunctiva slightly pale, PERRLA. ABSENT: scleral icterus Neck exam: ABSENT: JVD Respiratory exam: PRESENT: Diminished breath sounds. ABSENT: crackles, rales, rhonchi, unlabored, wheezes Cardiovascular exam: PRESENT: Regular rate rhythm -+S1, +S2. Grade 2/6 systolic murmur GI/Abdominal exam: PRESENT: normal bowel sounds, soft. ABSENT: guarding, mass, tenderness Extremities exam: ABSENT: No edema Neurological exam: PRESENT: alert, awake, oriented to person, place and time. Skin exam: PRESENT: dry, warm, Cardiovascular exam: PRESENT: +S1, +S2 GI/Abdominal exam: PRESENT: soft. ABSENT: diminished bowel sounds, distended, guarding, tenderness Results Laboratory Results: 04/28/20 05:09 04/28/20 05:09 04/16/20 04/16/20 04/16/20 20:40 20:40 20:40 Creatine Kinase 2096 H CK-MB (CK-2) 10.70 H Troponin I 0.069 NT-Pro-B Natriuret Pep 49708 H 04/17/20 04/17/20 04/17/20 05:00 05:00 10:27 Creatine Kinase 1556 H 1357 H CK-MB (CK-2) 7.71 H Troponin I 0.063 NT-Pro-B Natriuret Pep 04/17/20 10:27 Creatine Kinase CK-MB (CK-2) 7.45 H Troponin I 0.073 NT-Pro-B Natriuret Pep Impressions: Renal Ultrasound 04/17/20 00:00 IMPRESSION: No hydronephrosis. Trace ascites. Fluoroscopy 04/25/20 00:00 IMPRESSION: IMAGE(S) OBTAINED DURING PROCEDURE. Guidance Fluoroscopy 04/25/20 00:00 IMPRESSION: IMAGE(S) OBTAINED DURING PROCEDURE. Chest X-Ray 04/28/20 00:00 IMPRESSION: The tip of the left IJ approach hemodialysis catheter projects within the azygos vein. Assessment & Plan - Diagnosis (1) End stage renal disease Is this a current diagnosis for this admission?: Yes Plan: Awaiting solutions market consultant to arrange chronic outpatient hemodialysis treatment at [facility]. Once arranged the patient can be discharged home. Plan for next dialysis tomorrow. (2) Type 2 diabetes mellitus with diabetic chronic kidney disease Qualifiers: Diabetes mellitus laborer marine terminal insulin use: with usp use Chronic kidney disease stage: stage 5, not on chronic dialysis Qualified Code(s): E11.22 - Type 2 diabetes mellitus with diabetic chronic kidney disease; N18.5 - Chronic kidney disease, stage 5; Z79.4 - termite exterminator (current) use of insulin Is this a current diagnosis for this admission?: Yes (3) Anemia in CKD (chronic kidney disease) Is this a current diagnosis for this admission?: Yes Plan: Associated with significant iron deficiency. I will give Retacrit and Venofer during dialysis treatment. (4) Acute on chronic systolic CHF (congestive heart failure) Is this a current diagnosis for this admission?: Yes Plan: Patient with dilated cardiomyopathy being followed by Dr. Gupta. Patient has clinical fluid overload. We will try to get ultrafiltration during hemo dialysis. Continue current Bumex and metolazone. May start on Entresto. (5) Diabetes mellitus type 2 in obese Is this a current diagnosis for this admission?: Yes (6) HTN (hypertension) Qualifiers: Hypertension type: essential hypertension Qualified Code(s): I10 - Essential (primary) hypertension Is this a current diagnosis for this admission?: Yes Plan: Needs volume control which hopefully we can achieve during dialysis treatment. (7) Chronic kidney disease-mineral and bone disorder Is this a current diagnosis for this admission?: Yes Plan: PTH is elevated at 484.7, phosphorus elevated at 6.9 with calcium of 8.5. Currently on calcitriol, calcium acetate and calcium carbonate. - Time Time with patient: 15-25 minutes
--- NOTE | 2020-04-29 15:55 | Progress Note ---
Provider Note Provider Note: CARDIOLOGY PROGRESS NOTE by Dr. Sidney Noble on 04/29/2020. SUBJECTIVE: The patient denies any chest pain or discomfort. There is no shortness of breath. He is off the BiPAP now and is on nasal cannula. He denies palpitations. His leg edema is only trace edema now. He did not have dialysis today. He will have dialysis tomorrow. He is tolerating Entresto. Will increase the patient's Entresto dosage. We will continue the patient hydralazine with his lower dosage. PHYSICAL EXAMINATION: The patient now appears to be overweight. In no acute distress. Selected Entries 04/29/20 11:25 Temperature 97.8 F Temperature Oral Source Pulse Rate 86 Respiratory 18 Rate Blood Pressure 122/62 Blood Pressure 82 Mean BP Location Left Arm BP Position Supine O2 Sat by Pulse 98 Oximetry Oxygen Delivery Room Air Method HEAD: Is atraumatic normocephalic. EYES: Pupils are equal round regular reactive to light and accommodation. Extraocular movements are normal. There is no conjunctival pallor. There is no scleral icterus. EARS: External auditory canals are clear. There is no inflammation of the tympanic membranes. Mid tympanic memories are intact. NOSE: There is no inflammation of the nasal mucous membrane. There is no deviated nasal septum. MOUTH: Mucous membranes of the mouth are moist. Tongue is moist. There is no ulcers. There is no bleeding from the gums. THROAT: There is no redness of the oropharynx. There is no exudates. Skin: There is no skin rashes. There is no skin lesions. There is no petechia or ecchymosis. NECK: Is supple. There is no JVD. Carotids are equal there is no bruit there is no lymphadenopathy. There is no goiter. There is no accessory muscles respiration use. LUNGS: Trachea central. There is diminished air entry and prolonged expiration. There is no rhonchi rales or wheezing. He has a dialysis permacath in the left infraclavicular region. HEART: S1-S2 is heard. There is no S3 gallop. There is no S4 gallop. There is murmur of mild aortic stenosis present. There is preserved A 2 sound. There is no diastolic murmur of aortic regurgitation. There is no significant mitral regurgitation murmur. There is no rub. ABDOMEN: Soft. Obese. Nontender there is no paraspinal megaly. EXTREMITIES: Femorals are deep. There is no femoral bruits. Leg pulses are diminished. There is mild pedal edema. There is no DVT or cellulitis. There is no calf tenderness. LANGUAGE PATH: The patient is conscious awake alert oriented x3 with no focal deficits. PSYCHIATRIC: The patient judgment insight are intact and her affect is normal. Labs- All tests 24 hr 04/29/20 04/29/20 04/29/20 03:05 07:48 11:50 POC Glucose 86 81 103 04/29/20 04/29/20 16:02 20:36 POC Glucose 82 117 H Chest X-Ray 04/16/20 19:57 IMPRESSION: Mild pulmonary edema pattern, without pleural effusions or focal consolidation. Renal Ultrasound 04/17/20 00:00 IMPRESSION: No hydronephrosis. Trace ascites. Fluoroscopy 04/25/20 00:00 IMPRESSION: IMAGE(S) OBTAINED DURING PROCEDURE. Guidance Fluoroscopy 04/25/20 00:00 IMPRESSION: IMAGE(S) OBTAINED DURING PROCEDURE. Guidance Fluoroscopy 04/25/20 00:00 IMPRESSION: IMAGE(S) OBTAINED DURING PROCEDURE. Chest X-Ray 04/28/20 00:00 IMPRESSION: The tip of the left IJ approach hemodialysis catheter projects within the azygos vein. IMPRESSION/RECOMMENDATION: 1. Acute on chronic systolic heart failure with moderate to severely reduced LV ejection fraction by echocardiogram obtained this admission. Also it is secondary to volume overload due to renal failure. 2. Dilated and ischemic cardiomyopathy with moderate to severely reduced LV ejection fraction. The patient is tolerating Entresto. Will increase the patient's Entresto. We will continue the patient on a low dose of hydralazine for his pulmonary hypertension. Continue beta-petra. Continue nitrates. 3. Chronic kidney disease stage V: Nephrology on the case. Patient will be on dialysis now. 4. Hyperkalemia: Resolved. 5. Coronary artery disease. History of coronary artery stent in the past. Later once the acute phase of heart failure is resolved would recommend getting IV Lexiscan Cardiolite stress test. This can be done as an outpatient. 6. Hypertension: Seems to be well controlled. 7. Diabetes mellitus: Continue current antidiabetic medication and Accu-Cheks. 8. History of asthma and chronic obstructive pulmonary disease. Stable no evidence of acute exacerbation 9. Past history of pulmonary embolism and DVT. No recurrence of DVT. 10. Pulmonary hypertension. Hydralazine should help 11. Aortic stenosis by exam and echo. Does not appear to be severe or critical. 12. 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 Medications added. Medical decision making in view of increasing the patient's medications he is of high complexity. 40 minutes spent with patient more than 50% of the time spent in direct patient care. Will follow.
--- NOTE | 2020-04-29 19:56 | PDOC PROGRESS REPORT ---
Subjective Progress Note for:: 04/29/20 Subjective:: Patient seen by the bedside, he was dialyzed today Reason For Visit: CKD STAGE 5, VOLUME OVERLOAD. ? CHF, UREAMIA Physical Exam Vital Signs: Temp Pulse Resp BP Pulse Ox 97.5 F 80 16 124/63 97 04/29/20 15:59 04/29/20 15:59 04/29/20 15:59 04/29/20 15:59 04/29/20 15:59 Intake & Output 04/28/20 04/29/20 04/30/20 06:59 06:59 06:59 Intake Total 980 1360 1278 Output Total 950 2000 300 Balance 30 -640 978 Weight 104.5 kg 87.2 kg General appearance: PRESENT: no acute distress Eye exam: PRESENT: PERRLA Respiratory exam: PRESENT: clear to auscultation [place] Cardiovascular exam: PRESENT: +S1, +S2 GI/Abdominal exam: PRESENT: soft Neurological exam: PRESENT: alert Results Laboratory Results: 04/28/20 05:09 04/28/20 05:09 04/16/20 04/16/20 04/16/20 20:40 20:40 20:40 Creatine Kinase 2096 H CK-MB (CK-2) 10.70 H Troponin I 0.069 NT-Pro-B Natriuret Pep 01230 H 04/17/20 04/17/20 04/17/20 05:00 05:00 10:27 Creatine Kinase 1556 H 1357 H CK-MB (CK-2) 7.71 H Troponin I 0.063 NT-Pro-B Natriuret Pep 04/17/20 10:27 Creatine Kinase CK-MB (CK-2) 7.45 H Troponin I 0.073 NT-Pro-B Natriuret Pep Impressions: Renal Ultrasound 04/17/20 00:00 IMPRESSION: No hydronephrosis. Trace ascites. Fluoroscopy 04/25/20 00:00 IMPRESSION: IMAGE(S) OBTAINED DURING PROCEDURE. Guidance Fluoroscopy 04/25/20 00:00 IMPRESSION: IMAGE(S) OBTAINED DURING PROCEDURE. Chest X-Ray 04/28/20 00:00 IMPRESSION: The tip of the left IJ approach hemodialysis catheter projects within the azygos vein. Assessment & Plan - Diagnosis (1) Acute pulmonary edema Is this a current diagnosis for this admission?: Yes (2) Acute systolic heart failure Is this a current diagnosis for this admission?: Yes Plan: Start Entresto (3) Chronic kidney disease, stage 5 Is this a current diagnosis for this admission?: Yes (4) Personal history of malignant neoplasm of gallbladder Is this a current diagnosis for this admission?: Yes (5) Type 2 diabetes mellitus with diabetic chronic kidney disease Qualifiers: Diabetes mellitus penitentiary insulin use: with watermelon harvesting supervisor use Chronic kidney disease stage: stage 5, not on chronic dialysis Qualified Code(s): E11.22 - Type 2 diabetes mellitus with diabetic chronic kidney disease; N18.5 - Chronic kidney disease, stage 5; Z79.4 - long term acute care registered nurse (current) use of insulin Is this a current diagnosis for this admission?: Yes (6) Hyperkalemia Is this a current diagnosis for this admission?: Yes (7) End stage renal disease Is this a current diagnosis for this admission?: Yes - Time Time Spent with patient: 25-34 minutes Level of Care: IMCU Medications reviewed and adjusted accordingly: Yes Anticipated discharge: Home Anticipated DC Timeframe: within 72 hours - Inpatient Certification Based on my medical assessment, after consideration of the patient's comorbidities, presenting symptoms, or acuity I expect that the services needed warrant INPATIENT care.: Yes I certify that my determination is in accordance with my understanding of Medicare's requirements for reasonable and necessary INPATIENT services [42 CFR 412.3e].: Yes
[2020-04-29] MEDS: ATORVASTATIN CALCIUM 40 MG TABLET PO SCH (22:54)
[2020-04-30] MEDS ORDERED: EPOETIN ALFA-EPBX 10,000 UNIT in SYRINGE, DISPOSABLE, 1 EACH IV PRN (05:00)
[2020-04-30] MEDS ORDERED: HEPARIN SOD (PORCINE) 1,000 UNIT/ML 10 ML VIAL IV PRN (05:00)
[2020-04-30] MEDS ORDERED: IRON SUCROSE COMPLEX INJ/PF 100 MG/5 ML SDV IV PRN (05:00)
[2020-04-30] MEDS ORDERED: NORMAL SALINE 1000 ML 1,000 ML IV PRN (05:00)
[2020-04-30] MEDS: HEPARIN SOD (PORCINE) 5,000 UNIT/ML 1 ML VIAL SUBCUT SCH ×2 (05:22→14:49)
[2020-04-30] MEDS: HYDRALAZINE HCL 25 MG TABLET PO SCH ×2 (05:22→14:48)
[2020-04-30 06:17] LABS: ANION GAP 12 (5-19); BLOOD UREA NITROGEN 97 mg/dL (7-20); CALCIUM 8.4 mg/dL (8.4-10.2); CARBON DIOXIDE 26 mmol/L (22-30); CHLORIDE 94 mmol/L (98-107); GLUCOSE 74 mg/dL (75-110); PHOSPHORUS 6.3 mg/dL (2.5-4.5); POTASSIUM 4.8 mmol/L (3.6-5.0)
[2020-04-30 06:22] LABS: ABSOLUTE BASOPHILS # (AUTO) 0.1 10^3/uL (0.0-0.2); ABSOLUTE EOSINOPHILS # (AUTO) 0.4 10^3/uL (0.0-0.6); ABSOLUTE LYMPHOCYTES (AUTO) 1.8 10^3/uL (0.5-4.7); ABSOLUTE MONOCYTES (AUTO) 1.3 10^3/uL (0.1-1.4); ABSOLUTE NEUT (AUTO) 6.9 10^3/uL (1.7-8.2); EOSINOPHILS % (AUTO) 3.4 % (0-6); HEMATOCRIT 30.2 % (37.9-51.0); HEMOGLOBIN 10.2 g/dL (13.5-17.0); LYMPHOCYTES % (AUTO) 16.9 % (13-45); MEAN CORPUSCULAR HGB CONC 33.7 g/dL (32.0-36.0); MEAN CORPUSCULAR VOLUME 86 fl (80-97); PLATELET COUNT 243 10^3/uL (150-450); RED BLOOD COUNT 3.51 10^6/uL (4.35-5.55); RED CELL DISTRIBUTION WIDTH 13.9 % (11.5-14.0); SEGMENTED NEUTROPHILS % (AUTO) 66.7 % (42-78); TOTAL CELLS COUNTED % (AUTO) 100 %; WHITE BLOOD COUNT 10.4 10^3/uL (4.0-10.5)
[2020-04-30] MEDS ORDERED: EPOETIN ALFA-EPBX 5,000 UNITS (ESRD) in SYRINGE IV PRN ×3 (09:26)
--- NOTE | 2020-04-30 09:38 | PDOC PROGRESS REPORT ---
Subjective Progress Note for:: 04/30/20 Subjective:: I am seeing the patient during dialysis this morning. He states that he is doing okay and is breathing better. He denies any chest pains no shortness of breath. He denies any other new complaints. He is tolerating dialysis without any problems or concerns. His PermCath is working. He still making urine with a urine output of 500 mL for the last 24 hours. Reason For Visit: CKD STAGE 5, VOLUME OVERLOAD. ? CHF, UREAMIA Physical Exam Vital Signs: Temp Pulse Resp BP Pulse Ox 97.9 F 83 17 120/63 97 04/30/20 03:04 04/30/20 07:00 04/30/20 03:04 04/30/20 03:04 04/30/20 03:04 Intake & Output 04/29/20 04/30/20 05/01/20 06:59 06:59 06:59 Intake Total 1360 1538 Output Total 2000 500 Balance -640 1038 Weight 87.2 kg 87.2 kg Vitals during dialysis: Blood pressure 132/67, heart rate of 83, blood flow rate of 250 mL/min and dialysate flow rate of 600 mL/min. Exam: General appearance: PRESENT: no acute distress, cooperative, well-developed, well-nourished Head exam: PRESENT: atraumatic, normocephalic Eye exam: PRESENT: conjunctiva pink, PERRLA. ABSENT: scleral icterus Neck exam: ABSENT: JVD Respiratory exam: PRESENT: Diminished breath sounds. ABSENT: crackles, rales, rhonchi, unlabored, wheezes Cardiovascular exam: PRESENT: Regular rate rhythm -+S1, +S2. Grade 2/6 systolic murmur GI/Abdominal exam: PRESENT: normal bowel sounds, soft. ABSENT: guarding, mass, tenderness Extremities exam: Improved bilateral trace lower extremity pitting edema Neurological exam: PRESENT: alert, awake, oriented to person, place and time. Skin exam: PRESENT: dry, warm, Cardiovascular exam: PRESENT: +S1, +S2 GI/Abdominal exam: PRESENT: soft. ABSENT: diminished bowel sounds, distended, guarding, tenderness Results Laboratory Results: 04/30/20 05:36 04/30/20 05:36 04/30/20 04/30/20 05:36 05:36 WBC 10.4 RBC 3.51 L Hgb 10.2 L Hct 30.2 L MCV 86 MCH 29.0 MCHC 33.7 RDW 13.9 Plt Count 243 Seg Neutrophils % 66.7 Sodium 132.3 L Potassium 4.8 Chloride 94 L Carbon Dioxide 26 Anion Gap 12 BUN 97 H Creatinine 11.66 H Est GFR ( Amer) 5 L Glucose 74 L Calcium 8.4 Phosphorus 6.3 H 04/16/20 04/16/20 04/16/20 20:40 20:40 20:40 Creatine Kinase 2096 H CK-MB (CK-2) 10.70 H Troponin I 0.069 NT-Pro-B Natriuret Pep 65887 H 04/17/20 04/17/20 04/17/20 05:00 05:00 10:27 Creatine Kinase 1556 H 1357 H CK-MB (CK-2) 7.71 H Troponin I 0.063 NT-Pro-B Natriuret Pep 04/17/20 10:27 Creatine Kinase CK-MB (CK-2) 7.45 H Troponin I 0.073 NT-Pro-B Natriuret Pep Impressions: Renal Ultrasound 04/17/20 00:00 IMPRESSION: No hydronephrosis. Trace ascites. Fluoroscopy 04/25/20 00:00 IMPRESSION: IMAGE(S) OBTAINED DURING PROCEDURE. Guidance Fluoroscopy 04/25/20 00:00 IMPRESSION: IMAGE(S) OBTAINED DURING PROCEDURE. Chest X-Ray 04/28/20 00:00 IMPRESSION: The tip of the left IJ approach hemodialysis catheter projects within the azygos vein. Assessment & Plan - Diagnosis (1) End stage renal disease Is this a current diagnosis for this admission?: Yes Plan: Awaiting filler shaker to arrange chronic outpatient hemodialysis treatment at [facility]. Once arranged the patient can be discharged home. We will do dialysis today for 2.5 hours, using the patient's CVC, with 2 potassium bath, blood flow rate of 250 mL per minute, dialysate flow rate of 600 mL per minute, ultrafiltration 1.5 to 2 L as tolerated, no heparin and Procrit with 5000 units during dialysis intravenously. Patient is being monitored throughout dialysis treatment. (2) Type 2 diabetes mellitus with diabetic chronic kidney disease Qualifiers: Diabetes mellitus usp insulin use: with supervisor intermediates use Chronic kidney disease stage: stage 5, not on chronic dialysis Qualified Code(s): E11.22 - Type 2 diabetes mellitus with diabetic chronic kidney disease; N18.5 - Chronic kidney disease, stage 5; Z79.4 - director long term care (current) use of insulin Is this a current diagnosis for this admission?: Yes (3) Anemia in CKD (chronic kidney disease) Is this a current diagnosis for this admission?: Yes Plan: Associated with significant iron deficiency. I will give Retacrit and Venofer during dialysis treatment. (4) Acute on chronic systolic CHF (congestive heart failure) Is this a current diagnosis for this admission?: Yes Plan: Patient with dilated cardiomyopathy being followed by Dr. Gupta. Patient has clinical fluid overload. We will try to get ultrafiltration during hemodialysis. Continue current Bumex and metolazone. Started on Entresto. (5) Diabetes mellitus type 2 in obese Is this a current diagnosis for this admission?: Yes (6) HTN (hypertension) Qualifiers: Hypertension type: essential hypertension Qualified Code(s): I10 - Essential (primary) hypertension Is this a current diagnosis for this admission?: Yes Plan: Needs volume control which hopefully we can achieve during dialysis treatment. Currently much better controlled. (7) Chronic kidney disease-mineral and bone disorder Is this a current diagnosis for this admission?: Yes Plan: PTH is elevated at 484.7, phosphorus elevated at 6.3 with calcium of 8.4. Currently on calcitriol, calcium acetate and calcium carbonate. - Time Time with patient: 15-25 minutes
[2020-04-30] MEDS ORDERED: SACUBITRIL/VALSARTAN 49 MG/51 MG TABLET PO SCH (10:00)
[2020-04-30] MEDS: INSULIN LISPRO 100 UNIT/ML 3 ML VIAL SUBCUT SCH ×3 (10:39→16:06)
[2020-04-30] MEDS: ISOSORBIDE MONONITRATE 30 MG TAB.ER.24H PO SCH (10:50)
[2020-04-30] MEDS: CALCIUM CARBONATE 600 MG TABLET PO SCH (10:50)
[2020-04-30] MEDS: ASPIRIN 81 MG TABLET, ENT COATED PO SCH (10:50)
[2020-04-30] MEDS: CALCIUM ACETATE 667 MG CAPSULE PO SCH ×3 (10:50→16:06)
[2020-04-30] MEDS: BUMETANIDE 1 MG TABLET PO SCH ×2 (10:50→17:39)
[2020-04-30] MEDS: METOLAZONE 5 MG TABLET PO SCH ×2 (10:50→17:39)
[2020-04-30] MEDS: CETIRIZINE 10 MG TABLET PO SCH (10:50)
[2020-04-30] MEDS: CALCITRIOL 0.25 MCG CAPSULE PO SCH (10:50)
[2020-04-30] MEDS: METOPROLOL SUCCINATE 50 MG TAB.SR.24H PO SCH (10:50)
[2020-04-30] MEDS: INSULIN GLARGINE,HUM.REC.ANLOG 1,000 UNIT/10 ML VIAL (PYX) SUBCUT SCH (10:56)
--- NOTE | 2020-04-30 17:35 | PDOC DISCHARGE SUMMARY ---
Impression - Admit/DC Date/PCP Admission Date/Primary Care Provider: 04/16/20 22:12 YUSEF SOMERS MD Discharge Date: 04/30/20 - Discharge Diagnosis (1) Acute pulmonary edema Is this a current diagnosis for this admission?: Yes (2) Acute systolic heart failure Is this a current diagnosis for this admission?: Yes (3) Chronic kidney disease, stage 5 Is this a current diagnosis for this admission?: Yes (4) Personal history of malignant neoplasm of gallbladder Is this a current diagnosis for this admission?: Yes (5) Type 2 diabetes mellitus with diabetic chronic kidney disease Is this a current diagnosis for this admission?: Yes (6) Hyperkalemia Is this a current diagnosis for this admission?: Yes (7) End stage renal disease Is this a current diagnosis for this admission?: Yes (8) Cardiorenal syndrome Is this a current diagnosis for this admission?: Yes - Additional Information Resuscitation Status: Full Code Discharge Diet: Cardiac Discharge Activity: Activity As Tolerated, Balance Activity w/Rest, Weigh Daily Referrals: YUSEF SOMERS MD [Primary Care Provider] - 05/05/20 1:30 pm DENNIS DUNCAN PA-C [ALLIED HEALTH PROFESSIONAL] - Follow up as needed Prescriptions: Hydralazine HCl [Apresoline 25 mg Tablet] 25 mg PO Q8 #90 tablet Sacubitril/Valsartan [Entresto 49 mg/51 mg Tablet] 1 tab PO Q12 #60 tablet Isosorbide Mononitrate [Imdur 30 mg Tablet.er] 30 mg PO DAILY #30 tab.er.24h Metoprolol Succinate [Toprol Xl 50 mg Tab.sr] 50 mg PO Q12 #60 tab.sr.24h Metolazone [Zaroxolyn 5 mg Tablet] 5 mg PO BID #60 tablet Home Medications: Atorvastatin Calcium [Lipitor 40 mg Tablet] 40 mg PO DAILY 08/27/19 Clopidogrel Bisulfate [Plavix 75 mg Tablet] 75 mg PO DAILY 08/27/19 Cyclobenzaprine HCl [Flexeril 10 mg Tablet] 10 mg PO Q8HP PRN 08/27/19 Furosemide [Lasix 40 mg Tablet] 40 mg PO QAM 08/27/19 Aspirin [Ecotrin 81 mg EC Tablet] 81 mg PO DAILY 04/17/20 Calcitriol 0.5 mcg PO DAILY 04/17/20 Cetirizine HCl [Zyrtec 10 mg Tablet] 10 mg PO DAILY 04/17/20 Exenatide Microspheres [Bydureon Pen] 2 mg SQ Q7D 04/17/20 Oxycodone HCl/Acetaminophen [Percocet 10-325 mg Tablet] 1 each PO TID 04/17/20 Acetaminophen [Tylenol 325 mg Tablet] 325 mg PO Q4HP PRN tablet 04/30/20 Calcitriol [Rocaltrol 0.25 mcg Capsule] 0.5 mcg PO DAILY capsule 04/30/20 Hydralazine HCl [Apresoline 25 mg Tablet] 25 mg PO Q8 #90 tablet 04/30/20 Insulin Detemir [Levemir] 40 unit SQ BID #0 04/30/20 Isosorbide Mononitrate [Imdur 30 mg Tablet.er] 30 mg PO DAILY #30 tab.er.24h 04/30/20 Metolazone [Zaroxolyn 5 mg Tablet] 5 mg PO BID #60 tablet 04/30/20 Metoprolol Succinate [Toprol Xl 50 mg Tab.sr] 50 mg PO Q12 #60 tab.sr.24h 04/30/20 Sacubitril/Valsartan [Entresto 49 mg/51 mg Tablet] 1 tab PO Q12 #60 tablet 04/30/20 History of Present Illiness History of Present Illness: CORKY JURADO JR is a 69 year old male, He has history of diabetes mellitus type 2 complicated with chronic kidney disease stage V, diabetic nephropathy with nephrotic range proteinuria, atherosclerotic heart disease, RCA disease with stent placement he apparently came to the emergency room for evaluation of hyperkalemia the history was that he had blood work drawn at Dr. Stahl's office, the rehab liaison,was found to have hyperkalemia. He was called from home to go emergency room when he arrived in the ER he complained of better leg swelling shortness of breath on exertion. In the emergency room he was further evaluated, chest x-ray was consistent with pulmonary edema he has hyperkalemia, hypocalcemia and CKD stage V.It was felt patient needed to be admitted. Hospital Course Hospital Course: Patient was admitted for the management of acute pulmonary edema with a background of chronic kidney disease stage V and acute systolic heart failure. He was initially manage with diuresis, he was treated initially with furosemide infusion for couple of days. Patient renal function was severely impaired minimal urinary output was observed, he was seen by nephrology and it was determined that patient is now end-stage kidney disease and he requires hemodialysis. Hemodialysis was initiated on this admission, he was also seen by cardiology Dr. Spain, a transthoracic echocardiogram was obtained, the estimated ejection fraction was 35%.Patient was offered hemodialysis he was initially very reluctant to proceed with the procedure but he became very symptomatic with orthopnea, PND, because of the symptoms he decided to proceed with hemodialysis, he was seen by the surgeon a PermCath was inserted for the purpose of hemodialysis. Physical Exam Vital Signs: Temp Pulse Resp BP Pulse Ox 97.8 F 88 15 82/34 L 99 04/30/20 15:26 04/30/20 15:26 04/30/20 15:26 04/30/20 15:26 04/30/20 15:26 Intake & Output 04/29/20 04/30/20 05/01/20 06:59 06:59 06:59 Intake Total 1360 1538 Output Total 2000 500 Balance -640 1038 Weight 87.2 kg 87.2 kg General appearance: PRESENT: no acute distress Eye exam: PRESENT: PERRLA Respiratory exam: PRESENT: clear to auscultation [place] Cardiovascular exam: PRESENT: +S1, +S2 GI/Abdominal exam: PRESENT: soft Neurological exam: PRESENT: alert, CN II-XII grossly intact Results Laboratory Results: WBC 10.4 10^3/uL (4.0-10.5) 04/30/20 05:36 RBC 3.51 10^6/uL (4.35-5.55) L 04/30/20 05:36 Hgb 10.2 g/dL (13.5-17.0) L 04/30/20 05:36 Hct 30.2 % (37.9-51.0) L 04/30/20 05:36 MCV 86 fl (80-97) 04/30/20 05:36 MCH 29.0 pg (27.0-33.4) 04/30/20 05:36 MCHC 33.7 g/dL (32.0-36.0) 04/30/20 05:36 RDW 13.9 % (11.5-14.0) 04/30/20 05:36 Plt Count 243 10^3/uL (150-450) 04/30/20 05:36 Lymph % (Auto) 16.9 % (13-45) 04/30/20 05:36 Bibb % (Auto) 12.0 % (3-13) 04/30/20 05:36 Eos % (Auto) 3.4 % (0-6) 04/30/20 05:36 Baso % (Auto) 1.0 % (0-2) 04/30/20 05:36 Reticulocyte # 0.033 10^6/uL (0.028-0.122) 04/17/20 14:37 Absolute Neuts (auto) 6.9 10^3/uL (1.7-8.2) 04/30/20 05:36 Absolute Lymphs (auto) 1.8 10^3/uL (0.5-4.7) 04/30/20 05:36 Absolute Monos (auto) 1.3 10^3/uL (0.1-1.4) 04/30/20 05:36 Absolute Eos (auto) 0.4 10^3/uL (0.0-0.6) 04/30/20 05:36 Absolute Basos (auto) 0.1 10^3/uL (0.0-0.2) 04/30/20 05:36 Seg Neutrophils % 66.7 % (42-78) 04/30/20 05:36 Retic Count (auto) 1.02 % (0.66-2.85) 04/17/20 14:37 PT 14.1 SEC (11.4-15.4) 04/16/20 20:40 INR 1.07 04/16/20 20:40 APTT 33.8 SEC (23.5-35.8) 04/16/20 20:40 Sodium 132.3 mmol/L (137-145) L 04/30/20 05:36 Potassium 4.8 mmol/L (3.6-5.0) 04/30/20 05:36 Chloride 94 mmol/L (98-107) L 04/30/20 05:36 Carbon Dioxide 26 mmol/L (22-30) 04/30/20 05:36 Anion Gap 12 (5-19) 04/30/20 05:36 BUN 97 mg/dL (7-20) H 04/30/20 05:36 Creatinine 11.66 mg/dL (0.52-1.25) H 04/30/20 05:36 Est GFR ( Amer) 5 (>60) L 04/30/20 05:36 Est GFR (MDRD) Non-Af 4 (>60) L 04/30/20 05:36 Glucose 74 mg/dL (75-110) L 04/30/20 05:36 POC Glucose 210 mg/dL (70-110) H 04/30/20 15:26 Hemoglobin A1c % 5.8 % (4.7-6.0) 04/17/20 05:00 Calcium 8.4 mg/dL (8.4-10.2) 04/30/20 05:36 Phosphorus 6.3 mg/dL (2.5-4.5) H 04/30/20 05:36 Magnesium 1.7 mg/dL (1.6-2.3) 04/16/20 20:40 Magnesium Cancelled 04/16/20 20:40 Iron 34.4 ug/dL (49-181) L 04/17/20 10:27 TIBC 297 ug/dL (250-450) 04/17/20 10:27 % Saturation 12 % 04/17/20 10:27 Ferritin 80.00 ng/mL (17.9-464.0) 04/17/20 10:27 Total Bilirubin 0.5 mg/dL (0.2-1.3) 04/17/20 05:00 Direct Bilirubin 0.4 mg/dL (0.0-0.4) 04/17/20 05:00 Neonat Total Bilirubin Not Reportable 04/17/20 05:00 Neonat Direct Bilirubin Not Reportable 04/17/20 05:00 Neonat Indirect Bili Not Reportable 04/17/20 05:00 AST 31 U/L (17-59) 04/17/20 05:00 ALT 27 U/L (<50) 04/17/20 05:00 Alkaline Phosphatase 122 U/L (38-126) 04/17/20 05:00 Creatine Kinase 1357 U/L (55-170) H 04/17/20 10:27 CK-MB (CK-2) 7.45 ng/mL (<4.55) H 04/17/20 10:27 Troponin I 0.073 ng/mL 04/17/20 10:27 NT-Pro-B Natriuret Pep 42942 pg/mL (<125) H 04/16/20 20:40 Total Protein 6.2 g/dL (6.3-8.2) L 04/17/20 05:00 Albumin 3.0 g/dL (3.5-5.0) L 04/18/20 05:30 Triglycerides 123 mg/dL (<150) 04/17/20 05:00 Cholesterol 118.70 mg/dL (0-200) 04/17/20 05:00 LDL Cholesterol Direct 35 mg/dL (<100) 04/17/20 05:00 VLDL Cholesterol 25.0 mg/dL (10-31) 04/17/20 05:00 HDL Cholesterol 54 mg/dL (>40) 04/17/20 05:00 Amylase 134 U/L (30-110) H 04/16/20 20:40 Lipase 189.7 U/L (23-300) 04/16/20 20:40 Vitamin B12 538.0 pg/mL (239-931) 04/17/20 10:27 Folate 8.98 ng/mL (>2.76) 04/17/20 10:27 TSH 4.44 uIU/mL (0.47-4.68) 04/16/20 20:40 Free T4 1.21 ng/dL (0.78-2.19) 04/16/20 20:40 PTH Intact 484.7 pg/mL (10.0-65.0) H 04/17/20 14:37 Urine Color YELLOW 04/16/20 22:41 Urine Appearance CLEAR 04/16/20 22:41 Urine pH 5.0 (5.0-9.0) 04/16/20 22:41 Ur Specific Hoffman 1.014 04/16/20 22:41 Urine Protein >=500 mg/dL (NEGATIVE) H 04/16/20 22:41 Urine Glucose (UA) 50 mg/dL (NEGATIVE) H 04/16/20 22:41 Urine Ketones NEGATIVE mg/dL (NEGATIVE) 04/16/20 22:41 Urine Blood MODERATE (NEGATIVE) H 04/16/20 22:41 Urine Nitrite NEGATIVE (NEGATIVE) 04/16/20 22:41 Urine Bilirubin NEGATIVE (NEGATIVE) 04/16/20 22:41 Urine Urobilinogen NEGATIVE mg/dL (<2.0) 04/16/20 22:41 Ur Leukocyte Esterase NEGATIVE (NEGATIVE) 04/16/20 22:41 Urine WBC (Auto) 1 /HPF 04/16/20 22:41 Urine RBC (Auto) 2 /HPF 04/16/20 22:41 Squamous Epi Cells Auto <1 /HPF 04/16/20 22:41 Urine Mucus (Auto) RARE /LPF 04/16/20 22:41 Urine Ascorbic Acid NEGATIVE (NEGATIVE) 04/16/20 22:41 Urine Opiates Screen NEGATIVE 04/16/20 22:41 Urine Methadone Screen NEGATIVE 04/16/20 22:41 Ur Barbiturates Screen NEGATIVE 04/16/20 22:41 Ur Phencyclidine Scrn NEGATIVE 04/16/20 22:41 Ur Amphetamines Screen NEGATIVE 04/16/20 22:41 U Benzodiazepines Scrn NEGATIVE 04/16/20 22:41 Urine Cocaine Screen NEGATIVE 04/16/20 22:41 U Marijuana (THC) Screen NEGATIVE 04/16/20 22:41 Hep Bs Antigen Negative (Negative) 04/24/20 16:00 Hep Bs Antibody, Quant <3.1 mIU/mL (Immunity>9) L 04/24/20 16:00 Hep B Core Total Ab Negative (Negative) 04/24/20 16:00 HCV Quantitation HCV Not Detected IU/mL (.) 04/24/20 16:00 HCV RNA PCR Test Info Comment (.) 04/24/20 16:00 SARS-CoV-2 (PCR) NEGATIVE (NEGATIVE) 04/24/20 15:00 04/16/20 04/16/20 04/17/20 20:40 20:40 05:00 CK-MB (CK-2) 10.70 H 7.71 H Troponin I 0.069 0.063 NT-Pro-B Natriuret Pep 41708 H 04/17/20 10:27 CK-MB (CK-2) 7.45 H Troponin I 0.073 NT-Pro-B Natriuret Pep Impressions: Chest X-Ray 04/16/20 19:57 IMPRESSION: Mild pulmonary edema pattern, without pleural effusions or focal consolidation. Renal Ultrasound 04/17/20 00:00 IMPRESSION: No hydronephrosis. Trace ascites. Fluoroscopy 04/25/20 00:00 IMPRESSION: IMAGE(S) OBTAINED DURING PROCEDURE. Guidance Fluoroscopy 04/25/20 00:00 IMPRESSION: IMAGE(S) OBTAINED DURING PROCEDURE. Guidance Fluoroscopy 04/25/20 00:00 IMPRESSION: IMAGE(S) OBTAINED DURING PROCEDURE. Chest X-Ray 04/28/20 00:00 IMPRESSION: The tip of the left IJ approach hemodialysis catheter projects within the azygos vein. Stroke Is this a Stroke Patient?: No Acute Heart Failure Is this a Heart Failure Patient?: Yes Documentation of LVEF assessment?: Yes LVEF: LVEF Less Than or Equal to 35% Anticoagulant Therapy: N/A Discharged on Evidence-Based Beta Blockers: Yes Discharged on ARNI?: Yes Discharged on ARB?: N/A-Discharged on ARNI Discharged on ACEI?: N/A Discharged on ARNI For LVEF <35%, discharged on Aldosterone Antagonist?: No-document contraincations - Patient with end-stage renal disease Reason(s) not discharged on Aldosterone Antagonist: Renal dysfunction (creatinine >2.5 mg/dL in men or 2.0 mg/dL in women) Follow-up Appointment scheduled within 7 days?: Yes
[2020-04-30 17:47] VITALS: BP 120/65
== END 2020-04-30 18:58 | disposition home or self-care (01) | DRG 291 ==
LOC: ER 19:03 → EH 22:12 → 3W 04-17 00:15
PROVIDERS: ADMIT Internal Medicine; ATTEND Internal Medicine
PROC: B24BZZZ Ultrasonography of Heart with Aorta (ICD-10-PCS; 2020-04-17)
PROC: 5A09457 Assistance with Respiratory Ventilation, 24-96 Consecutive Hours, Continuous Positive Airway Pressure (ICD-10-PCS; 2020-04-17)
PROC: 5A1D70Z Performance of Urinary Filtration, Intermittent, Less than 6 Hours Per Day (ICD-10-PCS; 2020-04-25)
PROC: 02HV33Z Insertion of Infusion Device into Superior Vena Cava, Percutaneous Approach (ICD-10-PCS; 2020-04-25)
PROC: B518ZZA Fluoroscopy of Superior Vena Cava, Guidance (ICD-10-PCS; 2020-04-25)
PROC: 02PY33Z Removal of Infusion Device from Great Vessel, Percutaneous Approach (ICD-10-PCS; 2020-04-25)
PROC: 02HV33Z Insertion of Infusion Device into Superior Vena Cava, Percutaneous Approach (ICD-10-PCS; principal; 2020-04-25 07:30)
DX: I13.2 Hypertensive heart and chronic kidney disease with heart failure and with stage 5 chronic kidney disease, or end stage renal disease (principal); I50.23 Acute on chronic systolic (congestive) heart failure; N18.5 Chronic kidney disease, stage 5; N17.9 Acute kidney failure, unspecified; M62.82 Rhabdomyolysis; E87.2 Acidosis; T82.49XA Other complication of vascular dialysis catheter, initial encounter; E11.22 Type 2 diabetes mellitus with diabetic chronic kidney disease; I25.10 Atherosclerotic heart disease of native coronary artery without angina pectoris; M19.90 Unspecified osteoarthritis, unspecified site; F32.9 Major depressive disorder, single episode, unspecified; E87.5 Hyperkalemia; E83.51 Hypocalcemia; E78.5 Hyperlipidemia, unspecified; J44.9 Chronic obstructive pulmonary disease, unspecified; D63.1 Anemia in chronic kidney disease; E83.39 Other disorders of phosphorus metabolism; N25.0 Renal osteodystrophy; I42.0 Dilated cardiomyopathy; I25.5 Ischemic cardiomyopathy; I27.20 Pulmonary hypertension, unspecified; Z85.09 Personal history of malignant neoplasm of other digestive organs; Z92.21 Personal history of antineoplastic chemotherapy; E66.9 Obesity, unspecified; E83.9 Disorder of mineral metabolism, unspecified; Z86.711 Personal history of pulmonary embolism; Y83.2 Surgical operation with anastomosis, bypass or graft as the cause of abnormal reaction of the patient, or of later complication, without mention of misadventure at the time of the procedure; Z20.828 Contact with and (suspected) exposure to other viral communicable diseases; Z90.49 Acquired absence of other specified parts of digestive tract; Z86.718 Personal history of other venous thrombosis and embolism; Z87.891 Personal history of nicotine dependence; Z79.84 Long term (current) use of oral hypoglycemic drugs; Z79.4 Long term (current) use of insulin; Z79.899 Other long term (current) drug therapy; Z95.5 Presence of coronary angioplasty implant and graft; Z83.3 Family history of diabetes mellitus; Z88.0 Allergy status to penicillin; Z91.013 Allergy to seafood; Z91.048 Other nonmedicinal substance allergy status; Z99.2 Dependence on renal dialysis
CPT/HCPCS: 36415; 532; 71045; 71046; 76770; 77001; 80048; 80053; 80061; 80307; 81001; 82040; 82150; 82550; 82553; 82607; 82728; 82746; 82962; 83036; 83540; 83550; 83690; 83735; 83880; 83970; 84100; 84132; 84439; 84443; 84484; 85025; 85027; 85045; 85610; 85730; 86317; 86704; 87040; 87077; 87086; 87150; 87340; 87522; 87635; 93005; 93010; 93306; 94660; 96374; 99285; C1713; C1769; C9803; J0610; J1439; J1642; J1644; J1756; J1815; J1940; J2250; J2370; J2704; J3010; J3490; J7050; Q5105; S0119